=== PATIENT | male | born 1930 | race Caucasian/White ===

== ENCOUNTER 2016-07-24 | Outpatient (CLI) | payer MEDICARE | END 2016-07-24 18:41 | disposition critical access hospital (66) | CPT/HCPCS: A0425; A0427 ==

== ENCOUNTER 2016-07-24 19:01 | Emergency (ER) | payer MEDICARE ==
[2016-07-24] MEDS ORDERED: SODIUM CHLORIDE 0.9% 1,000 ML IV ONE ×2 (20:17→22:29)
[2016-07-24] MEDS ORDERED: HEPARIN 5,000 UNIT/ML VIAL IVP ONE (21:12)
[2016-07-24] MEDS ORDERED: HEPARIN 25,000 UNITS/500 ML 500 ML IV STA (21:12)
[2016-07-24] MEDS ORDERED: IOPAMIDOL-300 100 ML VIAL IVP ONE (21:14)
[2016-07-24] MEDS ORDERED: HEPARIN 5,000 UNIT/ML VIAL ONE (21:20)
[2016-07-24] MEDS ORDERED: HEPARIN 25,000 UNITS/500 ML 500 ML IV ONE (21:20)
== END 2016-07-24 23:18 | disposition short-term general hospital (02) ==
DX: I26.02 Saddle embolus of pulmonary artery with acute cor pulmonale (principal); Z86.73 Personal history of transient ischemic attack (TIA), and cerebral infarction without residual deficits; E11.9 Type 2 diabetes mellitus without complications; F03.90 Unspecified dementia, unspecified severity, without behavioral disturbance, psychotic disturbance, mood disturbance, and anxiety; Z79.84 Long term (current) use of oral hypoglycemic drugs
CPT/HCPCS: 36415; 71010; 71275; 80053; 80185; 82550; 82553; 82803; 83605; 83690; 84484; 85025; 85379; 93005; 93010; 96365; 96366; 96376; 99285; 99291; Q9967

== ENCOUNTER 2016-08-10 | Outpatient (CLI) | payer MEDICARE | END 2016-08-10 21:37 | disposition critical access hospital (66) | DX: R56.9 Unspecified convulsions (principal) | CPT/HCPCS: A0425; A0429 ==

== ENCOUNTER 2016-08-10 21:54 | Observation (INO) | payer MEDICARE ==
[2016-08-10] MEDS ORDERED: ENOXAPARIN 100 MG/ML SYRINGE SUBQ STA (23:25)
[2016-08-10] MEDS ORDERED: PHENYTOIN IV STA (23:28)
[2016-08-10] MEDS ORDERED: SODIUM CHLORIDE 0.9% IV STA (23:28)
[2016-08-10] MEDS ORDERED: ENOXAPARIN 100 MG/ML SYRINGE SUBQ ONE (23:30)
[2016-08-11] MEDS ORDERED: levETIRAcetam 250 MG TABLET PO STA (02:00)
[2016-08-11] MEDS ORDERED: levETIRAcetam 250 MG TABLET ONE (02:08)
[2016-08-11] MEDS ORDERED: SODIUM CHLORIDE FLUSH 0.9% 10 ML SYRINGE IVP PRN (03:29)
[2016-08-11] MEDS ORDERED: ONDANSETRON ODT 4 MG TABLET TL PRN (03:29)
[2016-08-11] MEDS ORDERED: oxyCODONE 5 MG TABLET PO PRN (03:29)
[2016-08-11] MEDS ORDERED: ACETAMINOPHEN 325 MG TABLET PO PRN (03:29)
[2016-08-11] MEDS ORDERED: ONDANSETRON 4 MG/2 ML VIAL IVP PRN (03:29)
[2016-08-11] MEDS ORDERED: SODIUM CHLORIDE 0.9% 1,000 ML IV SCH (04:00)
[2016-08-11] MEDS: SODIUM CHLORIDE FLUSH 0.9% 10 ML SYRINGE IVP SCH ×3 (05:07→20:52)
[2016-08-11] MEDS: PANTOPRAZOLE 40 MG TABLET PO SCH (06:32)
[2016-08-11] MEDS ORDERED: metFORMIN 500 MG TABLET PO SCH (08:00)
[2016-08-11] MEDS: levETIRAcetam 250 MG TABLET PO SCH ×2 (08:03→20:51)
[2016-08-11] MEDS: POLYETHYLENE GLYCOL 3350 17 GM PACKET PO SCH (08:03)
[2016-08-11] MEDS ORDERED: ENOXAPARIN 150 MG/ML SYRINGE SUBQ SCH (09:00)
[2016-08-11] MEDS: ENOXAPARIN 80 MG/0.8 ML SYRINGE SUBQ SCH ×2 (11:22→20:51)
[2016-08-11] MEDS: WARFARIN 5 MG TABLET PO SCH (14:49)
[2016-08-11] MEDS ORDERED: WARFARIN 2.5 MG TABLET PO ONE (15:00)
[2016-08-11] MEDS ORDERED: DEXTROSE 5% 1,000 ML IV PRN (15:23)
[2016-08-11] MEDS ORDERED: GLUCAGON 1 MG/ML VIAL SUBQ PRN (15:23)
[2016-08-11] MEDS ORDERED: DEXTROSE GEL 37.5 GM TUBE PO PRN (15:23)
[2016-08-11] MEDS ORDERED: DEXTROSE 50% ABBOJECT 25 GM/50 ML SYRINGE IVP PRN (15:23)
[2016-08-11] MEDS ORDERED: INSULIN ASPART 300 UNIT/3 ML PEN SUBQ SCH (17:00)
[2016-08-11] MEDS ORDERED: ATORVASTATIN 40 MG TABLET PO SCH (21:00)
[2016-08-12] MEDS: SODIUM CHLORIDE FLUSH 0.9% 10 ML SYRINGE IVP SCH ×2 (05:18→08:45)
[2016-08-12] MEDS: PANTOPRAZOLE 40 MG TABLET PO SCH (06:23)
[2016-08-12] MEDS ORDERED: metFORMIN 500 MG TABLET PO SCH (08:00)
[2016-08-12] MEDS: levETIRAcetam 250 MG TABLET PO SCH (08:40)
[2016-08-12] MEDS: ENOXAPARIN 80 MG/0.8 ML SYRINGE SUBQ SCH (08:41)
[2016-08-12] MEDS: POLYETHYLENE GLYCOL 3350 17 GM PACKET PO SCH (08:41)
[2016-08-12] MEDS: WARFARIN 5 MG TABLET PO SCH (12:03)
== END 2016-08-12 14:00 | disposition home or self-care (01) ==
DX: I69.393 Ataxia following cerebral infarction (principal); Z86.711 Personal history of pulmonary embolism; I69.354 Hemiplegia and hemiparesis following cerebral infarction affecting left non-dominant side; R79.1 Abnormal coagulation profile; E11.9 Type 2 diabetes mellitus without complications; G40.409 Other generalized epilepsy and epileptic syndromes, not intractable, without status epilepticus; I82.432 Acute embolism and thrombosis of left popliteal vein; L29.9 Pruritus, unspecified; T42.0X5A Adverse effect of hydantoin derivatives, initial encounter; Y92.238 Other place in hospital as the place of occurrence of the external cause; I10 Essential (primary) hypertension; F01.50 Vascular dementia, unspecified severity, without behavioral disturbance, psychotic disturbance, mood disturbance, and anxiety; K21.9 Gastro-esophageal reflux disease without esophagitis; Z79.84 Long term (current) use of oral hypoglycemic drugs; Z79.01 Long term (current) use of anticoagulants; Z85.038 Personal history of other malignant neoplasm of large intestine; Z90.49 Acquired absence of other specified parts of digestive tract; Z87.442 Personal history of urinary calculi; Z66 Do not resuscitate; Z79.899 Other long term (current) drug therapy
CPT/HCPCS: 36415; 70450; 70551; 80048; 80185; 81003; 83036; 84484; 85025; 85610; 93005; 93010; 93971; 96361; 96372; 96374; 97161; 99284; 99285; A9270; G0378; G8978; G8979; G8980; J1650

== ENCOUNTER 2016-09-11 15:08 | Outpatient (CLI) | payer MEDICARE | END 2016-09-11 15:09 | disposition home or self-care (01) | DX: R05 Cough (principal) ==

== ENCOUNTER 2017-03-13 23:53 | Outpatient (CLI) | payer MEDICARE | END 2017-03-13 23:54 | disposition critical access hospital (66) | LOC: EMS 23:53 | PROVIDERS: ATTEND Surgery | DX: R56.9 Unspecified convulsions (principal) | CPT/HCPCS: A0425; A0427 ==

== ENCOUNTER 2017-03-14 00:10 | Emergency (ER) | payer MEDICARE ==
[2017-03-14 02:05] VITALS: BP 168/65
--- NOTE | 2017-03-14 02:15 | ED Physician Documentation ---
PD HPI SEIZURE - Stated complaint Stated Complaint: SZ - Chief complaint Chief Complaint: Neuro - History obtained from History obtained from: Patient, Family - History of Present Illness Timing - onset: Enter time (00:00 (midnight)) Witnessed: Witnessed Number of seizures: Single, Lasted minutes Description of seizure activity: Generalized, Postictal Injury during seizure: None Pain level now: 0 Associated symptoms: None History of seizures: Known seizure disorder Similar symptoms before: Diagnosis (seizure disorder) Review of Systems Constitutional: reports: Reviewed and negative Eyes: reports: Reviewed and negative Cardiac: reports: Reviewed and negative Respiratory: reports: Reviewed and negative GI: reports: Reviewed and negative : denies: Incontinent Neurologic: reports: Seizure. denies: Generalized weakness, Focal weakness, Numbness, Headache PD PAST MEDICAL HISTORY - Past Medical History Cardiovascular: None Respiratory: None Neuro: Dementia, CVA Endocrine/Autoimmune: Type 2 diabetes GI: GERD, Other : Benign prostate hypertrophy HEENT: None Psych: None Musculoskeletal: None Derm: None - Past Surgical History Past Surgical History: Yes General: Bowel surgery, Colonoscopy, Other Ortho: Hip replacement HEENT: Other Derm: Other - Present Medications Home Medications: Ambulatory Orders Medication Instructions Recorded Confirmed Metformin HCl [Glucophage] 500 mg PO BIDWM 06/04/13 08/10/16 Omeprazole 20 mg PO DAILY PRN 11/24/15 08/10/16 Atorvastatin Calcium [Lipitor] 40 mg PO BID 08/11/16 08/11/16 Acetaminophen [Tylenol] 650 mg PO Q4HR PRN #0 tablet 08/12/16 Pantoprazole [Protonix] 40 mg PO QDAC #30 tablet 08/12/16 levETIRAcetam [Keppra] 500 mg PO BID #60 tablet 08/12/16 metFORMIN [Glucophage] 500 mg PO BIDWM tablet 08/12/16 oxyCODONE [Roxicodone] 5 mg PO Q4HR PRN #0 tablet 08/12/16 - Allergies Allergies/Adverse Reactions: Allergies Allergy/AdvReac Type Severity Reaction Status Date / Time codeine AdvReac Intermediate Nausea Verified 02/04/16 11:45 memantine HCl * AdvReac Anxiety Verified 04/02/16 16:45 [From Namenda] - Social History Does the pt smoke?: No Smoking Status: Never smoker Does the pt drink ETOH?: No Does the pt have substance abuse?: No - Immunizations Immunizations are current?: No - POLST Patient has POLST: Yes PD ED PE NORMAL - Vitals Vital signs reviewed: Yes - General General: Alert and oriented X 3, No acute distress, Well developed/nourished - HEENT HEENT: PERRL, EOMI, Moist mucous membranes, Pharynx benign - Neck Neck: Supple, no meningeal sign - Cardiac Cardiac: RRR - Respiratory Respiratory: No respiratory distress, Clear bilaterally - Abdomen Abdomen: Soft, Non tender - Derm Derm: Normal color, Warm and dry - Extremities Extremities: No edema - Neuro Neuro: Alert and oriented X 3, hvac engineer 2-12 intact, No motor deficit, No sensory deficit, Normal speech Results - Vitals Vitals: Oxygen O2 Source Room air PD MEDICAL DECISION MAKING - ED course Complexity details: reviewed old records, re-evaluated patient, considered differential, d/w patient, d/w family ED course: patient had seizure lasting approximately five minutes at home while in bed. was in another room, I heard an odd noise, and found patient having seizure while in bed and unresponsive. She called 911, and en route to hospital , patient has gradually but completely returned to his baseline mental status and arrives to emergency department asymptomatic. He remained asymptomatic and seizure free during emergency department observation. Departure - Departure Disposition: 01 Home, Self Care Clinical Impression: Breakthrough seizure Condition: Good Instructions: ED Seizure Recurrent Comments: Contact your neurologist or primary care physician in the morning to arrange for next available appointment Discharge Date/Time: 03/14/17 02:50
== END 2017-03-14 02:50 | disposition home or self-care (01) ==
LOC: EDUNIT# → ED 00:10 → SUPCPDRO 00:10 → ED 02:50
DX: R56.9 Unspecified convulsions (principal); F03.90 Unspecified dementia, unspecified severity, without behavioral disturbance, psychotic disturbance, mood disturbance, and anxiety; E11.8 Type 2 diabetes mellitus with unspecified complications; Z86.73 Personal history of transient ischemic attack (TIA), and cerebral infarction without residual deficits; Z79.84 Long term (current) use of oral hypoglycemic drugs; Z96.649 Presence of unspecified artificial hip joint
CPT/HCPCS: 99283; 99284

== ENCOUNTER 2017-04-08 05:11 | Emergency (ER) | payer MEDICARE ==
[2017-04-08 05:49] LABS: BILIRUBIN,URINE NEGATIVE (NEGATIVE)
--- NOTE | 2017-04-08 05:50 | ED Physician Documentation ---
PD HPI MALE - Stated complaint Stated Complaint: MALE - Chief complaint Chief Complaint: UTI - History obtained from History obtained from: Patient, Family - History of Present Illness Timing - onset: Today Timing - details: Abrupt onset, Now resolved Associated symptoms: Hematuria Similar symptoms before: Has not had sx before Recently seen: Not recently seen - Additional information Additional information: Patient is an 86 year old male on xeralto for a previous saddle PE who is presenting to the emergency department for hematuria. According to patient and family when the patient got up to go to the bathroom to urinate, after he went he noticed blood on the floor and blood in the toilet. Patient has never had these symptoms before. Review of Systems Unable to obtain: Dementia PD PAST MEDICAL HISTORY - Past Medical History Past Medical History: Yes Cardiovascular: None Respiratory: None Neuro: Dementia, CVA Endocrine/Autoimmune: Type 2 diabetes GI: GERD, Other : Benign prostate hypertrophy HEENT: None Psych: None Musculoskeletal: None Derm: None - Past Surgical History Past Surgical History: Yes General: Bowel surgery, Colonoscopy, Other Ortho: Hip replacement HEENT: Other Derm: Other - Present Medications Home Medications: Ambulatory Orders Medication Instructions Recorded Confirmed Metformin HCl [Glucophage] 500 mg PO BIDWM 06/04/13 04/08/17 Omeprazole 20 mg PO DAILY PRN 11/24/15 04/08/17 Atorvastatin Calcium [Lipitor] 40 mg PO BID 08/11/16 04/08/17 levETIRAcetam [Keppra] 500 mg PO BID #60 tablet 08/12/16 04/08/17 Rivaroxaban [Xarelto] 20 mg ORAL DAILY 04/08/17 04/08/17 Sucralfate [Carafate] 2 tsp ORAL BID 04/08/17 04/08/17 - Allergies Allergies/Adverse Reactions: Allergies Allergy/AdvReac Type Severity Reaction Status Date / Time codeine AdvReac Intermediate Nausea Verified 04/08/17 05:20 memantine HCl * AdvReac Anxiety Verified 04/08/17 05:20 [From Namenda] - Social History Does the pt smoke?: No Smoking Status: Never smoker Does the pt drink ETOH?: No Does the pt have substance abuse?: No - Immunizations Immunizations are current?: No - POLST Patient has POLST: Yes PD ED PE NORMAL - Vitals Vital signs reviewed: Yes - General General: Alert and oriented X 3, No acute distress - HEENT HEENT: Atraumatic, PERRL - Neck Neck: Supple, no meningeal sign - Cardiac Cardiac: RRR, No murmur - Respiratory Respiratory: No respiratory distress - Abdomen Abdomen: Non tender, Non distended - Derm Derm: Normal color, Warm and dry, No rash - Extremities Extremities: No deformity, No tenderness to palpate, No edema - Neuro Neuro: Alert and oriented X 3, No motor deficit, No sensory deficit, Normal speech - Psych Psych: Normal mood, Normal affect PD ED PE EXPANDED - Male Male : Other (dried blood on the penis and the diaper) - Rectal Rectal: Other (no blood in rectal cavity) Results - Vitals Vitals: Vital Signs - 24 hr 04/08/17 05:15 Temperature 36 C L Heart Rate 62 Respiratory 16 Rate Blood Pressure 172/79 H O2 Saturation 98 Oxygen O2 Source Room air - Labs Labs: Laboratory Tests 04/08/17 05:30 Urine Color YELLOW Urine Clarity CLEAR Urine pH 7.0 Ur Specific [place] 1.010 Urine Protein NEGATIVE Urine Glucose (UA) NEGATIVE Urine Ketones NEGATIVE Urine Occult Blood MODERATE H Urine Nitrite NEGATIVE Urine Bilirubin NEGATIVE Urine Urobilinogen 0.2 (NORMAL) Ur Leukocyte Esterase TRACE H Urine RBC 6-10 H Urine WBC 4-5 Ur Squamous Epith Cells NONE SEEN Urine Bacteria None Seen Ur Microscopic Review INDICATED Urine Culture Comments INDICATED PD MEDICAL DECISION MAKING - ED course Complexity details: reviewed old records, reviewed results, re-evaluated patient , considered differential, d/w patient, d/w family ED course: Patient was seen and examined at bedside. Patient was well appearing and in no acute distress. Patient's urine was collected and the bleeding had mostly stopped, there was no gross hematuria. patients labs were within normal limits. Patient required no further work up. ample time was given to the patient and family to ask and answer questions. Patient was stable for discharge with outpatient follow up. Departure - Departure Disposition: 01 Home, Self Care Clinical Impression: Hematuria Condition: Good Instructions: Hematuria Poss Causes, ED Hematuria Follow-Up: [facility] [Provider Group] - Within 3 Days Comments: Your diagnostics today were within normal limits. there was not significant blood loss today. If the bleeding returns you should follow up with the [facility]. You should make sure that you stay well hydrated. You should continue with your current medical regiment. You may return to the emergency department at any time for dizziness, syncope, new, worsening or uncontrollable symptoms.
[2017-04-08 05:55] LABS: UA w/ MICROSCOPIC CHARGE YES; UR CULTURE IF IND INDICATED
[2017-04-08 06:35] LABS: BASOPHILS % (AUTO) 0.4 %; EOSINOPHILS # (AUTO) 0.1 10^3/uL (0.0-0.7); EOSINOPHILS % (AUTO) 2.1 %; HCT - HEMATOCRIT 36.5 % (42.0-52.0); HGB - HEMOGLOBIN 11.8 g/dL (14.0-18.0); LYMPHOCYTES # (AUTO) 0.4 10^3/uL (1.5-3.5); LYMPHOCYTES % (AUTO) 12.1 %; MEAN CORPUSCULAR HEMOGLOBIN 28.7 pg (27.0-31.0); MEAN CORPUSCULAR HGB CONC 32.3 g/dL (32.0-36.0); MEAN CORPUSCULAR VOLUME 88.9 fL (80.0-94.0); MONOCYTES # (AUTO) 0.3 10^3/uL (0.0-1.0); NEUTROPHILS # (AUTO) 2.3 10^3/uL (1.5-6.6); NEUTROPHILS % (AUTO) 74.4 %; RED BLOOD COUNT 4.11 10^6/uL (4.70-6.10); RED CELL DISTRIBUTION WIDTH 17.4 % (12.0-15.0); UNCORRECTED WHITE BLOOD COUNT 3.1 x10^3/uL; WHITE BLOOD COUNT 3.1 x10^3/uL (4.8-10.8)
[2017-04-08 06:45] VITALS: BP 168/70
== END 2017-04-08 06:49 | disposition home or self-care (01) ==
LOC: ED 05:11
DX: R31.9 Hematuria, unspecified (principal); E11.9 Type 2 diabetes mellitus without complications; F03.90 Unspecified dementia, unspecified severity, without behavioral disturbance, psychotic disturbance, mood disturbance, and anxiety; Z79.84 Long term (current) use of oral hypoglycemic drugs; Z86.73 Personal history of transient ischemic attack (TIA), and cerebral infarction without residual deficits; Z96.649 Presence of unspecified artificial hip joint
CPT/HCPCS: 36415; 81001; 81003; 85025; 87086; 99283; 99284

== ENCOUNTER 2017-07-08 12:38 | Emergency (ER) | payer MEDICARE ==
--- NOTE | 2017-07-08 13:13 | ED Physician Documentation ---
PD HPI NVD - Stated complaint Stated Complaint: UNABLE TO EAT/DRAINAGE - Chief complaint Chief Complaint: Heent - History obtained from History obtained from: Patient - History of Present Illness Timing - onset: How many days ago (3) Timing - duration: Days (3) Timing - details: Abrupt onset, Still present (unasble to swallow (minimal sips at times, otherwise vomiting saliva/fluids and any attempt PO intake). Has been unable to swallowAny more than very small bites of food and soft foods for the last 3 or 4 months. In the last few weeks he has had an episode every few days where he is unable to swallow and just spitting up saliva for an hour or 2 with the longest episode being 4 hours. It then would clearly be able to swallow small soft amounts. He started having the inability to swallow and this vomiting saliva and any attempted oral intake starting 3 days ago. He is feeling weak and lightheaded. He has not been able to take any of his usual medications including Xarelto his blood thinner. He did not take his seizure medicine Keppra but has not had any seizures.) Associated symptoms: Loss of appetite. No: Fever, Abdominal pain, Near syncope / syncope, Dysuria Contributing factors: Anticoagulated. No: Sick contact, Bad food, Travel, Recent antibiotics Similar symptoms before: No diagnosis (similar shorter episodes and trouble swallowing for the past 3-4 months, slowly worsening.) Recently seen: Not recently seen Review of Systems Constitutional: denies: Fever, Chills Nose: denies: Rhinorrhea / runny nose, Congestion Cardiac: denies: Chest pain / pressure Respiratory: denies: Dyspnea, Cough GI: denies: Constipation, Diarrhea, Hematemesis : denies: Dysuria (but has had dark urine the past day) Neurologic: reports: Generalized weakness. denies: Focal weakness, Numbness, Syncope Psychiatric: denies: Anxiety, Insomnia Endocrine: reports: Easy bruising / bleeding. denies: Weight loss PD PAST MEDICAL HISTORY - Past Medical History Cardiovascular: None Respiratory: None Neuro: Dementia, CVA Endocrine/Autoimmune: Type 2 diabetes GI: GERD, Other : Benign prostate hypertrophy HEENT: None Psych: None Musculoskeletal: None Derm: None - Past Surgical History Past Surgical History: Yes General: Bowel surgery, Colonoscopy, Other Ortho: Hip replacement HEENT: Other Derm: Other - Present Medications Home Medications: Ambulatory Orders Medication Instructions Recorded Confirmed Metformin HCl [Glucophage] 500 mg PO BIDWM 06/04/13 04/08/17 Omeprazole 20 mg PO DAILY PRN 11/24/15 04/08/17 Atorvastatin Calcium [Lipitor] 40 mg PO BID 08/11/16 04/08/17 levETIRAcetam [Keppra] 500 mg PO BID #60 tablet 08/12/16 04/08/17 Rivaroxaban [Xarelto] 20 mg ORAL DAILY 04/08/17 04/08/17 Sucralfate [Carafate] 2 tsp ORAL BID 04/08/17 04/08/17 - Allergies Allergies/Adverse Reactions: Allergies Allergy/AdvReac Type Severity Reaction Status Date / Time codeine AdvReac Intermediate Nausea Verified 04/08/17 05:20 memantine HCl * AdvReac Anxiety Verified 04/08/17 05:20 [From Namenda] - Social History Does the pt smoke?: No Smoking Status: Never smoker Does the pt drink ETOH?: No Does the pt have substance abuse?: No - Immunizations Immunizations are current?: No - POLST Patient has POLST: Yes PD ED PE NORMAL - Vitals Vital signs reviewed: Yes - General General: Alert and oriented X 3, Well developed/nourished - HEENT HEENT: Pharynx benign. No: Moist mucous membranes - Neck Neck: Supple, no meningeal sign, No adenopathy - Cardiac Cardiac: RRR, No murmur - Respiratory Respiratory: Clear bilaterally - Abdomen Abdomen: Normal bowel sounds, Soft, Non tender, Non distended - Male Male : Deferred - Rectal Rectal: Deferred - Back Back: No CVA TTP - Derm Derm: Normal color, Warm and dry - Extremities Extremities: No deformity, No tenderness to palpate, Normal ROM s pain, No edema , No calf tenderness / cord - Neuro Neuro: Alert and oriented X 3, No motor deficit, Normal speech - Psych Psych: Normal mood, Normal affect Results - Vitals Vitals: Vital Signs - 24 hr 07/08/17 12:46 Temperature 36.7 C Heart Rate 71 Respiratory 16 Rate Blood Pressure 156/85 H O2 Saturation 99 Oxygen O2 Source Room air - Labs Labs: Laboratory Tests 07/08/17 07/08/17 07/08/17 14:50 14:50 14:50 WBC 2.8 L RBC 3.97 L Hgb 11.7 L Hct 35.1 L MCV 88.4 MCH 29.3 MCHC 33.2 RDW 17.0 H Plt Count 186 MPV 7.9 Neut # 2.0 Lymph # 0.4 L [place] # 0.3 Eos # 0.1 Baso # 0.0 Absolute Nucleated RBC 0.00 Nucleated RBC % 0.2 Manual Slide Review Indicated Platelet Estimate NORMAL (130-450,000) Platelet Morphology NORMAL APPEARANCE RBC Morph Micro Appear NORMAL APPEARANCE PT 13.4 H INR 1.2 APTT 26.3 Sodium 141 Potassium 3.6 Chloride 107 Carbon Dioxide 25 Anion Gap 9.0 BUN 13 Creatinine 0.8 Estimated GFR (MDRD) 91 Glucose 105 H Calcium 9.2 Magnesium 1.9 Total Bilirubin 0.5 AST 34 ALT 28 Alkaline Phosphatase 88 B-Natriuretic Peptide Total Protein 7.3 Albumin 3.9 Globulin 3.4 Albumin/Globulin Ratio 1.1 Lipase 23 07/08/17 14:50 WBC RBC Hgb Hct MCV MCH MCHC RDW Plt Count MPV Neut # Lymph # [place] # Eos # Baso # Absolute Nucleated RBC Nucleated RBC % Manual Slide Review Platelet Estimate Platelet Morphology RBC Morph Micro Appear PT INR APTT Sodium Potassium Chloride Carbon Dioxide Anion Gap BUN Creatinine Estimated GFR (MDRD) Glucose Calcium Magnesium Total Bilirubin AST ALT Alkaline Phosphatase B-Natriuretic Peptide 56 Total Protein Albumin Globulin Albumin/Globulin Ratio Lipase PD MEDICAL DECISION MAKING - ED course Complexity details: reviewed results, considered differential, d/w patient, d/w small business consultant (YESSENIA Montano at [facility]. then talked with ER there. ) Departure - Departure Disposition: 02 Transfer Acute Care Hosp Clinical Impression: Esophageal obstruction, Dehydration, Anticoagulant long-term use Condition: Stable Record reviewed to determine appropriate education?: Yes
[2017-07-08] MEDS ORDERED: SODIUM CHLORIDE 0.9% 1,000 ML IV ONE ×2 (14:35→14:36)
[2017-07-08] MEDS ORDERED: FAMOTIDINE 20 MG/50 ML 50 ML IV ONE (14:36)
[2017-07-08] MEDS ORDERED: levETIRAcetam INJ 500 MG in SODIUM CHLORIDE 0.9% 100ML 100 ML IV STA (14:36)
[2017-07-08 14:58] LABS: BASOPHILS % (AUTO) 0.3 %; EOSINOPHILS # (AUTO) 0.1 10^3/uL (0.0-0.7); EOSINOPHILS % (AUTO) 2.4 %; HGB - HEMOGLOBIN 11.7 g/dL (14.0-18.0); LYMPHOCYTES # (AUTO) 0.4 10^3/uL (1.5-3.5); MEAN CORPUSCULAR HEMOGLOBIN 29.3 pg (27.0-31.0); MEAN CORPUSCULAR HGB CONC 33.2 g/dL (32.0-36.0); MEAN CORPUSCULAR VOLUME 88.4 fL (80.0-94.0); MEAN PLATELET VOLUME 7.9 fL (7.4-11.4); MONOCYTES # (AUTO) 0.3 10^3/uL (0.0-1.0); NEUTROPHILS % (AUTO) 71.3 %; PLT - PLATELET COUNT 186 10^3/uL (130-450); RED BLOOD COUNT 3.97 10^6/uL (4.70-6.10); WHITE BLOOD COUNT 2.8 x10^3/uL (4.8-10.8)
[2017-07-08 15:05] LABS: INR 1.2 (0.8-1.2); PT - PROTHROMBIN TIME 13.4 secs (9.9-12.6)
[2017-07-08 15:10] LABS: ALBUMIN 3.9 g/dL (3.2-5.5); ALBUMIN/GLOBULIN RATIO 1.1 (1.0-2.2); BILIRUBIN,TOTAL 0.5 mg/dL (0.2-1.0); CALCIUM 9.2 mg/dL (8.5-10.3); CREATININE 0.8 mg/dL (0.6-1.2); MAGNESIUM 1.9 mg/dL (1.7-2.8); TOTAL PROTEIN 7.3 g/dL (6.7-8.2)
[2017-07-08 15:13] LABS: PLATELET ESTIMATE, MANUAL NORMAL (130-450,000) (NORMAL); PLATELET MORPHOLOGY NORMAL APPEARANCE (NORMAL); RBC MORPHOLOGY (MULTIPLE) NORMAL APPEARANCE (NORMAL)
[2017-07-08 17:44] VITALS: BP 172/89
== END 2017-07-08 17:59 | disposition short-term general hospital (02) ==
LOC: ED 12:38
DX: K22.2 Esophageal obstruction (principal); E86.0 Dehydration; F03.90 Unspecified dementia, unspecified severity, without behavioral disturbance, psychotic disturbance, mood disturbance, and anxiety; E11.9 Type 2 diabetes mellitus without complications; Z86.73 Personal history of transient ischemic attack (TIA), and cerebral infarction without residual deficits; Z96.649 Presence of unspecified artificial hip joint; Z79.01 Long term (current) use of anticoagulants
CPT/HCPCS: 36415; 80053; 83690; 83735; 83880; 85025; 85610; 85730; 96365; 96367; 99283; 99284

== ENCOUNTER 2017-07-08 17:52 | Outpatient (CLI) | payer MEDICARE | END 2017-07-08 17:53 | disposition short-term general hospital (02) | LOC: EMS 17:52 | PROVIDERS: ATTEND Surgery | DX: R11.10 Vomiting, unspecified (principal) | CPT/HCPCS: A0425; A0428 ==

== ENCOUNTER 2017-07-17 08:32 | Outpatient (CLI) | payer MEDICARE | END 2017-07-17 08:33 | disposition critical access hospital (66) | LOC: EMS 08:32 | PROVIDERS: ATTEND Surgery | DX: R56.9 Unspecified convulsions (principal) | CPT/HCPCS: A0425; A0429 ==

== ENCOUNTER 2017-07-17 08:33 | Inpatient (IN) | payer MEDICARE ==
[2017-07-17] MEDS ORDERED: SODIUM CHLORIDE 0.9% 1,000 ML IV ONE (08:57)
--- NOTE | 2017-07-17 09:00 | ED Physician Documentation ---
PD HPI SEIZURE - Stated complaint Stated Complaint: Seizure - Chief complaint Chief Complaint: Neuro - History obtained from History obtained from: Patient, Family, EMS - History of Present Illness Timing - onset: Today Witnessed: Witnessed Number of seizures: Single, Lasted minutes Description of seizure activity: Generalized, Incontinent Injury during seizure: None Associated symptoms: None History of seizures: Known seizure disorder Similar symptoms before: Diagnosis (siezure) Recently seen: Surgery (had esophageal dilation done 9 days ago.) - Additional information Additional information: 87-year-old male with a history of CVA and dementia has a known seizure disorder and this morning was found to be seizing by his . She does sleep in a separate room heard some screeching noise when in and discovered him seizing. He was postictal when medics arrived and continues to have some confusion here in the emergency department. He has recently had an esophageal dilation done and prior to that was not able to take his medications. It is uncertain whether he has been taking his medications. Review of Systems Unable to obtain: Dementia PD PAST MEDICAL HISTORY - Past Medical History Past Medical History: Yes Cardiovascular: None Respiratory: None Neuro: Dementia, CVA Endocrine/Autoimmune: Type 2 diabetes GI: GERD, Other : Benign prostate hypertrophy HEENT: None Psych: None Musculoskeletal: None Derm: None - Past Surgical History Past Surgical History: Yes General: Bowel surgery, Colonoscopy, Other Ortho: Hip replacement HEENT: Other Derm: Other - Present Medications Home Medications: Ambulatory Orders Medication Instructions Recorded Confirmed Metformin HCl [Glucophage] 500 mg PO BIDWM 06/04/13 07/17/17 Omeprazole 20 mg PO DAILY PRN 11/24/15 07/17/17 Atorvastatin Calcium [Lipitor] 40 mg PO BID 08/11/16 07/17/17 levETIRAcetam [Keppra] 500 mg PO BID #60 tablet 08/12/16 07/17/17 Rivaroxaban [Xarelto] 20 mg ORAL DAILY 04/08/17 07/17/17 Sucralfate [Carafate] 2 tsp ORAL BID 04/08/17 07/17/17 Lisinopril 5 mg PO DAILY 07/17/17 07/17/17 - Allergies Allergies/Adverse Reactions: Allergies Allergy/AdvReac Type Severity Reaction Status Date / Time codeine AdvReac Intermediate Nausea Verified 04/08/17 05:20 memantine HCl * AdvReac Anxiety Verified 04/08/17 05:20 [From Namenda] - Social History Does the pt smoke?: No Smoking Status: Never smoker Does the pt drink ETOH?: No Does the pt have substance abuse?: No - Immunizations Immunizations are current?: No - POLST Patient has POLST: Yes PD ED PE NORMAL - Vitals Vital signs reviewed: Yes - General General: No acute distress, Well developed/nourished - HEENT HEENT: Atraumatic, PERRL - Neck Neck: Supple, no meningeal sign, No bony TTP - Cardiac Cardiac: RRR, No murmur - Respiratory Respiratory: No respiratory distress, Clear bilaterally - Abdomen Abdomen: Soft, Non tender - Back Back: No CVA TTP, No spinal TTP - Derm Derm: Normal color, Warm and dry, No rash - Extremities Extremities: No deformity, No edema - Neuro Neuro: No motor deficit, No sensory deficit Eye Opening: Spontaneous Motor: Obeys Commands Verbal: Confused GCS Score: 14 - Psych Psych: Normal mood, Normal affect Results - Vitals Vitals: Vital Signs - 24 hr 07/17/17 07/17/17 07/17/17 08:36 09:15 10:10 Temperature 36.2 C L Heart Rate 80 74 78 Respiratory 14 12 16 Rate Blood Pressure 158/78 H 169/71 H 161/78 H O2 Saturation 94 96 98 07/17/17 11:20 Temperature Heart Rate 66 Respiratory 16 Rate Blood Pressure 160/75 H O2 Saturation 98 Oxygen O2 Source Room air - Labs Labs: Laboratory Tests 07/17/17 07/17/17 07/17/17 09:10 09:10 09:10 WBC 3.0 L RBC 4.04 L Hgb 11.7 L Hct 35.8 L MCV 88.7 MCH 29.1 MCHC 32.8 RDW 16.8 H Plt Count 151 MPV 7.8 Neut # 2.5 Lymph # 0.2 L [place] # 0.2 Eos # 0.0 Baso # 0.0 Absolute Nucleated RBC 0.00 Nucleated RBC % 0.1 Sodium 139 Potassium 3.9 Chloride 105 Carbon Dioxide 25 Anion Gap 9.0 BUN 14 Creatinine 1.0 Estimated GFR (MDRD) 71 L Glucose 145 H Calcium 9.1 Total Bilirubin 0.5 AST 35 ALT 27 Alkaline Phosphatase 83 Troponin I < 0.04 Total Protein 7.0 Albumin 3.9 Globulin 3.1 Albumin/Globulin Ratio 1.3 Lipase 27 Urine Color Urine Clarity Urine pH Ur Specific [place] Urine Protein Urine Glucose (UA) Urine Ketones Urine Occult Blood Urine Nitrite Urine Bilirubin Urine Urobilinogen Ur Leukocyte Esterase Urine RBC Urine WBC Urine WBC Clumps Ur Epithelial Cells Ur Squamous Epith Cells Urine Bacteria Urine Mucus Ur Microscopic Review Urine Culture Comments 07/17/17 11:29 WBC RBC Hgb Hct MCV MCH MCHC RDW Plt Count MPV Neut # Lymph # [place] # Eos # Baso # Absolute Nucleated RBC Nucleated RBC % Sodium Potassium Chloride Carbon Dioxide Anion Gap BUN Creatinine Estimated GFR (MDRD) Glucose Calcium Total Bilirubin AST ALT Alkaline Phosphatase Troponin I Total Protein Albumin Globulin Albumin/Globulin Ratio Lipase Urine Color YELLOW Urine Clarity HAZY Urine pH 6.0 Ur Specific [place] 1.020 Urine Protein TRACE Urine Glucose (UA) NEGATIVE Urine Ketones NEGATIVE Urine Occult Blood MODERATE H Urine Nitrite NEGATIVE Urine Bilirubin NEGATIVE Urine Urobilinogen 0.2 (NORMAL) Ur Leukocyte Esterase TRACE H Urine RBC TNTC H Urine WBC >25 H Urine WBC Clumps PRESENT Ur Epithelial Cells MOD Renal Tubular H Ur Squamous Epith Cells FEW Squamous Urine Bacteria Few Urine Mucus Few Strands Ur Microscopic Review INDICATED Urine Culture Comments INDICATED Procedures - IVC sono (time) 0850 Bedside IVC sono: IVC measures (cm) (1.46), IVC collapsed c insp (cm) (1.06), Euvolemia PD MEDICAL DECISION MAKING - ED course Complexity details: reviewed old records, reviewed results, re-evaluated patient , considered differential, d/w patient ED course: 87-year-old male with advanced dementia has developed vomiting of his medications and has poor oral intake. He is failing at home and is found to have urinary tract infection here in the emergency department. He has had seizure today as well. I believe his seizure is provoked by infection and I have recommended hospitalization. Departure - Departure Disposition: [facility] DC/Xfer Clinical Impression: Breakthrough seizure Urinary tract infection Qualifiers: Urinary tract infection type: acute cystitis Hematuria presence: without hematuria Qualified Code(s): N30.00 - Acute cystitis without hematuria Altered mental status Qualifiers: Altered mental status type: unspecified Qualified Code(s): R41.82 - Altered mental status, unspecified
[2017-07-17 09:17] LABS: BASOPHILS % (AUTO) 0.2 %; EOSINOPHILS % (AUTO) 0.6 %; HGB - HEMOGLOBIN 11.7 g/dL (14.0-18.0); LYMPHOCYTES # (AUTO) 0.2 10^3/uL (1.5-3.5); LYMPHOCYTES % (AUTO) 7.6 %; MEAN CORPUSCULAR HEMOGLOBIN 29.1 pg (27.0-31.0); MEAN CORPUSCULAR HGB CONC 32.8 g/dL (32.0-36.0); MEAN CORPUSCULAR VOLUME 88.7 fL (80.0-94.0); MEAN PLATELET VOLUME 7.8 fL (7.4-11.4); MONOCYTES # (AUTO) 0.2 10^3/uL (0.0-1.0); MONOCYTES % (AUTO) 6.8 %; NEUTROPHILS # (AUTO) 2.5 10^3/uL (1.5-6.6); NEUTROPHILS % (AUTO) 84.8 %; PLT - PLATELET COUNT 151 10^3/uL (130-450); RED BLOOD COUNT 4.04 10^6/uL (4.70-6.10); RED CELL DISTRIBUTION WIDTH 16.8 % (12.0-15.0)
[2017-07-17 09:29] LABS: ALBUMIN 3.9 g/dL (3.2-5.5); ALBUMIN/GLOBULIN RATIO 1.3 (1.0-2.2); BILIRUBIN,TOTAL 0.5 mg/dL (0.2-1.0); CALCIUM 9.1 mg/dL (8.5-10.3)
[2017-07-17 11:33] LABS: BILIRUBIN,URINE NEGATIVE (NEGATIVE); GLUCOSE, URINE (UA) NEGATIVE (NEGATIVE); KETONES,URINE (UA) NEGATIVE (NEGATIVE); LEUKOCYTE ESTERASE, URINE TRACE (NEGATIVE); NITRITE,URINE NEGATIVE (NEGATIVE); OCCULT BLOOD,URINE MODERATE (NEGATIVE); PROTEIN,URINE TRACE mg/dL (NEGATIVE); UROBILINOGEN,URINE 0.2 (NORMAL) E.U./dL (NORMAL)
[2017-07-17 11:39] LABS: CLARITY,URINE HAZY (CLEAR)
[2017-07-17 11:42] LABS: BACTERIA,URINE Few /HPF (None Seen); EPITHELIAL CELLS,UR MOD Renal Tubular /HPF (<= Few); MUCUS,URINE Few Strands; RBC,URINE TNTC /HPF (0-5); SQUAMOUS EPITHELIAL CELL,UR FEW Squamous (<= Few); WBC CLUMPS,URINE PRESENT
[2017-07-17] MEDS ORDERED: levoFLOXacin 750 MG/150 ML 750 MG/150 ML BAG IV ONE (12:01)
[2017-07-17] MEDS ORDERED: SODIUM CHLORIDE FLUSH 0.9% 10 ML SYRINGE IVP PRN (14:16)
[2017-07-17] MEDS ORDERED: ACETAMINOPHEN 325 MG TABLET PO PRN (14:16)
[2017-07-17] MEDS ORDERED: ONDANSETRON 4 MG/2 ML VIAL IVP PRN (14:16)
[2017-07-17] MEDS ORDERED: LORazepam 2 MG/ML VIAL IVP PRN (14:32)
[2017-07-17 14:59] LABS: HB2 TOTAL 12.7 g/dL; HEMOGLOBIN A1C 0.7 g/dL; HEMOGLOBIN A1C % 7.2 % (4.6-6.2)
[2017-07-17] MEDS ORDERED: SODIUM CHLORIDE 0.9% 1,000 ML IV SCH (15:00)
--- NOTE | 2017-07-17 15:18 | HISTORY & PHYSICAL EXAMINATION ---
Chief Complaint - Chief Complaint Chief Complaint: seizure History of Present Illness - History of Present Illness HPI Comment/Other: is a 87-year-old male with a history of CVA, dementia, dysphagia, hx of recurrent seizure, DM2, BPH, who was found to have seizure at home by his . pt's is at pt's bedside. She answer all questions. Pt could not provide information due to his medical condition. Pt was prescribed Keppra at home. His report He has recently had an esophageal dilation done by GI at [place]. His state pt was not able to take his medications prior to that. It is uncertain whether pt has been taking his medications in the procedure done at [place] as well. There is no seizure in this ER. Pt seems positive for UTI in UA. Pt's also report she is very difficult to take care of pt now with pt's advanced Dementia, and her own medication issues. Pt does not have chest pain, shortness of breath, headache, focal neurological deficit, abdominal pain, nausea, vomiting, diarrhea, and no other complaints. History - Past Medical History Cardiovascular: reports: None Respiratory: reports: None Neuro: reports: Dementia, CVA Endocrine/Autoimmune: reports: Type 2 diabetes GI: reports: GERD, Other : reports: Benign prostate hypertrophy HEENT: reports: None Psych: reports: None Musculoskeletal: reports: None Derm: reports: None MRSA Hx?: No - Past Surgical History General: reports: Bowel surgery, Colonoscopy, Other Ortho: reports: Hip replacement HEENT: reports: Other Derm: reports: Other - Family & Social History Family History Comment/Other: pt is living [place], with his . They have four children Living arrangement: At home Living Situation: With spouse/s.o. Social History Notes: pt's report pt has never been cigarette smoker, alcohol and drug abuse. - Substance History Use: Uses substance without health or social issues: NONE Abuse: Recurrent use of substance despite neg consequences: NONE Dependence: Experiences withdrawal or developed tolerances: NONE - POLST Patient has POLST: Yes POLST Status: Full Code Meds/Allgy - Home Medications Home Medications: Ambulatory Orders Medication Instructions Recorded Confirmed Metformin HCl [Glucophage] 500 mg PO BIDWM 06/04/13 07/17/17 Omeprazole 20 mg PO BID 11/24/15 07/17/17 Atorvastatin Calcium [Lipitor] 40 mg PO BID 08/11/16 07/17/17 levETIRAcetam [Keppra] 500 mg PO BID #60 tablet 08/12/16 07/17/17 Rivaroxaban [Xarelto] 20 mg ORAL DAILY 04/08/17 07/17/17 Sucralfate [Carafate] 1 gm PO BID 04/08/17 07/17/17 Cholecalciferol (Vitamin D3) 2,000 unit PO DAILY 07/17/17 07/17/17 [Vitamin D] Lisinopril 5 mg PO DAILY 07/17/17 07/17/17 Loratadine [Claritin] 10 mg PO DAILY 07/17/17 07/17/17 - Allergies Allergies/Adverse Reactions: Allergies Allergy/AdvReac Type Severity Reaction Status Date / Time codeine AdvReac Intermediate Nausea Verified 04/08/17 05:20 memantine HCl * AdvReac Anxiety Verified 04/08/17 05:20 [From Namenda] Review of Systems - Constitutional Constitutional: denies: Fatigue, Fever, Chills, Malaise, Weakness, Poor appetite , Diaphoresis, Night sweats - Eyes Eyes: denies: Pain, Irritation, Blurred vision, Spots in vision, Field loss, Vision loss, Dipolpia - Ears, Nose & Throat Ears, Nose & Throat: denies: Ear pain, Hearing loss, Hearing aids, Vertigo, Nasal pain, Nasal discharge, Nosebleeds, Nasal congestion, Postnasal drainage, Sore throat, Mouth lesions, Bleeding gums - Cardiovascular Cariovascular: denies: Irregular heart rate, Palpitations, Chest pain, Edema, Lightheadedness, Syncope, Exertional dyspnea, Decr. exercise tolerance - Respiratory Respiratory: denies: Cough, Sputum production, Wheezing, Snoring, Hemoptysis, Orthopnea, SOB at rest, SOB with exertion, Apnea, Stridor - Gastrointestinal Gastrointestinal: denies: Abdominal pain, Abdominal distention, Constipation, Diarrhea, Rectal bleeding, Black stools, Bloody stools, Nausea, Vomiting, Dennis blood emesis, Coffee grounds emesis - Genitourinary Genitourinary: denies: Dysuria, Frequency, Urgency, Hematuria, Incontinence, Flank pain, Nocturia - Musculoskeletal Musculoskeletal: denies: Muscle pain, Back pain, Muscle aches, Stiffness, Limited range of motion, Muscle weakness, Gout, Joint pain - Integumentary Integumentary: denies: Rash, Pruritis, Lesions, Dryness, Lumps, Acne, Pigment changes - Neurological Neurological: denies: General weakness, Focal weakness, Headache, Dizziness, Numbness, Memory problems, Pre-existing deficit, Abnormal gait, Seizures, Incoordination, Slurred speech - Psychiatric Psychiatric: denies: Depression, Anxiety, Suicidal, Delusions, Hallucinations, Homicidal - Endocrine Endocrine: denies: Polyuria, Polydypsia, Polyphagia, Intolerance to cold - Hematologic/Lymphatic Hematologic/Lymphatic: denies: Anemia, Bruising, Petechiae, Lymphadenopathy, Bleeding tendencies, Recurrent infections Exam - Vital Signs Vital Signs: Vital Signs x48h Temp Pulse Resp BP Pulse Ox 07/17/17 14:59 37.5 C 64 16 139/74 H 100 - Physical Exam General Appearance: positive: No acute distress, Alert. negative: Lethargic Eyes Bilateral: positive: Normal inspection, PERRL, No lid inflammation, Conjunctivae nml ENT: positive: ENT inspection nml, Pharynx nml, No signs of dehydration. negative: Purulent nasal drainage, Pharyngeal erythema, Oral lesions Neck: positive: Nml inspection, Thyroid nml, No JVD, Trachea midline. negative : Thyromegaly, Lymphadenopathy (R), Lymphadenopathy (L), Stiff neck, Carotid bruit, Swelling/bruising, Tracheal deviation Respiratory: positive: Chest non-tender, No respiratory distress, Breath sounds nml. negative: Wheezes, Rales, Rhonchi Cardiovascular: positive: Regular rate & rhythm, No murmur, No gallop. negative : Irregularly irregular, Extrasystoles, Tachycardia, Bradycardia, Systolic murmur, Diastolic murmur Peripheral Pulses: positive: 2+ Abdomen: negative: Non-tender, No organomegaly, Nml bowel sounds, No distention , Tenderness, Guarding, Rebound Back: positive: Nml inspection. negative: CVA tenderness (R), CVA tenderness (L ) Skin: positive: Color nml, No rash, Warm, Dry. negative: Cyanosis, Diaphoresis , Pallor Extremities: positive: Non-tender, Nml appearance. negative: Calf tenderness, Joint swelling, Osmani's sign/cords Neurologic/Psychiatric: positive: Sensation nml, Mood/affect nml. negative: Sensory loss, Facial droop, Slurred/abnml speech, Depressed mood/affect Conclusion/Plan - Problem List (1) Seizure Conclusion/Plan: pt's report pt had a seizure at home. Uncertain medication Keppra compliance check Keppra serum concentration Resume home Keppra regime Ativan PRN for seizure seizure precaution (2) UTI (urinary tract infection) Conclusion/Plan: rocephin follow up UA (3) DM2 (diabetes mellitus, type 2) Conclusion/Plan: slide scale PRN for insulin ACHS Hypoglycemia protocol (4) HTN (hypertension) Conclusion/Plan: stable, resume home BP meds (5) History of dementia Conclusion/Plan: pt with advanced dementia. His state she feel very difficult to take care of pt now, beside of her own medical condition, and request replacement consult with social work (6) History of dysphagia Conclusion/Plan: pt recently had a procedure of esophageal dilation. his state he can drink some liquid diet with crushed medications liquid diet nutrition consult (7) DVT prophylaxis Conclusion/Plan: SCD, pt is Xarelto 20 mg daily (8) Limited code status Conclusion/Plan: pt's clearly request CPR without incubation and life support. - Lab Results Fish Bones: 07/17/17 09:10 07/17/17 09:10 - EKG Results EKG Interpreted Independently: Yes Core Measures - Anticipated LOS I expect patient to be DC'd or transferred within 96 hours.: Yes
[2017-07-17] MEDS ORDERED: HYDROCORTISONE 1% CREAM 28 GM TUBE TOP PRN (17:00)
[2017-07-17] MEDS: SODIUM CHLORIDE 0.9% 1,000 ML IV SCH (17:57)
[2017-07-17] MEDS: SUCRALFATE 1 GM/10 ML UDC PO SCH (17:58)
[2017-07-17] MEDS: INSULIN ASPART 300 UNIT/3 ML PEN SUBQ SCH ×2 (17:58→20:37)
[2017-07-17] MEDS: SODIUM CHLORIDE FLUSH 0.9% 10 ML SYRINGE IVP SCH (18:03)
[2017-07-17] MEDS ORDERED: COD LIVER OIL/ZINC OXIDE 113 GM TUBE TOP PRN (20:10)
[2017-07-17] MEDS: ATORVASTATIN 40 MG TABLET PO SCH (20:37)
[2017-07-17] MEDS ORDERED: levETIRAcetam 250 MG TABLET PO SCH (21:00)
[2017-07-18] MEDS: SODIUM CHLORIDE FLUSH 0.9% 10 ML SYRINGE IVP SCH ×3 (05:29→20:14)
[2017-07-18] MEDS: SODIUM CHLORIDE 0.9% 1,000 ML IV SCH ×2 (05:34→18:50)
[2017-07-18 05:37] LABS: BASOPHILS % (AUTO) 0.2 %; EOSINOPHILS % (AUTO) 0.5 %; HGB - HEMOGLOBIN 10.3 g/dL (14.0-18.0); LYMPHOCYTES # (AUTO) 0.4 10^3/uL (1.5-3.5); LYMPHOCYTES % (AUTO) 17.8 %; MEAN CORPUSCULAR HEMOGLOBIN 29.3 pg (27.0-31.0); MEAN CORPUSCULAR HGB CONC 32.6 g/dL (32.0-36.0); MEAN CORPUSCULAR VOLUME 89.8 fL (80.0-94.0); MEAN PLATELET VOLUME 8.1 fL (7.4-11.4); MONOCYTES # (AUTO) 0.3 10^3/uL (0.0-1.0); MONOCYTES % (AUTO) 11.2 %; NEUTROPHILS # (AUTO) 1.8 10^3/uL (1.5-6.6); NEUTROPHILS % (AUTO) 70.3 %; PLT - PLATELET COUNT 140 10^3/uL (130-450); RED BLOOD COUNT 3.52 10^6/uL (4.70-6.10); WHITE BLOOD COUNT 2.5 x10^3/uL (4.8-10.8)
[2017-07-18 05:43] LABS: INR 1.2 (0.8-1.2); PT - PROTHROMBIN TIME 13.5 secs (9.9-12.6)
[2017-07-18 05:52] LABS: ALBUMIN 3.1 g/dL (3.2-5.5); BILIRUBIN,TOTAL 0.3 mg/dL (0.2-1.0); CALCIUM 8.4 mg/dL (8.5-10.3); CREATININE 0.9 mg/dL (0.6-1.2); MAGNESIUM 1.6 mg/dL (1.7-2.8); TOTAL PROTEIN 6.1 g/dL (6.7-8.2)
[2017-07-18] MEDS ORDERED: RIVAROXABAN 10 MG TABLET PO SCH (08:00)
[2017-07-18] MEDS: SUCRALFATE 1 GM/10 ML UDC PO SCH ×2 (08:23→16:38)
[2017-07-18] MEDS ORDERED: cefTRIAXone 1 GM VIAL IVP SCH (09:00)
[2017-07-18] MEDS ORDERED: FAMOTIDINE 20 MG TABLET PO SCH (09:00)
[2017-07-18] MEDS ORDERED: LISINOPRIL 5 MG TABLET PO SCH (09:00)
[2017-07-18] MEDS ORDERED: POLYETHYLENE GLYCOL 3350 17 GM PACKET PO SCH (09:00)
[2017-07-18] MEDS ORDERED: ENOXAPARIN 40 MG/0.4 ML SYRINGE SUBQ SCH (09:00)
[2017-07-18] MEDS: INSULIN ASPART 300 UNIT/3 ML PEN SUBQ SCH ×4 (09:07→20:47)
[2017-07-18] MEDS: ATORVASTATIN 40 MG TABLET PO SCH (09:38)
[2017-07-18] MEDS: ENOXAPARIN 80 MG/0.8 ML SYRINGE SUBQ SCH ×2 (09:43→20:12)
[2017-07-18] MEDS: levETIRAcetam INJ 500 MG in SODIUM CHLORIDE 0.9% 100ML 100 ML IV SCH ×2 (09:43→20:05)
[2017-07-18] MEDS ORDERED: SODIUM CHLORIDE 0.9% 100ML 100 ML IV ONE (09:47)
[2017-07-18] MEDS: cefTRIAXone 1 GM in SODIUM CHLORIDE 0.9% MINIBAG 100 ML IV SCH (10:34)
--- NOTE | 2017-07-18 17:24 | PROVIDER PROGRESS NOTE ---
Subjective - Prog Note Date Prog Note Date: 07/18/17 Prog Note Time: 12:00 - Subjective Pt reports feeling: No change Subjective: Jeremiah could not answer questions when asked and made little eye contact. Patient appeared semi-agitated. Current Medications - Current Medications Current Medications: Active Medications Acetaminophen (Tylenol) 650 mg PO Q4HR PRN PRN Reason: Pain 1 to 4 Enoxaparin Sodium (Lovenox) 80 mg SUBQ BID [facility] Last Admin: 07/18/17 09:43 Dose: 80 mg Haloperidol (Haldol Inj) 1 mg IM ONCE ONE Stop: 07/18/17 17:20 Hydrocortisone (Hydrocortisone) 1 applic TOP BID PRN PRN Reason: Hemorrhoids Last Admin: 07/17/17 20:24 Dose: 1 ea Sodium Chloride (Normal Saline 0.9%) 1,000 mls @ 85 mls/hr IV .[id number] [facility] Last Admin: 07/18/17 05:34 Dose: 85 mls/hr Ceftriaxone Sodium 1 gm/ (Sodium Chloride) 100 mls @ 200 mls/hr IV DAILY [facility] Last Infusion: 07/18/17 11:15 Dose: Infused Levetiracetam 500 mg/ Sodium (Chloride) 105 mls @ 400 mls/hr IV BID [facility] Last Infusion: 07/18/17 10:00 Dose: Infused Magnesium Sulfate (Magnesium Sulfate) 2 gm in 50 mls @ 50 mls/hr IV ONCE ONE Stop: 07/18/17 18:19 Potassium Chloride 40 meq/ (Sodium Chloride) 500 mls @ 125 mls/hr IV ONCE ONE Stop: 07/18/17 21:19 Insulin Aspart (Novolog) 1 - 5 unit SUBQ 0800,1200,1700,2100 [facility] PRN Reason: Protocol Last Admin: 07/18/17 11:18 Dose: Not Given Lorazepam (Ativan Inj (Vial)) 2 mg IVP Q2H PRN PRN Reason: Seizure Ondansetron HCl (Zofran Inj) 4 mg IVP Q6HR PRN PRN Reason: Nausea / Vomiting Sodium Chloride (Normal Saline Flush 0.9%) 10 ml IVP PRN PRN PRN Reason: NEEDED PER PROVIDER ORDERS Sodium Chloride (Normal Saline Flush 0.9%) 10 ml IVP Q8HR [facility] Last Admin: 01/31/18 11:18 Dose: Not Given Zinc Oxide (Desitin) 113 gm TOP PRN PRN PRN Reason: Skin Care Metformin HCl [Glucophage] 500 mg PO BIDWM 06/04/13 Omeprazole 20 mg PO BID 11/24/15 Atorvastatin Calcium [Lipitor] 40 mg PO BID 08/11/16 Rivaroxaban [Xarelto] 20 mg ORAL DAILY 04/08/17 Sucralfate [Carafate] 1 gm PO BID 04/08/17 Cholecalciferol (Vitamin D3) [Vitamin D] 2,000 unit PO DAILY 07/17/17 Lisinopril 5 mg PO DAILY 07/17/17 Loratadine [Claritin] 10 mg PO DAILY 07/17/17 Objective - Vital Signs/Intake & Output Reviewed Vital Signs: Yes Vital Signs: Vital Signs x48h Temp Pulse Resp BP BP BP Pulse Ox 07/18/17 15:33 36.6 C 60 19 158/79 H 100 07/18/17 12:15 36.5 C 65 18 146/73 H 93 07/18/17 10:10 171/89 H 177/72 H Intake & Output: Intake & Output 07/15/17 07/16/17 07/17/17 07/18/17 23:59 23:59 23:59 23:59 Intake Total 1556 1375 Balance 1556 1375 - Objective General Appearance: positive: Alert, Moderate distress, Anxious Eyes Bilateral: positive: Normal inspection Eyes: OU Conjunctivae pale ENT: positive: ENT inspection nml, Pharynx nml, Dry mucous membranes Neck: positive: Nml inspection, Thyroid nml, No JVD, Trachea midline, Stiff neck Respiratory: positive: Chest non-tender, No respiratory distress, Wheezes, Other (diminished) Cardiovascular: positive: No gallop, Irregularly irregular, Decreased pulse(s) Peripheral Pulses: 2+ Radial (R), 2+ Radial (L) Abdomen: positive: Non-tender, Nml bowel sounds, Other (rounded, soft) Back: positive: Nml inspection Skin: positive: No rash, Warm, Dry Extremities: positive: Non-tender, Full ROM, Nml appearance, No pedal edema Neurologic/Psychiatric: positive: Disoriented to place, Disoriented to time, Weakness, Sensory loss, Depressed mood/affect Reflexes: Bicep (R): 2+, Bicep (L): 2+ - Lab Results Fish Bones: 07/19/17 05:25 07/19/17 05:25 Other Labs: Lab Results x24hrs 07/18/17 07/18/17 07/18/17 Range/Units 05:10 05:10 05:10 WBC 2.5 L (4.8-10.8) x10^3/uL RBC 3.52 L (4.70-6.10) 10^6/uL Hgb 10.3 L (14.0-18.0) g/dL Hct 31.6 L (42.0-52.0) % MCV 89.8 (80.0-94.0) fL MCH 29.3 (27.0-31.0) pg MCHC 32.6 (32.0-36.0) g/dL RDW 17.0 H (12.0-15.0) % Plt Count 140 (130-450) 10^3/uL MPV 8.1 (7.4-11.4) fL Neut # 1.8 (1.5-6.6) 10^3/uL Lymph # 0.4 L (1.5-3.5) 10^3/uL [place] # 0.3 (0.0-1.0) 10^3/uL Eos # 0.0 (0.0-0.7) 10^3/uL Baso # 0.0 (0.0-0.1) 10^3/uL Absolute Nucleated RBC 0.00 x10^3/uL Nucleated RBC % 0.0 /100WBC PT 13.5 H (9.9-12.6) secs INR 1.2 (0.8-1.2) Sodium 140 (135-145) mmol/L Potassium 3.2 L (3.5-5.0) mmol/L Chloride 110 (101-111) mmol/L Carbon Dioxide 23 (21-32) mmol/L Anion Gap 7.0 (6-13) BUN 11 (6-20) mg/dL Creatinine 0.9 (0.6-1.2) mg/dL Estimated GFR (MDRD) 80 L (>89) Glucose 98 (70-100) mg/dL Calcium 8.4 L (8.5-10.3) mg/dL Magnesium 1.6 L (1.7-2.8) mg/dL Total Bilirubin 0.3 (0.2-1.0) mg/dL AST 27 (10-42) IU/L ALT 22 (10-60) IU/L Alkaline Phosphatase 62 (42-121) IU/L Total Protein 6.1 L (6.7-8.2) g/dL Albumin 3.1 L (3.2-5.5) g/dL Globulin 3.0 (2.1-4.2) g/dL Albumin/Globulin Ratio 1.0 (1.0-2.2) - Diagnostic Imaging Diagnostic Imaging Results: positive: Final report reviewed Assessment/Plan - Problem List (1) Altered mental status Impression: Patient has a history of this, but has had a pronounced decline in his mental status during this admission. Plan: Frequent nursing cares, and fall precautions. We will use sedatives carefully. Qualifiers: Altered mental status type: unspecified Qualified Code(s): R41.82 - Altered mental status, unspecified (2) DM2 (diabetes mellitus, type 2) Impression: Patient has a known history of this and takes Metformin at home. Plan: Continue with SSI, blood sugar checks. Hold Metformin and place on Lantus QHS. Diabetic diet. (3) HTN (hypertension) Impression: Patient takes PO lisinopril at home and was found to by mildly hypertensive today at 158/79. Likely exacerbated with agitation. Plan: Continue to monitor vital signs and give home Lisinopril. May consider adding an additional agent if needed. (4) Seizure Impression: Patient has a history of seizures for which he takes Keppra, that has been changed to IV form while patient has been having difficulty with swallowing. Plan: Continue current plan and wait for swallow results.
[2017-07-18] MEDS ORDERED: HALOPERIDOL 5 MG/ML VIAL IM SCH (17:30)
[2017-07-18] MEDS ORDERED: MAGNESIUM SULFATE 2 GRAM 2 GM/50 ML BAG IV SCH (18:00)
[2017-07-18] MEDS ORDERED: POTASSIUM CHLORIDE INJ 40 MEQ in SODIUM CHLORIDE 0.9% 480 ML IV ONE (18:00)
[2017-07-19] MEDS: SODIUM CHLORIDE FLUSH 0.9% 10 ML SYRINGE IVP SCH ×3 (04:46→21:26)
[2017-07-19 05:50] LABS: BASOPHILS % (AUTO) 0.3 %; EOSINOPHILS % (AUTO) 0.5 %; HGB - HEMOGLOBIN 10.5 g/dL (14.0-18.0); LYMPHOCYTES % (AUTO) 16.9 %; MEAN CORPUSCULAR HEMOGLOBIN 29.6 pg (27.0-31.0); MEAN CORPUSCULAR HGB CONC 33.2 g/dL (32.0-36.0); MEAN CORPUSCULAR VOLUME 89.4 fL (80.0-94.0); MEAN PLATELET VOLUME 8.1 fL (7.4-11.4); MONOCYTES % (AUTO) 9.5 %; NEUTROPHILS % (AUTO) 72.8 %; PLT - PLATELET COUNT 140 10^3/uL (130-450); RED BLOOD COUNT 3.54 10^6/uL (4.70-6.10); RED CELL DISTRIBUTION WIDTH 16.8 % (12.0-15.0); WHITE BLOOD COUNT 2.6 x10^3/uL (4.8-10.8)
[2017-07-19 05:55] LABS: ABNORMAL LYMPHS % (MANUAL) 0 %
[2017-07-19 06:01] LABS: ALBUMIN 3.2 g/dL (3.2-5.5); ALBUMIN/GLOBULIN RATIO 1.1 (1.0-2.2); BILIRUBIN,TOTAL 0.3 mg/dL (0.2-1.0); CALCIUM 8.4 mg/dL (8.5-10.3); CREATININE 0.7 mg/dL (0.6-1.2); MAGNESIUM 1.8 mg/dL (1.7-2.8); TOTAL PROTEIN 6.1 g/dL (6.7-8.2)
[2017-07-19 06:29] LABS: BAND NEUTROPHILS % (MANUAL) 6 %; DIFFERENTIAL COMMENT MANUAL DIFFERENTIAL; LYMPHOCYTES # (MANUAL) 0.6 10^3/uL (1.5-3.5); LYMPHOCYTES % (MANUAL) 23 %; MONOCYTES # (MANUAL) 0.2 10^3/uL (0.0-1.0); NEUTROPHILS # (MANUAL) 1.8 10^3/uL (1.5-6.6); NEUTROPHILS % (MANUAL) 63 %; PLATELET ESTIMATE, MANUAL NORMAL (130-450,000) (NORMAL); RBC MORPHOLOGY (MULTIPLE) NORMAL APPEARANCE (NORMAL)
[2017-07-19] MEDS: INSULIN ASPART 300 UNIT/3 ML PEN SUBQ SCH ×4 (08:32→21:25)
--- NOTE | 2017-07-19 08:45 | PROVIDER PROGRESS NOTE ---
Subjective - Prog Note Date Prog Note Date: 07/19/17 Prog Note Time: 08:45 - Subjective Pt reports feeling: No change Subjective: Jeremiah offers no complaints and is enjoying his food and 's company. He denies SOB, chest pain, N/V or a new cough. , Joselin has several concerns during exam, mainly surrounding her not feeling as if she can any longer care for her at home. Current Medications - Current Medications Current Medications: Active Medications Acetaminophen (Tylenol) 650 mg PO Q4HR PRN PRN Reason: Pain 1 to 4 Amlodipine Besylate (Norvasc) 5 mg PO DAILY [facility] Last Admin: 07/19/17 10:58 Dose: 5 mg Hydrocortisone (Hydrocortisone) 1 applic TOP BID PRN PRN Reason: Hemorrhoids Last Admin: 07/17/17 20:24 Dose: 1 ea Ceftriaxone Sodium 1 gm/ (Sodium Chloride) 100 mls @ 200 mls/hr IV DAILY [facility] Last Infusion: 07/19/17 10:41 Dose: Infused Insulin Aspart (Novolog) 1 - 5 unit SUBQ 0800,1200,1700,2100 [facility] PRN Reason: Protocol Last Admin: 07/19/17 17:27 Dose: 1 unit Insulin Glargine (Lantus Solostar) 10 unit SUBQ QPM [facility] Last Admin: 07/19/17 14:02 Dose: 10 unit Levetiracetam (Keppra) 500 mg PO BID [facility] Lorazepam (Ativan Inj (Vial)) 2 mg IVP Q2H PRN PRN Reason: Seizure Ondansetron HCl (Zofran Inj) 4 mg IVP Q6HR PRN PRN Reason: Nausea / Vomiting Rivaroxaban (Xarelto) 20 mg PO 1700 [facility] Last Admin: 07/19/17 17:28 Dose: 20 mg Sodium Chloride (Normal Saline Flush 0.9%) 10 ml IVP PRN PRN PRN Reason: NEEDED PER PROVIDER ORDERS Sodium Chloride (Normal Saline Flush 0.9%) 10 ml IVP Q8HR [facility] Last Admin: 07/19/17 13:30 Dose: Not Given Zinc Oxide (Desitin) 113 gm TOP PRN PRN PRN Reason: Skin Care Metformin HCl [Glucophage] 500 mg PO BIDWM 06/04/13 Omeprazole 20 mg PO BID 11/24/15 Atorvastatin Calcium [Lipitor] 40 mg PO BID 08/11/16 Rivaroxaban [Xarelto] 20 mg ORAL DAILY 04/08/17 Sucralfate [Carafate] 1 gm PO BID 04/08/17 Cholecalciferol (Vitamin D3) [Vitamin D] 2,000 unit PO DAILY 07/17/17 Lisinopril 5 mg PO DAILY 07/17/17 Loratadine [Claritin] 10 mg PO DAILY 07/17/17 Objective - Vital Signs/Intake & Output Reviewed Vital Signs: Yes Vital Signs: Vital Signs x48h Temp Pulse Resp BP Pulse Ox 07/19/17 08:03 36.6 C 58 L 16 181/72 H 96 07/19/17 04:19 36.4 C L 69 18 121/68 98 Intake & Output: Intake & Output 07/16/17 07/17/17 07/18/17 07/19/17 23:59 23:59 23:59 23:59 Intake Total 1556 2730 500 Balance 1556 2730 500 - Objective General Appearance: positive: No acute distress, Alert Eyes Bilateral: positive: Normal inspection, PERRL Eyes: OU Conjunctivae pale ENT: positive: ENT inspection nml, Pharynx nml, No signs of dehydration Neck: positive: Nml inspection, Thyroid nml, No JVD, Trachea midline Respiratory: positive: Chest non-tender, No respiratory distress, Other ( diminished.) Cardiovascular: positive: No gallop, Irregularly irregular, Decreased pulse(s) Peripheral Pulses: 1+ Radial (R), 1+ Radial (L) Abdomen: positive: Non-tender, No organomegaly, Nml bowel sounds, No distention Back: positive: Nml inspection Skin: positive: No rash, Warm, Dry Extremities: positive: Non-tender, Full ROM, Nml appearance, No pedal edema Neurologic/Psychiatric: positive: Disoriented to time, Weakness, Sensory loss, Depressed mood/affect Reflexes: Bicep (R): 2+, Bicep (L): 2+ - Lab Results Fish Bones: 07/19/17 05:25 07/19/17 05:25 Other Labs: Lab Results x24hrs 07/19/17 07/19/17 Range/Units 05:25 05:25 WBC 2.6 L (4.8-10.8) x10^3/uL RBC 3.54 L (4.70-6.10) 10^6/uL Hgb 10.5 L (14.0-18.0) g/dL Hct 31.7 L (42.0-52.0) % MCV 89.4 (80.0-94.0) fL MCH 29.6 (27.0-31.0) pg MCHC 33.2 (32.0-36.0) g/dL RDW 16.8 H (12.0-15.0) % Plt Count 140 (130-450) 10^3/uL MPV 8.1 (7.4-11.4) fL Neut # Not Reportable Lymph # Not Reportable [place] # Not Reportable Eos # Not Reportable Baso # Not Reportable Absolute Nucleated RBC Not Reportable Total Counted 100 Band Neuts % (Manual) 6 (0 - 10) % Abnorm Lymph % (Manual) 0 % Nucleated RBC % Not Reportable Neutrophils # (Manual) 1.8 (1.5-6.6) 10^3/uL Lymphocytes # (Manual) 0.6 L (1.5-3.5) 10^3/uL Monocytes # (Manual) 0.2 (0.0-1.0) 10^3/uL Eosinophils # (Manual) 0.0 (0-0.7) 10^3/uL Basophils # (Manual) 0.0 (0-0.1) 10^3/uL Differential Comment MANUAL DIFFERENTIAL Platelet Estimate NORMAL (130-450,000) (NORMAL) RBC Morph Micro Appear NORMAL APPEARANCE (NORMAL) Sodium 141 (135-145) mmol/L Potassium 3.4 L (3.5-5.0) mmol/L Chloride 109 (101-111) mmol/L Carbon Dioxide 22 (21-32) mmol/L Anion Gap 10.0 (6-13) BUN 10 (6-20) mg/dL Creatinine 0.7 (0.6-1.2) mg/dL Estimated GFR (MDRD) 107 (>89) Glucose 106 H (70-100) mg/dL Calcium 8.4 L (8.5-10.3) mg/dL Magnesium 1.8 (1.7-2.8) mg/dL Total Bilirubin 0.3 (0.2-1.0) mg/dL AST 30 (10-42) IU/L ALT 24 (10-60) IU/L Alkaline Phosphatase 60 (42-121) IU/L Total Protein 6.1 L (6.7-8.2) g/dL Albumin 3.2 (3.2-5.5) g/dL Globulin 2.9 (2.1-4.2) g/dL Albumin/Globulin Ratio 1.1 (1.0-2.2) - Diagnostic Imaging Diagnostic Imaging Results: positive: Prelim report reviewed, Final report reviewed Assessment/Plan - Problem List (1) Altered mental status Impression: Patient has a history of this, but has had a pronounced decline in his mental status during this admission. Patient has a history of CVA. An MRI was ordered to evaluate for new TIA/CVA and this is pending. Plan: Frequent nursing cares, and fall precautions. We will use sedatives carefully. Qualifiers: Altered mental status type: unspecified Qualified Code(s): R41.82 - Altered mental status, unspecified (2) DM2 (diabetes mellitus, type 2) Impression: Patient has a known history of this and takes Metformin at home. Plan: Continue with SSI, blood sugar checks. Hold Metformin and place on Lantus QHS. Diabetic diet. (3) HTN (hypertension) Impression: Patient takes PO lisinopril at home and was found to by mildly hypertensive today at 118/65. Likely exacerbated with agitation. Plan: Continue to monitor vital signs and give home Lisinopril. May consider adding an additional agent if needed. (4) Seizure Impression: Patient has a history of seizures for which he takes Keppra, that has been changed to IV form while patient has been having difficulty with swallowing. Patient is recommended to have thickened liquids per swallow evaluation. Plan: Continue current PO medications.
[2017-07-19] MEDS: levETIRAcetam INJ 500 MG in SODIUM CHLORIDE 0.9% 100ML 100 ML IV SCH (08:51)
[2017-07-19] MEDS: cefTRIAXone 1 GM in SODIUM CHLORIDE 0.9% MINIBAG 100 ML IV SCH (09:49)
[2017-07-19] MEDS: SODIUM CHLORIDE 0.9% 1,000 ML IV SCH (09:49)
[2017-07-19] MEDS: ENOXAPARIN 80 MG/0.8 ML SYRINGE SUBQ SCH (09:50)
[2017-07-19] MEDS: amLODIPine 5 MG TABLET PO SCH (10:58)
[2017-07-19] MEDS ORDERED: levETIRAcetam 100 MG/ML 473ML BOTTLE PO SCH (14:00)
[2017-07-19] MEDS ORDERED: RIVAROXABAN 10 MG TABLET PO SCH ×2 (14:00→17:00)
[2017-07-19] MEDS: INSULIN GLARGINE 300 UNIT/3 ML PEN SUBQ SCH ×2 (14:02→21:25)
[2017-07-19] MEDS ORDERED: GADOBUTROL 7.5 MMOL/7.5 ML VIAL ONE (16:00)
[2017-07-19] MEDS ORDERED: GADOBUTROL 7.5 MMOL/7.5 ML VIAL IVP ONE (16:40)
--- NOTE | 2017-07-19 17:24 | MRI Report ---
EXAM: MRI BRAIN WITHOUT AND WITH CONTRAST EXAM DATE: 07/19/2017 04:44 PM. CLINICAL HISTORY: Altered mental status. COMPARISON: MR brain 08/11/2016, [address]/2015; CT head 08/10/2016. TECHNIQUE: Multiplanar, multisequence T1-weighted and fluid-sensitive MR sequences of the brain were performed. Sequences optimized for 7.5 cc Gadavist evaluation. Other: None. IV Contrast: Yes. FINDINGS: Brain Volume: Moderately severe cortical volume loss. Parenchyma: No acute parenchymal hemorrhage, mass, or midline shift. Moderate to severe bilateral T2/ FLAIR signal hyperintensity seen that appear similar to 08/11/2016. Old chronic lacunar infarct of the right chiu radiata. There is a punctate foci of restricted diffusion involving the medial right br achium pontis measuring up to 3 mm (series 5, image 56). No evidence of hemorrhagic transformation. N o abnormal old hemorrhagic blood products seen. No abnormal enhancement. Ventricles/Cisterns: No hydrocephalus. No abnormal extra-axial fluid collection or hemorrhage. Orbits: Changes of the left lens replacement. Sella Turcica: The pituitary gland, cavernous sinuses, suprasellar cistern and optic chiasm are unrem arkable. IAC: Symmetric and unremarkable. Vasculature: Normal signal flow void is seen in the major arterial structures at the skull base. The dural sinuses are patent and enhance normally. Sinuses: The visualized paranasal sinuses are clear. Moderate left mastoid effusion. Bones: No focal pathologic appearing marrow signal changes. Other: None. IMPRESSION: 1. Punctate acute infarct (1-7 days) of the medial right brachium pontis. No evidence of hemorrhage t ransformation. 2. No acute intracranial hemorrhage, mass, hydrocephalus, midline shift, or abnormal postcontrast enh ancement. 3. Additional moderate to severe white matter changes appear similar to 08/11/2016 and may represent s equela of chronic small vessel ischemic disease. RADIA The above findings were discussed with Leta Mcknight by Dr. Hima Marcos at 17:22 hrs on 07/19/17. Referring Provider Line: [phone] SITE ID: [id number]
[2017-07-19] MEDS: levETIRAcetam 250 MG TABLET PO SCH (21:26)
[2017-07-20 05:36] LABS: BASOPHILS % (AUTO) 0.3 %; EOSINOPHILS % (AUTO) 0.9 %; HGB - HEMOGLOBIN 10.3 g/dL (14.0-18.0); LYMPHOCYTES % (AUTO) 16.4 %; MEAN CORPUSCULAR HEMOGLOBIN 29.1 pg (27.0-31.0); MEAN CORPUSCULAR HGB CONC 32.5 g/dL (32.0-36.0); MEAN CORPUSCULAR VOLUME 89.5 fL (80.0-94.0); MEAN PLATELET VOLUME 8.1 fL (7.4-11.4); NEUTROPHILS % (AUTO) 71.4 %; PLT - PLATELET COUNT 144 10^3/uL (130-450); RED BLOOD COUNT 3.55 10^6/uL (4.70-6.10); RED CELL DISTRIBUTION WIDTH 17.1 % (12.0-15.0); WHITE BLOOD COUNT 2.3 x10^3/uL (4.8-10.8)
[2017-07-20 05:44] LABS: ABNORMAL LYMPHS % (MANUAL) 0 %
[2017-07-20 05:45] LABS: ALBUMIN 3.1 g/dL (3.2-5.5); ALBUMIN/GLOBULIN RATIO 1.1 (1.0-2.2); BILIRUBIN,TOTAL 0.3 mg/dL (0.2-1.0); CALCIUM 8.5 mg/dL (8.5-10.3); CREATININE 0.8 mg/dL (0.6-1.2); MAGNESIUM 1.8 mg/dL (1.7-2.8); TOTAL PROTEIN 5.9 g/dL (6.7-8.2)
[2017-07-20] MEDS: SODIUM CHLORIDE FLUSH 0.9% 10 ML SYRINGE IVP SCH (05:56)
[2017-07-20 06:09] LABS: BAND NEUTROPHILS % (MANUAL) 6 %; DIFFERENTIAL COMMENT MANUAL DIFFERENTIAL; EOSINOPHILS # (MANUAL) 0.1 10^3/uL (0-0.7); LYMPHOCYTES # (MANUAL) 0.4 10^3/uL (1.5-3.5); LYMPHOCYTES % (MANUAL) 18 %; MONOCYTES # (MANUAL) 0.2 10^3/uL (0.0-1.0); MYELOCYTES % (MANUAL) 1 %; NEUTROPHILS # (MANUAL) 1.6 10^3/uL (1.5-6.6); NEUTROPHILS % (MANUAL) 63 %; PLATELET ESTIMATE, MANUAL NORMAL (130-450,000) (NORMAL); RBC MORPHOLOGY (MULTIPLE) NORMAL APPEARANCE (NORMAL)
[2017-07-20] MEDS: INSULIN ASPART 300 UNIT/3 ML PEN SUBQ SCH (08:15)
[2017-07-20] MEDS: cefTRIAXone 1 GM in SODIUM CHLORIDE 0.9% MINIBAG 100 ML IV SCH (10:02)
[2017-07-20] MEDS: levETIRAcetam 250 MG TABLET PO SCH (10:03)
[2017-07-20] MEDS: amLODIPine 5 MG TABLET PO SCH (10:03)
--- NOTE | 2017-07-20 11:11 | Discharge Plan ---
Discharge Plan Disposition: Home, Self Care Condition: Good Prescriptions: Levofloxacin [Levaquin] 750 mg PO DAILY 7 Days #7 tablet Saccharomyces Boulardii [Florastor] 250 mg PO BID 14 Days #28 capsule Diet: Regular Activity Restrictions: No Restrictions Shower Restrictions: No Driving Restrictions: No Weight Bearing: Full Weight Additional Instructions or Follow Up instructions: You were admitted for urinary tract infection and were given antibiotics. Your mental status did not improve, so an MRI of your head was completed due to your history of CVA which showed a new KHUSHBOO infarct that is predicted to have occurred within the past 1-7 days. Damage to the KHUSHBOO can affect mental status , decision making, awareness and vision. Please see your PCP within one week of this stay. The gastrointestinal doctor referral request can be made through your PCP. A swallow test was completed and found that thin liquids with soft foods would be the best way to prepare foods. Take all of your medications as prescribed. Home care would be advised. No Smoking: If you smoke, Please STOP! Call for help. Follow-up with: JUSTYNA HERRERA [Primary Care Provider] -
--- NOTE | 2017-07-20 11:19 | DISCHARGE SUMMARY ---
Discharge Summary Admit Date: 07/17/17 Discharge Date: 07/20/17 Discharging Provider: FLYNN Sanders Primary Care Provider: Damaso Iverson Code Status: Attempt Resuscitation Condition at Discharge: Good Discharge Disposition: 01 Home, Self Care - DIAGNOSES Admission Diagnoses: Unspecified convulsions (R56.9) Urinary tract infection, site not specified (N39.0) Unspecified dementia without behavioral disturbance (F03.90) Personal history of transient ischemic attack (TIA), and cerebral infarction without residual deficits (Z86.73) Type 2 diabetes mellitus without complications (E11.9) Discharge Diagnoses with Status of Each Condition: 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 Pt could not provide information due to his medical condition, so his , Joselin spoke for him. Patient was prescribed Keppra at home. His reports he recently had an esophageal dilation done by GI at [place]. His states her was not able to take his medications or eat prior to that. He has not displayed evidence of seizures since arriving in the ED. A UA was obtained that indicates a UTI. Joselin expresses how difficult it has been to take care of her both physically and with his advanced Dementia , on top of her own medical issues. Pt does not have chest pain, shortness of breath, headache, focal neurological deficit, abdominal pain, nausea, vomiting, or diarrhea. Patient will be admitted to further treat UTI and monitor mental status. - HOSPITAL COURSE Hospital Course: The following problems/diagnoses were prevalent during this hospital stay: (1) Altered mental status- Patient has a history of this, but has had a pronounced decline in his mental status during this admission. Patient has a history of CVA. An MRI was ordered to evaluate for new TIA/CVA which showed an unfortunate Pontine infarct. Patient was provided with frequent nursing cares, and fall precautions. Sedatives were used cautiously. (2) DM2 (diabetes mellitus, type 2)- Patient has a known history of this and takes Metformin at home. Patient was continued on SSI and ACHS blood sugar checks. Metformin was held as per protocol and patient was placed on Lantus QHS. Patient was provided with Diabetic diet. (3) HTN (hypertension)- Patient takes PO lisinopril at home and the last recorded blood pressure was 133/63. Upon admission, patient was found to be Likely exacerbated with agitation. Patient's vital signs were monitored and he was given home Lisinopril. Additional agents were not needed as blood pressure was stable throughout his stay. (4) Seizure- Patient has a history of seizures for which he takes Keppra, that has been changed to IV form while patient has been having difficulty with swallowing. Patient is recommended to have thickened liquids per swallow evaluation. All regular PO medications were continued with the exception of 24 hours as patient had a swallow study. (5) Right pontine CVA- Since mental status was still not back to baseline despite treatment of acute infection (UTI), a brain MRI was completed and showed an acute, between 1-7 day old right pontine infarct was noted. Patient denies vision difficulty, did not show signs of worsening ataxia, but did have a worsening of overall mental status changes. He remains non-decisional and cannot state his medical condition. Patient came into the hospital on a high dose statin and plavix, which was continued. Disposition: Patient was transported via private car home with , although recommendations were to look into a memory care facility. Upon admission, expressed concerns about her becoming too much both physically and mentally for her at home. Social work made efforts to organize a safe home discharge plan either with hired home care workers or at a facility, but did not choose either. Information was given in case she should need the help in the near future. - ALLERGIES Allergies/Adverse Reactions: Allergies Allergy/AdvReac Type Severity Reaction Status Date / Time codeine AdvReac Intermediate Nausea Verified 04/08/17 05:20 memantine HCl * AdvReac Anxiety Verified 04/08/17 05:20 [From Namenda] - MEDICATIONS Home Medications: Ambulatory Orders Medication Instructions Recorded Confirmed RX: Metformin HCl [Glucophage] 500 mg PO BIDWM 06/04/07/17/17 RX: Omeprazole 20 mg PO BID 11/24/15 07/17/17 RX: Atorvastatin Calcium [Lipitor] 40 mg PO BID 08/11/16 07/17/17 RX: levETIRAcetam [Keppra] 500 mg PO BID #60 tablet 08/12/16 07/17/17 RX: Rivaroxaban [Xarelto] 20 mg ORAL DAILY 04/08/17 07/17/17 RX: Sucralfate [Carafate] 1 gm PO BID 04/08/17 07/17/17 RX: Cholecalciferol (Vitamin D3) 2,000 unit PO DAILY 07/17/17 07/17/17 [Vitamin D3] RX: Lisinopril 5 mg PO DAILY 07/17/17 07/17/17 RX: Loratadine [Claritin] 10 mg PO DAILY 07/17/17 07/17/17 RX: Levofloxacin [Levaquin] 750 mg PO DAILY 7 Days #7 tablet 07/20/17 Saccharomyces Boulardii [Florastor] 250 mg PO BID 14 Days #28 capsule 07/20/17 - PHYSICAL EXAM AT DISCHARGE General Appearance: positive: No acute distress, Alert Eyes Bilateral: positive: Normal inspection ENT: positive: ENT inspection nml, Pharynx nml, No signs of dehydration Neck: positive: Nml inspection, Thyroid nml, No JVD, Trachea midline Respiratory: positive: Chest non-tender, No respiratory distress, Breath sounds nml Cardiovascular: positive: Regular rate & rhythm, No murmur, No gallop Peripheral Pulses: positive: 2+ Abdomen: positive: Non-tender, No organomegaly, Nml bowel sounds, No distention Back: positive: Nml inspection Skin: positive: No rash, Warm, Dry Extremities: positive: Non-tender, Full ROM, No pedal edema, Joint swelling Neurologic/Psychiatric: positive: Disoriented to place, Disoriented to time, Weakness, Sensory loss, Facial droop (chronic since last CVA), Slurred/abnml speech, Depressed mood/affect Reflexes: Bicep (R): 2+, Bicep (L): 2+ - LABS Result Diagrams: 07/20/17 04:40 07/20/17 04:40 - DIAGNOSTIC IMAGING Diagnostic Imaging Results: Prelim report reviewed, Final report reviewed Diagnostic Imaging Results Comments: Brain MRI completed due to ongoing AMS: FINDINGS: Brain Volume: Moderately severe cortical volume loss. Parenchyma: No acute parenchymal hemorrhage, mass, or midline shift. Moderate to severe bilateral T2/FLAIR signal hyperintensity seen that appear similar to . Old chronic lacunar infarct of the right chiu radiata. There is a punctate foci of restricted diffusion involving the medial right brachium pontis measuring up to 3 mm (series 5, image 56). No evidence of hemorrhagic transformation. No abnormal old hemorrhagic blood products seen. No abnormal enhancement. Ventricles/Cisterns: No hydrocephalus. No abnormal extra-axial fluid collection or hemorrhage. Orbits: Changes of the left lens replacement. Sella Turcica: The pituitary gland, cavernous sinuses, suprasellar cistern and optic chiasm are unremarkable. IAC: Symmetric and unremarkable. Vasculature: Normal signal flow void is seen in the major arterial structures at the skull base. The dural sinuses are patent and enhance normally. Sinuses: The visualized paranasal sinuses are clear. Moderate left mastoid effusion. Bones: No focal pathologic appearing marrow signal changes. Other: None. IMPRESSION: 1. Punctate acute infarct (1-7 days) of the medial right brachium pontis. No evidence of hemorrhage transformation. 2. No acute intracranial hemorrhage, mass, hydrocephalus, midline shift, or abnormal postcontrast enhancement. 3. Additional moderate to severe white matter changes appear similar to 2016 and may represent sequela of chronic small vessel ischemic disease. - FOLLOW UP Follow Up: Disposition: 01 Home, Self Care Condition: Good Prescriptions: Levofloxacin [Levaquin] 750 mg PO DAILY 7 Days #7 tablet Saccharomyces Boulardii [Florastor] 250 mg PO BID 14 Days #28 capsule Diet: Regular Activity Restrictions: No Restrictions Shower Restrictions: No Driving Restrictions: No Weight Bearing: Full Weight Additional Instructions or Follow Up instructions: You were admitted for urinary tract infection and were given antibiotics. Your mental status did not improve, so an MRI of your head was completed due to your history of CVA which showed a new KHUSHBOO infarct that is predicted to have occurred within the past 1-7 days. Damage to the KHUSHBOO can affect mental status , decision making, awareness and vision. Please see your PCP within one week of this stay. The gastrointestinal doctor referral request can be made through your PCP. A swallow test was completed and found that thin liquids with soft foods would be the best way to prepare foods. Take all of your medications as prescribed. Home care would be advised. - TIME SPENT Time Spent in Discharge (Minutes): 45
[2017-07-20 12:38] VITALS: BP 133/63
== END 2017-07-20 13:06 | disposition home or self-care (01) | DRG 100 ==
LOC: EDUNIT# → ED 08:33 → MS2 14:16
PROVIDERS: ADMIT Nurse Practitioner Gerontology; ATTEND Nurse Practitioner
DX: G40.909 Epilepsy, unspecified, not intractable, without status epilepticus (principal); N30.00 Acute cystitis without hematuria; I63.9 Cerebral infarction, unspecified; N39.0 Urinary tract infection, site not specified; R13.10 Dysphagia, unspecified; F03.90 Unspecified dementia, unspecified severity, without behavioral disturbance, psychotic disturbance, mood disturbance, and anxiety; E11.9 Type 2 diabetes mellitus without complications; Z86.73 Personal history of transient ischemic attack (TIA), and cerebral infarction without residual deficits; Z79.01 Long term (current) use of anticoagulants; N40.0 Benign prostatic hyperplasia without lower urinary tract symptoms; I10 Essential (primary) hypertension; K21.9 Gastro-esophageal reflux disease without esophagitis; Z79.02 Long term (current) use of antithrombotics/antiplatelets; Z79.84 Long term (current) use of oral hypoglycemic drugs
CPT/HCPCS: 36415; 70553; 80053; 80177; 81001; 81003; 83036; 83690; 83735; 84484; 85025; 85610; 87086; 96361; 96365; 99285

== ENCOUNTER 2017-12-05 | Outpatient (CLI) | END 2017-12-05 11:56 | disposition critical access hospital (66) | CPT/HCPCS: A0425; A0429 ==

== ENCOUNTER 2017-12-05 12:01 | Inpatient (IN) | payer MEDICARE ==
[2017-12-05 12:56] LABS: BASOPHILS % (AUTO) 0.2 %; EOSINOPHILS % (AUTO) 0.3 %; HGB - HEMOGLOBIN 10.4 g/dL (14.0-18.0); LYMPHOCYTES # (AUTO) 0.3 10^3/uL (1.5-3.5); MEAN CORPUSCULAR VOLUME 87.5 fL (80.0-94.0); MEAN PLATELET VOLUME 7.1 fL (7.4-11.4); MONOCYTES # (AUTO) 0.3 10^3/uL (0.0-1.0); MONOCYTES % (AUTO) 7.5 %; NEUTROPHILS # (AUTO) 3.7 10^3/uL (1.5-6.6); PLT - PLATELET COUNT 214 10^3/uL (130-450); RED BLOOD COUNT 3.72 10^6/uL (4.70-6.10); WHITE BLOOD COUNT 4.3 x10^3/uL (4.8-10.8)
[2017-12-05 13:06] LABS: ALBUMIN 3.6 g/dL (3.2-5.5); BILIRUBIN,TOTAL 0.5 mg/dL (0.2-1.0); CREATININE 0.8 mg/dL (0.6-1.2); TOTAL PROTEIN 7.2 g/dL (6.7-8.2)
--- NOTE | 2017-12-05 13:27 | CT Report ---
Procedure Date: 12/05/2017 Accession Number: [id number] / [id number] Procedure: CT - Head W/O CPT Code: FULL RESULT: EXAM: CT HEAD EXAM DATE: 12/05/2017 12:59 PM. CLINICAL HISTORY: Confusion. COMPARISON: 08/10/2016. TECHNIQUE: Multiaxial CT images were obtained from the foramen magnum to the vertex. Reformats: Coronal. IV contrast: None. In accordance with CT protocol optimization, one or more of the following dose reduction techniques were utilized for this exam: automated exposure control, adjustment of mA and/or KV based on patient size, or use of iterative reconstructive technique. FINDINGS: Parenchyma: There is a moderate degree of nonfocal periventricular white matter hypodensity. No midline shift. Negative for acute intracranial hemorrhage. Extraaxial Spaces: The ventricles appear mildly enlarged but without significant interval change. Ventricles: Normal in size and position. Sinuses and Orbits: Imaged paranasal sinuses, orbits, and mastoids show no significant abnormality. Bones: No evidence of fracture or calvarial defect. Other: None. IMPRESSION: 1. Negative for acute hemorrhage and mass effect. 2. Moderate nonfocal white matter disease without significant change. 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 RADIA
--- NOTE | 2017-12-05 13:44 | ED Physician Documentation ---
PD HPI FOCAL NEURO - Stated complaint Stated Complaint: POSS TIA - Chief complaint Chief Complaint: Neuro - History obtained from History obtained from: Patient, Family - History of Present Illness Timing - onset: Today (The patient's says he was up early this morning before she arose but when she got out of bed about 7 AM she noticed that he was confused and not really knowing what he was doing. He does have history of dementia so is usually forgetful but still is able to manage going to the bathroom and dressing himself and to have conversation. She noticed that he needed help getting to the bathroom and then he was not sure about pulling his pants down and his speech was mumbling and incoherent. She did not notice any focal weaknesses. The symptoms continued through the morning and she brought him here for evaluation.) Timing - duration: Hours (4 1/2 hours since noted and was likely with symptoms on awakening. He is on blood thinner as well.) Timing - details: Abrupt onset Severity of deficit: Moderate Weakness: No: Face, Arm, Leg Numbness: No: Face, Arm, Leg Associated symptoms: Other (confusion and aphasia). No: Headache, Nausea / vomiting, Chest pain Contributing factors: positive: Anticoagulated. negative: Vascular dz Baseline status: positive: Cane, Dementia Similar symptoms before: Has not had sx before (has not had this degree of confusion and aphasia in the past.) Recently seen: Emergency Dept, Admitted (had small lacunar infarct in past few months, found on MRI.) Review of Systems Unable to obtain: Dementia, Other (info from ) Constitutional: denies: Fever, Chills Nose: denies: Rhinorrhea / runny nose, Congestion Throat: denies: Sore throat Cardiac: denies: Chest pain / pressure, Palpitations Respiratory: denies: Dyspnea, Cough GI: denies: Abdominal Pain, Nausea, Vomiting, Diarrhea, Bloody / black stool Musculoskeletal: denies: Neck pain, Back pain Neurologic: reports: Confused, Altered mental status. denies: Focal weakness, Numbness, Headache, Head injury Endocrine: reports: Weight loss, Easy bruising / bleeding Immunocompromised: denies: Immunocompromised PD PAST MEDICAL HISTORY - Past Medical History Past Medical History: Yes Cardiovascular: None Respiratory: None Endocrine/Autoimmune: Type 2 diabetes GI: GERD, Other : Benign prostate hypertrophy HEENT: None Psych: None Musculoskeletal: None Derm: None - Past Surgical History Past Surgical History: Yes General: Bowel surgery, Colonoscopy, Other Ortho: Hip replacement HEENT: Other Derm: Other - Present Medications Home Medications: Ambulatory Orders Medication Instructions Recorded Confirmed Metformin HCl [Glucophage] 500 mg PO BIDWM 06/04/13 12/05/17 Omeprazole 20 mg PO BIDAC 11/24/15 12/05/17 Atorvastatin Calcium [Lipitor] 80 mg PO QPM 08/11/16 12/05/17 Rivaroxaban [Xarelto] 20 mg ORAL DAILYWM 04/08/17 12/05/17 Sucralfate [Carafate] 1 gm PO BID 04/08/17 12/05/17 Cholecalciferol (Vitamin D3) 2,000 unit PO DAILY 07/17/17 12/05/17 [Vitamin D3] Cetirizine [ZyrTEC] 10 mg PO BID 12/05/17 12/05/17 Montelukast [Singulair] 10 mg PO QPM PRN 12/05/17 12/05/17 levETIRAcetam [Levetiracetam] 500 mg PO BID 12/05/17 12/05/17 - Allergies Allergies/Adverse Reactions: Allergies Allergy/AdvReac Type Severity Reaction Status Date / Time codeine AdvReac Intermediate Nausea Verified 04/08/17 05:20 memantine HCl * AdvReac Anxiety Verified 04/08/17 05:20 [From Namenda] - Living Situation Living Situation: reports: With spouse/s.o. Living Arrangement: reports: At home - Social History Does the pt smoke?: No Smoking Status: Never smoker Does the pt drink ETOH?: No Does the pt have substance abuse?: No - Family History Family history: reports: Non contributory - Immunizations Immunizations are current?: No - POLST Patient has POLST: Yes POLST Status: Full Code PD ED PE NORMAL - Vitals Vital signs reviewed: Yes - General General: No acute distress, Well developed/nourished. No: Alert and oriented X 3 (oriented to name; incomplete or somewhat nonsensical sentences. He seems relaxed and undisturbed though.) - HEENT HEENT: Atraumatic, PERRL, EOMI, Pharynx benign - Neck Neck: Supple, no meningeal sign, No adenopathy - Cardiac Cardiac: RRR, No murmur - Respiratory Respiratory: Clear bilaterally - Abdomen Abdomen: Soft, Non tender - Male Male : Deferred - Rectal Rectal: Deferred - Back Back: No CVA TTP - Derm Derm: Normal color, Warm and dry - Extremities Extremities: No deformity, No tenderness to palpate, Normal ROM s pain, No edema , No calf tenderness / cord - Neuro Neuro: No motor deficit, No sensory deficit. No: Normal speech Eye Opening: Spontaneous Motor: Obeys Commands Verbal: Oriented GCS Score: 15 - Psych Psych: Normal mood NIHSS - Level of Consciousness Level of consciousness: (0) Alert, Keenly responsive LOC Questions: (0) Answers both Q's correct LOC Commands: (0) Performs both correctly - Gaze Best Gaze: (0) Normal - Visual Visual: (0) No loss - Facial Palsy Facial Palsy: (0) Normal, symmetrical movement - Motor Arms (both separate) Motor Arm (right): (0) No drift Motor Arm (left): (0) No drift - Motor Legs (both separate) Motor Leg (right): (0) No drift Motor Leg (left): (0) No drift - Limb Ataxia Limb Ataxia: (0) Absent - Sensory Sensory: (0) Normal - Best Language Best Language: (1) [id number] - Dysarthria Dysarthria: (0) Normal - Extinction and Inattention (formally neg Extinction and inattention: (1) Visual,tactile,auditory,spatial, or personal inattention - Total Score/Results Total Score/Result: 2 Results - Vitals Vitals: Vital Signs - 24 hr 12/05/17 12/05/17 12/05/17 12:12 13:34 15:22 Temperature 36.4 C L Heart Rate 69 66 67 Respiratory 16 11 L 16 Rate Blood Pressure 150/80 H 148/94 H O2 Saturation 98 94 98 Oxygen O2 Source Room air - Labs Labs: Laboratory Tests 12/05/17 12/05/17 12/05/17 12:45 12:52 12:52 WBC 4.3 L RBC 3.72 L Hgb 10.4 L Hct 32.5 L MCV 87.5 MCH 28.0 MCHC 32.0 RDW 17.0 H Plt Count 214 MPV 7.1 L Neut # (Auto) 3.7 Lymph # (Auto) 0.3 L [place] # (Auto) 0.3 Eos # (Auto) 0.0 Baso # (Auto) 0.0 Absolute Nucleated RBC 0.00 Nucleated RBC % 0.0 Sodium 138 Potassium 3.7 Chloride 103 Carbon Dioxide 26 Anion Gap 9.0 BUN 13 Creatinine 0.8 Estimated GFR (MDRD) 91 Glucose 134 H Glycated Hemoglobin 6.5 H Estim Average Glucose 140 H Calcium 9.0 Total Bilirubin 0.5 AST 29 ALT 21 Alkaline Phosphatase 88 Troponin I Total Protein 7.2 Albumin 3.6 Globulin 3.6 Albumin/Globulin Ratio 1.0 Lipase 37 12/05/17 12:52 WBC RBC Hgb Hct MCV MCH MCHC RDW Plt Count MPV Neut # (Auto) Lymph # (Auto) [place] # (Auto) Eos # (Auto) Baso # (Auto) Absolute Nucleated RBC Nucleated RBC % Sodium Potassium Chloride Carbon Dioxide Anion Gap BUN Creatinine Estimated GFR (MDRD) Glucose Glycated Hemoglobin Estim Average Glucose Calcium Total Bilirubin AST ALT Alkaline Phosphatase Troponin I < 0.04 Total Protein Albumin Globulin Albumin/Globulin Ratio Lipase - Rads (name of study) head CT Radiology: Prelim report reviewed (no ICH, no acute findings. ) PD MEDICAL DECISION MAKING - ED course Complexity details: re-evaluated patient (he had trouble comprehending use of the urinal and bedside commode, and needed direction to get his pants down to go to the bathroom. He is not functional with this degree of confusion. Seems likely nuerological, as he does not seem sick nor delirium to suggest metabolic , septic, med related. No ICH on CT. will need to get MRI for better evaluation. Then issue will be level of function for return home vs care facility. ), considered differential, d/w patient, d/w family () - Sepsis Event Vital Signs: Vital Signs - 24 hr 12/05/17 12/05/17 12/05/17 12:12 13:34 15:22 Temperature 36.4 C L Heart Rate 69 66 67 Respiratory 16 11 L 16 Rate Blood Pressure 150/80 H 148/94 H O2 Saturation 98 94 98 Oxygen O2 Source Room air Departure - Departure Disposition: ED Place in Observation Clinical Impression: Altered mental status Qualifiers: Altered mental status type: disorientation Qualified Code(s): R41.0 - Disorientation, unspecified CVA (cerebral vascular accident) Qualifiers: CVA mechanism: unspecified Qualified Code(s): I63.9 - Cerebral infarction, unspecified Condition: Stable Record reviewed to determine appropriate education?: Yes Discharge Date/Time: 12/05/17 17:25
[2017-12-05] MEDS ORDERED: SODIUM CHLORIDE 0.9% 1,000 ML IV ONE (14:07)
[2017-12-05] MEDS ORDERED: ASPIRIN CHEW 81 MG TABLET PO STA (14:11)
[2017-12-05] MEDS ORDERED: ONDANSETRON 4 MG/2 ML VIAL IVP PRN (15:24)
[2017-12-05] MEDS ORDERED: SODIUM CHLORIDE FLUSH 0.9% 10 ML SYRINGE IVP PRN (15:24)
[2017-12-05] MEDS ORDERED: ACETAMINOPHEN 325 MG TABLET PO PRN (15:24)
--- NOTE | 2017-12-05 15:51 | XRAY Report ---
Procedure Date: 12/05/2017 Accession Number: [id number] / [id number] Procedure: XR - Chest 1 View X-Ray CPT Code: 81343 FULL RESULT: EXAM: CHEST RADIOGRAPHY EXAM DATE: 12/05/2017 03:39 PM. CLINICAL HISTORY: Cough. COMPARISON: Chest 09/11/2016. TECHNIQUE: 1 view. FINDINGS: Lungs/Pleura: No focal opacities evident. No pleural effusion. No pneumothorax. Mediastinum: Within exam limitations, the cardiomediastinal contour is normal. IMPRESSION: No acute cardiopulmonary disease seen. RADIA
--- NOTE | 2017-12-05 16:03 | HISTORY & PHYSICAL EXAMINATION ---
Chief Complaint - Chief Complaint Chief Complaint: AMS History of Present Illness - Admitted From Admitted From:: ER - History Obtained From History obtained from: pt - History of Present Illness HPI Comment/Other: is a 87-year-old male with a history of CVA, dementia, dysphagia, seizure, DM2, BPH, who present ER for complaint of confused and altered mental status. pt's is not at pt's bedside. Pt is confused, and could not provide meaning information. No pt's family member was at the bedside. When I assessed Pt, pt appears generalized weakness but does not show acute focal neurological deficit. Pt's CXR reveals no acute finding. CT of head reveals no acute finding as well. UA is pending. Lab values are unremarkable as pt's baseline. pt denies any pain, shortness of breath, fever, chill, nausea, vomiting or diarrhea. Pt is admitted in observation unit for further evaluation and treatment of altered mental status and weakness. History - Past Medical History Cardiovascular: reports: None Respiratory: reports: None Endocrine/Autoimmune: reports: Type 2 diabetes GI: reports: GERD, Other : reports: Benign prostate hypertrophy HEENT: reports: None Psych: reports: None Musculoskeletal: reports: None Derm: reports: None MRSA Hx?: No - Past Surgical History General: reports: Bowel surgery, Colonoscopy, Other Ortho: reports: Hip replacement HEENT: reports: Other Derm: reports: Other - Family & Social History Family History Comment/Other: pt is living [place], with his . They have four children Social History Notes: pt's report pt has never been cigarette smoker, alcohol and drug abuse. - Substance History Use: Uses substance without health or social issues: NONE - POLST Patient has POLST: Yes POLST Status: Full Code Meds/Allgy - Home Medications Home Medications: Ambulatory Orders Medication Instructions Recorded Confirmed Metformin HCl [Glucophage] 500 mg PO BIDWM 06/04/13 12/05/17 Omeprazole 20 mg PO BIDAC 11/24/15 12/05/17 Atorvastatin Calcium [Lipitor] 80 mg PO QPM 08/11/16 12/05/17 Rivaroxaban [Xarelto] 20 mg ORAL DAILYWM 04/08/17 12/05/17 Sucralfate [Carafate] 1 gm PO BID 04/08/17 12/05/17 Cholecalciferol (Vitamin D3) 2,000 unit PO DAILY 07/17/17 12/05/17 [Vitamin D3] Cetirizine [ZyrTEC] 10 mg PO BID 12/05/17 12/05/17 Montelukast [Singulair] 10 mg PO QPM PRN 12/05/17 12/05/17 levETIRAcetam [Levetiracetam] 500 mg PO BID 12/05/17 12/05/17 - Allergies Allergies/Adverse Reactions: Allergies Allergy/AdvReac Type Severity Reaction Status Date / Time codeine AdvReac Intermediate Nausea Verified 04/08/17 05:20 memantine HCl * AdvReac Anxiety Verified 04/08/17 05:20 [From Namenda] Review of Systems - Constitutional Constitutional: reports: Weakness. denies: Fever, Chills - Eyes Eyes: denies: Pain, Blurred vision, Field loss, Vision loss - Ears, Nose & Throat Ears, Nose & Throat: denies: Ear pain, Tinnitus, Vertigo, Nasal pain, Nasal discharge, Nosebleeds, Sore throat, Bleeding gums - Cardiovascular Cariovascular: denies: Irregular heart rate, Palpitations, Chest pain, Syncope, Exertional dyspnea, Decr. exercise tolerance - Respiratory Respiratory: reports: Cough. denies: Sputum production, Wheezing, Snoring, Hemoptysis, SOB at rest, SOB with exertion - Gastrointestinal Gastrointestinal: denies: Abdominal pain, Diarrhea, Rectal bleeding, Black stools, Bloody stools, Nausea, Vomiting, Dennis blood emesis, Coffee grounds emesis - Genitourinary Genitourinary: denies: Dysuria, Hematuria - Musculoskeletal Musculoskeletal: denies: Muscle pain, Back pain, Muscle aches, Joint pain, Joint swelling - Integumentary Integumentary: denies: Rash, Lesions, Dryness, Acne, Pigment changes - Neurological Neurological: reports: General weakness. denies: Focal weakness, Headache, Dizziness, Numbness, Memory problems, Abnormal gait, Seizures, Incoordination, Slurred speech - Psychiatric Psychiatric: denies: Suicidal, Hallucinations - Endocrine Endocrine: denies: Polyuria, Polydypsia, Polyphagia - Hematologic/Lymphatic Hematologic/Lymphatic: denies: Petechiae, Lymphadenopathy, Bleeding tendencies Exam - Vital Signs Reviewed Vital Signs: Yes Vital Signs: Vital Signs x48h Temp Pulse Resp BP Pulse Ox 12/05/17 15:22 67 16 148/94 H 98 12/05/17 13:34 66 11 L 150/80 H 94 12/05/17 12:12 36.4 C L 69 16 98 - Physical Exam General Appearance: positive: No acute distress, Alert. negative: Lethargic Eyes Bilateral: positive: Normal inspection, PERRL, No lid inflammation, Conjunctivae nml ENT: positive: ENT inspection nml, Pharynx nml, No signs of dehydration. negative: Purulent nasal drainage, Pharyngeal erythema, Oral lesions Neck: positive: Nml inspection, Thyroid nml, No JVD. negative: Trachea midline , Thyromegaly, Lymphadenopathy (R), Lymphadenopathy (L), Stiff neck, Swelling/ bruising, Tracheal deviation Respiratory: positive: Chest non-tender, No respiratory distress, Breath sounds nml. negative: Wheezes, Rales, Rhonchi Cardiovascular: positive: Regular rate & rhythm, No murmur, No gallop. negative : Irregularly irregular, Extrasystoles, Tachycardia, Bradycardia, JVD present, Systolic murmur, Diastolic murmur Peripheral Pulses: positive: 2+ Abdomen: positive: Non-tender, No organomegaly, Nml bowel sounds, No distention. negative: Tenderness, Guarding, Rebound Back: positive: Nml inspection. negative: CVA tenderness (R), CVA tenderness (L ) Skin: positive: Color nml, No rash, Warm, Dry. negative: Cyanosis, Diaphoresis , Pallor Extremities: positive: Non-tender, Full ROM, Nml appearance. negative: Calf tenderness, Joint swelling, Osmani's sign/cords Neurologic/Psychiatric: positive: Motor nml, Sensation nml. negative: Weakness , Sensory loss, Facial droop, Slurred/abnml speech, Depressed mood/affect Conclusion/Plan - Problem List (1) Altered mental status Conclusion/Plan: pt is with hx of Dementia, per 's report, pt has AMS. CT of head reveals no acute finding. pt does not present any acute focal deficit at this time. neurological check, will closely monitor if pt present any focus neurological deficit. check B12, TSH, ammonia level vital, lab monitor Qualifiers: Altered mental status type: disorientation Qualified Code(s): R41.0 - Disorientation, unspecified (2) Generalized weakness Conclusion/Plan: pt appear generalized weakness PT/OT evaluation and treatment (3) DM2 (diabetes mellitus, type 2) Conclusion/Plan: hold Metformin, check A1C slide scale, ACHS hypoglycemia protocol (4) HTN (hypertension) Conclusion/Plan: pt appear stable BP now, continue vital monitor (5) Hx of seizure disorder Conclusion/Plan: No acute seizure reported at this time. seizure precaution resume Keppra, and check serum Keppra concentration (6) History of dementia Conclusion/Plan: neuro check, closely monitor pt vital monitor (7) History of CVA (cerebrovascular accident) Conclusion/Plan: pt does not present any focus neurological deficit at this point neuro check resume home meds Xarelto (8) DVT prophylaxis Conclusion/Plan: SCD (9) Full code status Conclusion/Plan: per DEREK, pt is full code. will update per POA - Lab Results Fish Bones: 12/05/17 12:52 12/05/17 12:52 Core Measures - Anticipated LOS I expect patient to be DC'd or transferred within 96 hours.: Yes - DVT/VTE - Prophylaxis VTE/DVT Device ordered at admit?: Yes
[2017-12-05 16:29] LABS: HB2 TOTAL 11.1 g/dL; HEMOGLOBIN A1C 0.53 g/dL; HEMOGLOBIN A1C % 6.5 % (4.6-6.2)
[2017-12-05] MEDS: INSULIN ASPART 300 UNIT/3 ML PEN SUBQ SCH ×2 (17:53→21:59)
[2017-12-05] MEDS: SODIUM CHLORIDE 0.9% 1,000 ML IV SCH (17:54)
[2017-12-05] MEDS: SODIUM CHLORIDE FLUSH 0.9% 10 ML SYRINGE IVP SCH (17:54)
[2017-12-05] MEDS: SUCRALFATE 1 GM/10 ML UDC PO SCH (17:54)
[2017-12-05] MEDS: levETIRAcetam 250 MG TABLET PO SCH (21:54)
[2017-12-05] MEDS: ATORVASTATIN 40 MG TABLET PO SCH (21:54)
[2017-12-06] MEDS: SODIUM CHLORIDE FLUSH 0.9% 10 ML SYRINGE IVP SCH ×3 (01:03→16:07)
[2017-12-06 03:49] LABS: BILIRUBIN,URINE NEGATIVE (NEGATIVE); GLUCOSE, URINE (UA) NEGATIVE (NEGATIVE); KETONES,URINE (UA) NEGATIVE (NEGATIVE); LEUKOCYTE ESTERASE, URINE TRACE (NEGATIVE); NITRITE,URINE NEGATIVE (NEGATIVE); OCCULT BLOOD,URINE NEGATIVE (NEGATIVE); PH,URINE 7.5 PH (5.0-7.5); PROTEIN,URINE NEGATIVE (NEGATIVE); UROBILINOGEN,URINE 0.2 (NORMAL) E.U./dL (NORMAL)
[2017-12-06 03:51] LABS: CLARITY,URINE CLEAR (CLEAR)
[2017-12-06 03:58] LABS: BACTERIA,URINE Rare /HPF (None Seen); RBC,URINE 0-5 /HPF (0-5); SQUAMOUS EPITHELIAL CELL,UR RARE Squamous (<= Few)
[2017-12-06 05:54] LABS: BASOPHILS % (AUTO) 0.3 %; EOSINOPHILS % (AUTO) 1.1 %; HGB - HEMOGLOBIN 9.9 g/dL (14.0-18.0); LYMPHOCYTES # (AUTO) 0.5 10^3/uL (1.5-3.5); LYMPHOCYTES % (AUTO) 16.3 %; MEAN CORPUSCULAR HGB CONC 32.2 g/dL (32.0-36.0); MEAN CORPUSCULAR VOLUME 86.9 fL (80.0-94.0); MEAN PLATELET VOLUME 7.5 fL (7.4-11.4); MONOCYTES # (AUTO) 0.3 10^3/uL (0.0-1.0); MONOCYTES % (AUTO) 11.2 %; NEUTROPHILS # (AUTO) 2.1 10^3/uL (1.5-6.6); NEUTROPHILS % (AUTO) 71.1 %; PLT - PLATELET COUNT 209 10^3/uL (130-450); RED BLOOD COUNT 3.55 10^6/uL (4.70-6.10)
[2017-12-06 05:58] LABS: ALBUMIN 3.2 g/dL (3.2-5.5); ALBUMIN/GLOBULIN RATIO 0.9 (1.0-2.2); BILIRUBIN,TOTAL 0.6 mg/dL (0.2-1.0); CALCIUM 8.7 mg/dL (8.5-10.3); CREATININE 0.7 mg/dL (0.6-1.2); MAGNESIUM 1.9 mg/dL (1.7-2.8); TOTAL PROTEIN 6.7 g/dL (6.7-8.2)
[2017-12-06] MEDS: SUCRALFATE 1 GM/10 ML UDC PO SCH ×2 (06:43→16:07)
[2017-12-06] MEDS: SODIUM CHLORIDE 0.9% 1,000 ML IV SCH (06:43)
[2017-12-06] MEDS: INSULIN ASPART 300 UNIT/3 ML PEN SUBQ SCH ×4 (07:37→20:29)
[2017-12-06] MEDS: POLYETHYLENE GLYCOL 3350 17 GM PACKET PO SCH (08:27)
[2017-12-06] MEDS: FAMOTIDINE 20 MG TABLET PO SCH (08:27)
[2017-12-06] MEDS: levETIRAcetam 250 MG TABLET PO SCH ×2 (08:27→20:10)
[2017-12-06] MEDS: LISINOPRIL 5 MG TABLET PO SCH (08:27)
[2017-12-06] MEDS: RIVAROXABAN 10 MG TABLET PO SCH (08:27)
[2017-12-06] MEDS: cefTRIAXone 1 GM in SODIUM CHLORIDE 0.9% MINIBAG 100 ML IV SCH (11:14)
[2017-12-06] MEDS: INSULIN GLARGINE 300 UNIT/3 ML PEN SUBQ SCH (11:49)
--- NOTE | 2017-12-06 18:20 | PROVIDER PROGRESS NOTE ---
Subjective - Prog Note Date Prog Note Date: 12/06/17 Prog Note Time: 12:00 - Subjective Pt reports feeling: No change Subjective: The patient has no complaints and is unable to have any meaningful interactions due to altered mental status. He denies pain, chest pain, headaches, or nausea. His is in the room for this exam. Current Medications - Current Medications Current Medications: Active Medications Acetaminophen (Tylenol) 650 mg PO Q4HR PRN PRN Reason: Pain 1 to 4 Aspirin (Ecotrin) 325 mg PO DAILY LOIS Atorvastatin Calcium (Lipitor) 80 mg PO QPM [facility] Last Admin: 12/06/17 20:10 Dose: 80 mg Famotidine (Pepcid) 20 mg PO DAILY [facility] Last Admin: 12/06/17 08:27 Dose: 20 mg Ceftriaxone Sodium 1 gm/ (Sodium Chloride) 100 mls @ 200 mls/hr IV DAILY [facility] Last Infusion: 12/06/17 11:48 Dose: Infused Potassium Chloride/Sodium Chloride (Normal Saline 0.9% W/20 Meq Kcl) 1,000 mls @ 125 mls/hr IV .Q8H [facility] Insulin Aspart (Novolog) 1 - 5 unit SUBQ 0800,1200,1700,2100 LOIS PRN Reason: Protocol Last Admin: 12/06/17 20:29 Dose: 1 unit Insulin Glargine (Lantus Solostar) 5 unit SUBQ DAILY [facility] Last Admin: 12/06/17 11:49 Dose: 5 unit Levetiracetam (Keppra) 500 mg PO BID [facility] Last Admin: 12/06/17 20:10 Dose: 500 mg Lisinopril (Zestril) 5 mg PO DAILY [facility] Last Admin: 12/06/17 08:27 Dose: 5 mg Ondansetron HCl (Zofran Inj) 4 mg IVP Q6HR PRN PRN Reason: Nausea / Vomiting Polyethylene Glycol (Miralax) 17 gm PO DAILY [facility] Last Admin: 12/06/17 08:27 Dose: Not Given Potassium Chloride (K-Dur) 40 meq PO ONCE ONE Stop: 12/06/17 23:17 Rivaroxaban (Xarelto) 20 mg PO DAILYWM [facility] Last Admin: 12/06/17 08:27 Dose: 20 mg Sodium Chloride (Normal Saline Flush 0.9%) 10 ml IVP PRN PRN PRN Reason: NEEDED PER PROVIDER ORDERS Sodium Chloride (Normal Saline Flush 0.9%) 10 ml IVP 0100,0900,1700 [facility] Last Admin: 12/06/17 16:07 Dose: Not Given Sucralfate (Carafate) 1 gm PO BIDAC [facility] Last Admin: 12/06/17 16:07 Dose: 1 gm Metformin HCl [Glucophage] 500 mg PO BIDWM 06/04/13 Omeprazole 20 mg PO BIDAC 11/24/15 Atorvastatin Calcium [Lipitor] 80 mg PO QPM 08/11/16 Rivaroxaban [Xarelto] 20 mg ORAL DAILYWM 04/08/17 Sucralfate [Carafate] 1 gm PO BID 04/08/17 Cholecalciferol (Vitamin D3) [Vitamin D3] 2,000 unit PO DAILY 07/17/17 Cetirizine [ZyrTEC] 10 mg PO BID 12/05/17 Montelukast [Singulair] 10 mg PO QPM PRN 12/05/17 levETIRAcetam [Levetiracetam] 500 mg PO BID 12/05/17 Objective - Vital Signs/Intake & Output Vital Signs: Vital Signs x48h Temp Pulse Pulse Pulse Resp BP BP 12/06/17 15:33 36.7 C 55 L 16 131/55 H 12/06/17 11:18 37.0 C 56 L 16 139/88 H 12/06/17 11:15 60 59 L 171/77 H BP Pulse Ox 12/06/17 15:33 100 12/06/17 11:18 100 12/06/17 11:15 139/88 H Intake & Output: Intake & Output 12/03/17 12/04/17 12/05/17 12/06/17 23:59 23:59 23:59 23:59 Intake Total 220 Balance 220 - Objective General Appearance: positive: Alert, Moderate distress, Anxious Eyes Bilateral: positive: Normal inspection Eyes: OU Conjunctivae pale, OU Scleral icterus ENT: positive: ENT inspection nml, Dry mucous membranes Neck: positive: No JVD, Trachea midline Respiratory: positive: Chest non-tender, No respiratory distress Cardiovascular: positive: No gallop, Irregularly irregular, Systolic murmur Peripheral Pulses: 1+ Radial (R), 1+ Radial (L) Abdomen: positive: Non-tender, Nml bowel sounds, Other (rounded, soft) Back: positive: Nml inspection Skin: positive: No rash, Warm, Dry, Pallor Extremities: positive: Non-tender, Pedal edema (dependent, BLE trace) Neurologic/Psychiatric: positive: Disoriented to place, Disoriented to time, Weakness, Sensory loss, Facial droop (left facial droop, most noticed with smiling.), Slurred/abnml speech, Depressed mood/affect, Other (baseline advanced dementia.) Reflexes: Bicep (R): 2+, Bicep (L): 2+ - Lab Results Fish Bones: 12/06/17 05:30 12/06/17 05:30 Other Labs: Lab Results x24hrs 12/06/17 12/06/17 Range/Units 16:07 11:10 POC Whole Bld Glucose 126 H 167 H (70 - 100) mg/dL ABX Reporting Has patient been on IV antibiotics over the past 48 hours?: Yes Assessment/Plan - Problem List (1) UTI (urinary tract infection) Impression: The patient has a probable UTI based on UA that was obtained with cultures that are pending. Plan: Monitor AMS, start IV antibiotics, Rochephin for this complicated UTI. Continue gentle IV hydration. Qualifiers: Encounter type: subsequent encounter (2) Altered mental status Impression: The patient is profoundly confused and cannot even focus on eating with encouragement. He seems to recognize his . The confusion is exacerbated by his chronic hearing loss, which his hearing aides are at home. Plan: Treat for suspected UTI and await culture results. May consider MRI in the next few days, since he has a history of CVA and a slight left facial droop is noted upon exam today. Qualifiers: Altered mental status type: disorientation Qualified Code(s): R41.0 - Disorientation, unspecified (3) DM2 (diabetes mellitus, type 2) Impression: The patient has a known history of this and is controlled with oral Metformin at home. A hemoglobin A1 C was obtained and is 6.5%, which is within a safe range for his age group. I will hold home metformin as per hospital protocol. Plan: Start nightly Lantus SQ at HS, monitor blood sugars and give low dose SSI. (4) Generalized weakness Impression: The patient is slightly more debilitated since his last admission. His denies recent falls, but as usual, he is extremely difficult to care for given his previous CVAs and worsening mental status. They were able to afford previous home care givers, but recently have not been a position to get this extra help. Plan: PT/OT evaluation to recommend next site of care. Home with home health verses senior care. (5) HTN (hypertension) Impression: The patient has a long history of this and is NOT prescribed anything at home. Blood pressures are running high since being admitted (159/61), with a bradycardia noted in the 50's. Plan: continue to monitor and treat with appropriate meds based on upcoming echo results. (6) Hx of seizure disorder Impression: The patient is prescribed Keppra at home for a history of seizures. His denies recent witnessed episodes. Plan: Continue meds and maintain seizure precautions. (7) History of dementia Impression: The patient has evidence of this upon last imaging in July. This acute phase of AMS may be a progression of his dementia verses infection related or a combination. Plan: Continue to monitor and a possible head MRI in the next few days after a few doses of IV antibiotics for UTI are administered. (8) Cerebrovascular accident (CVA) Impression: Brett has a known CVA history and on 07/19/17 a head MRI revealed a new [id number] stroke. Upon exam today a slight left facial droop can be appreciated. His believes this may be new for him. Plan: MRI in the next few days if symptoms are ongoing or worsening mental status. Echo in the AM. Qualifiers: CVA mechanism: unspecified Qualified Code(s): I63.9 - Cerebral infarction, unspecified (9) Hypokalemia Impression: The patient is noted to have a K+ of just 3.1 today, so oral potassium x1 was added late in the shift. IV fluids have also been changed to include K+. The patient does not have evidence of hyperglycemia at the time of lab draw, and per has not had any recent diarrhea, nausea or vomiting. I suspect this abnormality is due to recent poor PO intake. Plan: Continue to monitor labs and encourage PO intake. Monitor for other causes.
[2017-12-06] MEDS: ATORVASTATIN 40 MG TABLET PO SCH (20:10)
[2017-12-06] MEDS ORDERED: POTASSIUM CHLORIDE 20 MEQ TABLET PO SCH (23:16)
[2017-12-07] MEDS: NS W/20 MEQ KCL 1,000 ML IV SCH ×3 (00:14→20:22)
[2017-12-07] MEDS: SODIUM CHLORIDE FLUSH 0.9% 10 ML SYRINGE IVP SCH ×3 (00:16→17:33)
[2017-12-07 05:50] LABS: BASOPHILS % (AUTO) 0.3 %; EOSINOPHILS % (AUTO) 1.6 %; HGB - HEMOGLOBIN 10.1 g/dL (14.0-18.0); LYMPHOCYTES # (AUTO) 0.4 10^3/uL (1.5-3.5); LYMPHOCYTES % (AUTO) 14.3 %; MEAN CORPUSCULAR HEMOGLOBIN 27.8 pg (27.0-31.0); MEAN CORPUSCULAR HGB CONC 31.3 g/dL (32.0-36.0); MEAN CORPUSCULAR VOLUME 88.9 fL (80.0-94.0); MEAN PLATELET VOLUME 7.2 fL (7.4-11.4); MONOCYTES # (AUTO) 0.3 10^3/uL (0.0-1.0); MONOCYTES % (AUTO) 11.6 %; NEUTROPHILS # (AUTO) 2.1 10^3/uL (1.5-6.6); NEUTROPHILS % (AUTO) 72.2 %; PLT - PLATELET COUNT 193 10^3/uL (130-450); RED BLOOD COUNT 3.62 10^6/uL (4.70-6.10); RED CELL DISTRIBUTION WIDTH 16.9 % (12.0-15.0); WHITE BLOOD COUNT 2.8 x10^3/uL (4.8-10.8)
[2017-12-07 06:00] LABS: ALBUMIN 3.2 g/dL (3.2-5.5); BILIRUBIN,TOTAL 0.5 mg/dL (0.2-1.0); CALCIUM 8.4 mg/dL (8.5-10.3); CREATININE 0.8 mg/dL (0.6-1.2); TOTAL PROTEIN 6.3 g/dL (6.7-8.2)
[2017-12-07 06:21] LABS: ABNORMAL LYMPHS % (MANUAL) 0 %
[2017-12-07 06:43] LABS: BAND NEUTROPHILS % (MANUAL) 4 %; LYMPHOCYTES # (MANUAL) 0.4 10^3/uL (1.5-3.5); LYMPHOCYTES % (MANUAL) 16 %; MONOCYTES # (MANUAL) 0.2 10^3/uL (0.0-1.0); NEUTROPHILS # (MANUAL) 2.2 10^3/uL (1.5-6.6); NEUTROPHILS % (MANUAL) 74 %; PLATELET ESTIMATE, MANUAL NORMAL (130-450,000) (NORMAL); RBC MORPHOLOGY (MULTIPLE) NORMAL APPEARANCE (NORMAL)
[2017-12-07] MEDS: SUCRALFATE 1 GM/10 ML UDC PO SCH ×2 (06:56→17:32)
[2017-12-07] MEDS: INSULIN ASPART 300 UNIT/3 ML PEN SUBQ SCH ×4 (08:46→20:27)
[2017-12-07] MEDS: POLYETHYLENE GLYCOL 3350 17 GM PACKET PO SCH (09:30)
[2017-12-07] MEDS: cefTRIAXone 1 GM in SODIUM CHLORIDE 0.9% MINIBAG 100 ML IV SCH (09:30)
[2017-12-07] MEDS: levETIRAcetam 250 MG TABLET PO SCH ×2 (09:31→20:23)
[2017-12-07] MEDS: LISINOPRIL 5 MG TABLET PO SCH (09:31)
[2017-12-07] MEDS: ASPIRIN EC 325 MG TABLET PO SCH ×2 (09:31→11:04)
[2017-12-07] MEDS: FAMOTIDINE 20 MG TABLET PO SCH (09:31)
[2017-12-07] MEDS: RIVAROXABAN 10 MG TABLET PO SCH (09:31)
--- NOTE | 2017-12-07 11:22 | PROVIDER PROGRESS NOTE ---
Subjective - Prog Note Date Prog Note Date: 12/07/17 Prog Note Time: 11:22 - Subjective Pt reports feeling: Improved Subjective: Brett is a little more interactive today and smiles when being spoken to. He denies shortness of breath, chest pain, nausea, vomiting, nausea, vomiting or a new cough. His is in the room for this exam. Preliminary results of MRI and echocardiogram were given to her and her . Current Medications - Current Medications Current Medications: Active Medications Acetaminophen (Tylenol) 650 mg PO Q4HR PRN PRN Reason: Pain 1 to 4 Aspirin (Ecotrin) 325 mg PO DAILY LOIS Last Admin: 12/08/17 08:26 Dose: 325 mg Atorvastatin Calcium (Lipitor) 80 mg PO QPM [facility] Last Admin: 12/07/17 20:23 Dose: 80 mg Famotidine (Pepcid) 20 mg PO DAILY LOIS Last Admin: 12/08/17 08:26 Dose: 20 mg Ceftriaxone Sodium 1 gm/ (Sodium Chloride) 100 mls @ 200 mls/hr IV DAILY LOIS Last Admin: 12/08/17 08:25 Dose: 200 mls/hr Potassium Chloride/Sodium Chloride (Normal Saline 0.9% W/20 Meq Kcl) 1,000 mls @ 125 mls/hr IV .Q8H [facility] Last Admin: 12/08/17 04:21 Dose: 125 mls/hr Insulin Aspart (Novolog) 1 - 5 unit SUBQ 0800,1200,1700,2100 LOIS PRN Reason: Protocol Last Admin: 12/08/17 08:25 Dose: Not Given Insulin Glargine (Lantus Solostar) 5 unit SUBQ DAILY [facility] Last Admin: 12/08/17 08:26 Dose: 5 unit Levetiracetam (Keppra) 500 mg PO BID LOIS Last Admin: 12/08/17 08:25 Dose: 500 mg Lisinopril (Zestril) 5 mg PO DAILY [facility]IS Last Admin: 12/08/17 08:25 Dose: 5 mg Ondansetron HCl (Zofran Inj) 4 mg IVP Q6HR PRN PRN Reason: Nausea / Vomiting Polyethylene Glycol (Miralax) 17 gm PO DAILY LOIS Last Admin: 12/08/17 08:26 Dose: Not Given Rivaroxaban (Xarelto) 20 mg PO DAILYWM [facility] Last Admin: 12/08/17 08:25 Dose: 20 mg Sodium Chloride (Normal Saline Flush 0.9%) 10 ml IVP PRN PRN PRN Reason: NEEDED PER PROVIDER ORDERS Sodium Chloride (Normal Saline Flush 0.9%) 10 ml IVP 0100,0900,1700 [facility] Last Admin: 12/08/17 08:26 Dose: Not Given Sucralfate (Carafate) 1 gm PO BIDAC [facility] Last Admin: 12/08/17 07:28 Dose: 1 gm Metformin HCl [Glucophage] 500 mg PO BIDWM 06/04/13 Omeprazole 20 mg PO BIDAC 11/24/15 Atorvastatin Calcium [Lipitor] 80 mg PO QPM 08/11/16 Rivaroxaban [Xarelto] 20 mg ORAL DAILYWM 04/08/17 Sucralfate [Carafate] 1 gm PO BID 04/08/17 Cholecalciferol (Vitamin D3) [Vitamin D3] 2,000 unit PO DAILY 07/17/17 Cetirizine [ZyrTEC] 10 mg PO BID 12/05/17 Montelukast [Singulair] 10 mg PO QPM PRN 12/05/17 levETIRAcetam [Levetiracetam] 500 mg PO BID 12/05/17 Objective - Vital Signs/Intake & Output Reviewed Vital Signs: Yes Vital Signs: Vital Signs x48h Temp Pulse Resp BP Pulse Ox 12/07/17 08:19 36.2 C L 56 L 16 141/64 H 96 12/07/17 05:00 35.9 C L 55 L 18 166/67 H 97 Intake & Output: Intake & Output 12/04/17 12/05/17 12/06/17 12/07/17 23:59 23:59 23:59 23:59 Intake Total 606 2220 Balance 606 2220 - Objective General Appearance: positive: No acute distress, Alert, Anxious Eyes Bilateral: positive: Normal inspection Eyes: OU Conjunctivae pale ENT: positive: ENT inspection nml, No signs of dehydration Neck: positive: Nml inspection, No JVD, Stiff neck Respiratory: positive: Chest non-tender, No respiratory distress, Other ( diminished bilaterally.) Cardiovascular: positive: Regular rate & rhythm, No gallop, Systolic murmur, Decreased pulse(s) Peripheral Pulses: 1+ Radial (R), 1+ Radial (L), 1+ Dorsalis pedis (R), 1+ Dorsalis pedis (L) Abdomen: positive: Non-tender, Nml bowel sounds, Other (rounded, soft) Back: positive: Nml inspection Skin: positive: No rash, Warm, Dry, Pallor Extremities: positive: Non-tender, Full ROM, Pedal edema (trace, BLE likely dependent.), Joint swelling Neurologic/Psychiatric: positive: Disoriented to place, Disoriented to time, Weakness, Sensory loss, Facial droop (ongoing, slight left facial droop- can be seen when smiling.), Slurred/abnml speech, Depressed mood/affect Reflexes: Bicep (R): 1+, Bicep (L): 1+ - Lab Results Fish Bones: 12/08/17 06:02 12/08/17 06:02 Other Labs: Lab Results x24hrs 12/07/17 12/07/17 12/07/17 Range/Units 07:35 05:15 05:15 WBC 2.8 L (4.8-10.8) x10^3/uL RBC 3.62 L (4.70-6.10) 10^6/uL Hgb 10.1 L (14.0-18.0) g/dL Hct 32.2 L (42.0-52.0) % MCV 88.9 (80.0-94.0) fL MCH 27.8 (27.0-31.0) pg MCHC 31.3 L (32.0-36.0) g/dL RDW 16.9 H (12.0-15.0) % Plt Count 193 (130-450) 10^3/uL MPV 7.2 L (7.4-11.4) fL Neut # (Auto) 2.1 (1.5-6.6) 10^3/uL Lymph # (Auto) 0.4 L (1.5-3.5) 10^3/uL [place] # (Auto) 0.3 (0.0-1.0) 10^3/uL Eos # (Auto) 0.0 (0.0-0.7) 10^3/uL Baso # (Auto) 0.0 (0.0-0.1) 10^3/uL Absolute Nucleated RBC 0.00 x10^3/uL Total Counted 100 Band Neuts % (Manual) 4 (0 - 10) % Abnorm Lymph % (Manual) 0 % Nucleated RBC % 0.1 /100WBC Neutrophils # (Manual) 2.2 (1.5-6.6) 10^3/uL Lymphocytes # (Manual) 0.4 L (1.5-3.5) 10^3/uL Monocytes # (Manual) 0.2 (0.0-1.0) 10^3/uL Eosinophils # (Manual) 0.0 (0-0.7) 10^3/uL Basophils # (Manual) 0.0 (0-0.1) 10^3/uL Platelet Estimate NORMAL (130-450,000) (NORMAL) RBC Morph Micro Appear NORMAL APPEARANCE (NORMAL) Sodium 138 (135-145) mmol/L Potassium 3.3 L (3.5-5.0) mmol/L Chloride 110 (101-111) mmol/L Carbon Dioxide 23 (21-32) mmol/L Anion Gap 5.0 L (6-13) BUN 12 (6-20) mg/dL Creatinine 0.8 (0.6-1.2) mg/dL Estimated GFR (MDRD) 91 (>89) Glucose 121 H (70-100) mg/dL POC Whole Bld Glucose 123 H (70 - 100) mg/dL Calcium 8.4 L (8.5-10.3) mg/dL Total Bilirubin 0.5 (0.2-1.0) mg/dL AST 22 (10-42) IU/L ALT 19 (10-60) IU/L Alkaline Phosphatase 66 (42-121) IU/L Total Protein 6.3 L (6.7-8.2) g/dL Albumin 3.2 (3.2-5.5) g/dL Globulin 3.1 (2.1-4.2) g/dL Albumin/Globulin Ratio 1.0 (1.0-2.2) 12/06/17 12/06/17 12/06/17 Range/Units 20:20 16:07 11:10 WBC (4.8-10.8) x10^3/uL RBC (4.70-6.10) 10^6/uL Hgb (14.0-18.0) g/dL Hct (42.0-52.0) % MCV (80.0-94.0) fL MCH (27.0-31.0) pg MCHC (32.0-36.0) g/dL RDW (12.0-15.0) % Plt Count (130-450) 10^3/uL MPV (7.4-11.4) fL Neut # (Auto) (1.5-6.6) 10^3/uL Lymph # (Auto) (1.5-3.5) 10^3/uL [place] # (Auto) (0.0-1.0) 10^3/uL Eos # (Auto) (0.0-0.7) 10^3/uL Baso # (Auto) (0.0-0.1) 10^3/uL Absolute Nucleated RBC x10^3/uL Total Counted Band Neuts % (Manual) (0 - 10) % Abnorm Lymph % (Manual) % Nucleated RBC % /100WBC Neutrophils # (Manual) (1.5-6.6) 10^3/uL Lymphocytes # (Manual) (1.5-3.5) 10^3/uL Monocytes # (Manual) (0.0-1.0) 10^3/uL Eosinophils # (Manual) (0-0.7) 10^3/uL Basophils # (Manual) (0-0.1) 10^3/uL Platelet Estimate (NORMAL) RBC Morph Micro Appear (NORMAL) Sodium (135-145) mmol/L Potassium (3.5-5.0) mmol/L Chloride (101-111) mmol/L Carbon Dioxide (21-32) mmol/L Anion Gap (6-13) BUN (6-20) mg/dL Creatinine (0.6-1.2) mg/dL Estimated GFR (MDRD) (>89) Glucose (70-100) mg/dL POC Whole Bld Glucose 168 H 126 H 167 H (70 - 100) mg/dL Calcium (8.5-10.3) mg/dL Total Bilirubin (0.2-1.0) mg/dL AST (10-42) IU/L ALT (10-60) IU/L Alkaline Phosphatase (42-121) IU/L Total Protein (6.7-8.2) g/dL Albumin (3.2-5.5) g/dL Globulin (2.1-4.2) g/dL Albumin/Globulin Ratio (1.0-2.2) - Diagnostic Imaging Diagnostic Imaging Results: positive: Prelim report reviewed, Final report reviewed ABX Reporting Has patient been on IV antibiotics over the past 48 hours?: Yes Assessment/Plan - Problem List (1) UTI (urinary tract infection) Impression: A urine specimen was collected, and is pending, and preliminary results suggest not enough colonies for a positive culture. However, the patient presentation was worsening altered mental status, profound weakness, and leukopenia. Since beginning the antibiotics the patient can now get up to the chair and has mildly improved mentation. I will add routine bladder scans to check for urinary retention. Plan: Monitor AMS, continue IV antibiotics, Rochephin for UTI. Continue gentle IV hydration. Qualifiers: Encounter type: subsequent encounter (2) Altered mental status Impression: Today the patient is more interactive, which is likely the result of his hearing aides today. He is still having profound comprehension problems. Plan: Treat for suspected UTI and await culture results. May consider MRI in the next few days, since he has a history of CVA and a slight left facial droop is noted upon exam today. Qualifiers: Altered mental status type: disorientation Qualified Code(s): R41.0 - Disorientation, unspecified (3) DM2 (diabetes mellitus, type 2) Impression: The patient has a known history of this and is controlled with oral Metformin at home. A hemoglobin A1 C was obtained and is 6.5%, which is within a safe range for his age group. I will hold home metformin as per hospital protocol. The patient's early AM sugar was 145 today. Plan: Continue nightly Lantus SQ at HS, monitor blood sugars and give low dose SSI. Encourage PO intake. Qualifiers: Diabetes mellitus complication detail: with cataract (4) Generalized weakness Impression: The patient underwent a physical therapy evaluation who recommends [facility] care upon discharge given his debilitated state. This has been progressively worse and has been living at home with is . Home care givers have been less frequent as per . Plan: Continue daily physical therapy and [facility] upon discharge. (5) HTN (hypertension) Impression: The patient has a long history of this and takes Lisinopril at home. Blood pressures are running high since being admitted 171, with a bradycardia noted in the 50's. Based on preliminary echocardiogram results obtained today, the patient has a normal EF of 65-70%. Plan: continue Lisinopril and await final echo results. Qualifiers: Hypertension type: essential hypertension Qualified Code(s): I10 - Essential (primary) hypertension (6) Hx of seizure disorder Impression: The patient is prescribed Keppra at home for a history of seizures. His denies recent witnessed episodes. Keppra BID orally has been given while hospitalized. Plan: Continue meds and maintain seizure precautions. (7) History of dementia Impression: The patient has moderate to severe white matter changes as noted on most recent preliminary head MRI results from today. 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 Plan: Continue supportive care. (8) Cerebrovascular accident (CVA) Impression: Brett has a known CVA history and on 07/19/17 a head MRI revealed a new KHUSHBOO stroke. Preliminary echo results reveal no atrial shunt (-PFO), head MRI results show no acute infarct. The left facial droop can still be appreciated upon exam, with normal ocular responses. Plan: Continue supportive care and continue daily physical therapy with plans to discharge to SNF for further therapy. Qualifiers: CVA mechanism: unspecified Qualified Code(s): I63.9 - Cerebral infarction, unspecified (9) Hypokalemia Impression: The patient is noted to have a K+ of just 3.1 upon admission, and is slightly improved to 3.3 today after changing his primary fluid to a potassium preparation. As per , the patient has not had any recent diarrhea, nausea or vomiting. I suspect this abnormality is due to recent poor PO intake. His poor PO intake continues and seems to only be consuming less than 50% for each meal. Plan: Continue to monitor labs and encourage PO intake. Monitor for other causes. 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 His albumin level is WNLs, but is found to have low total protein levels at 6.3. Plan: Nutritional consult and await pre-albumin labs. Qualifiers: Protein-calorie malnutrition severity: moderate Qualified Code(s): E44.0 - Moderate protein-calorie malnutrition
--- NOTE | 2017-12-07 11:52 | MRI Report ---
Procedure Date: 12/07/2017 Accession Number: [id number] / [id number] Procedure: MRI - Brain W/O CPT Code: FULL RESULT: EXAM: MRI BRAIN WITHOUT CONTRAST EXAM DATE: 12/07/2017 10:56 AM. CLINICAL HISTORY: 87-year-old with left facial droop and altered mental status COMPARISON: CT head 12/05/2017; MR brain 07/19/2017. TECHNIQUE: Multiplanar, multisequence T1-weighted and fluid-sensitive MR sequences of the brain were performed. Sequences optimized for routine evaluation. Other: None. IV Contrast: None. FINDINGS: Brain Volume: Normal for age. Parenchyma/Dura: No acute parenchymal hemorrhage, mass, or midline shift. Old chronic lacunar infarct of the right centrum semiovale. Moderate to severe bilateral areas of T2/FLAIR signal hyperintensity seen and appear similar to prior study. Patchy first hyperdensity seen within the tito. No areas restricted diffusion seen to suggest acute infarct. Susceptibility effect seen within the basal ganglia felt to represent mineralization. No areas of abnormal hemosiderin deposition. Ventricles/Cisterns: Prominence to the ventricular system that appears appropriately extended to volume loss. No abnormal extra-axial fluid collection or hemorrhage. Cisterns appear patent. Orbits: Changes of bilateral lens replacement. S[place]: The pituitary gland, cavernous sinuses, suprasellar cistern and optic chiasm are unremarkable. IAC: Symmetric and unremarkable. Vasculature: Normal signal flow void is seen in the major arterial structures at the skull base. Sinuses: No acute appearing sinus disease. Bones: No focal pathologic appearing marrow signal changes. Other: None. IMPRESSION: 1. No acute infarct, intracranial hemorrhage, mass, hydrocephalus, or midline shift. 2. Moderate to severe white matter changes that appear similar to 07/19/2017 and may represent sequela of chronic small vessel ischemic disease. [facility]
[2017-12-07] MEDS: INSULIN GLARGINE 300 UNIT/3 ML PEN SUBQ SCH (12:12)
[2017-12-07] MEDS: ATORVASTATIN 40 MG TABLET PO SCH (20:23)
[2017-12-08] MEDS: SODIUM CHLORIDE FLUSH 0.9% 10 ML SYRINGE IVP SCH ×3 (04:21→16:36)
[2017-12-08] MEDS: NS W/20 MEQ KCL 1,000 ML IV SCH ×3 (04:21→23:08)
[2017-12-08 06:12] LABS: EOSINOPHILS # (AUTO) 0.1 10^3/uL (0.0-0.7); LYMPHOCYTES # (AUTO) 0.5 10^3/uL (1.5-3.5)
[2017-12-08 06:19] LABS: BASOPHILS % (AUTO) 0.5 %; EOSINOPHILS % (AUTO) 2.8 %; HGB - HEMOGLOBIN 10.5 g/dL (14.0-18.0); LYMPHOCYTES % (AUTO) 17.4 %; MEAN CORPUSCULAR HEMOGLOBIN 27.7 pg (27.0-31.0); MEAN CORPUSCULAR HGB CONC 31.4 g/dL (32.0-36.0); MEAN CORPUSCULAR VOLUME 88.1 fL (80.0-94.0); MEAN PLATELET VOLUME 7.9 fL (7.4-11.4); MONOCYTES # (AUTO) 0.3 10^3/uL (0.0-1.0); MONOCYTES % (AUTO) 11.6 %; NEUTROPHILS % (AUTO) 67.7 %; PLT - PLATELET COUNT 206 10^3/uL (130-450); RED BLOOD COUNT 3.81 10^6/uL (4.70-6.10); RED CELL DISTRIBUTION WIDTH 17.1 % (12.0-15.0)
[2017-12-08 06:42] LABS: ALBUMIN 3.2 g/dL (3.2-5.5); ALBUMIN/GLOBULIN RATIO 0.9 (1.0-2.2); BILIRUBIN,TOTAL 0.3 mg/dL (0.2-1.0); CALCIUM 8.8 mg/dL (8.5-10.3); CREATININE 0.8 mg/dL (0.6-1.2); TOTAL PROTEIN 6.6 g/dL (6.7-8.2)
[2017-12-08] MEDS: SUCRALFATE 1 GM/10 ML UDC PO SCH ×2 (07:28→16:36)
[2017-12-08] MEDS: INSULIN ASPART 300 UNIT/3 ML PEN SUBQ SCH ×4 (08:25→21:44)
[2017-12-08] MEDS: LISINOPRIL 5 MG TABLET PO SCH (08:25)
[2017-12-08] MEDS: levETIRAcetam 250 MG TABLET PO SCH ×2 (08:25→21:45)
[2017-12-08] MEDS: RIVAROXABAN 10 MG TABLET PO SCH (08:25)
[2017-12-08] MEDS: cefTRIAXone 1 GM in SODIUM CHLORIDE 0.9% MINIBAG 100 ML IV SCH (08:25)
[2017-12-08] MEDS: ASPIRIN EC 325 MG TABLET PO SCH (08:26)
[2017-12-08] MEDS: INSULIN GLARGINE 300 UNIT/3 ML PEN SUBQ SCH (08:26)
[2017-12-08] MEDS: POLYETHYLENE GLYCOL 3350 17 GM PACKET PO SCH (08:26)
[2017-12-08] MEDS: FAMOTIDINE 20 MG TABLET PO SCH (08:26)
--- NOTE | 2017-12-08 08:42 | PROVIDER PROGRESS NOTE ---
Subjective - Prog Note Date Prog Note Date: 12/08/17 Prog Note Time: 08:42 - Subjective Pt reports feeling: Improved Subjective: Brett is much improved since admission. He denies shortness of breath, chest pain, nausea, vomiting or a new cough. He has been compliant with physical therapy. updated. Current Medications - Current Medications Current Medications: Active Medications Acetaminophen (Tylenol) 650 mg PO Q4HR PRN PRN Reason: Pain 1 to 4 Aspirin (Ecotrin) 325 mg PO DAILY [facility] Last Admin: 12/09/17 08:55 Dose: 325 mg Atorvastatin Calcium (Lipitor) 80 mg PO QPM [facility] Last Admin: 12/08/17 21:45 Dose: 80 mg Famotidine (Pepcid) 20 mg PO DAILY [facility] Last Admin: 12/09/17 08:54 Dose: 20 mg Ceftriaxone Sodium 1 gm/ (Sodium Chloride) 100 mls @ 200 mls/hr IV DAILY [facility] Last Infusion: 12/09/17 10:25 Dose: Infused Potassium Chloride/Sodium Chloride (Normal Saline 0.9% W/20 Meq Kcl) 1,000 mls @ 125 mls/hr IV .Q8H [facility] Last Admin: 12/09/17 06:34 Dose: 125 mls/hr Insulin Aspart (Novolog) 1 - 5 unit SUBQ 0800,1200,1700,2100 [facility] PRN Reason: Protocol Last Admin: 12/09/17 08:54 Dose: Not Given Insulin Glargine (Lantus Solostar) 5 unit SUBQ DAILY [facility] Last Admin: 12/09/17 09:00 Dose: 5 unit Levetiracetam (Keppra) 500 mg PO BID [facility] Last Admin: 12/09/17 08:55 Dose: 500 mg Lisinopril (Zestril) 5 mg PO DAILY [facility] Last Admin: 12/09/17 08:54 Dose: 5 mg Ondansetron HCl (Zofran Inj) 4 mg IVP Q6HR PRN PRN Reason: Nausea / Vomiting Polyethylene Glycol (Miralax) 17 gm PO DAILY [facility] Last Admin: 12/09/17 08:54 Dose: 17 gm Rivaroxaban (Xarelto) 20 mg PO DAILYWM [facility] Last Admin: 12/09/17 08:55 Dose: 20 mg Sodium Chloride (Normal Saline Flush 0.9%) 10 ml IVP PRN PRN PRN Reason: NEEDED PER PROVIDER ORDERS Sodium Chloride (Normal Saline Flush 0.9%) 10 ml IVP 0100,0900,1700 [facility] Last Admin: 12/09/17 09:00 Dose: Not Given Sucralfate (Carafate) 1 gm PO BIDAC [facility] Last Admin: 12/09/17 06:32 Dose: 1 gm Metformin HCl [Glucophage] 500 mg PO BIDWM 06/04/13 Omeprazole 20 mg PO BIDAC 11/24/15 Atorvastatin Calcium [Lipitor] 80 mg PO QPM 08/11/16 Rivaroxaban [Xarelto] 20 mg ORAL DAILYWM 04/08/17 Sucralfate [Carafate] 1 gm PO BID 04/08/17 Cholecalciferol (Vitamin D3) [Vitamin D3] 2,000 unit PO DAILY 07/17/17 Cetirizine [ZyrTEC] 10 mg PO BID 12/05/17 Montelukast [Singulair] 10 mg PO QPM PRN 12/05/17 levETIRAcetam [Levetiracetam] 500 mg PO BID 12/05/17 Objective - Vital Signs/Intake & Output Reviewed Vital Signs: Yes Vital Signs: Vital Signs x48h Temp Pulse Resp BP Pulse Ox 12/08/17 07:46 36.4 C L 53 L 16 155/59 H 97 12/08/17 04:23 36.2 C L 52 L 18 140/69 H 97 12/08/17 00:46 36.4 C L 65 16 162/84 H 100 Intake & Output: Intake & Output 12/05/17 12/06/17 12/07/17 12/08/17 23:59 23:59 23:59 23:59 Intake Total 606 4167 1237.917 Balance 606 4167 1237.917 - Objective General Appearance: positive: No acute distress, Alert, Anxious Eyes Bilateral: positive: Normal inspection Eyes: OU Conjunctivae pale, OU Scleral icterus ENT: positive: ENT inspection nml, Pharyngeal erythema, Dry mucous membranes Neck: positive: Nml inspection, Thyroid nml, No JVD, Trachea midline, Lymphadenopathy (R), Lymphadenopathy (L) Respiratory: positive: Chest non-tender, No respiratory distress, Other ( diminished with scattered crackles. bilaterally.) Cardiovascular: positive: No gallop, Irregularly irregular, Systolic murmur, Decreased pulse(s) Peripheral Pulses: 1+ Radial (R), 1+ Radial (L) Abdomen: positive: Non-tender, Abnml bowel sounds, Other (rounded, soft). negative: Mass Back: positive: Nml inspection Skin: positive: No rash, Warm, Dry. negative: Cyanosis Extremities: positive: Non-tender, Pedal edema (chronic BLE edema), Joint swelling Neurologic/Psychiatric: positive: Disoriented to place, Disoriented to time, Weakness, Sensory loss, Slurred/abnml speech, Depressed mood/affect Reflexes: Bicep (R): 2+, Bicep (L): 2+ - Lab Results Fish Bones: 12/08/17 06:02 12/09/17 04:58 Other Labs: Lab Results x24hrs 12/08/17 12/08/17 12/08/17 Range/Units 07:19 06:02 06:02 WBC (4.8-10.8) x10^3/uL RBC (4.70-6.10) 10^6/uL Hgb (14.0-18.0) g/dL Hct (42.0-52.0) % MCV (80.0-94.0) fL MCH (27.0-31.0) pg MCHC (32.0-36.0) g/dL RDW (12.0-15.0) % Plt Count (130-450) 10^3/uL MPV (7.4-11.4) fL Neut # (Auto) (1.5-6.6) 10^3/uL Lymph # (Auto) (1.5-3.5) 10^3/uL Schleicher # (Auto) (0.0-1.0) 10^3/uL Eos # (Auto) (0.0-0.7) 10^3/uL Baso # (Auto) (0.0-0.1) 10^3/uL Absolute Nucleated RBC x10^3/uL Nucleated RBC % /100WBC Sodium 140 (135-145) mmol/L Potassium 3.7 (3.5-5.0) mmol/L Chloride 111 (101-111) mmol/L Carbon Dioxide 24 (21-32) mmol/L Anion Gap 5.0 L (6-13) BUN 12 (6-20) mg/dL Creatinine 0.8 (0.6-1.2) mg/dL Estimated GFR (MDRD) 91 (>89) Glucose 115 H (70-100) mg/dL POC Whole Bld Glucose 112 H (70 - 100) mg/dL Calcium 8.8 (8.5-10.3) mg/dL Magnesium 1.9 (1.7-2.8) mg/dL Total Bilirubin 0.3 (0.2-1.0) mg/dL AST 23 (10-42) IU/L ALT 21 (10-60) IU/L Alkaline Phosphatase 72 (42-121) IU/L Total Protein 6.6 L (6.7-8.2) g/dL Albumin 3.2 (3.2-5.5) g/dL Globulin 3.4 (2.1-4.2) g/dL Albumin/Globulin Ratio 0.9 L (1.0-2.2) 12/08/17 12/07/17 12/07/17 Range/Units 06:02 20:04 16:36 WBC 3.0 L (4.8-10.8) x10^3/uL RBC 3.81 L (4.70-6.10) 10^6/uL Hgb 10.5 L (14.0-18.0) g/dL Hct 33.5 L (42.0-52.0) % MCV 88.1 (80.0-94.0) fL MCH 27.7 (27.0-31.0) pg MCHC 31.4 L (32.0-36.0) g/dL RDW 17.1 H (12.0-15.0) % Plt Count 206 (130-450) 10^3/uL MPV 7.9 (7.4-11.4) fL Neut # (Auto) 2.0 (1.5-6.6) 10^3/uL Lymph # (Auto) 0.5 L (1.5-3.5) 10^3/uL Schleicher # (Auto) 0.3 (0.0-1.0) 10^3/uL Eos # (Auto) 0.1 (0.0-0.7) 10^3/uL Baso # (Auto) 0.0 (0.0-0.1) 10^3/uL Absolute Nucleated RBC 0.00 x10^3/uL Nucleated RBC % 0.1 /100WBC Sodium (135-145) mmol/L Potassium (3.5-5.0) mmol/L Chloride (101-111) mmol/L Carbon Dioxide (21-32) mmol/L Anion Gap (6-13) BUN (6-20) mg/dL Creatinine (0.6-1.2) mg/dL Estimated GFR (MDRD) (>89) Glucose (70-100) mg/dL POC Whole Bld Glucose 218 H 115 H (70 - 100) mg/dL Calcium (8.5-10.3) mg/dL Magnesium (1.7-2.8) mg/dL Total Bilirubin (0.2-1.0) mg/dL AST (10-42) IU/L ALT (10-60) IU/L Alkaline Phosphatase (42-121) IU/L Total Protein (6.7-8.2) g/dL Albumin (3.2-5.5) g/dL Globulin (2.1-4.2) g/dL Albumin/Globulin Ratio (1.0-2.2) 12/07/17 Range/Units 11:38 WBC (4.8-10.8) x10^3/uL RBC (4.70-6.10) 10^6/uL Hgb (14.0-18.0) g/dL Hct (42.0-52.0) % MCV (80.0-94.0) fL MCH (27.0-31.0) pg MCHC (32.0-36.0) g/dL RDW (12.0-15.0) % Plt Count (130-450) 10^3/uL MPV (7.4-11.4) fL Neut # (Auto) (1.5-6.6) 10^3/uL Lymph # (Auto) (1.5-3.5) 10^3/uL Schleicher # (Auto) (0.0-1.0) 10^3/uL Eos # (Auto) (0.0-0.7) 10^3/uL Baso # (Auto) (0.0-0.1) 10^3/uL Absolute Nucleated RBC x10^3/uL Nucleated RBC % /100WBC Sodium (135-145) mmol/L Potassium (3.5-5.0) mmol/L Chloride (101-111) mmol/L Carbon Dioxide (21-32) mmol/L Anion Gap (6-13) BUN (6-20) mg/dL Creatinine (0.6-1.2) mg/dL Estimated GFR (MDRD) (>89) Glucose (70-100) mg/dL POC Whole Bld Glucose 145 H (70 - 100) mg/dL Calcium (8.5-10.3) mg/dL Magnesium (1.7-2.8) mg/dL Total Bilirubin (0.2-1.0) mg/dL AST (10-42) IU/L ALT (10-60) IU/L Alkaline Phosphatase (42-121) IU/L Total Protein (6.7-8.2) g/dL Albumin (3.2-5.5) g/dL Globulin (2.1-4.2) g/dL Albumin/Globulin Ratio (1.0-2.2) - Diagnostic Imaging Diagnostic Imaging Results: positive: Prelim report reviewed, Final report reviewed ABX Reporting Has patient been on IV antibiotics over the past 48 hours?: Yes Assessment/Plan - Problem List (1) UTI (urinary tract infection) Impression: A urine specimen was collected, and showed a likely UTI. This matched the patient's presentation including; worsening altered mental status, profound weakness, and leukopenia. Since beginning the antibiotics the patient can now get up to the chair and has mildly improved mentation. Brett has had fair urine out put. Plan: Monitor AMS, continue IV antibiotics, Rochephin for UTI. Monitor I/O's. Qualifiers: Encounter type: subsequent encounter (2) Altered mental status Impression: The patient is more interactive each day, which is likely the result of his hearing aides. He is still having profound comprehension problems including word finding. I have ordered OT for cognitive testing and this is pending. Plan: Continue treatment for UTI and utilize physical therapy for their placement recommendations. Qualifiers: Altered mental status type: disorientation Qualified Code(s): R41.0 - Disorientation, unspecified (3) DM2 (diabetes mellitus, type 2) Impression: The patient has a known history of this and is controlled with oral Metformin at home. A hemoglobin A1 C was obtained and is 6.5%, which is within a safe range for his age group. I will hold home metformin as per hospital protocol. The patient's early AM sugar was 121 today. The patient appears to be consuming between 25-75% of meals. Plan: Continue nightly Lantus SQ at HS, monitor blood sugars and give low dose SSI. Encourage PO intake. Qualifiers: Diabetes mellitus complication detail: with cataract (4) Generalized weakness Impression: The patient underwent a physical therapy evaluation who recommends [facility] care upon discharge given his debilitated state. This has been progressively worse and has been living at home with is . The patient's home caregivers are no longer coming due to financial constraints. Plan: Continue daily physical therapy and [facility] upon discharge. The patient may have a 1-2 extended stay due to pre-authorization from insurance company, as this patient needs a higher level of care that he can receive at home with his and sporadic care givers. (5) HTN (hypertension) Impression: The patient has a long history of this and takes Lisinopril at home. Blood pressures are running high since being admitted 171/77, with a bradycardia noted in the 50's. Based on preliminary echocardiogram results obtained on this admission, the patient has a normal EF of 65-70%. Blood pressure is controlled today and the last value was 123/58. Plan: continue Lisinopril and monitor vital signs. Qualifiers: Hypertension type: essential hypertension Qualified Code(s): I10 - Essential (primary) hypertension (6) Hx of seizure disorder Impression: The patient is prescribed Keppra at home for a history of seizures. His denies recent witnessed episodes. Keppra BID orally is continued while hospitalized. Per nursing, there have been no episodes. Plan: Continue meds and maintain seizure precautions. (7) History of dementia Impression: The patient has moderate to severe white matter changes as noted on most recent preliminary head MRI results from today. 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 Plan: Continue supportive care. (8) Cerebrovascular accident (CVA) Impression: Brett has a known CVA history and on 07/19/17 a head MRI revealed a new KHUSHBOO stroke. Preliminary echo results reveal no atrial shunt (-PFO), head MRI results show no acute infarct. The left facial droop can still be appreciated upon exam, with normal ocular responses. Plan: Continue supportive care and continue daily physical therapy with plans to discharge to SNF for further therapy. Qualifiers: CVA mechanism: unspecified Qualified Code(s): I63.9 - Cerebral infarction, unspecified (9) Hypokalemia Impression: The patient is noted to have a K+ of just 3.1 upon admission, and is much improved to 3.7 today after changing his primary fluid to a potassium preparation. I suspect this abnormality is due to recent poor PO intake. His poor PO intake continues and seems to only be consuming less than 50% for each meal. Plan: Continue to monitor labs and encourage PO intake. Monitor for other causes. 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 His albumin normal at 3.2 today and a pre-albumin level is pending. The patient continues to have low PO intake, likely due to declining mental state. Plan: Nutritional consult and await pre-albumin labs. Qualifiers: Protein-calorie malnutrition severity: moderate Qualified Code(s): E44.0 - Moderate protein-calorie malnutrition
[2017-12-08] MEDS: ATORVASTATIN 40 MG TABLET PO SCH (21:45)
[2017-12-09 05:36] LABS: ALBUMIN 2.9 g/dL (3.2-5.5); BILIRUBIN,TOTAL 0.3 mg/dL (0.2-1.0); CALCIUM 8.5 mg/dL (8.5-10.3); CREATININE 0.7 mg/dL (0.6-1.2); TOTAL PROTEIN 5.9 g/dL (6.7-8.2)
[2017-12-09] MEDS: SUCRALFATE 1 GM/10 ML UDC PO SCH ×2 (06:32→15:57)
[2017-12-09] MEDS: NS W/20 MEQ KCL 1,000 ML IV SCH (06:34)
[2017-12-09] MEDS: SODIUM CHLORIDE FLUSH 0.9% 10 ML SYRINGE IVP SCH ×3 (06:34→16:54)
[2017-12-09] MEDS: cefTRIAXone 1 GM in SODIUM CHLORIDE 0.9% MINIBAG 100 ML IV SCH (08:54)
[2017-12-09] MEDS: POLYETHYLENE GLYCOL 3350 17 GM PACKET PO SCH (08:54)
[2017-12-09] MEDS: FAMOTIDINE 20 MG TABLET PO SCH (08:54)
[2017-12-09] MEDS: LISINOPRIL 5 MG TABLET PO SCH (08:54)
[2017-12-09] MEDS: INSULIN ASPART 300 UNIT/3 ML PEN SUBQ SCH ×4 (08:54→20:52)
[2017-12-09] MEDS: RIVAROXABAN 10 MG TABLET PO SCH (08:55)
[2017-12-09] MEDS: ASPIRIN EC 325 MG TABLET PO SCH (08:55)
[2017-12-09] MEDS: levETIRAcetam 250 MG TABLET PO SCH ×2 (08:55→20:49)
[2017-12-09] MEDS: INSULIN GLARGINE 300 UNIT/3 ML PEN SUBQ SCH (09:00)
--- NOTE | 2017-12-09 11:15 | PROVIDER PROGRESS NOTE ---
Subjective - Prog Note Date Prog Note Date: 12/09/17 Prog Note Time: 11:15 - Subjective Pt reports feeling: Improved Subjective: , Joselin was in the room for the exam today. Brett was comfortable, happy and denies shortness of breath, chest pain, nausea, vomiting, or a new cough. He cannot remember if he is urinating ok or if he has been eating well. Joselin believes that her looks 100% better than when he first was admitted. Current Medications - Current Medications Current Medications: Active Medications Acetaminophen (Tylenol) 650 mg PO Q4HR PRN PRN Reason: Pain 1 to 4 Aspirin (Ecotrin) 325 mg PO DAILY [facility] Last Admin: 12/09/17 08:55 Dose: 325 mg Atorvastatin Calcium (Lipitor) 80 mg PO QPM [facility] Last Admin: 12/08/17 21:45 Dose: 80 mg Famotidine (Pepcid) 20 mg PO DAILY [facility] Last Admin: 12/09/17 08:54 Dose: 20 mg Ceftriaxone Sodium 1 gm/ (Sodium Chloride) 100 mls @ 200 mls/hr IV DAILY [facility] Last Infusion: 12/09/17 10:25 Dose: Infused Insulin Aspart (Novolog) 1 - 5 unit SUBQ 0800,1200,1700,2100 [facility] PRN Reason: Protocol Last Admin: 12/09/17 16:53 Dose: 1 unit Insulin Glargine (Lantus Solostar) 5 unit SUBQ DAILY [facility] Last Admin: 12/09/17 09:00 Dose: 5 unit Levetiracetam (Keppra) 500 mg PO BID [facility] Last Admin: 12/09/17 08:55 Dose: 500 mg Lisinopril (Zestril) 5 mg PO DAILY [facility] Last Admin: 12/09/17 08:54 Dose: 5 mg Ondansetron HCl (Zofran Inj) 4 mg IVP Q6HR PRN PRN Reason: Nausea / Vomiting Polyethylene Glycol (Miralax) 17 gm PO DAILY [facility] Last Admin: 12/09/17 08:54 Dose: 17 gm Rivaroxaban (Xarelto) 20 mg PO DAILYWM [facility] Last Admin: 12/09/17 08:55 Dose: 20 mg Sodium Chloride (Normal Saline Flush 0.9%) 10 ml IVP PRN PRN PRN Reason: NEEDED PER PROVIDER ORDERS Sodium Chloride (Normal Saline Flush 0.9%) 10 ml IVP 0100,0900,1700 [facility] Last Admin: 12/09/17 16:54 Dose: 10 ml Sucralfate (Carafate) 1 gm PO BIDAC [facility] Last Admin: 12/09/17 15:57 Dose: 1 gm Metformin HCl [Glucophage] 500 mg PO BIDWM 06/04/13 Omeprazole 20 mg PO BIDAC 11/24/15 Atorvastatin Calcium [Lipitor] 80 mg PO QPM 08/11/16 Rivaroxaban [Xarelto] 20 mg ORAL DAILYWM 04/08/17 Sucralfate [Carafate] 1 gm PO BID 04/08/17 Cholecalciferol (Vitamin D3) [Vitamin D3] 2,000 unit PO DAILY 07/17/17 Cetirizine [ZyrTEC] 10 mg PO BID 12/05/17 Montelukast [Singulair] 10 mg PO QPM PRN 12/05/17 levETIRAcetam [Levetiracetam] 500 mg PO BID 12/05/17 Objective - Vital Signs/Intake & Output Reviewed Vital Signs: Yes Vital Signs: Vital Signs x48h Temp Pulse Resp BP Pulse Ox 12/09/17 08:00 36.9 C 53 L 18 144/60 H 96 12/09/17 04:23 36.9 C 52 L 16 143/65 H 96 Intake & Output: Intake & Output 12/06/17 12/07/17 12/08/17 12/09/17 23:59 23:59 23:59 23:59 Intake Total 606 4167 4417.917 1269.167 Balance 606 4167 4417.917 1269.167 - Objective General Appearance: positive: No acute distress, Alert Eyes Bilateral: positive: Normal inspection Eyes: OU Conjunctivae pale, OU Scleral icterus ENT: positive: ENT inspection nml, Pharyngeal erythema, Dry mucous membranes Neck: positive: Nml inspection, Thyroid nml, No JVD, Lymphadenopathy (R), Lymphadenopathy (L), Stiff neck Respiratory: positive: Chest non-tender, No respiratory distress, Other ( diminished bilaterally.) Cardiovascular: positive: Regular rate & rhythm, No gallop, Systolic murmur, Decreased pulse(s) Peripheral Pulses: 1+ Radial (R), 1+ Radial (L), 1+ Dorsalis pedis (R), 1+ Dorsalis pedis (L) Abdomen: positive: Non-tender, Nml bowel sounds, Other (rounded, soft) Back: positive: Nml inspection Skin: positive: No rash, Warm, Dry, Other (pale) Extremities: positive: Non-tender, Full ROM, No pedal edema, Joint swelling Neurologic/Psychiatric: positive: Disoriented to place, Disoriented to time, Weakness, Sensory loss, Facial droop (chronic left facial droop), Slurred/abnml speech, Depressed mood/affect Reflexes: Bicep (R): 2+, Bicep (L): 2+ (right stronger than left) - Lab Results Fish Bones: 12/08/17 06:02 12/09/17 04:58 Other Labs: Lab Results x24hrs 12/09/17 12/09/17 12/08/17 Range/Units 07:23 04:58 20:45 Sodium 140 (135-145) mmol/L Potassium 4.0 (3.5-5.0) mmol/L Chloride 112 H (101-111) mmol/L Carbon Dioxide 24 (21-32) mmol/L Anion Gap 4.0 L (6-13) BUN 14 (6-20) mg/dL Creatinine 0.7 (0.6-1.2) mg/dL Estimated GFR (MDRD) 107 (>89) Glucose 121 H (70-100) mg/dL POC Whole Bld Glucose 127 H 150 H (70 - 100) mg/dL Calcium 8.5 (8.5-10.3) mg/dL Total Bilirubin 0.3 (0.2-1.0) mg/dL AST 24 (10-42) IU/L ALT 20 (10-60) IU/L Alkaline Phosphatase 72 (42-121) IU/L Total Protein 5.9 L (6.7-8.2) g/dL Albumin 2.9 L (3.2-5.5) g/dL Globulin 3.0 (2.1-4.2) g/dL Albumin/Globulin Ratio 1.0 (1.0-2.2) Prealbumin 18 (18-45) mg/dL 12/08/17 Range/Units 16:28 Sodium (135-145) mmol/L Potassium (3.5-5.0) mmol/L Chloride (101-111) mmol/L Carbon Dioxide (21-32) mmol/L Anion Gap (6-13) BUN (6-20) mg/dL Creatinine (0.6-1.2) mg/dL Estimated GFR (MDRD) (>89) Glucose (70-100) mg/dL POC Whole Bld Glucose 121 H (70 - 100) mg/dL Calcium (8.5-10.3) mg/dL Total Bilirubin (0.2-1.0) mg/dL AST (10-42) IU/L ALT (10-60) IU/L Alkaline Phosphatase (42-121) IU/L Total Protein (6.7-8.2) g/dL Albumin (3.2-5.5) g/dL Globulin (2.1-4.2) g/dL Albumin/Globulin Ratio (1.0-2.2) Prealbumin (18-45) mg/dL - Diagnostic Imaging Diagnostic Imaging Results: positive: Final report reviewed ABX Reporting Has patient been on IV antibiotics over the past 48 hours?: Yes Assessment/Plan - Problem List (1) UTI (urinary tract infection) Impression: A urine specimen was collected, and showed a likely UTI. This matched the patient's presentation including; worsening altered mental status, profound weakness, and leukopenia. Since beginning the antibiotics the patient can now get up to the chair and has mildly improved mentation with continued improvement each day. Brett has had fair urine out put, but is incontinent at times baseline. Plan: Monitor AMS, continue IV antibiotics, Rochephin for UTI. Monitor I/O's. Qualifiers: Encounter type: subsequent encounter (2) Altered mental status Impression: The patient is more interactive each day, which is likely the result of his hearing aides. He is still having profound comprehension problems including word finding. I have ordered OT for cognitive testing and this is pending. Today a dry-erase board was placed on the patient's bedside in order to serve as an additional aide for communication. Plan: Continue treatment for UTI and utilize physical therapy for their placement recommendations. Qualifiers: Altered mental status type: disorientation Qualified Code(s): R41.0 - Disorientation, unspecified (3) DM2 (diabetes mellitus, type 2) Impression: The patient has a known history of this and is controlled with oral Metformin at home. A hemoglobin A1 C was obtained and is 6.5%, which is within a safe range for his age group. I will hold home metformin as per hospital protocol. The patient's early AM sugar was 121 today. The patient appears to be consuming between 25-75% of meals. Plan: Continue nightly Lantus SQ at HS, monitor blood sugars. Encourage PO intake. Qualifiers: Diabetes mellitus complication detail: with cataract (4) Generalized weakness Impression: The patient has had daily physical therapy who recommends group home care upon discharge given his debilitated state. This has been progressively worse and has been living at home with is . The patient's home caregivers are no longer coming due to financial constraints. Recently the patient's , Joselin states that she became ill and the patient was placed in short term respite care. Plan: Continue daily physical therapy and group home upon discharge. The patient may have an extended stay due to pre-authorization from insurance company, as this patient needs a higher level of care that he can receive at home with his and sporadic care givers. (5) HTN (hypertension) Impression: The patient is prescribed Lisinopril at home which has been continued here. Based on preliminary echocardiogram results obtained on this admission, the patient has a normal EF of 65-70%. Blood pressure is controlled today and the last value was 135/50, with sustained bradycardia in the 50's. Plan: Continue Lisinopril and monitor vital signs. Qualifiers: Hypertension type: essential hypertension Qualified Code(s): I10 - Essential (primary) hypertension (6) Hx of seizure disorder Impression: The patient is prescribed Keppra at home for a history of seizures and Keppra BID orally is continued while hospitalized. Plan: Continue meds and maintain seizure precautions. (7) History of dementia Impression: The patient has moderate to severe white matter changes as noted on most recent head MRI results. A more complete explanation was review at the patient's bedside today and with his , Joselin. 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 Plan: Continue supportive care. (8) Cerebrovascular accident (CVA) Impression: Brett has a known CVA history and on 07/19/17 a head MRI revealed a new KHUSHBOO stroke. Preliminary echo results reveal no atrial shunt (-PFO), head MRI results show no acute infarct. The left facial droop can still be appreciated upon exam, with normal ocular responses. 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 Plan: Continue supportive care and continue daily physical therapy with plans to discharge to SNF for further therapy. Qualifiers: CVA mechanism: unspecified Qualified Code(s): I63.9 - Cerebral infarction, unspecified (9) Hypokalemia Impression: The patient is noted to have a K+ of just 3.1 upon admission, and is considered resolved at 4.0 today after changing his primary fluid to a potassium preparation. IVFs were discontinued today due to improved mentation leading to improved PO intake. Plan: Continue to monitor labs and encourage PO intake. Monitor for other causes. (10) Protein calorie malnutrition Impression: The patient has malnutrition as evidenced by insufficient energy intake, evidence of muscle mass loss, and diminished hand sales account associate strength. His albumin just below normal at 2.9 today and a pre-albumin level is normal at 18. The patient continues to have low PO intake with gradual slight improvement, likely due to declining mental state. Plan: Nutritional consult and monitor daily labs. Qualifiers: Protein-calorie malnutrition severity: moderate Qualified Code(s): E44.0 - Moderate protein-calorie malnutrition
[2017-12-09] MEDS: ATORVASTATIN 40 MG TABLET PO SCH (20:51)
[2017-12-10] MEDS: SODIUM CHLORIDE FLUSH 0.9% 10 ML SYRINGE IVP SCH ×2 (02:54→08:31)
[2017-12-10 05:44] LABS: BASOPHILS % (AUTO) 0.4 %; EOSINOPHILS # (AUTO) 0.1 10^3/uL (0.0-0.7); EOSINOPHILS % (AUTO) 4.8 %; HGB - HEMOGLOBIN 9.9 g/dL (14.0-18.0); LYMPHOCYTES # (AUTO) 0.4 10^3/uL (1.5-3.5); LYMPHOCYTES % (AUTO) 14.4 %; MEAN CORPUSCULAR HEMOGLOBIN 27.8 pg (27.0-31.0); MEAN CORPUSCULAR HGB CONC 31.6 g/dL (32.0-36.0); MEAN CORPUSCULAR VOLUME 87.9 fL (80.0-94.0); MEAN PLATELET VOLUME 7.5 fL (7.4-11.4); MONOCYTES # (AUTO) 0.3 10^3/uL (0.0-1.0); MONOCYTES % (AUTO) 10.3 %; NEUTROPHILS # (AUTO) 2.1 10^3/uL (1.5-6.6); NEUTROPHILS % (AUTO) 70.1 %; PLT - PLATELET COUNT 198 10^3/uL (130-450); RED BLOOD COUNT 3.55 10^6/uL (4.70-6.10); RED CELL DISTRIBUTION WIDTH 16.9 % (12.0-15.0); WHITE BLOOD COUNT 2.9 x10^3/uL (4.8-10.8)
[2017-12-10 05:57] LABS: BILIRUBIN,TOTAL 0.4 mg/dL (0.2-1.0); CALCIUM 8.8 mg/dL (8.5-10.3); CREATININE 0.8 mg/dL (0.6-1.2); TOTAL PROTEIN 6.1 g/dL (6.7-8.2)
[2017-12-10] MEDS: SUCRALFATE 1 GM/10 ML UDC PO SCH (06:51)
[2017-12-10] MEDS: INSULIN ASPART 300 UNIT/3 ML PEN SUBQ SCH ×2 (07:50→11:47)
--- NOTE | 2017-12-10 08:00 | DISCHARGE SUMMARY ---
Discharge Summary Admit Date: 12/05/17 Discharge Date: 12/10/17 Discharging Provider: FLYNN Sanders Primary Care Provider: Dr. Ocampo Code Status: Attempt Resuscitation Condition at Discharge: Good Discharge Disposition: 03 SNF DC/Xfer Discharge Facility Name: [facility] - DIAGNOSES Admission Diagnoses: Altered mental status, unspecified (R41.82) Weakness (R53.1) Type 2 diabetes mellitus without complications (E11.9) Essential (primary) hypertension (I10) Personal history of other specified conditions (Z87.898) Personal history of other mental and behavioral disorders (Z86.59) Personal history of transient ischemic attack (TIA), and cerebral infarction without residual deficits (Z86.73) Discharge Diagnoses with Status of Each Condition: Altered mental status (R41.82) improved since admission. Generalized weakness (R53.1) improved, further rehab. DM2 (diabetes mellitus, type 2) (E11.9) chronic, controlled. HTN (hypertension) (I10) chronic, controlled. History of seizure (Z87.898) stable. History of dementia (Z86.59) progressive, stable. UTI (urinary tract infection) (N39.0) new on this admit, treatment to continue. CVA (cerebral vascular accident) (I63.9) remote history, stable. Hypokalemia (E87.6) resolved. Protein calorie malnutrition (E46) ongoing. - HPI History of Present Illness: Brett Dangelo is an 87-year-old white male with a past medical history of CVA , dementia, dysphagia, seizures, DM2, and BPH. He presented to the ED with complaints of increased confusion and altered mental status. The patient has difficulty with communicating as he is profoundly hard of hearing and is also noted to be more confused, so could not provide meaning information. A chest X- ray reveals no acute finding. A head CT reveals no acute findings. A was collected and is pending. Lab values are unremarkable, except a leukopenia. The patient denied pain, shortness of breath, fever, chills, nausea, vomiting or diarrhea. The patient will be admitted to the observation unit for further evaluation and treatment of altered mental status and weakness. - HOSPITAL COURSE Hospital Course: (1) UTI (urinary tract infection) A urine specimen was collected, and showed a likely UTI. This matched the patient's presentation including; worsening altered mental status, profound weakness, and leukopenia. Since beginning the antibiotics the patient can now get up to the chair and has mildly improved mentation with continued improvement each day. Brett has had fair urine out put, but is incontinent at times baseline. Treatment with a probiotic and 7 more days of Cipro PO. (2) Altered mental status The patient is more interactive each day, which is likely the result of his hearing aides. He is still having profound comprehension problems including word finding. I have ordered OT for cognitive testing and this is pending. Today a dry-erase board was placed on the patient's bedside in order to serve as an additional aide for communication. (3) DM2 (diabetes mellitus, type 2) The patient has a known history of this and is controlled with oral Metformin at home. A hemoglobin A1 C was obtained and is 6.5%, which is within a safe range for his age group. I will hold home metformin as per hospital protocol. The patient's early AM sugar was 121. The patient appears to be consuming between 25-75% of meals. The patient's home dose of Metformin was resumed upon discharge. (4) Generalized weakness The patient has had daily physical therapy who recommends residential care upon discharge given his debilitated state. This has been progressively worse and has been living at home with is . The patient's home caregivers are no longer coming due to financial constraints. Recently the patient's , Joselin states that she became ill and the patient was placed in short term respite care. This weakness should improve after rehab. (5) HTN (hypertension) The patient is prescribed Lisinopril at home which has been continued here. Based on preliminary echocardiogram results obtained on this admission, the patient has a normal EF of 65-70%. Blood pressure has been controlled and the last value was 135/50, with sustained bradycardia in the 50's. (6) Hx of seizure disorder The patient is prescribed Keppra at home for a history of seizures and Keppra BID orally is continued while hospitalized. (7) History of dementia The patient has moderate to severe white matter changes as noted on most recent head MRI results. A more complete explanation was review at the patient's bedside today and with his , Joselin. 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 (8) Cerebrovascular accident (CVA) Brett has a known CVA history and on 07/19/17 a head MRI revealed a new KHUSHBOO stroke. Preliminary echo results reveal no atrial shunt (-PFO), head MRI results show no acute infarct. The left facial droop can still be appreciated upon exam, with normal ocular responses. This droop is likely chronic, and accompanies a slight left hand shear operator weakness. (9) Hypokalemia The patient is noted to have a K+ of just 3.1 upon admission, and is considered resolved at 4.0 after changing his primary fluid to a potassium preparation. IVFs were discontinued due to improved mentation leading to improved PO intake. This is considered to be resolved. (10) Protein calorie malnutrition The patient has malnutrition as evidenced by insufficient energy intake, evidence of muscle mass loss, and diminished hand shear operator strength. His albumin just below normal at 2.9 today and a pre-albumin level is normal at 18. The patient continues to have low PO intake with gradual slight improvement, likely due to declining mental state. Disposition: The patient was in stable condition at the time of discharge with plans to go to rehabilitation for physical therapy, then return home with his . He required no oxygen at the time of discharge and was able to work with PT. was updated. - ALLERGIES Allergies/Adverse Reactions: Allergies Allergy/AdvReac Type Severity Reaction Status Date / Time codeine AdvReac Intermediate Nausea Verified 04/08/17 05:20 memantine HCl * AdvReac Anxiety Verified 04/08/17 05:20 [From Namenda] - MEDICATIONS Home Medications: Ambulatory Orders Medication Instructions Recorded Confirmed Metformin HCl [Glucophage] 500 mg PO BIDWM 06/04/13 12/05/17 Omeprazole 20 mg PO BIDAC 11/24/15 12/05/17 Atorvastatin Calcium [Lipitor] 80 mg PO QPM 08/11/16 12/05/17 Aspirin Chewable [St Derian 81 mg PO DAILY #30 tablet 12/10/17 Aspirin] Cetirizine [ZyrTEC] 10 mg PO BID #60 12/10/17 12/05/17 Cholecalciferol (Vitamin D3) 2,000 unit PO DAILY #30 12/10/17 12/05/17 [Vitamin D3] Ciprofloxacin/Ciprofloxa HCl 500 mg PO DAILY #7 tbmp.24hr 12/10/17 [Ciprofloxacin ER 500 mg Tablet] Montelukast [Singulair] 10 mg PO QPM PRN #30 12/10/17 12/05/17 Rivaroxaban [Xarelto] 20 mg ORAL DAILYWM #30 12/10/17 12/05/17 Saccharomyces Boulardii [Florastor] 250 mg PO BID 14 Days #28 capsule 12/10/17 Sucralfate [Carafate] 1 gm PO BID #60 12/10/17 12/05/17 levETIRAcetam [Levetiracetam] 500 mg PO BID #60 12/10/17 12/05/17 - PHYSICAL EXAM AT DISCHARGE General Appearance: positive: No acute distress, Alert Eyes Bilateral: positive: Normal inspection, No scleral icterus ENT: positive: ENT inspection nml, Pharynx nml, No signs of dehydration Neck: positive: Nml inspection, Thyroid nml, No JVD, Trachea midline Respiratory: positive: Chest non-tender, No respiratory distress, Breath sounds nml Cardiovascular: positive: Regular rate & rhythm, No gallop, Systolic murmur Peripheral Pulses: positive: 2+ Abdomen: positive: Non-tender, Nml bowel sounds, Other (rounded, soft) Back: positive: Nml inspection Skin: positive: No rash, Warm, Dry Extremities: positive: Non-tender, Full ROM, Nml appearance, No pedal edema Neurologic/Psychiatric: positive: CN's nml (2-12), Motor nml, Sensation nml, Mood/affect nml, Disoriented to time, Weakness, Sensory loss, Facial droop ( chronic left facial droop), Slurred/abnml speech, Depressed mood/affect Reflexes: Bicep (R): 3+, Bicep (L): 2+ - LABS Result Diagrams: 12/10/17 05:29 12/10/17 05:29 - DIAGNOSTIC IMAGING Diagnostic Imaging Results: Final report reviewed Diagnostic Imaging Results Comments: Head CT- no bleeds, Head MRI- no acute infarcts. Chest x-ray normal. UA +, cultures show no growth. - FOLLOW UP Follow Up: Disposition: [address] [facility] DC/Xfer Condition: Good SNF Transition Orders: Admit to: [facility] under the care of Dr. Ocampo Discharge Diagnosis: UTI, multi-infarct CVA, chronic atrial fibrillation, hypertension, altered mental status, weakness, seasonal allergies, diabetes mellitus type [id number] dependent, mild protein calorie malnutrition. - TIME SPENT Time Spent in Discharge (Minutes): 50
[2017-12-10] MEDS: FAMOTIDINE 20 MG TABLET PO SCH (08:29)
[2017-12-10] MEDS: ASPIRIN EC 325 MG TABLET PO SCH (08:29)
[2017-12-10] MEDS: levETIRAcetam 250 MG TABLET PO SCH (08:29)
[2017-12-10] MEDS: RIVAROXABAN 10 MG TABLET PO SCH (08:29)
[2017-12-10] MEDS: LISINOPRIL 5 MG TABLET PO SCH (08:29)
[2017-12-10] MEDS: INSULIN GLARGINE 300 UNIT/3 ML PEN SUBQ SCH (08:30)
[2017-12-10] MEDS: cefTRIAXone 1 GM in SODIUM CHLORIDE 0.9% MINIBAG 100 ML IV SCH (08:30)
[2017-12-10] MEDS: POLYETHYLENE GLYCOL 3350 17 GM PACKET PO SCH (08:31)
--- NOTE | 2017-12-10 10:13 | Discharge Plan ---
"Discharge Plan for SNF / [facility] - DC Plan and Transition Orders Disposition: 03 SNF DC/Xfer Condition: Good SNF Transition Orders: Admit to: [facility] under the care of Dr. Ocampo Discharge Diagnosis: UTI, multi-infarct CVA, chronic atrial fibrillation, hypertension, altered mental status, weakness, seasonal allergies, diabetes mellitus type [id number] dependent, mild protein calorie malnutrition. Medicare Certification: I certify that [facility] is medically necessary on a continuing basis for any of the conditions for which she/he is receiving care during hospitalization. Notify PCP of admission and forward orders to primary provider for signature. Weight on admission and monthly. Call PCP immediately if weight increases by 10 pounds or if patient develops dyspnea, chest pain/tightness or edema. House Bowel Program: yes If no BM after 2 days, nurse may give M.O.M. 30ml PO PRN and /or ducolax Supp 1 PA and /or ALLIE 250mg P.O., and/or senna 1-2 tabs PO. On day 3 nurse may give repeat above order until residents constipation is resolved. Immunizations: Annual Influenza Vaccine: yes. (between Feb 16 and September 15 .) Unless allergy or already given Two-Step PPD: yes; per [facility] [id number] or appropriate documentation of approved exceptions Treatments & Other Orders: physical/occupational therapy, fall precautions, continue a 7 more days of PO antibiotics. Oxygen Orders: Not needed while in the hospital. May use 1-2 L per nasal cannula to keep oxygen greater than 90%, PRN. Lab Tests or X-Rays Orders: Labs in 1-2 weeks, watching BMP, CBC. Medications: PLEASE REFER TO THE DISCHARGE MEDICATION LIST. Insulin Orders? NO Diagnosis: Diabetes mellitus type 2, diet controlled. PO Metformin to continue. Allergies and Adverse Reactions: Allergies Allergy/AdvReac Type Severity Reaction Status Date / Time codeine AdvReac Intermediate Nausea Verified 04/08/17 05:20 memantine HCl * AdvReac Anxiety Verified 04/08/17 05:20 [From Namenda] - Medications New Prescriptions: Aspirin Chewable [St Derian Aspirin] 81 mg PO DAILY #30 tablet Ciprofloxacin/Ciprofloxa HCl [Ciprofloxacin ER 500 mg Tablet] 500 mg PO DAILY # 7 tbmp.24hr Saccharomyces Boulardii [Florastor] 250 mg PO BID 14 Days #28 capsule - Diet Type: Geriatric Texture: Regular Liquids: Thin May have monthly special meal: Yes - Therapies | Activity Therapy: Evaluation | Treat if indicated: Speech, PT, OT Rehabilitation Potential: Maximize functional status, Return to independent living, Maintain present ADL Functional Activity: No Restrictions Weight Bearing: Full Weight Assistance Devices: Walker"
[2017-12-10 15:39] VITALS: BP 122/54
== END 2017-12-10 16:47 | DRG 690 ==
LOC: EDUNIT# → ED 12:01 → MS2 15:24 → OBSVTOIN 12-06 10:25
PROVIDERS: ADMIT Nurse Practitioner Gerontology; ATTEND Nurse Practitioner
DX: R41.0 Disorientation, unspecified (principal); R53.1 Weakness; E11.9 Type 2 diabetes mellitus without complications; N39.0 Urinary tract infection, site not specified; E44.0 Moderate protein-calorie malnutrition; F03.90 Unspecified dementia, unspecified severity, without behavioral disturbance, psychotic disturbance, mood disturbance, and anxiety; K21.9 Gastro-esophageal reflux disease without esophagitis; N40.0 Benign prostatic hyperplasia without lower urinary tract symptoms; H91.93 Unspecified hearing loss, bilateral; I10 Essential (primary) hypertension; Z86.73 Personal history of transient ischemic attack (TIA), and cerebral infarction without residual deficits; G40.909 Epilepsy, unspecified, not intractable, without status epilepticus; E87.6 Hypokalemia; E11.36 Type 2 diabetes mellitus with diabetic cataract; R00.1 Bradycardia, unspecified; I69.392 Facial weakness following cerebral infarction; I69.334 Monoplegia of upper limb following cerebral infarction affecting left non-dominant side; N40.1 Benign prostatic hyperplasia with lower urinary tract symptoms; N39.498 Other specified urinary incontinence; I48.2 Chronic atrial fibrillation; Z59.9 Problem related to housing and economic circumstances, unspecified; Z79.899 Other long term (current) drug therapy; Z79.84 Long term (current) use of oral hypoglycemic drugs; Z79.82 Long term (current) use of aspirin; Z79.01 Long term (current) use of anticoagulants
CPT/HCPCS: 36415; 70450; 70551; 71045; 80053; 80177; 81001; 81003; 82140; 82607; 83036; 83690; 83735; 83880; 84134; 84443; 84484; 85025; 87086; 93005; 93306; 96360; 96361; 96365; 99284

== ENCOUNTER 2018-02-26 15:49 | Outpatient (CLI) | payer MEDICARE | END 2018-02-26 15:50 | disposition critical access hospital (66) | LOC: EMS 15:49 | PROVIDERS: ATTEND Surgery | DX: R09.89 Other specified symptoms and signs involving the circulatory and respiratory systems (principal); W18.39XA Other fall on same level, initial encounter; Y93.H2 Activity, gardening and landscaping; Y92.038 Other place in apartment as the place of occurrence of the external cause | CPT/HCPCS: A0425; A0429 ==

== ENCOUNTER 2018-02-26 15:57 | Emergency (ER) | payer MEDICARE ==
--- NOTE | 2018-02-26 16:58 | ED Physician Documentation ---
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 His was out of the house and he was weeding. He somehow ended up on the porch. He does not remember falling or anything but had difficulty getting up due to weakness. Now feels mostly back to the baseline except for dry mouth.) Review of Systems Ten Systems: 10 systems reviewed and negative Constitutional: denies: Fever, Chills Cardiac: denies: Chest pain / pressure, Palpitations Respiratory: denies: Dyspnea, Cough PD PAST MEDICAL HISTORY - Past Medical History Cardiovascular: None Respiratory: None Neuro: Dementia, CVA Endocrine/Autoimmune: Type 2 diabetes GI: GERD, Other : Benign prostate hypertrophy HEENT: None Psych: None Musculoskeletal: None Derm: None - Past Surgical History Past Surgical History: Yes General: Bowel surgery, Colonoscopy, Other Ortho: Hip replacement HEENT: Other Derm: Other - Present Medications Home Medications: Ambulatory Orders Medication Instructions Recorded Confirmed Metformin HCl [Glucophage] 500 mg PO BIDWM 06/04/13 12/05/17 Omeprazole 20 mg PO BIDAC 11/24/15 12/05/17 Atorvastatin Calcium [Lipitor] 80 mg PO QPM 08/11/16 12/05/17 Aspirin Chewable [St Derian 81 mg PO DAILY #30 tablet 12/10/17 Aspirin] Cetirizine [ZyrTEC] 10 mg PO BID #60 12/10/17 12/05/17 Cholecalciferol (Vitamin D3) 2,000 unit PO DAILY #30 12/10/17 12/05/17 [Vitamin D3] Ciprofloxacin/Ciprofloxa HCl 500 mg PO DAILY #7 tbmp.24hr 12/10/17 [Ciprofloxacin ER 500 mg Tablet] Montelukast [Singulair] 10 mg PO QPM PRN #30 12/10/17 12/05/17 Rivaroxaban [Xarelto] 20 mg ORAL DAILYWM #30 18 12/05/17 Saccharomyces Boulardii [Florastor] 250 mg PO BID 14 Days #28 capsule 12/10/17 Sucralfate [Carafate] 1 gm PO BID #60 12/10/17 12/05/17 levETIRAcetam [Levetiracetam] 500 mg PO BID #60 12/10/17 12/05/17 - Allergies Allergies/Adverse Reactions: Allergies Allergy/AdvReac Type Severity Reaction Status Date / Time codeine AdvReac Intermediate Nausea Verified 04/08/17 05:20 memantine HCl * AdvReac Anxiety Verified 04/08/17 05:20 [From Namenda] - Social History Does the pt smoke?: No Smoking Status: Never smoker Does the pt drink ETOH?: No Does the pt have substance abuse?: No - Immunizations Immunizations are current?: No - POLST Patient has POLST: Yes POLST Status: Full Code PD ED PE NORMAL - Vitals Vital signs reviewed: Yes - General General: Other (Mildly demented, no distress, cooperative, hard of hearing.) - HEENT HEENT: PERRL, EOMI - Neck Neck: Supple, no meningeal sign, No bony TTP - Cardiac Cardiac: RRR, No murmur - Respiratory Respiratory: No respiratory distress, Clear bilaterally - Abdomen Abdomen: Normal bowel sounds, Soft, Non tender - Derm Derm: Normal color, Warm and dry - Extremities Extremities: No deformity, No tenderness to palpate, No edema, No calf tenderness / cord, Other (He is able to walk, seems stiff on the left side which the is worried about but the profound weakness he had prior to arrival was gone.) - Neuro Neuro: Alert and oriented X 3 Eye Opening: Spontaneous Motor: Obeys Commands Verbal: Oriented GCS Score: 15 - Psych Psych: Normal mood, Normal affect Results - Vitals Vitals: Vital Signs - 24 hr 02/26/18 02/26/18 16:21 17:55 Temperature 36.9 C Heart Rate 89 82 Respiratory 16 16 Rate Blood Pressure 149/74 H 162/73 H O2 Saturation 95 94 Oxygen O2 Source Room air - Labs Labs: Laboratory Tests 02/26/18 02/26/18 17:40 17:40 WBC 5.3 RBC 3.58 L Hgb 9.4 L Hct 29.8 L MCV 83.2 MCH 26.2 L MCHC 31.6 L RDW 17.9 H Plt Count 234 MPV 7.7 Neut # (Auto) 4.6 Lymph # (Auto) 0.3 L Ada # (Auto) 0.4 Eos # (Auto) 0.0 Baso # (Auto) 0.0 Absolute Nucleated RBC 0.00 Nucleated RBC % 0.0 Sodium 140 Potassium 3.4 L Chloride 106 Carbon Dioxide 23 Anion Gap 11.0 BUN 17 Creatinine 0.8 Estimated GFR (MDRD) 91 Glucose 147 H Calcium 9.3 Total Bilirubin 0.2 AST 31 ALT 23 Alkaline Phosphatase 99 Total Protein 7.1 Albumin 3.8 Globulin 3.3 Albumin/Globulin Ratio 1.2 Lipase 42 - Rads (name of study) CT Head Radiology: EMP read contemporaneously (NAD) PD MEDICAL DECISION MAKING - ED course ED course: This is an 87-year-old gentleman who had an episode today where he he either had a syncopal episode or ended up on the ground somehow and then lacks the strength to get up. His strength is back now and he has an unremarkable exam and labs and a head CT. Anemia is noted but that is a chronic issue. - Sepsis Event Vital Signs: Vital Signs - 24 hr 02/26/18 02/26/18 16:21 17:55 Temperature 36.9 C Heart Rate 89 82 Respiratory 16 16 Rate Blood Pressure 149/74 H 162/73 H O2 Saturation 95 94 Oxygen O2 Source Room air Departure - Departure Disposition: 01 Home, Self Care Clinical Impression: Anticoagulant long-term use, History of dementia DM2 (diabetes mellitus, type 2) Qualifiers: Diabetes mellitus group home insulin use: unspecified middle or intermediate school principal insulin use status Diabetes mellitus complication status: without complication Qualified Code(s): E11.9 - Type 2 diabetes mellitus without complications Altered mental status Qualifiers: Altered mental status type: unspecified Qualified Code(s): R41.82 - Altered mental status, unspecified Condition: Good Record reviewed to determine appropriate education?: Yes Instructions: Syncope Comments: Your blood pressure was elevated today on check into the emergency department. This does not mean that you have hypertension, it is a common phenomenon to come to the emergency department and have elevated blood pressure. I recommend that you see your primary care physician within the week to have it rechecked when you are feeling better. Call your doctor to arrange a follow-up appointment, make the next available appointment. In the interim, return anytime if worse or if new symptoms develop.
[2018-02-26 17:56] LABS: BASOPHILS % (AUTO) 0.1 %; EOSINOPHILS % (AUTO) 0.5 %; HGB - HEMOGLOBIN 9.4 g/dL (14.0-18.0); LYMPHOCYTES # (AUTO) 0.3 10^3/uL (1.5-3.5); LYMPHOCYTES % (AUTO) 5.5 %; MEAN CORPUSCULAR HEMOGLOBIN 26.2 pg (27.0-31.0); MEAN CORPUSCULAR HGB CONC 31.6 g/dL (32.0-36.0); MEAN CORPUSCULAR VOLUME 83.2 fL (80.0-94.0); MEAN PLATELET VOLUME 7.7 fL (7.4-11.4); MONOCYTES # (AUTO) 0.4 10^3/uL (0.0-1.0); MONOCYTES % (AUTO) 6.9 %; NEUTROPHILS # (AUTO) 4.6 10^3/uL (1.5-6.6); PLT - PLATELET COUNT 234 10^3/uL (130-450); RED BLOOD COUNT 3.58 10^6/uL (4.70-6.10); RED CELL DISTRIBUTION WIDTH 17.9 % (12.0-15.0); WHITE BLOOD COUNT 5.3 x10^3/uL (4.8-10.8)
--- NOTE | 2018-02-26 18:15 | CT Report ---
Reason: head inj Procedure Date: 02/26/2018 Accession Number: [id number] / [id number] Procedure: CT - Head W/O CPT Code: FULL RESULT: EXAM: CT HEAD EXAM DATE: 02/26/2018 05:34 PM. CLINICAL HISTORY: Head inj. COMPARISON: HEAD W/O 12/05/2017 12:54 AM. TECHNIQUE: Multiaxial CT images were obtained from the foramen magnum to the vertex. Reformats: Sagittal and coronal. IV contrast: None. In accordance with CT protocol optimization, one or more of the following dose reduction techniques were utilized for this exam: automated exposure control, adjustment of mA and/or KV based on patient size, or use of iterative reconstructive technique. FINDINGS: Parenchyma: No intracranial hemorrhage. No evidence of mass, midline shift or CT findings of acute territorial infarction. Centeno-white differentiation is distinct. Confluent low attenuation in the deep white matter likely reflects chronic micro-neuropathic ischemic change. Extraaxial Spaces: Ex-vacuo dilatation as before. Ventricles: No hydrocephalus Sinuses: Bilateral lens extractions. Bones: No evidence of acute fracture or calvarial defect. Other: None. IMPRESSION: No acute intracranial abnormalities. RADIA
[2018-02-26 18:18] LABS: ALBUMIN 3.8 g/dL (3.2-5.5); ALBUMIN/GLOBULIN RATIO 1.2 (1.0-2.2); BILIRUBIN,TOTAL 0.2 mg/dL (0.2-1.0); CALCIUM 9.3 mg/dL (8.5-10.3); CREATININE 0.8 mg/dL (0.6-1.2); TOTAL PROTEIN 7.1 g/dL (6.7-8.2)
[2018-02-26 18:59] VITALS: BP 155/72
== END 2018-02-26 19:09 | disposition home or self-care (01) ==
LOC: ED 15:57
DX: Z79.01 Long term (current) use of anticoagulants (principal); E11.9 Type 2 diabetes mellitus without complications; Z79.84 Long term (current) use of oral hypoglycemic drugs; R41.82 Altered mental status, unspecified; R03.0 Elevated blood-pressure reading, without diagnosis of hypertension; Z86.73 Personal history of transient ischemic attack (TIA), and cerebral infarction without residual deficits
CPT/HCPCS: 36415; 70450; 80053; 83690; 85025; 99283

== ENCOUNTER 2018-05-11 10:11 | Outpatient (CLI) | payer MEDICARE | END 2018-05-11 10:12 | disposition critical access hospital (66) | LOC: EMS 10:11 | PROVIDERS: ATTEND Surgery | DX: R41.82 Altered mental status, unspecified (principal) | CPT/HCPCS: A0425; A0429 ==

== ENCOUNTER 2018-05-11 10:17 | Emergency (ER) | payer MEDICARE ==
--- NOTE | 2018-05-11 10:55 | ED Physician Documentation ---
History of Present Illness - Stated complaint Stated Complaint: AMS - Chief complaint Chief Complaint: Neuro - Additonal information Additional information: hx from pt 87 male BIBA for AMS per EMS last seen normal last night this AM found in bed with AMS has a hx of seziures so may be post ictal but no seizure seen no fall no recent illness - no reported fever cough NVD no recent med changes per EMS pt confused and cant answer any questions Review of Systems Unable to obtain: Confused PD PAST MEDICAL HISTORY - Past Medical History Past Medical History: Yes Cardiovascular: None Respiratory: None Neuro: Dementia, CVA Endocrine/Autoimmune: Type 2 diabetes GI: GERD, Other : Benign prostate hypertrophy HEENT: None Psych: None Musculoskeletal: None Derm: None - Past Surgical History Past Surgical History: Yes General: Bowel surgery, Colonoscopy, Other Ortho: Hip replacement HEENT: Other Derm: Other - Present Medications Home Medications: Ambulatory Orders Medication Instructions Recorded Confirmed Metformin HCl [Glucophage] 500 mg PO BIDWM 06/04/13 12/05/17 Omeprazole 20 mg PO BIDAC 11/24/15 12/05/17 Atorvastatin Calcium [Lipitor] 80 mg PO QPM 08/11/16 12/05/17 Aspirin Chewable [St Derian 81 mg PO DAILY #30 tablet 12/10/17 Aspirin] Cetirizine [ZyrTEC] 10 mg PO BID #60 12/10/17 12/05/17 Cholecalciferol (Vitamin D3) 2,000 unit PO DAILY #30 12/10/17 12/05/17 [Vitamin D3] Ciprofloxacin/Ciprofloxa HCl 500 mg PO DAILY #7 tbmp.24hr 12/10/17 [Ciprofloxacin ER 500 mg Tablet] Montelukast [Singulair] 10 mg PO QPM PRN #30 12/10/17 12/05/17 Rivaroxaban [Xarelto] 20 mg ORAL DAILYWM #30 12/10/17 12/05/17 Saccharomyces Boulardii [Florastor] 250 mg PO BID 14 Days #28 capsule 12/10/17 Sucralfate [Carafate] 1 gm PO BID #60 12/10/17 12/05/17 levETIRAcetam [Levetiracetam] 500 mg PO BID #60 12/10/17 12/05/17 - Allergies Allergies/Adverse Reactions: Allergies Allergy/AdvReac Type Severity Reaction Status Date / Time codeine AdvReac Intermediate Nausea Verified 04/08/17 05:20 memantine HCl * AdvReac Anxiety Verified 04/08/17 05:20 [From Namenda] - Social History Does the pt smoke?: No Smoking Status: Never smoker Does the pt drink ETOH?: No Does the pt have substance abuse?: No - Immunizations Immunizations are current?: No - POLST Patient has POLST: Yes POLST Status: Full Code PD ED PE NORMAL - Vitals Vital signs reviewed: Yes - General General: No: Alert and oriented X 3 (non verbal - does look at me) - HEENT HEENT: Atraumatic, PERRL - Neck Neck: Supple, no meningeal sign - Cardiac Cardiac: RRR - Respiratory Respiratory: No respiratory distress, Clear bilaterally - Abdomen Abdomen: Soft, Non tender - Extremities Extremities: No deformity - Neuro Neuro: Other (awake, alert, looks at me, not able to cooperate for a stroke scale, wont follow commands and not speaking) Results - Vitals Vitals: Vital Signs - 24 hr 05/11/18 05/11/18 05/11/18 10:20 11:45 13:52 Temperature 36.1 C L Heart Rate 77 68 67 Respiratory 14 14 16 Rate Blood Pressure 171/87 H 156/90 H 163/72 H O2 Saturation 97 94 94 05/11/18 15:52 Temperature Heart Rate 69 Respiratory 14 Rate Blood Pressure 151/78 H O2 Saturation 98 Oxygen O2 Source Room air - EKG (time done) 1235 Rate: Rate (enter#) (67) Rhythm: NSR [place]: LAD, Anterior hemiblock Intervals: RBBB Ischemia: Non specific changes Other comments: Other comments (similar to prior) - Labs Labs: Laboratory Tests 05/11/18 05/11/18 05/11/18 12:03 12:03 12:03 WBC 3.1 L RBC 4.06 L Hgb 10.0 L Hct 31.4 L MCV 77.3 L MCH 24.6 L MCHC 31.8 L RDW 19.6 H Plt Count 221 MPV 7.1 L Neut # (Auto) 2.7 Lymph # (Auto) 0.2 L [place] # (Auto) 0.2 Eos # (Auto) 0.0 Baso # (Auto) 0.0 Absolute Nucleated RBC 0.00 Nucleated RBC % 0.0 Sodium 137 Potassium 3.5 Chloride 102 Carbon Dioxide 28 Anion Gap 7.0 BUN 11 Creatinine 0.8 Estimated GFR (MDRD) 91 Glucose 175 H Calcium 8.9 Total Bilirubin 0.4 AST 32 ALT 29 Alkaline Phosphatase 110 Ammonia Troponin I < 0.04 Total Protein 7.7 Albumin 4.1 Globulin 3.6 Albumin/Globulin Ratio 1.1 Lipase 32 TSH Urine Color Urine Clarity Urine pH Ur Specific [place] Urine Protein Urine Glucose (UA) Urine Ketones Urine Occult Blood Urine Nitrite Urine Bilirubin Urine Urobilinogen Ur Leukocyte Esterase Urine RBC Urine WBC Ur Squamous Epith Cells Urine Bacteria Ur Microscopic Review Urine Culture Comments Ethyl Alcohol < 5.0 05/11/18 05/11/18 05/11/18 12:03 12:03 14:29 WBC RBC Hgb Hct MCV MCH MCHC RDW Plt Count MPV Neut # (Auto) Lymph # (Auto) [place] # (Auto) Eos # (Auto) Baso # (Auto) Absolute Nucleated RBC Nucleated RBC % Sodium Potassium Chloride Carbon Dioxide Anion Gap BUN Creatinine Estimated GFR (MDRD) Glucose Calcium Total Bilirubin AST ALT Alkaline Phosphatase Ammonia < 10.0 Troponin I Total Protein Albumin Globulin Albumin/Globulin Ratio Lipase TSH 2.31 Urine Color YELLOW Urine Clarity CLEAR Urine pH 8.0 H Ur Specific [place] 1.015 Urine Protein 30 H Urine Glucose (UA) NEGATIVE Urine Ketones NEGATIVE Urine Occult Blood TRACE-LYSE Urine Nitrite NEGATIVE Urine Bilirubin NEGATIVE Urine Urobilinogen 0.2 (NORMAL) Ur Leukocyte Esterase NEGATIVE Urine RBC 11-25 H Urine WBC 4-5 Ur Squamous Epith Cells NONE SEEN Urine Bacteria None Seen Ur Microscopic Review INDICATED Urine Culture Comments NOT INDICATED Ethyl Alcohol PD MEDICAL DECISION MAKING - ED course ED course: neg wup was non focal just altered by report and non focal just altered here in ED so favor post ictal over TIA etc pt gradually improved now awake and alert non focal neuro exam or serial rechecks now oriented tolerating PO able to walk with a walker his feels Ok taking him home advised can call for assist into house if needed Departure - Departure Disposition: 01 Home, Self Care Clinical Impression: Mental status alteration Qualifiers: Altered mental status type: transient alteration of awareness Qualified Code( s): R40.4 - Transient alteration of awareness Condition: Good Follow-Up: Damaso Iverson MD [Primary Care Provider] - Comments: The CT scan iof the brain, the blood work, the urine test and the chest xray all came back fine Your exam does not suggest a stroke I suspect you may have had a seizure and then had a post ictal period afterwards Since your work up is reassuring and you are doing better, I think it is OK for you to go home. Please rest as much as possible and use your walker when transferring and ambulating. Follow up with your PMD for a recheck next week Your EKG showed your heart is in a regular rhythm but you have several types of electrical delay noted - an AV block, a bundle branch krysta and a fasicular block - this is not new and is unlikely to have caused your confusion today - but please follow up with your PMD And there was a small amount of blood in the urine - no infection but a few red blood cells - please follow up with your PMD about that too
--- NOTE | 2018-05-11 11:41 | CT Report ---
Reason: AMS Procedure Date: 05/11/2018 Accession Number: [id number] / [id number] Procedure: CT - Head W/O CPT Code: FULL RESULT: EXAM: CT HEAD EXAM DATE: 05/11/2018 11:12 AM. CLINICAL HISTORY: AMS. COMPARISON: 02/26/2018. TECHNIQUE: Multiaxial CT images were obtained from the foramen magnum to the vertex. Reformats: Sagittal and coronal. IV contrast: None. In accordance with CT protocol optimization, one or more of the following dose reduction techniques were utilized for this exam: automated exposure control, adjustment of mA and/or KV based on patient size, or use of iterative reconstructive technique. FINDINGS: Parenchyma: No intraparenchymal hemorrhage. No evidence of mass, midline shift, or CT findings of acute infarction. Centeno-white differentiation is distinct. Diffuse chronic microangiopathic white matter changes are evident. Extraaxial Spaces: Normal for age. No subdural or epidural collections identified. Ventricles: The ventricles and cortical sulci are enlarged, consistent with age-related tissue loss. Sinuses and orbits: Imaged paranasal sinuses, orbits, and mastoids show no significant abnormality. Bones: No evidence of fracture or calvarial defect. Other: None. IMPRESSION: Generalized age-related cortical atrophic changes without evidence of acute intracranial abnormality or significant interval change. RADIA
--- NOTE | 2018-05-11 11:55 | XRAY Report ---
Reason: soa Procedure Date: 05/11/2018 Accession Number: [id number] / [id number] Procedure: XR - Chest 2 View X-Ray CPT Code: 59749 FULL RESULT: EXAM: CHEST RADIOGRAPHY EXAM DATE: 05/11/2018 11:24 AM. CLINICAL HISTORY: Soa. COMPARISON: Single view 12/05/2017. TECHNIQUE: 2 views. FINDINGS: Lungs/Pleura: No focal opacities evident. No pleural effusion. No pneumothorax. Normal volumes. Mediastinum: Heart and mediastinal contours are unremarkable. Aortic calcification redemonstrated. Other: Bilateral shoulder degenerative disease. IMPRESSION: No acute abnormality of the chest demonstrated. RADIA
[2018-05-11 12:07] LABS: BASOPHILS % (AUTO) 0.1 %; EOSINOPHILS % (AUTO) 0.1 %; LYMPHOCYTES # (AUTO) 0.2 10^3/uL (1.5-3.5); MEAN CORPUSCULAR HEMOGLOBIN 24.6 pg (27.0-31.0); MEAN CORPUSCULAR HGB CONC 31.8 g/dL (32.0-36.0); MEAN CORPUSCULAR VOLUME 77.3 fL (80.0-94.0); MEAN PLATELET VOLUME 7.1 fL (7.4-11.4); MONOCYTES # (AUTO) 0.2 10^3/uL (0.0-1.0); MONOCYTES % (AUTO) 6.3 %; NEUTROPHILS # (AUTO) 2.7 10^3/uL (1.5-6.6); NEUTROPHILS % (AUTO) 86.5 %; PLT - PLATELET COUNT 221 10^3/uL (130-450); RED BLOOD COUNT 4.06 10^6/uL (4.70-6.10); RED CELL DISTRIBUTION WIDTH 19.6 % (12.0-15.0); WHITE BLOOD COUNT 3.1 x10^3/uL (4.8-10.8)
[2018-05-11 12:20] LABS: ALBUMIN 4.1 g/dL (3.2-5.5); ALBUMIN/GLOBULIN RATIO 1.1 (1.0-2.2); ALKALINE PHOSPHATASE 110 IU/L (42-121); ALT ALANINE AMINOTRANSFERASE 29 IU/L (10-60); AST ASPARTATE AMINOTRANSFERASE 32 IU/L (10-42); BILIRUBIN,TOTAL 0.4 mg/dL (0.2-1.0); BUN - BLOOD UREA NITROGEN 11 mg/dL (6-20); CALCIUM 8.9 mg/dL (8.5-10.3); CARBON DIOXIDE - CO2 28 mmol/L (21-32); CHLORIDE 102 mmol/L (101-111); CREATININE 0.8 mg/dL (0.6-1.2); GFR - MDRD 91 (>89); GLUCOSE 175 mg/dL (70-100); LIPASE 32 U/L (22-51); SODIUM 137 mmol/L (135-145); TOTAL PROTEIN 7.7 g/dL (6.7-8.2)
[2018-05-11 14:31] LABS: BILIRUBIN,URINE NEGATIVE (NEGATIVE); GLUCOSE, URINE (UA) NEGATIVE (NEGATIVE); KETONES,URINE (UA) NEGATIVE (NEGATIVE); LEUKOCYTE ESTERASE, URINE NEGATIVE (NEGATIVE); NITRITE,URINE NEGATIVE (NEGATIVE); OCCULT BLOOD,URINE TRACE-LYSE (NEGATIVE); PROTEIN,URINE 30 mg/dL (NEGATIVE); UROBILINOGEN,URINE 0.2 (NORMAL) E.U./dL (NORMAL)
[2018-05-11 14:35] LABS: CLARITY,URINE CLEAR (CLEAR)
[2018-05-11 14:44] LABS: BACTERIA,URINE None Seen /HPF (None Seen); SQUAMOUS EPITHELIAL CELL,UR NONE SEEN (<= Few)
[2018-05-11 15:53] VITALS: BP 151/78
== END 2018-05-11 16:20 | disposition home or self-care (01) ==
LOC: EDUNIT# → ED 10:17
DX: R40.4 Transient alteration of awareness (principal); I45.10 Unspecified right bundle-branch block; I44.30 Unspecified atrioventricular block; I44.60 Unspecified fascicular block; E11.9 Type 2 diabetes mellitus without complications; Z79.84 Long term (current) use of oral hypoglycemic drugs; Z79.82 Long term (current) use of aspirin; Z79.01 Long term (current) use of anticoagulants
CPT/HCPCS: 36415; 70450; 71046; 80053; 80320; 81001; 81003; 82140; 83690; 84443; 84484; 85025; 87086; 93005; 99283; 99284

== ENCOUNTER 2018-06-20 18:57 | Outpatient (CLI) | payer MEDICARE | END 2018-06-20 18:58 | disposition home or self-care (01) | LOC: EMS 18:57 | PROVIDERS: ATTEND Surgery | DX: Z03.89 Encounter for observation for other suspected diseases and conditions ruled out (principal) ==

== ENCOUNTER 2018-07-08 06:05 | Outpatient (CLI) | payer MEDICARE | END 2018-07-08 06:06 | disposition critical access hospital (66) | LOC: EMS 06:05 | PROVIDERS: ATTEND Surgery | DX: R53.1 Weakness (principal); R32 Unspecified urinary incontinence; M25.571 Pain in right ankle and joints of right foot | CPT/HCPCS: A0425; A0429 ==

== ENCOUNTER 2018-07-08 06:13 | Inpatient (IN) | payer MEDICARE ==
--- NOTE | 2018-07-08 07:26 | ED Physician Documentation ---
History of Present Illness - Stated complaint Stated Complaint: ANKLE PAIN - Chief complaint Chief Complaint: Ext Problem - History obtained from History obtained from: Family - History of Present Illness Timing: How many days ago (3) - Additonal information Additional information: 80-year-old male with a history of advanced dementia and diabetes and a seizure disorder has developed weakness over the past several days. notes that he fell on Sunday and required a lift assist by the fire department. He did not appear injured by that fall. He now has some redness and swelling to his right ankle which is apparently better than it was yesterday but he is unable to get himself out of bed he has been incontinent of urine and he is unable to feed himself. He normally is able to assist with caring for himself and today he is profoundly weak. He is pleasantly demented and has no specific complaints himself. Review of Systems Constitutional: reports: Fever Eyes: denies: Decreased vision Ears: denies: Ear pain Nose: denies: Rhinorrhea / runny nose, Congestion Throat: denies: Sore throat Cardiac: denies: Chest pain / pressure, Palpitations Respiratory: denies: Dyspnea, Cough GI: denies: Abdominal Pain, Constipation, Diarrhea : reports: Incontinent. denies: Dysuria, Frequency Skin: denies: Rash Musculoskeletal: reports: Extremity swelling, Pain with weight bearing. denies: Neck pain, Back pain, Extremity pain Neurologic: reports: Generalized weakness. denies: Focal weakness, Numbness, Difficulty speaking PD PAST MEDICAL HISTORY - Past Medical History Cardiovascular: None Respiratory: None Neuro: Dementia, CVA Endocrine/Autoimmune: Type 2 diabetes GI: GERD, Other : Benign prostate hypertrophy HEENT: None Psych: None Musculoskeletal: None Derm: None - Past Surgical History Past Surgical History: Yes General: Bowel surgery, Colonoscopy, Other Ortho: Hip replacement HEENT: Other Derm: Other - Present Medications Home Medications: Ambulatory Orders Medication Instructions Recorded Confirmed Metformin HCl [Glucophage] 500 mg PO BIDWM 06/04/13 12/05/17 Omeprazole 20 mg PO BIDAC 11/24/15 12/05/17 Atorvastatin Calcium [Lipitor] 80 mg PO QPM 08/11/16 12/05/17 Aspirin Chewable [St Derian 81 mg PO DAILY #30 tablet 12/10/17 Aspirin] Cetirizine [ZyrTEC] 10 mg PO BID #60 18 12/05/17 Cholecalciferol (Vitamin D3) 2,000 unit PO DAILY #30 12/10/17 12/05/17 [Vitamin D3] Ciprofloxacin/Ciprofloxa HCl 500 mg PO DAILY #7 tbmp.24hr 12/10/17 [Ciprofloxacin ER 500 mg Tablet] Montelukast [Singulair] 10 mg PO QPM PRN #30 12/10/17 12/05/17 Rivaroxaban [Xarelto] 20 mg ORAL DAILYWM #30 12/10/17 12/05/17 Saccharomyces Boulardii [Florastor] 250 mg PO BID 14 Days #28 capsule 12/10/17 Sucralfate [Carafate] 1 gm PO BID #60 12/10/17 12/05/17 levETIRAcetam [Levetiracetam] 500 mg PO BID #60 12/10/17 12/05/17 - Allergies Allergies/Adverse Reactions: Allergies Allergy/AdvReac Type Severity Reaction Status Date / Time codeine AdvReac Intermediate Nausea Verified 04/08/17 05:20 memantine HCl * AdvReac Anxiety Verified 04/08/17 05:20 [From Namenda] - Social History Does the pt smoke?: No Smoking Status: Never smoker Does the pt drink ETOH?: No Does the pt have substance abuse?: No - Immunizations Immunizations are current?: No - POLST Patient has POLST: Yes POLST Status: Full Code PD ED PE NORMAL - Vitals Vital signs reviewed: Yes (hypertensive ) - General General: No acute distress, Well developed/nourished, Other (smiles and makes eye contact does not contribute to history ) - HEENT HEENT: Atraumatic, PERRL, EOMI - Neck Neck: Supple, no meningeal sign, No bony TTP - Cardiac Cardiac: RRR, No murmur - Respiratory Respiratory: No respiratory distress, Clear bilaterally - Abdomen Abdomen: Soft, Non tender - Back Back: No CVA TTP, No spinal TTP - Derm Derm: Normal color, Warm and dry - Extremities Extremities: Other (There is swelling and redeness to the right ankle consitent with an early cellulitis. 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, No motor deficit, No sensory deficit, Normal speech Eye Opening: Spontaneous Motor: Obeys Commands Verbal: Confused GCS Score: 14 - Psych Psych: Normal mood, Normal affect Results - Vitals Vitals: Vital Signs - 24 hr 07/08/18 06:11 Temperature 37.1 C Heart Rate 87 Respiratory 18 Rate Blood Pressure 152/80 H O2 Saturation 96 Oxygen O2 Source Room air - Labs Labs: Laboratory Tests 07/08/18 07/08/18 07/08/18 07:30 07:30 07:30 WBC 4.4 L RBC 3.71 L Hgb 9.1 L Hct 28.2 L MCV 76.2 L MCH 24.4 L MCHC 32.1 RDW 20.2 H Plt Count 222 MPV 7.8 Neut # (Auto) 3.9 Lymph # (Auto) 0.2 L [place] # (Auto) 0.2 Eos # (Auto) 0.0 Baso # (Auto) 0.0 Absolute Nucleated RBC 0.00 Nucleated RBC % 0.0 Manual Slide Review Indicated Platelet Estimate NORMAL (130-450,000) Platelet Morphology NORMAL APPEARANCE RBC Morph Micro Appear 1+ ANISOCYTOSIS Sodium 135 Potassium 3.9 Chloride 101 Carbon Dioxide 26 Anion Gap 8.0 BUN 19 Creatinine 1.0 Estimated GFR (MDRD) 71 L Glucose 160 H Lactic Acid Calcium 8.9 Total Bilirubin 0.4 AST 28 ALT 22 Alkaline Phosphatase 77 Troponin I < 0.04 Total Protein 7.2 Albumin 3.3 Globulin 3.9 Albumin/Globulin Ratio 0.8 L Lipase 140 H Urine Color Urine Clarity Urine pH Ur Specific [place] Urine Protein Urine Glucose (UA) Urine Ketones Urine Occult Blood Urine Nitrite Urine Bilirubin Urine Urobilinogen Ur Leukocyte Esterase Urine RBC Urine WBC Ur Squamous Epith Cells Urine Bacteria Ur Microscopic Review Urine Culture Comments 07/08/18 07/08/18 07:30 08:56 WBC RBC Hgb Hct MCV MCH MCHC RDW Plt Count MPV Neut # (Auto) Lymph # (Auto) [place] # (Auto) Eos # (Auto) Baso # (Auto) Absolute Nucleated RBC Nucleated RBC % Manual Slide Review Platelet Estimate Platelet Morphology RBC Morph Micro Appear Sodium Potassium Chloride Carbon Dioxide Anion Gap BUN Creatinine Estimated GFR (MDRD) Glucose Lactic Acid 1.0 Calcium Total Bilirubin AST ALT Alkaline Phosphatase Troponin I Total Protein Albumin Globulin Albumin/Globulin Ratio Lipase Urine Color YELLOW Urine Clarity HAZY Urine pH 7.0 Ur Specific [place] 1.010 Urine Protein TRACE Urine Glucose (UA) NEGATIVE Urine Ketones NEGATIVE Urine Occult Blood TRACE-LYSE Urine Nitrite NEGATIVE Urine Bilirubin NEGATIVE Urine Urobilinogen 0.2 (NORMAL) Ur Leukocyte Esterase SMALL H Urine RBC 0-5 Urine WBC >25 H Ur Squamous Epith Cells NONE SEEN Urine Bacteria Rare Ur Microscopic Review INDICATED Urine Culture Comments INDICATED - Rads (name of study) 1 view chest Radiology: Prelim report reviewed (Impression: Mild retrocardiac atelectasis.), EMP read indepedently, See rad report right ankle Radiology: Prelim report reviewed (Impression: Heel spurs. Negative for fracture), EMP read indepedently, See rad report Procedures - IVC sono (time) 0715 Bedside IVC sono: IVC measures (cm) (0.92), IVC collapsed c insp (cm) (complete), Dehydration (est 1-2 liter deficit) PD MEDICAL DECISION MAKING - ED course Complexity details: considered differential, d/w family ED course: 88-year-old male with advanced dementia now appears profoundly weak and is unable to care for himself at home. He appears to have early right ankle cellulitis and he is dehydrated on interrogation of the inferior vena cava. IV saline is begun and a workup is begun. He has low WBC, anemia and normal lactate. CXR is without obvious infiltrate with retrocardiac atelectasis. There is obvious UTI on evaluation of urine and this has been a theme for this patient previously with weakness and altered mental status. Departure - Departure Disposition: [facility] DC/Xfer Clinical Impression: Dehydration, Generalized weakness Cellulitis Qualifiers: Site of cellulitis: extremity Site of cellulitis of extremity: lower extremity Laterality: right Qualified Code(s): L03.115 - Cellulitis of right lower limb Urinary tract infection Qualifiers: Urinary tract infection type: acute cystitis Hematuria presence: without hematuria Qualified Code(s): N30.00 - Acute cystitis without hematuria Condition: Stable
[2018-07-08] MEDS ORDERED: SODIUM CHLORIDE 0.9% 1,000 ML IV ONE (07:29)
[2018-07-08 07:48] LABS: BASOPHILS % (AUTO) 0.3 %; EOSINOPHILS % (AUTO) 0.1 %; HGB - HEMOGLOBIN 9.1 g/dL (14.0-18.0); LYMPHOCYTES # (AUTO) 0.2 10^3/uL (1.5-3.5); LYMPHOCYTES % (AUTO) 5.4 %; MEAN CORPUSCULAR HEMOGLOBIN 24.4 pg (27.0-31.0); MEAN CORPUSCULAR HGB CONC 32.1 g/dL (32.0-36.0); MEAN CORPUSCULAR VOLUME 76.2 fL (80.0-94.0); MEAN PLATELET VOLUME 7.8 fL (7.4-11.4); MONOCYTES # (AUTO) 0.2 10^3/uL (0.0-1.0); NEUTROPHILS # (AUTO) 3.9 10^3/uL (1.5-6.6); NEUTROPHILS % (AUTO) 89.2 %; PLT - PLATELET COUNT 222 10^3/uL (130-450); RED BLOOD COUNT 3.71 10^6/uL (4.70-6.10); RED CELL DISTRIBUTION WIDTH 20.2 % (12.0-15.0); WHITE BLOOD COUNT 4.4 x10^3/uL (4.8-10.8)
[2018-07-08 07:59] LABS: ALBUMIN 3.3 g/dL (3.2-5.5); ALBUMIN/GLOBULIN RATIO 0.8 (1.0-2.2); BILIRUBIN,TOTAL 0.4 mg/dL (0.2-1.0); CALCIUM 8.9 mg/dL (8.5-10.3); TOTAL PROTEIN 7.2 g/dL (6.7-8.2)
[2018-07-08 08:07] LABS: PLATELET ESTIMATE, MANUAL NORMAL (130-450,000) (NORMAL); PLATELET MORPHOLOGY NORMAL APPEARANCE (NORMAL)
[2018-07-08 08:08] LABS: RBC MORPHOLOGY (MULTIPLE) 1+ ANISOCYTOSIS (NORMAL)
--- NOTE | 2018-07-08 08:29 | XRAY Report ---
Reason: weakness/fever Procedure Date: 07/08/2018 Accession Number: [id number] / [id number] Procedure: XR - Chest 1 View X-Ray CPT Code: 17481 FULL RESULT: EXAM: CHEST RADIOGRAPHY EXAM DATE: 07/08/2018 07:54 AM. CLINICAL HISTORY: Weakness/fever. COMPARISON: CHEST 2 VIEW 05/11/2018 11:12 AM. TECHNIQUE: 1 view. FINDINGS: Lungs/Pleura: Mild retrocardiac atelectasis. No pleural effusion. No pneumothorax. Decreased lung volume Mediastinum: Heart size top normal accentuated by low lung volumes Other: DJD spine, shoulders IMPRESSION: Mild retrocardiac atelectasis RADIA
--- NOTE | 2018-07-08 08:31 | XRAY Report ---
Reason: fall swelling Procedure Date: 07/08/2018 Accession Number: [id number] / [id number] Procedure: XR - Ankle 3 View RT CPT Code: FULL RESULT: EXAM: RIGHT ANKLE RADIOGRAPHY EXAM DATE: 07/08/2018 07:57 AM. CLINICAL HISTORY: Fall swelling. COMPARISON: None. TECHNIQUE: 3 views. FINDINGS: Bones: Achilles tendon heel spur. Plantar heel spur. Joints: Normal. No effusion. No subluxations. The ankle mortise is normally aligned. Soft Tissues: Soft tissue swelling. IMPRESSION: Heel spurs. Negative for fracture RADIA
[2018-07-08] MEDS ORDERED: cefTRIAXone 1 GM in SODIUM CHLORIDE 0.9% MINIBAG 100 ML IV STA (09:05)
[2018-07-08 09:15] LABS: BILIRUBIN,URINE NEGATIVE (NEGATIVE); GLUCOSE, URINE (UA) NEGATIVE (NEGATIVE); KETONES,URINE (UA) NEGATIVE (NEGATIVE); LEUKOCYTE ESTERASE, URINE SMALL (NEGATIVE); NITRITE,URINE NEGATIVE (NEGATIVE); OCCULT BLOOD,URINE TRACE-LYSE (NEGATIVE); PROTEIN,URINE TRACE mg/dL (NEGATIVE); UROBILINOGEN,URINE 0.2 (NORMAL) E.U./dL (NORMAL)
[2018-07-08 09:18] LABS: CLARITY,URINE HAZY (CLEAR)
[2018-07-08 09:26] LABS: BACTERIA,URINE Rare /HPF (None Seen); RBC,URINE 0-5 /HPF (0-5); SQUAMOUS EPITHELIAL CELL,UR NONE SEEN (<= Few)
[2018-07-08] MEDS ORDERED: SODIUM CHLORIDE FLUSH 0.9% 10 ML SYRINGE IVP PRN (10:06)
[2018-07-08] MEDS ORDERED: TEMAZEPAM 15 MG CAPSULE PO PRN (10:06)
[2018-07-08] MEDS ORDERED: HYDROcod/ACETAM 5/325 MG TABLET PO PRN (10:06)
[2018-07-08] MEDS ORDERED: ACETAMINOPHEN 325 MG TABLET PO PRN (10:06)
[2018-07-08] MEDS ORDERED: ONDANSETRON 4 MG/2 ML VIAL IVP PRN (10:06)
--- NOTE | 2018-07-08 10:14 | HISTORY & PHYSICAL EXAMINATION ---
Chief Complaint - Chief Complaint Chief Complaint: weakness, inability to walk History of Present Illness - Admitted From Admitted From:: ED - History Obtained From Records Reviewed: yes History obtained from: chart review Exam Limitations: AMS - History of Present Illness HPI Comment/Other: Brett Dangelo (Bert) is an ill appearing 88-year old male with a past medical history of hypertension, hyperlipidemia, chronic anticoagulation for saddle pulmonary emboli, right frontal CVA, dementia, dysphagia, recurrent seizure d isorder, DM2, GERD, esophageal dilation, osteoarthritis, bilateral hip replacement, BPH, TURP in 1993, nocturia, recurrent UTIs, status post colon cancer, status post colectomy in 1998, and falls. He was brought in by EMS today with primary complaints of profound weakness, cannot ambulate and fell yesterday which required a lift assist by the fire department. The patient could not provide information due to his medical condition, so his , Joselin spoke for him. He has not displayed evidence of seizures today, but will only respond to a sternal rub on exam. A UA was obtained that indicates a UTI, with cultures pending. Joselin expresses how difficult it has been to take care of her both physically and with his advanced dementia, on top of her own medical issues. The patient will not answer questions, but his does not recall any recent complaints of chest pain, shortness of breath, headaches, focal neurological deficit, abdominal pain, nausea, vomiting, or diarrhea. He lives with his and is normally ambulatory, but since his fall yesterday, has not been out of bed. On arrival to the ED he is noted to have no injuries from his fall, but his right lower leg starting in his ankle appears to be infected. He has gotten one dose of Rocephin in the ED and will get this every 24 hours until urine cultures are resulted. History - Past Medical History Cardiovascular: reports: Hypertension, High cholesterol, Atrial fibrillation, Murmur, Arrhythmia Respiratory: reports: None Neuro: reports: Dementia, CVA, Seizure disorder, Tremors Endocrine/Autoimmune: reports: Type 2 diabetes GI: reports: GERD SLAB GRINDER: reports: None : reports: Benign prostate hypertrophy, Incontinence, Nocturia, Frequency HEENT: reports: Chronic vision loss, Chronic sinusitis, Chronic hearing loss Psych: reports: Depression Musculoskeletal: reports: Osteoarthritis, Fatigue Derm: reports: None MRSA Hx?: No - Past Surgical History General: reports: Bowel surgery, Colonoscopy, EGD, Other Ortho: reports: Hip replacement HEENT: reports: Other Derm: reports: Other - Family & Social History Family History: Mother: , CAD, Father: Family History Comment/Other: His mother at age 55 of a ruptured spleen and had CAD. His father in his 80's of old age. Living arrangement: At home Living Situation: With spouse/s.o. Social History Notes: The patient lives independently with his . 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 He once before and his when he was 55. He has 3 children from that marriage who are in good health. He a second time and remains to [facility]. He reports never being a cigarette smoker, no alcohol or drug abuse. Previous documents note him to be a DNR/DNI, but a current POLST states full code, which his confirms. - Substance History Use: Uses substance without health or social issues: NONE Abuse: Recurrent use of substance despite neg consequences: NONE Dependence: Experiences withdrawal or developed tolerances: NONE - POLST Patient has POLST: Yes POLST Status: Full Code Meds/Allgy - Home Medications Home Medications: Ambulatory Orders Medication Instructions Recorded Confirmed Metformin HCl [Glucophage] 500 mg PO BIDWM 06/04/13 07/08/18 Omeprazole 20 mg PO BIDAC 11/24/15 07/08/18 Atorvastatin Calcium [Lipitor] 80 mg PO QPM 08/11/16 07/08/18 Rivaroxaban [Xarelto] 20 mg ORAL DAILYWM #30 12/10/17 07/08/18 levETIRAcetam [Levetiracetam] 500 mg PO BID #60 12/10/17 07/08/18 Cholecalciferol (Vitamin D3) 1,000 units PO DAILY 07/08/18 07/08/18 [Vitamin D3] Loratadine 10 mg PO DAILY 07/08/18 07/08/18 Sucralfate [Carafate] 1 gm PO BIDAC 07/08/18 07/08/18 - Allergies Allergies/Adverse Reactions: Allergies Allergy/AdvReac Type Severity Reaction Status Date / Time codeine AdvReac Intermediate Nausea Verified 04/08/17 05:20 memantine HCl * AdvReac Anxiety Verified 04/08/17 05:20 [From Namenda] Review of Systems - Constitutional Constitutional: reports: Fatigue, Malaise, Weakness, Poor appetite, Weight loss - Eyes Eyes: reports: Vision loss - Ears, Nose & Throat Ears, Nose & Throat: reports: Hearing loss, Postnasal drainage - Cardiovascular Cariovascular: reports: Lightheadedness, Syncope, Exertional dyspnea, Decr. exercise tolerance - Respiratory Respiratory: reports: Cough, SOB at rest, SOB with exertion - Gastrointestinal Gastrointestinal: reports: Nausea, Reflux/heartburn, Poor appetite - Genitourinary Genitourinary: reports: Dysuria, Urgency, Nocturia - Musculoskeletal Musculoskeletal: reports: Muscle aches, Limited range of motion, Joint swelling - Integumentary Integumentary: reports: Dryness - Neurological Neurological: reports: General weakness, Memory problems, Pre-existing deficit, Abnormal gait, Seizures - Psychiatric Psychiatric: reports: Depression, Anxiety - Hematologic/Lymphatic Hematologic/Lymphatic: reports: Recurrent infections - All Other Systems All Other Systems: reports: Reviewed and negative Prior Level of Functionality: Minimal ambulation, lives independently with . Recent frequent falls. Exam - Vital Signs Reviewed Vital Signs: Yes Vital Signs: Vital Signs x48h Temp Pulse Resp BP Pulse Ox 07/08/18 06:11 37.1 C 87 18 152/80 H 96 - Physical Exam General Appearance: positive: No acute distress, Lethargic Eyes Bilateral: positive: PERRL ENT: positive: Pharynx nml, Dry mucous membranes Neck: positive: Thyroid nml, No JVD, Trachea midline Respiratory: positive: Chest non-tender, No respiratory distress, Other (diminished bilaterally) Cardiovascular: positive: No gallop, Irregularly irregular, Systolic murmur Peripheral Pulses: positive: 1+ Abdomen: positive: Non-tender, Nml bowel sounds, Other (rounded, soft) Back: positive: Nml inspection Skin: positive: No rash, Warm, Dry, Pallor Extremities: positive: Non-tender, No pedal edema, Joint swelling Neurologic/Psychiatric: positive: Disoriented to person, Disoriented to place, Disoriented to time, Weakness, Sensory loss, Slurred/abnml speech, Depressed mood/affect, Other (baseline advanced dementia) Reflexes: Bicep (R): 2+, Bicep (L): 2+ Sepsis Event Note (H) - Evaluation Current Stage of Sepsis: Ruled out Conclusion/Plan - Problem List (1) Cellulitis of leg, right Conclusion/Plan: The patient was found to have increased redness, swelling, and the area is very warm compared to his left leg. See chart for admission pictures. Imaging showed soft tissue swelling and was negative for fractures. Plan: Continue IV rocephin, trace the skin to monitor for improvement. (2) Complicated UTI (urinary tract infection) Conclusion/Plan: A urine sample obtained in the ED shows an acute infection. The patient has chronic BPH, recurrent UTIs, weakness, nausea and worsening confusion as per his and on physical exam. Plan: Continue IV Rocephin, await final culture results. (3) Frequent falls Conclusion/Plan: The patient's notes that he just fell last night and refused a trip to the ED. Since that time he has not gotten out of bed. He has a known history of falls, and luckily looks as if yesterday's fall caused no injury with the exception of his new right leg cellulitis. Plan: PT/OT evaluation prior to discharge. (4) Protein calorie malnutrition Conclusion/Plan: The patient has a frail appearance, pale and has been reported as having a poor appetite. As per his , he has had difficulty with swallowing in the past and has had a progressive poor appetite. I will order a nutritional consult. Plan: Regular diet, encourage meals, await nutritional consult. Qualifiers: Protein-calorie malnutrition severity: moderate Qualified Code(s): E44.0 - Moderate protein-calorie malnutrition (5) Generalized weakness Conclusion/Plan: The patient has been slowly declining, but has been able to ambulate at home. He has a history of frequent falls. He is thought to have an acute illness of a complicated UTI and right LE cellulitis. Plan: PT/OT evaluation prior to discharge. (6) Advanced dementia Conclusion/Plan: The patient likely has this a consequence of his prior CVA, and also has a seizure disorder. He is pleasant and continues to live at home with his . He is overall declining and would benefit from a Palliative care consult during this hospital stay. The patient's is unsure of this, and would like to think about Palliative care. Plan: Continue fall precautions, monitor behaviors. (7) DM2 (diabetes mellitus, type 2) Conclusion/Plan: The patient is prescribed Metformin at home that has been on hold while inpatient. He had a pre-meal blood sugar of 115. Nursing has ordered blood sugar checks, but given his acute illness, and protein calorie malnutrition, I will not add any insulin. Plan: Monitor blood sugars as needed, regular diet with protein supplements, and recommend no further outpatient treatment of diabetes as it may be linked to increased falls. (8) History of CVA (cerebrovascular accident) Conclusion/Plan: As per chart review, the patient had a history of a prior right frontal CVA with residual STM loss, advanced dementia and his primary risk factor was DM. Plan: Continue to monitor for change in mental status, continue Xarelto. (9) Hx of seizure disorder Conclusion/Plan: The patient is prescribed Keppra that will be given at 1/2 the dose while here. Plan: Seizure precautions. (10) Anticoagulant long-term use Conclusion/Plan: The patient has a history of CVA and a saddle PE. He is prescribed Xarelto at home that has been resumed here. Plan: Continue med, watch for signs of bleeding. - Lab Results Lab results reviewed: Yes Fish Bones: 07/08/18 07:30 07/08/18 07:30 - Diagnostic Imaging Results Diagnostic Imaging Results: positive: Final report reviewed Diagnostic Imaging Results Comments: EXAM: CHEST RADIOGRAPHY EXAM DATE: 07/08/2018 07:54 AM IMPRESSION: Mild retrocardiac atelectasis EXAM: RIGHT ANKLE RADIOGRAPHY EXAM DATE: 07/08/2018 07:57 AM. Soft Tissues: Soft tissue swelling. IMPRESSION: Heel spurs. Negative for fracture. Core Measures - Anticipated LOS I expect patient to be DC'd or transferred within 96 hours.: Yes - DVT/VTE - Prophylaxis VTE/DVT Device ordered at admit?: Yes VTE/DVT Prophylaxis med ordered at admit?: Yes - Stroke - Rehab Assessment Rehab services assessment to be ordered?: Yes - AMI - Statin at Admit Aspirin Prescribed on Admit: Yes
[2018-07-08] MEDS: SUCRALFATE 1 GM/10 ML UDC PO SCH (18:21)
[2018-07-08] MEDS: ATORVASTATIN 40 MG TABLET PO SCH (21:02)
[2018-07-08] MEDS: levETIRAcetam 250 MG TABLET PO SCH (21:02)
[2018-07-08] MEDS: SODIUM CHLORIDE FLUSH 0.9% 10 ML SYRINGE IVP SCH (21:03)
[2018-07-08] MEDS: FAMOTIDINE 20 MG TABLET PO SCH (21:03)
[2018-07-09] MEDS: SODIUM CHLORIDE FLUSH 0.9% 10 ML SYRINGE IVP SCH ×3 (01:16→16:26)
[2018-07-09 05:20] LABS: BASOPHILS % (AUTO) 0.2 %; EOSINOPHILS # (AUTO) 0.1 10^3/uL (0.0-0.7); EOSINOPHILS % (AUTO) 2.4 %; HGB - HEMOGLOBIN 8.3 g/dL (14.0-18.0); LYMPHOCYTES # (AUTO) 0.2 10^3/uL (1.5-3.5); LYMPHOCYTES % (AUTO) 5.4 %; MEAN CORPUSCULAR HEMOGLOBIN 24.2 pg (27.0-31.0); MEAN CORPUSCULAR HGB CONC 31.2 g/dL (32.0-36.0); MEAN CORPUSCULAR VOLUME 77.6 fL (80.0-94.0); MEAN PLATELET VOLUME 7.4 fL (7.4-11.4); MONOCYTES # (AUTO) 0.2 10^3/uL (0.0-1.0); MONOCYTES % (AUTO) 4.9 %; NEUTROPHILS % (AUTO) 87.1 %; PLT - PLATELET COUNT 216 10^3/uL (130-450); RED BLOOD COUNT 3.42 10^6/uL (4.70-6.10); RED CELL DISTRIBUTION WIDTH 19.9 % (12.0-15.0); WHITE BLOOD COUNT 3.4 x10^3/uL (4.8-10.8)
[2018-07-09 05:36] LABS: ALBUMIN 2.8 g/dL (3.2-5.5); ALBUMIN/GLOBULIN RATIO 0.8 (1.0-2.2); BILIRUBIN,TOTAL 0.4 mg/dL (0.2-1.0); CALCIUM 8.5 mg/dL (8.5-10.3); CREATININE 0.8 mg/dL (0.6-1.2); MAGNESIUM 1.9 mg/dL (1.7-2.8); PHOSPHORUS 2.9 mg/dL (2.5-4.6); TOTAL PROTEIN 6.4 g/dL (6.7-8.2)
[2018-07-09] MEDS: SUCRALFATE 1 GM/10 ML UDC PO SCH ×2 (06:41→16:26)
[2018-07-09 08:08] LABS: MEAN RETIC VALUE 106.4; RED BLOOD COUNT 3.41 10^6/uL (4.70-6.10)
[2018-07-09 08:27] LABS: % IRON SATURATION 7 % (20-50); IRON 18 ug/dL (45-182); TOTAL IRON BINDING CAPACITY 272 ug/dL (250-450); TRANSFERRIN 194 mg/dL (180-329)
[2018-07-09] MEDS ORDERED: SODIUM CHLORIDE 0.9% 500 ML IV ONE (08:32)
[2018-07-09] MEDS: POLYETHYLENE GLYCOL 3350 17 GM PACKET PO SCH (08:34)
[2018-07-09] MEDS: RIVAROXABAN 10 MG TABLET PO SCH (08:34)
[2018-07-09] MEDS: FAMOTIDINE 20 MG TABLET PO SCH ×2 (08:35→21:48)
[2018-07-09] MEDS: levETIRAcetam 250 MG TABLET PO SCH ×2 (08:35→21:48)
[2018-07-09 08:47] LABS: FERRITIN 33.5 ng/mL (23.9-336.2)
[2018-07-09] MEDS ORDERED: VANCOMYCIN PER PHARMACY 1.5 GM in SODIUM CHLORIDE 0.9% 250 ML IV SCH (09:00)
[2018-07-09] MEDS ORDERED: cefTRIAXone 1 GM in SODIUM CHLORIDE 0.9% MINIBAG 100 ML IV SCH (09:00)
[2018-07-09] MEDS: VANCOMYCIN INJ 1 GM in SODIUM CHLORIDE 0.9% 250 ML IV SCH ×2 (11:24→22:44)
[2018-07-09] MEDS: FERROUS SULFATE 325 MG TABLET PO SCH (11:27)
--- NOTE | 2018-07-09 12:03 | PROVIDER PROGRESS NOTE ---
Subjective - Subjective Pt reports feeling: Improved Subjective: pt is sitting in bed to eat his breakfast. It seems pt has some kind of clear mind today to talk about his breakfast although as his advanced dementia as his baseline. Current Medications - Current Medications Current Medications: Active Medications Acetaminophen (Tylenol) 650 mg PO Q4HR PRN PRN Reason: Pain 1 to 4 Last Admin: 07/09/18 06:45 Dose: 650 mg Hydrocodone Bitart/Acetaminophen ([place] 5/325) 1 tab PO Q4HR PRN PRN Reason: Pain 5 to 7 Atorvastatin Calcium (Lipitor) 80 mg PO QPM [facility] Last Admin: 07/08/18 21:02 Dose: 80 mg Famotidine (Pepcid) 20 mg PO BID [facility] Last Admin: 07/09/18 08:35 Dose: 20 mg Ferrous Sulfate (Feosol) 325 mg PO DAILYWM [facility] Last Admin: 07/09/18 11:27 Dose: 325 mg Vancomycin HCl 1 gm/ Sodium (Chloride) 250 mls @ 167 mls/hr IV Q12H [facility] Last Admin: 07/09/18 11:24 Dose: 167 mls/hr Cefazolin Sodium/Dextrose (Ancef 2 Gm/50 Ml) 2 gm in 50 mls @ 100 mls/hr IV Q8H [facility] Levetiracetam (Keppra) 250 mg PO BID [facility] Last Admin: 07/09/18 08:35 Dose: 250 mg Ondansetron HCl (Zofran Inj) 4 mg IVP Q6HR PRN PRN Reason: Nausea / Vomiting Polyethylene Glycol (Miralax) 17 gm PO DAILY [facility] Last Admin: 07/09/18 08:34 Dose: 17 gm Rivaroxaban (Xarelto) 20 mg PO DAILYWM [facility] Last Admin: 07/09/18 08:34 Dose: 20 mg Saccharomyces Boulardii (Florastor) 250 mg PO BIDWM [facility] Sodium Chloride (Normal Saline Flush 0.9%) 10 ml IVP PRN PRN PRN Reason: NEEDED PER PROVIDER ORDERS Sodium Chloride (Normal Saline Flush 0.9%) 10 ml IVP 0100,0900,1700 [facility] Last Admin: 07/09/18 08:36 Dose: 10 ml Sucralfate (Carafate) 1 gm PO BIDAC [facility] Last Admin: 07/09/18 06:41 Dose: 1 gm Temazepam (Restoril) 15 mg PO QPM PRN PRN Reason: Insomnia Metformin HCl [Glucophage] 500 mg PO BIDWM 06/04/13 Omeprazole 20 mg PO BIDAC 11/24/15 Atorvastatin Calcium [Lipitor] 80 mg PO QPM 08/11/16 Cholecalciferol (Vitamin D3) [Vitamin D3] 1,000 units PO DAILY 07/08/18 Loratadine 10 mg PO DAILY 07/08/18 Sucralfate [Carafate] 1 gm PO BIDAC 07/08/18 Objective - Vital Signs/Intake & Output Reviewed Vital Signs: Yes Vital Signs: Vital Signs x48h Temp Pulse Pulse Pulse Pulse Resp BP 07/09/18 11:48 36.3 C L 70 20 07/09/18 11:00 69 70 148/60 H 07/09/18 08:14 37.3 C 68 20 07/09/18 05:32 37.6 C H 72 18 BP BP Pulse Ox 07/09/18 11:48 148/60 H 99 07/09/18 11:00 156/77 H 07/09/18 08:14 131/56 H 96 07/09/18 05:32 139/61 H 99 Intake & Output: Intake & Output 07/06/18 07/07/18 07/08/18 07/09/18 23:59 23:59 23:59 23:59 Intake Total 1300 680 Balance 1300 680 - Objective General Appearance: positive: No acute distress, Alert. negative: Lethargic Eyes Bilateral: positive: Normal inspection, PERRL, No lid inflammation, Conjunctivae nml ENT: positive: ENT inspection nml, Pharynx nml, No signs of dehydration. negative: Purulent nasal drainage, Pharyngeal erythema, Oral lesions Neck: positive: Nml inspection, Thyroid nml, No JVD, Trachea midline. negative: Thyromegaly, Lymphadenopathy (R), Lymphadenopathy (L), Stiff neck, Swelling/bruising, Tracheal deviation Respiratory: positive: Chest non-tender, No respiratory distress, Breath sounds nml. negative: Wheezes, Rales, Rhonchi Cardiovascular: positive: Regular rate & rhythm, No murmur, No gallop. negative: Irregularly irregular, Extrasystoles, Tachycardia, Bradycardia, JVD present, Systolic murmur, Diastolic murmur Peripheral Pulses: 2+ Radial (R), 2+ Radial (L), 2+ Dorsalis pedis (R), 2+ Dorsalis pedis (L) Abdomen: positive: Non-tender, No organomegaly, Nml bowel sounds, No distention. negative: Tenderness, Guarding, Rebound Back: positive: Nml inspection. negative: CVA tenderness (R), CVA tenderness (L) Skin: positive: Warm, Dry, Skin rash. negative: Cyanosis, Diaphoresis, Pallor Extremities: positive: Non-tender. negative: Calf tenderness, Joint swelling, Osmani's sign/cords Neurologic/Psychiatric: positive: Mood/affect nml. negative: Weakness, Sensory loss, Facial droop, Slurred/abnml speech, Depressed mood/affect - Lab Results Fish Bones: 07/09/18 05:08 07/09/18 05:08 Other Labs: Lab Results x24hrs 07/09/18 07/09/18 07/09/18 Range/Units 07:57 07:57 07:57 WBC (4.8-10.8) x10^3/uL RBC (4.70-6.10) 10^6/uL Hgb (14.0-18.0) g/dL Hct (42.0-52.0) % MCV (80.0-94.0) fL MCH (27.0-31.0) pg MCHC (32.0-36.0) g/dL RDW (12.0-15.0) % Plt Count (130-450) 10^3/uL MPV (7.4-11.4) fL Reticulocyte % (Auto) (0.5-2.3) % Neut # (Auto) (1.5-6.6) 10^3/uL Lymph # (Auto) (1.5-3.5) 10^3/uL [place] # (Auto) (0.0-1.0) 10^3/uL Eos # (Auto) (0.0-0.7) 10^3/uL Baso # (Auto) (0.0-0.1) 10^3/uL Absolute Nucleated RBC x10^3/uL Nucleated RBC % /100WBC ESR (0-20) mm/Hr Absolute Retic (0.020-0.110) 10^6/uL Sodium (135-145) mmol/L Potassium (3.5-5.0) mmol/L Chloride (101-111) mmol/L Carbon Dioxide (21-32) mmol/L Anion Gap (6-13) BUN (6-20) mg/dL Creatinine (0.6-1.2) mg/dL Estimated GFR (MDRD) (>89) Glucose (70-100) mg/dL Lactic Acid (0.5-2.2) mmol/L Calcium (8.5-10.3) mg/dL Phosphorus (2.5-4.6) mg/dL Magnesium (1.7-2.8) mg/dL Iron 18 L (45-182) ug/dL TIBC 272 (250-450) ug/dL % Saturation 7 L (20-50) % Transferrin 194 (180-329) mg/dL Ferritin 33.5 (23.9-336.2) ng/mL Total Bilirubin (0.2-1.0) mg/dL AST (10-42) IU/L ALT (10-60) IU/L Alkaline Phosphatase (42-121) IU/L Lactate Dehydrogenase 121 (91-225) IU/L C-Reactive Protein (0-1.0) mg/dL Total Protein (6.7-8.2) g/dL Albumin (3.2-5.5) g/dL Globulin (2.1-4.2) g/dL Albumin/Globulin Ratio (1.0-2.2) Vitamin B12 431 (180-914) pg/mL 07/09/18 07/09/18 07/09/18 Range/Units 07:57 05:08 05:08 WBC (4.8-10.8) x10^3/uL RBC 3.41 L (4.70-6.10) 10^6/uL Hgb (14.0-18.0) g/dL Hct (42.0-52.0) % MCV (80.0-94.0) fL MCH (27.0-31.0) pg MCHC (32.0-36.0) g/dL RDW (12.0-15.0) % Plt Count (130-450) 10^3/uL MPV (7.4-11.4) fL Reticulocyte % (Auto) 1.11 (0.5-2.3) % Neut # (Auto) (1.5-6.6) 10^3/uL Lymph # (Auto) (1.5-3.5) 10^3/uL [place] # (Auto) (0.0-1.0) 10^3/uL Eos # (Auto) (0.0-0.7) 10^3/uL Baso # (Auto) (0.0-0.1) 10^3/uL Absolute Nucleated RBC x10^3/uL Nucleated RBC % /100WBC ESR > 140 H (0-20) mm/Hr Absolute Retic 0.038 (0.020-0.110) 10^6/uL Sodium (135-145) mmol/L Potassium (3.5-5.0) mmol/L Chloride (101-111) mmol/L Carbon Dioxide (21-32) mmol/L Anion Gap (6-13) BUN (6-20) mg/dL Creatinine (0.6-1.2) mg/dL Estimated GFR (MDRD) (>89) Glucose (70-100) mg/dL Lactic Acid 0.7 (0.5-2.2) mmol/L Calcium (8.5-10.3) mg/dL Phosphorus (2.5-4.6) mg/dL Magnesium (1.7-2.8) mg/dL Iron (45-182) ug/dL TIBC (250-450) ug/dL % Saturation (20-50) % Transferrin (180-329) mg/dL Ferritin (23.9-336.2) ng/mL Total Bilirubin (0.2-1.0) mg/dL AST (10-42) IU/L ALT (10-60) IU/L Alkaline Phosphatase (42-121) IU/L Lactate Dehydrogenase (91-225) IU/L C-Reactive Protein (0-1.0) mg/dL Total Protein (6.7-8.2) g/dL Albumin (3.2-5.5) g/dL Globulin (2.1-4.2) g/dL Albumin/Globulin Ratio (1.0-2.2) Vitamin B12 (180-914) pg/mL 07/09/18 07/09/18 Range/Units 05:08 05:08 WBC 3.4 L (4.8-10.8) x10^3/uL RBC 3.42 L (4.70-6.10) 10^6/uL Hgb 8.3 L (14.0-18.0) g/dL Hct 26.5 L (42.0-52.0) % MCV 77.6 L (80.0-94.0) fL MCH 24.2 L (27.0-31.0) pg MCHC 31.2 L (32.0-36.0) g/dL RDW 19.9 H (12.0-15.0) % Plt Count 216 (130-450) 10^3/uL MPV 7.4 (7.4-11.4) fL Reticulocyte % (Auto) (0.5-2.3) % Neut # (Auto) 3.0 (1.5-6.6) 10^3/uL Lymph # (Auto) 0.2 L (1.5-3.5) 10^3/uL [place] # (Auto) 0.2 (0.0-1.0) 10^3/uL Eos # (Auto) 0.1 (0.0-0.7) 10^3/uL Baso # (Auto) 0.0 (0.0-0.1) 10^3/uL Absolute Nucleated RBC 0.01 x10^3/uL Nucleated RBC % 0.2 /100WBC ESR (0-20) mm/Hr Absolute Retic (0.020-0.110) 10^6/uL Sodium 136 (135-145) mmol/L Potassium 3.6 (3.5-5.0) mmol/L Chloride 106 (101-111) mmol/L Carbon Dioxide 24 (21-32) mmol/L Anion Gap 6.0 (6-13) BUN 14 (6-20) mg/dL Creatinine 0.8 (0.6-1.2) mg/dL Estimated GFR (MDRD) 91 (>89) Glucose 164 H (70-100) mg/dL Lactic Acid (0.5-2.2) mmol/L Calcium 8.5 (8.5-10.3) mg/dL Phosphorus 2.9 (2.5-4.6) mg/dL Magnesium 1.9 (1.7-2.8) mg/dL Iron (45-182) ug/dL TIBC (250-450) ug/dL % Saturation (20-50) % Transferrin (180-329) mg/dL Ferritin (23.9-336.2) ng/mL Total Bilirubin 0.4 (0.2-1.0) mg/dL AST 25 (10-42) IU/L ALT 20 (10-60) IU/L Alkaline Phosphatase 65 (42-121) IU/L Lactate Dehydrogenase (91-225) IU/L C-Reactive Protein 12.0 H (0-1.0) mg/dL Total Protein 6.4 L (6.7-8.2) g/dL Albumin 2.8 L (3.2-5.5) g/dL Globulin 3.6 (2.1-4.2) g/dL Albumin/Globulin Ratio 0.8 L (1.0-2.2) Vitamin B12 (180-914) pg/mL ABX Reporting Has patient been on IV antibiotics over the past 48 hours?: Yes Sepsis Event Note (H) - Evaluation Current Stage of Sepsis: Ruled out Assessment/Plan - Problem List (1) Cellulitis Impression: pt still present redness and warm, with mild swelling at her right dorsal of feet, and ankle. pt also present elevated temperature on last night switch to Cefepime and Vancomycin continue lab and vital monitor The patient was found to have increased redness, swelling, and the area is very warm compared to his left leg. See chart for admission pictures. Imaging showed soft tissue swelling and was negative for fractures. Plan: Continue IV rocephin, trace the skin to monitor for improvement. (2) Complicated UTI (urinary tract infection) Conclusion/Plan: UA cultur is pending, continue cefepime (3) Frequent falls continue PT/OT evaluation and treatment, followup recommendations (4) Protein calorie malnutrition Conclusion/Plan: a nutritional consult continue Regular diet, encourage meals (5) Generalized weakness PT/OT evaluation and treatment (6) Advanced dementia Conclusion/Plan: Continue fall precautions, monitor behaviors, continue support (7) DM2 (diabetes mellitus, type 2) check A1C continue slide scale, ACHS (8) History of CVA (cerebrovascular accident) Conclusion/Plan: Continue to monitor neuro check, continue Xarelto. (9) Hx of seizure disorder continue Keppra that will be given at 2 the dose while here. continue Seizure precautions. (10) Anticoagulant long-term use Conclusion/Plan: The patient has a history of CVA and a saddle PE. continue Xarelto (11)microcytic anemia HGB is 8.3, microcytic anemia, check anemia study, order Ferrous sulf for pt continue lab monitor Qualifiers: Site of cellulitis: extremity Site of cellulitis of extremity: lower extremity Laterality: right Qualified Code(s): L03.115 - Cellulitis of right lower limb
[2018-07-09] MEDS: ceFAZolin 2 GM/50 ML 2 GM/50 ML BAG IV SCH ×2 (13:15→21:53)
[2018-07-09] MEDS: SACCHAROMYCES BOULARDII 250 MG CAPSULE PO SCH (18:42)
[2018-07-09] MEDS: ATORVASTATIN 40 MG TABLET PO SCH (21:48)
[2018-07-10] MEDS: SODIUM CHLORIDE FLUSH 0.9% 10 ML SYRINGE IVP SCH ×2 (00:35→09:02)
[2018-07-10 05:46] LABS: BASOPHILS % (AUTO) 0.3 %; EOSINOPHILS # (AUTO) 0.1 10^3/uL (0.0-0.7); EOSINOPHILS % (AUTO) 2.3 %; HGB - HEMOGLOBIN 8.2 g/dL (14.0-18.0); LYMPHOCYTES # (AUTO) 0.2 10^3/uL (1.5-3.5); LYMPHOCYTES % (AUTO) 7.1 %; MEAN CORPUSCULAR HGB CONC 30.8 g/dL (32.0-36.0); MEAN CORPUSCULAR VOLUME 77.7 fL (80.0-94.0); MEAN PLATELET VOLUME 7.9 fL (7.4-11.4); MONOCYTES # (AUTO) 0.2 10^3/uL (0.0-1.0); MONOCYTES % (AUTO) 5.2 %; NEUTROPHILS # (AUTO) 2.7 10^3/uL (1.5-6.6); NEUTROPHILS % (AUTO) 85.1 %; PLT - PLATELET COUNT 213 10^3/uL (130-450); RED CELL DISTRIBUTION WIDTH 19.9 % (12.0-15.0); WHITE BLOOD COUNT 3.2 x10^3/uL (4.8-10.8)
[2018-07-10 05:52] LABS: ALBUMIN 2.7 g/dL (3.2-5.5); ALBUMIN/GLOBULIN RATIO 0.8 (1.0-2.2); BILIRUBIN,TOTAL 0.4 mg/dL (0.2-1.0); CALCIUM 8.4 mg/dL (8.5-10.3); CREATININE 0.8 mg/dL (0.6-1.2)
[2018-07-10 05:57] LABS: HB2 TOTAL 8.6 g/dL; HEMOGLOBIN A1C 0.47 g/dL; HEMOGLOBIN A1C % 7.2 % (4.6-6.2)
[2018-07-10] MEDS: SUCRALFATE 1 GM/10 ML UDC PO SCH (06:26)
[2018-07-10] MEDS: ceFAZolin 2 GM/50 ML 2 GM/50 ML BAG IV SCH ×2 (06:26→13:32)
[2018-07-10] MEDS ORDERED: FERRIC GLUCONATE 62.5 MG/5 ML VIAL IVP ONE (07:22)
[2018-07-10] MEDS ORDERED: FERRIC GLUCONATE 125 MG in SODIUM CHLORIDE 0.9% 100ML 100 ML IV SCH (08:00)
[2018-07-10] MEDS: POLYETHYLENE GLYCOL 3350 17 GM PACKET PO SCH (09:00)
[2018-07-10] MEDS: RIVAROXABAN 10 MG TABLET PO SCH (09:04)
[2018-07-10] MEDS: SACCHAROMYCES BOULARDII 250 MG CAPSULE PO SCH (09:04)
[2018-07-10] MEDS: FERROUS SULFATE 325 MG TABLET PO SCH (09:04)
[2018-07-10] MEDS: levETIRAcetam 250 MG TABLET PO SCH (09:04)
[2018-07-10] MEDS: FAMOTIDINE 20 MG TABLET PO SCH (09:15)
[2018-07-10] MEDS: VANCOMYCIN INJ 1 GM in SODIUM CHLORIDE 0.9% 250 ML IV SCH (11:21)
[2018-07-10] MEDS ORDERED: INSULIN ASPART 300 UNIT/3 ML PEN SUBQ SCH (12:00)
--- NOTE | 2018-07-10 12:20 | Discharge Plan ---
Discharge Plan Disposition: Home, Self Care Condition: Poor Prescriptions: Cephalexin [Keflex] 500 mg PO BID #10 capsule Ferrous Sulfate 325 mg PO DAILY #15 tablet Saccharomyces Boulardii [Florastor] 250 mg PO DAILY #5 capsule Diet: Diabetic Activity Restrictions: Activity as Tolerated Shower Restrictions: No (fall precaution. caregiver closely monitor) Instruction Topics: Cellulitis Ch, Cephalexin tablets or capsules, ED Anemia Iron Deficiency, Iron Chewable Tablets Additional Instructions or Follow Up instructions: You may followup your PCP in one week. You were found to have UTI and right lower extremity cellulitis. You were treated with antibiotics. Keflex is prescribed for you to finish the antibiotics course. You was also found to have iron deficiency anemia. Iron pill is prescribed for you. Should your symptoms return or worsen, you may present ER or call 911 or your PCP for help. Follow-Up Care: Outpatient Rehab - PT No Smoking: If you smoke, Please STOP! Call for help. Follow-up with: Damaso Iverson MD [Primary Care Provider] -
--- NOTE | 2018-07-10 12:34 | DISCHARGE SUMMARY ---
Discharge Summary Discharge Date: 07/10/18 Discharging Provider: DELUCA Primary Care Provider: Dr. Damaso Iverson Condition at Discharge: Poor Discharge Disposition: Home, Self Care Discharge Facility Name: home - DIAGNOSES Admission Diagnoses: (1) Cellulitis of leg, right (2) Complicated UTI (urinary tract infection) (3) Frequent falls (4) Protein calorie malnutrition (5) Generalized weakness (6) Advanced dementia (7) DM2 (diabetes mellitus, type 2) (8) History of CVA (cerebrovascular accident) (9) Hx of seizure disorder (10) Anticoagulant long-term use Discharge Diagnoses with Status of Each Condition: (1) Cellulitis of leg, right improved. No fever/chill. reduced redness. no swelling. blood culture is negative. continue antibiotics course with Keflex (2) Complicated UTI (urinary tract infection) UA culture indicated negative. pt is prescribed Keflex (3) Frequent falls saw pt walked in the hill twice with PT. PT did not recommend for SNF. prevention of falls was advised to pt and his family (4) Protein calorie malnutrition stable. 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 saw pt walked in the hill twice with PT. PT did not recommend for SNF. prevention of falls was advised to pt (6) Advanced dementia stable. (7) DM2 (diabetes mellitus, type 2) stable, continue home regimen, follow up PCP (8) History of CVA (cerebrovascular accident) stable, continue home regimen, follow up PCP (9) Hx of seizure disorder stable, continue home regimen, follow up PCP (10) Anticoagulant long-term use stable, continue home regimen, follow up PCP (11)microcytic anemia pt was found to have iron deficiency anemia. HGB is stable. iron pill is prescribed for pt - HPI History of Present Illness: refer from Ms. Mcknight's HPI on 07/08/18 for pt as the following: Brett Dangelo (Bert) is an ill appearing 88-year old male with a past medical history of hypertension, hyperlipidemia, chronic anticoagulation for saddle pulmonary emboli, right frontal CVA, dementia, dysphagia, recurrent seizure disorder, DM2, GERD, esophageal dilation, osteoarthritis, bilateral hip replacement, BPH, TURP in 1993, nocturia, recurrent UTIs, status post colon cancer, status post colectomy in 1998, and falls. He was brought in by EMS today with primary complaints of profound weakness, cannot ambulate and fell yesterday which required a lift assist by the fire department. The patient could not provide information due to his medical condition, so his , Joselin spoke for him. He has not displayed evidence of seizures today, but will only respond to a sternal rub on exam. A UA was obtained that indicates a UTI, with cultures pending. Joselin expresses how difficult it has been to take care of her both physically and with his advanced dementia, on top of her own medical issues. The patient will not answer questions, but his does not recall any recent complaints of chest pain, shortness of breath, headaches, focal neurological deficit, abdominal pain, nausea, vomiting, or diarrhea. He lives with his and is normally ambulatory, but since his fall yesterday, has not been out of bed. On arrival to the ED he is noted to have no injuries from his fall, but his right lower leg starting in his ankle appears to be i nfected. He has gotten one dose of Rocephin in the ED and will get this every 24 hours until urine cultures are resulted. - HOSPITAL COURSE Hospital Course: Pt was brought in by EMS with chief complain of primary complaints of profound weakness, difficult to ambulate, and fell. pt was found to have UTI and RLE cellulitis. pt was treated with antibiotics. Cellulitis is significant improved. No fever and chill. Redness and swelling reduced significantly. pt is prescribed antibiotics to continue the antibiotics course. Pt was evaluated and treated by PT. Pt can walk in nurse station and hillway with PT. Prevention of fall was advised for pt and his family. - ALLERGIES Allergies/Adverse Reactions: Allergies Allergy/AdvReac Type Severity Reaction Status Date / Time codeine AdvReac Intermediate Nausea Verified 04/08/17 05:20 memantine HCl * AdvReac Anxiety Verified 04/08/17 05:20 [From Namenda] - MEDICATIONS Home Medications: Ambulatory Orders Medication Instructions Recorded Confirmed Metformin HCl [Glucophage] 500 mg PO BIDWM 06/04/13 07/08/18 Omeprazole 20 mg PO BIDAC 11/24/15 07/08/18 Atorvastatin Calcium [Lipitor] 80 mg PO QPM 08/11/16 07/08/18 Rivaroxaban [Xarelto] 20 mg ORAL DAILYWM #30 12/10/17 07/08/18 levETIRAcetam [Levetiracetam] 500 mg PO BID #60 12/10/17 07/08/18 Cholecalciferol (Vitamin D3) 1,000 units PO DAILY 07/08/18 07/08/18 [Vitamin D3] Loratadine 10 mg PO DAILY 07/08/18 07/08/18 Sucralfate [Carafate] 1 gm PO BIDAC 07/08/18 07/08/18 Cephalexin [Keflex] 500 mg PO BID #10 capsule 07/10/18 Ferrous Sulfate 325 mg PO DAILY #15 tablet 07/10/18 Saccharomyces Boulardii [Florastor] 250 mg PO DAILY #5 capsule 07/10/18 - PHYSICAL EXAM AT DISCHARGE General Appearance: positive: No acute distress, Alert. negative: Lethargic Eyes Bilateral: positive: Normal inspection, PERRL, No lid inflammation, Conjunctivae nml ENT: positive: ENT inspection nml, Pharynx nml, No signs of dehydration. negative: Purulent nasal drainage, Pharyngeal erythema, Oral lesions Neck: positive: Nml inspection, Thyroid nml, No JVD, Trachea midline. negative: Thyromegaly, Lymphadenopathy (R), Lymphadenopathy (L), Stiff neck, Swelling/bruising, Tracheal deviation Respiratory: positive: Chest non-tender, No respiratory distress, Breath sounds nml. negative: Wheezes, Rales, Rhonchi Cardiovascular: positive: Regular rate & rhythm, No murmur, No gallop. negative: Irregularly irregular, Extrasystoles, Tachycardia, Bradycardia, JVD present, Systolic murmur, Diastolic murmur Peripheral Pulses: positive: 2+ Abdomen: positive: Non-tender, No organomegaly, Nml bowel sounds, No distention. negative: Tenderness, Guarding, Rebound Back: positive: Nml inspection. negative: CVA tenderness (R), CVA tenderness (L) Skin: positive: No rash, Warm, Dry. negative: Cyanosis, Diaphoresis, Pallor Extremities: positive: Non-tender, Full ROM, Nml appearance. negative: No pedal edema, Calf tenderness, Osmani's sign/cords Neurologic/Psychiatric: positive: Sensation nml, Mood/affect nml. negative: Weakness, Sensory loss, Facial droop, Slurred/abnml speech, Depressed mood/affect - LABS Result Diagrams: 07/10/18 05:00 07/10/18 05:00 - SEPSIS Current Stage of Sepsis: Ruled out - FOLLOW UP Follow Up: you may followup your PCP in one week. You were found to have UTI and right lower extremity cellulitis. You were treated with antibiotics. Keflex is prescribed for you to finish the antibiotics course. You was also found to have iron deficiency anemia. Iron pill is prescribed for you. Should your symptoms return or worsen, you may present ER or call 911 or your PCP for help. - TIME SPENT Time Spent in Discharge (Minutes): 50
[2018-07-10 16:03] VITALS: BP 130/62
== END 2018-07-10 16:30 | disposition home or self-care (01) | DRG 603 ==
LOC: EDUNIT# → ED 06:13 → UNDOADMIN 10:06 → INTOOBSV 10:06 → MS2 10:06 → INTOOBSV 07-09 09:59 → OBSVTOIN 07-09 09:59
PROVIDERS: ADMIT Nurse Practitioner Gerontology; ATTEND Nurse Practitioner
DX: L03.115 Cellulitis of right lower limb (principal); N30.00 Acute cystitis without hematuria; N39.0 Urinary tract infection, site not specified; E44.0 Moderate protein-calorie malnutrition; I48.92 Unspecified atrial flutter; I10 Essential (primary) hypertension; Z87.440 Personal history of urinary (tract) infections; Z87.898 Personal history of other specified conditions; Z91.81 History of falling; Z96.649 Presence of unspecified artificial hip joint; E86.0 Dehydration; Z68.21 Body mass index [BMI] 21.0-21.9, adult; F03.90 Unspecified dementia, unspecified severity, without behavioral disturbance, psychotic disturbance, mood disturbance, and anxiety; E11.9 Type 2 diabetes mellitus without complications; Z86.73 Personal history of transient ischemic attack (TIA), and cerebral infarction without residual deficits; G40.909 Epilepsy, unspecified, not intractable, without status epilepticus; Z79.02 Long term (current) use of antithrombotics/antiplatelets; D50.9 Iron deficiency anemia, unspecified; E78.5 Hyperlipidemia, unspecified; R13.10 Dysphagia, unspecified; K21.9 Gastro-esophageal reflux disease without esophagitis; M19.90 Unspecified osteoarthritis, unspecified site; Z96.643 Presence of artificial hip joint, bilateral; N40.1 Benign prostatic hyperplasia with lower urinary tract symptoms; N39.498 Other specified urinary incontinence; R35.0 Frequency of micturition; R35.1 Nocturia; Z85.038 Personal history of other malignant neoplasm of large intestine; Z90.49 Acquired absence of other specified parts of digestive tract; R01.1 Cardiac murmur, unspecified; R25.1 Tremor, unspecified; H54.7 Unspecified visual loss; H91.90 Unspecified hearing loss, unspecified ear; F32.9 Major depressive disorder, single episode, unspecified; Z79.84 Long term (current) use of oral hypoglycemic drugs
CPT/HCPCS: 36415; 71045; 80053; 80177; 80202; 81001; 81003; 82607; 82728; 83036; 83540; 83605; 83615; 83690; 83735; 84100; 84466; 84484; 85025; 85044; 85651; 86140; 87040; 87086; 96361; 96365; 96366; 99283; 99284

== ENCOUNTER 2018-07-12 16:25 | Emergency (ER) | payer MEDICARE ==
[2018-07-12 16:49] VITALS: BP 116/63
== END 2018-07-12 18:38 | disposition left against medical advice (07) ==
LOC: ED 16:25
DX: M53.3 Sacrococcygeal disorders, not elsewhere classified (principal); Z91.81 History of falling; Z53.21 Procedure and treatment not carried out due to patient leaving prior to being seen by health care provider

== ENCOUNTER 2018-07-22 11:00 | Emergency (ER) | payer MEDICARE ==
--- NOTE | 2018-07-22 12:40 | ED Physician Documentation ---
PD HPI SEIZURE - Stated complaint Stated Complaint: SZ - Chief complaint Chief Complaint: Neuro - History obtained from History obtained from: Patient, EMS - History of Present Illness Timing - onset: How many hours ago (1) Witnessed: Witnessed Number of seizures: Lasted minutes (2-3) Description of seizure activity: Generalized, Tonic clonic Injury during seizure: None Pain level max: 0 Pain level now: 0 Associated symptoms: None History of seizures: Known seizure disorder Contributing factors: No: Off meds, Out of meds, Changed meds, Low blood sugar, Head injury, Substance abuse, EtOH withdrawal, Benzo withdrawal, Overdose, Fever, Sleep deprivation Treatment STOCK UNLOADER: Other (none) Similar symptoms before: Diagnosis (seizures, recurrent) Recently seen: Not recently seen - Additional information Additional information: 88-year-old male lives at home with his . Known seizure disorder. Was in his recliner today when he had a full body tonic-clonic seizure. No injuries noted. states to EMS that he can become aggressive when he is postictal so she called 911 to have him brought to the hospital. 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 : Benign prostate hypertrophy, Incontinence, Nocturia, Frequency HEENT: Chronic vision loss, Chronic sinusitis, Chronic hearing loss Psych: Depression Musculoskeletal: Osteoarthritis, Fatigue Derm: None - Past Surgical History Past Surgical History: Yes General: Bowel surgery, Colonoscopy, EGD, Other Ortho: Hip replacement HEENT: Other Derm: Other - Present Medications Home Medications: Ambulatory Orders Medication Instructions Recorded Confirmed Metformin HCl [Glucophage] 500 mg PO BIDWM 06/04/13 07/22/18 Omeprazole 20 mg PO BIDAC 11/24/15 07/22/18 Atorvastatin Calcium [Lipitor] 80 mg PO QPM 08/11/16 07/22/18 Rivaroxaban [Xarelto] 20 mg ORAL DAILYWM #30 12/10/17 07/22/18 levETIRAcetam [Levetiracetam] 500 mg PO BID #60 12/10/17 07/22/18 Cholecalciferol (Vitamin D3) 1,000 units PO DAILY 07/08/18 07/22/18 [Vitamin D3] Loratadine 10 mg PO DAILY 07/08/18 07/22/18 Sucralfate [Carafate] 1 gm PO BIDAC 07/08/18 07/22/18 Cephalexin [Keflex] 500 mg PO BID #10 capsule 07/10/18 07/12/18 Ferrous Sulfate 325 mg PO DAILY #15 tablet 07/10/18 07/22/18 Saccharomyces Boulardii [Florastor] 250 mg PO DAILY #5 capsule 07/10/18 07/22/18 Cephalexin [Keflex] 500 mg PO Q6H #28 capsule 07/22/18 - Allergies Allergies/Adverse Reactions: Allergies Allergy/AdvReac Type Severity Reaction Status Date / Time codeine AdvReac Intermediate Nausea Verified 07/22/18 11:08 memantine HCl * AdvReac Anxiety Verified 07/22/18 11:08 [From Namenda] - Social History Does the pt smoke?: No Smoking Status: Never smoker Does the pt drink ETOH?: No Does the pt have substance abuse?: No - Immunizations Immunizations are current?: No - POLST Patient has POLST: Yes POLST Status: Full Code PD ED PE NORMAL - Vitals Vital signs reviewed: Yes - General General: No acute distress, Other (Alert, oriented to person only) - HEENT HEENT: Atraumatic, PERRL, Ears normal, Moist mucous membranes, Pharynx benign - Neck Neck: Supple, no meningeal sign, No bony TTP - Cardiac Cardiac: RRR, Strong equal pulses - Respiratory Respiratory: No respiratory distress, Clear bilaterally - Abdomen Abdomen: Soft, Non tender, Non distended - Derm Derm: Warm and dry, No rash - Extremities Extremities: No deformity, No edema, No calf tenderness / cord - Neuro Neuro: Alert and oriented X 3 - Psych Psych: Normal mood, Normal affect Results - Vitals Vitals: Vital Signs - 24 hr 07/22/18 07/22/18 07/22/18 11:05 11:44 13:25 Temperature 36.6 C Heart Rate 71 72 67 Respiratory 16 18 18 Rate Blood Pressure 148/110 H 147/64 H 144/105 H O2 Saturation 95 95 97 07/22/18 14:52 Temperature 36.6 C Heart Rate 67 Respiratory 16 Rate Blood Pressure 176/84 H O2 Saturation 100 Oxygen O2 Source Room air - Labs Labs: Laboratory Tests 07/22/18 07/22/18 07/22/18 12:49 12:49 13:00 WBC 3.5 L RBC 4.05 L Hgb 10.1 L Hct 32.5 L MCV 80.3 MCH 25.0 L MCHC 31.1 L RDW 21.9 H Plt Count 306 MPV 7.4 Neut # (Auto) 2.7 Lymph # (Auto) 0.5 L [place] # (Auto) 0.3 Eos # (Auto) 0.0 Baso # (Auto) 0.0 Absolute Nucleated RBC 0.00 Nucleated RBC % 0.0 Sodium 137 Potassium 4.1 Chloride 103 Carbon Dioxide 26 Anion Gap 8.0 BUN 14 Creatinine 0.8 Estimated GFR (MDRD) 91 Glucose 172 H Calcium 9.1 Total Bilirubin 0.6 AST 38 ALT 32 Alkaline Phosphatase 90 Total Protein 7.3 Albumin 3.6 Globulin 3.7 Albumin/Globulin Ratio 1.0 Lipase 50 Urine Color YELLOW Urine Clarity CLEAR Urine pH 7.5 Ur Specific [place] 1.010 Urine Protein NEGATIVE Urine Glucose (UA) NEGATIVE Urine Ketones NEGATIVE Urine Occult Blood NEGATIVE Urine Nitrite NEGATIVE Urine Bilirubin NEGATIVE Urine Urobilinogen 0.2 (NORMAL) Ur Leukocyte Esterase SMALL H Urine RBC 0-5 Urine WBC 11-25 H Ur Squamous Epith Cells RARE Squamous Urine Bacteria Rare Ur Microscopic Review INDICATED Urine Culture Comments INDICATED PD MEDICAL DECISION MAKING - ED course Complexity details: reviewed old records, reviewed results, re-evaluated patient, considered differential, d/w patient ED course: 88-year-old male presents to the emergency department after a seizure today. It has a known seizure disorder. Does have a UTI and given Rocephin for this. Will place on antibiotics for home. Otherwise he is well-appearing, nontoxic. Back to his normal baseline. No lab abnormalities. Did not strike his head. No injuries. This document was made in part using voice recognition software. While efforts are made to proofread this document, sound alike and grammatical errors may occur. Departure - Departure Disposition: 01 Home, Self Care Clinical Impression: Seizure Urinary tract infection Qualifiers: Urinary tract infection type: acute cystitis Hematuria presence: without hematuria Qualified Code(s): N30.00 - Acute cystitis without hematuria Condition: Good Instructions: ED Seizure Recurrent, ED UTI Cystitis Male Follow-Up: Damaso Iverson MD [Primary Care Provider] - Within 3 Days Prescriptions: Cephalexin [Keflex] 500 mg PO Q6H #28 capsule Comments: Take all antibiotics until gone. Return if [place] worsens. Discharge Date/Time: 07/22/18 14:53
[2018-07-22 12:59] LABS: BASOPHILS % (AUTO) 0.4 %; EOSINOPHILS % (AUTO) 0.7 %; HGB - HEMOGLOBIN 10.1 g/dL (14.0-18.0); LYMPHOCYTES # (AUTO) 0.5 10^3/uL (1.5-3.5); LYMPHOCYTES % (AUTO) 13.4 %; MEAN CORPUSCULAR HGB CONC 31.1 g/dL (32.0-36.0); MEAN CORPUSCULAR VOLUME 80.3 fL (80.0-94.0); MEAN PLATELET VOLUME 7.4 fL (7.4-11.4); MONOCYTES # (AUTO) 0.3 10^3/uL (0.0-1.0); MONOCYTES % (AUTO) 8.2 %; NEUTROPHILS # (AUTO) 2.7 10^3/uL (1.5-6.6); NEUTROPHILS % (AUTO) 77.3 %; PLT - PLATELET COUNT 306 10^3/uL (130-450); RED BLOOD COUNT 4.05 10^6/uL (4.70-6.10); RED CELL DISTRIBUTION WIDTH 21.9 % (12.0-15.0); WHITE BLOOD COUNT 3.5 x10^3/uL (4.8-10.8)
[2018-07-22 13:09] LABS: BILIRUBIN,URINE NEGATIVE (NEGATIVE); GLUCOSE, URINE (UA) NEGATIVE (NEGATIVE); KETONES,URINE (UA) NEGATIVE (NEGATIVE); LEUKOCYTE ESTERASE, URINE SMALL (NEGATIVE); NITRITE,URINE NEGATIVE (NEGATIVE); OCCULT BLOOD,URINE NEGATIVE (NEGATIVE); PH,URINE 7.5 PH (5.0-7.5); PROTEIN,URINE NEGATIVE (NEGATIVE); UROBILINOGEN,URINE 0.2 (NORMAL) E.U./dL (NORMAL)
[2018-07-22 13:10] LABS: CLARITY,URINE CLEAR (CLEAR)
[2018-07-22 13:10] LABS: ALBUMIN 3.6 g/dL (3.2-5.5); BILIRUBIN,TOTAL 0.6 mg/dL (0.2-1.0); CALCIUM 9.1 mg/dL (8.5-10.3); CREATININE 0.8 mg/dL (0.6-1.2); TOTAL PROTEIN 7.3 g/dL (6.7-8.2)
[2018-07-22 13:17] LABS: BACTERIA,URINE Rare /HPF (None Seen); RBC,URINE 0-5 /HPF (0-5); SQUAMOUS EPITHELIAL CELL,UR RARE Squamous (<= Few)
[2018-07-22] MEDS ORDERED: cefTRIAXone 1 GM VIAL IM STA (13:41)
[2018-07-22] MEDS ORDERED: LIDOCAINE 1% 2 ML VIAL SUBQ ONE (13:41)
[2018-07-22 14:52] VITALS: BP 176/84
== END 2018-07-22 14:53 | disposition home or self-care (01) ==
LOC: EDUNIT# → ED 11:00
DX: G40.909 Epilepsy, unspecified, not intractable, without status epilepticus (principal); N30.00 Acute cystitis without hematuria; F03.90 Unspecified dementia, unspecified severity, without behavioral disturbance, psychotic disturbance, mood disturbance, and anxiety; I48.91 Unspecified atrial fibrillation; Z86.73 Personal history of transient ischemic attack (TIA), and cerebral infarction without residual deficits; Z79.01 Long term (current) use of anticoagulants; I10 Essential (primary) hypertension; E11.9 Type 2 diabetes mellitus without complications; Z79.84 Long term (current) use of oral hypoglycemic drugs
CPT/HCPCS: 36415; 80053; 81001; 81003; 83690; 85025; 87086; 96372; 99283; 99284

== ENCOUNTER 2018-08-01 22:06 | Emergency (ER) | payer MEDICARE ==
--- NOTE | 2018-08-01 23:17 | ED Physician Documentation ---
PD HPI UPPER EXT INJURY - Stated complaint Stated Complaint: GLF - Chief complaint Chief Complaint: Ext Problem - History obtained from History obtained from: Patient, Family (spouse) - History of Present Illness Location: Left, Shoulder Type of injury: Fall Where injury occurred: Home Timing - onset: How many days ago (3) Timing - details: Abrupt onset Improved by: Rest Worsened by: Moving Associated symptoms: Discolored (bruising) Recently seen: Not recently seen - Additonal information Additional information: fell 3 days ago at home, has had left shoulder pain with movement since then. Per , the pain is mostly when he tries to support himself with the left shoulder (such as leaning or trying to push himself up out of chair). noted bruising earlier today on left anterior chest wall. EMS evaluated patient at the time of the fall but patient declined transport at that time. His is here with patient and she is also registered as ED patient. Review of Systems Skin: reports: Other (echymosis left anterior chest) Musculoskeletal: reports: Joint pain. 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 : Benign prostate hypertrophy, Incontinence, Nocturia, Frequency HEENT: Chronic vision loss, Chronic sinusitis, Chronic hearing loss Psych: Depression Musculoskeletal: Osteoarthritis, Fatigue Derm: None - Past Surgical History Past Surgical History: Yes General: Bowel surgery, Colonoscopy, EGD, Other Ortho: Hip replacement HEENT: Other Derm: Other - Present Medications Home Medications: Ambulatory Orders Medication Instructions Recorded Confirmed Metformin HCl [Glucophage] 500 mg PO BIDWM 06/04/13 07/22/18 Omeprazole 20 mg PO BIDAC 11/24/15 07/22/18 Atorvastatin Calcium [Lipitor] 80 mg PO QPM 08/11/16 07/22/18 Rivaroxaban [Xarelto] 20 mg ORAL DAILYWM #30 12/10/17 07/22/18 levETIRAcetam [Levetiracetam] 500 mg PO BID #60 12/10/17 07/22/18 Cholecalciferol (Vitamin D3) 1,000 units PO DAILY 07/08/18 07/22/18 [Vitamin D3] Loratadine 10 mg PO DAILY 07/08/18 07/22/18 Sucralfate [Carafate] 1 gm PO BIDAC 07/08/18 07/22/18 Cephalexin [Keflex] 500 mg PO BID #10 capsule 07/10/18 07/12/18 Ferrous Sulfate 325 mg PO DAILY #15 tablet 07/10/18 07/22/18 Saccharomyces Boulardii [Florastor] 250 mg PO DAILY #5 capsule 07/10/18 07/22/18 Cephalexin [Keflex] 500 mg PO Q6H #28 capsule 07/22/18 - Allergies Allergies/Adverse Reactions: Allergies Allergy/AdvReac Type Severity Reaction Status Date / Time codeine AdvReac Intermediate Nausea Verified 07/22/18 11:08 memantine HCl * AdvReac Anxiety Verified 07/22/18 11:08 [From Namenda] - Social History Does the pt smoke?: No Smoking Status: Never smoker Does the pt drink ETOH?: No Does the pt have substance abuse?: No - Immunizations Immunizations are current?: No - POLST Patient has POLST: Yes POLST Status: Full Code PD ED PE NORMAL - Vitals Vital signs reviewed: Yes - General General: No acute distress, Well developed/nourished, Other (awake, alert, oriented x 2 (baseline, per )) - HEENT HEENT: Atraumatic - Neck Neck: No bony TTP PD ED PE EXPANDED - Extremities Extremities: Limited ROM (left shoulder limited ROM due to pain (abduction, extension)), Bruising (left anterior chest wall), Right shoulder. No: Deformity, Tenderness - Free text exam Free text exam: no chest wall tenderness or crepitus Results - Vitals Vitals: Vital Signs - 24 hr 08/01/18 08/02/18 22:12 02:57 Temperature 37 C 37.2 C Heart Rate 78 14 L Respiratory 18 14 Rate Blood Pressure 142/93 H 135/79 H O2 Saturation 99 98 Oxygen O2 Source Room air - Rads (name of study) left shoulder xrays Radiology: Prelim report reviewed, See rad report PD MEDICAL DECISION MAKING - ED course Complexity details: reviewed results, re-evaluated patient, considered differential, d/w patient, d/w family Departure - Departure Disposition: 01 Home, Self Care Clinical Impression: Contusion of left shoulder Qualifiers: Encounter type: initial encounter Qualified Code(s): S40.012A - Contusion of left shoulder, initial encounter Condition: Good Instructions: ED Contusion Shoulder Follow-Up: Damaso Iverson MD [Primary Care Provider] - Discharge Date/Time: 08/02/18 03:50
--- NOTE | 2018-08-02 01:35 | XRAY Report ---
Reason: fall, pain, tenderness Procedure Date: 08/02/2018 Accession Number: [id number] / [id number] Procedure: XR - Shoulder 3 View LT CPT Code: FULL RESULT: EXAM: LEFT SHOULDER RADIOGRAPHY EXAM DATE: 08/02/2018 01:19 AM. CLINICAL HISTORY: Fall, pain, tenderness. COMPARISON: None. TECHNIQUE: 3 views. FINDINGS: Bones: Normal. No fracture or bone lesion. Joints: Osteoarthritis of the acromioclavicular and glenohumeral joints. Soft tissues: The visualized hemithorax is unremarkable. No soft tissue swelling. IMPRESSION: Osteoarthritis. No evidence of acute fracture. RADIA
[2018-08-02 02:58] VITALS: BP 135/79
== END 2018-08-02 03:50 | disposition home or self-care (01) ==
LOC: ED 22:06
DX: S40.012A Contusion of left shoulder, initial encounter (principal); W18.30XA Fall on same level, unspecified, initial encounter; Y92.002 Bathroom of unspecified non-institutional (private) residence as the place of occurrence of the external cause; F03.90 Unspecified dementia, unspecified severity, without behavioral disturbance, psychotic disturbance, mood disturbance, and anxiety; E11.9 Type 2 diabetes mellitus without complications; Z79.84 Long term (current) use of oral hypoglycemic drugs; Z86.73 Personal history of transient ischemic attack (TIA), and cerebral infarction without residual deficits; Z96.649 Presence of unspecified artificial hip joint
CPT/HCPCS: 99283

== ENCOUNTER 2018-08-08 16:30 | Outpatient (CLI) | payer MEDICARE ==
--- NOTE | 2018-08-08 16:59 | CONSULTATION NOTE ---
Palliative Care Consultation - Referral Referring Provider: Dr Damaso Iverson Time of Visit: Katherine 08/08/2018. 10:40 - 12:30 Referral setting: Home (Seen in home setting due to taxing and considerable effort required to leave the home secondary to advancing dementia, TIAs, ep ilepsy and increased falls.) Referral Reason: Frequent falls, recurrent UTIs / Pal Care - Information Sources Records reviewed: RN notes reviewed, Previous records reviewed History/Review of Systems obtained from: Patient, Family Exam limitations: Clinical condition (vascular dementia, short term memory deficits) - History of Present Illness Brief History of Present Illness: "Robert" is an 88-year-old man with vascular dementia, and increasing falls, frequent UTIs, and frequent ED visits and hospitalizations. He is living at home with his who is having difficulty coping with his increasing care needs. Medical History: Vascular dementia, hypertension, hyperlipidemia, chronic anticoagulation for saddle pulmonary emboli, right frontal CVA, dementia, dysphagia, recurrent seizure disorder, DM2, GERD, esophageal dilation, osteoarthritis, bilateral hip replacement, BPH, TURP in 1993, nocturia, recurrent UTIs, status post colon cancer, status post colectomy in 1998, frequent falls; [place]; cataract surgery L eye. Patient is alert and articulate and readily joins in the conversation when he is addressed. He is significantly hard of hearing, has difficulty following conversation even with his hearing aids in. Patient appears in good spirits and his main concern today is residual pain in left shoulder following his fall of 07/29/18. 08/01/18 he presented at ED with extensive bruising in left anterior chest, pain in the left shoulder, x-rays revealed no fracture, and he was discharged home. 07/22/18 he went to ED for full body tonic-clonic seizure, without injuries. He was sent home with Keflex for his UTI. 07/08/18-07/10/18 he was hospitalized for UTI, cellulitis of RLE, and anemia. He was treated with Rocephin and discharged home on Keflex and iron. He had numerous ED visits and several hospitalizations through 2018 and 2017 for falls, seizures, UTIs. These visits accelerated in 2018. 's most pressing concern is his increasing care needs and her ongoing ability to continue to care for him virtually solo, as his care needs increase. She does have some part-time help, a woman who comes in as needed in the evenings to help put him to bed, but it's inadequate if he starts declining again. The patient has improved and is more mobile since the recent hospitalizations and ED visits, but during that time his was struggling with his increased care needs and the physical and mental toll. She has had support and guidance through [facility] and Diana at [employer]. He does report residual L shoulder pain after a fall. Tylenol helps pain, I recommended trying two 500mg tablets up to 3 times a day. He is getting some strength back after the recent UTI, cellulitus and fall, and so his is managing his care needs currently, but in general he continues to steadily decline. Medical/Surgical History - Past Medical History Cardiovascular: reports: Hypertension, High cholesterol, Pulmonary embolism (saddle), Atrial fibrillation, Murmur, Arrhythmia Respiratory: reports: None Neuro: Dementia (vascular), CVA (right frontal), Seizure disorder Neuro: reports: CVA Endocrine/Autoimmune: reports: Type 2 diabetes GI: reports: GERD HOUSING ASSISTANT: reports: None : reports: Benign prostate hypertrophy, Incontinence, Nocturia, Frequency HEENT: reports: Chronic vision loss, Chronic sinusitis, Chronic hearing loss (wears hearing aids) Psych: reports: Depression Musculoskeletal: reports: Osteoarthritis, Fatigue Derm: reports: None MRSA Hx?: No - Past Surgical History General: reports: Bowel surgery (bowel resection, S/P colon cancer), Colonoscopy, EGD Ortho: reports: Hip replacement (bilateral) HEENT: reports: Other Derm: reports: Other - Substance History Use: Uses substance without health or social issues: NONE Social History - Living Situation Living arrangement: At home Living Situation: With spouse/s.o. Support System: He and his , Joselin have been since 1990, second marriages for both. They met in [place] when she was a caregiver for his [id number] and moved to [facility] when he retired. Joselin did paid caregiving in the past, among other vocations. The patient has 3 adult children: Daughter Nicole Dangelo in [place] [phone] Also a daughter and a son in [place]. It appears he is estranged from at least the daughter. He has a stepson through his Joselin: Dennis Roman [phone]. 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 Then he worked in [place] for old "[employer]" (current [employer]) and that is where his correction pension comes from. His family's connection to [facility] dates back to his great grandparents who owned land on the [facility]. He first came to [facility] at 6 years old with his father, who did logging. She has received informatino from [facility] and [employer]. She und erstands their income is too high to qualify for [employer] support. He has a part-time caregiver for evenings getting him to bed. She previously had engaged morning help too, but is getting along without it currently. Family History - Family History Family History Comment/Other: Non contributory. Medications/Allergies - Medications Home Medications: Ambulatory Orders Medication Instructions Recorded Confirmed Metformin HCl [Glucophage] 500 mg PO BIDWM 06/04/13 08/08/18 Omeprazole 20 mg PO BIDAC 11/24/15 08/08/18 Atorvastatin Calcium [Lipitor] 80 mg PO QPM 08/11/16 08/08/18 Rivaroxaban [Xarelto] 20 mg ORAL DAILYWM #30 12/10/17 08/08/18 levETIRAcetam [Levetiracetam] 500 mg PO BID #60 12/10/17 08/08/18 Cholecalciferol (Vitamin D3) 1,000 units PO DAILY 07/08/18 08/08/18 [Vitamin D3] Loratadine 10 mg PO DAILY 07/08/18 08/08/18 Sucralfate [Carafate] 1 gm PO BIDAC 07/08/18 08/08/18 Ferrous Sulfate 325 mg PO DAILY #15 tablet 07/10/18 08/08/18 Saccharomyces Boulardii [Florastor] 250 mg PO DAILY #5 capsule 07/10/18 08/08/18 Acetaminophen 500 - 1,000 mg PO TID PRN MDD 08/08/18 08/08/18 3000mg / 24 hours Hydrocortisone 1% Oint 1 ea TOP BID PRN 08/08/18 08/08/18 [Hydrocortisone] Loperamide [Imodium] 2 mg PO PRN MDD max 16mg / day 08/08/18 - Allergies Allergies/Adverse Reactions: Allergies Allergy/AdvReac Type Severity Reaction Status Date / Time codeine AdvReac Intermediate Nausea Verified 07/22/18 11:08 memantine HCl * AdvReac Anxiety Verified 07/22/18 11:08 [From Namenda] Review of Systems - Constitutional Constitutional: reports: Fatigue, Weight stable (Around 140 lbs). denies: Poor appetite - Ears, Nose & Throat Ears, Nose & Throat: reports: Hearing loss, Hearing aids, Postnasal drainage - Cardiovascular Cardiovascular: reports: Decr. exercise tolerance. denies: Chest pain - Respiratory Respiratory: denies: SOB at rest, SOB with exertion - Genitourinary Genitourinary: reports: Incontinence (urinary; occasionally bowel when he has loose stool) - Musculoskeletal Musculoskeletal: reports: Limited range of motion (L shoulder, due to fall), Joint pain (L shoulder) - Integumentary Integumentary: reports: Dryness - Psychiatric Psychiatric: reports: Other (can get aggressive postictal) - Endocrine Endocrine: reports: Diabetes type 2 - Hematologic/Lymphatic Hematologic/Lymphatic: reports: Anemia, Recurrent infections (UTIs) Physical Exam - Vital Signs Temperature: 96.4 F Pulse Rate: 72 O2 Saturation: 99 (room air) Blood Pressure: 155/88 (wrist cuff) - Physical Exam General Appearance: positive: No acute distress, Alert Eyes Bilateral: positive: EOMI, No lid inflammation, Conjunctivae nml, No scleral icterus ENT: positive: No signs of dehydration Neck: positive: Trachea midline, Swelling/bruising (Resolving bruising on left upper anterior chest and partially on L neck) Cardiovascular: positive: Regular rate & rhythm, No murmur, No gallop Respiratory: positive: Chest non-tender, No respiratory distress, Breath sounds nml Abdomen: positive: Non-tender, Soft, Nml bowel sounds Skin: positive: Dryness, Other Extremities: positive: Other (dry, hardened skin on distal part of bilateral lower extremities: possibly lipodermatosclerosis) Neurologic/Psychiatric: positive: Mood/affect nml, Disoriented to time, Other (articulate) Palliative Care - POLST Patient has POLST: Yes POLST Status: DNR, Selective Treatment Pain: Pain improved (due to fall; slowly improving), Location (L shoulder) Tiredness/Fatigue: Mild (1-3) Drowsiness/Sedation: None Nausea: None Dyspnea: None Anorexia: None Sleep: Sleeps well, Variable sleep pattern (sleeps a lot during day) Constipation: No, Comment (loose stools) Performance Status: incontinent of urine, occasionally of bladder requires extensive assistance with all ADLs ambulatory self transfers from chair articulate - Palliative Care Discussion: The 's most pressing concern is the patient's increasing care needs and that she is unable physically to take care of some of his needs, particularly if he starts requiring more transfer help. They do not have the financial resources for extensive caregiving, or for a nursing facility or assisted living. She has already spoken to [employer] and knows she can't afford them. She has her own medical problems, so she is physically unable to do the heavy lifting of caregiving. At the last ED visit on 08/01, she was also in the ED for pain. She hopes to get the 12 hours/month that [employer] is working on. She plans to use it to "have some fun" for herself, and get out of the house. She is essentially homebound now. When she shops, she has to leave the patient home alone. She wants help finding if he will qualify for any [place] benefits. The goal of care is to do what's needed to keep the patient at home, with adequate support and caregiving. Today we filled out a new POLST form. The former one was unclear, whether it was DNR or full code. confirmed they want DNR and selective treatment. Goal is to concentrate on comfort and quality of life, not longevity. The spouse has experience with working with Hospice in the past, with one of her caregiving clients. She is not sure they frequent visits from Palliative Care, but would like to keep the service for oversight and monitoring for eventual transition to Hospice. She is also willing to consult with Palliative Care SW for resources and guidance. Patient has a yareli that sustains her, and she has a lines tender, so she does not require Pig [employer] support. Impression and Recommendations - Palliative Care Impression: 88-year-old man with vascular dementia, and increasing falls, frequent UTIs, and frequent ED visits and hospitalizations. He is living at home with his who is having difficulty coping with his increasing care needs. Patient would benefit from palliative care oversight and monitoring and palliative care manager social responsibility for resource support. Recommendations/Counseling Done: Vascular dementia: Declining function, increasing falls. is at risk of caregiver burnout; does have a caregiver in for help in the evenings. Following up with [facility] for up to 12hr/month in services. Patient has [employer] and has been able to use it before. They recently obtained a hospital bed from [facility]. Seizure disorder: Keppra 500mg BID GERD: Continue carafate and omeprazole. Use loperamide as needed for occasional lose stools Allergic rhinitis: Loratadine 10mg daily for symptoms Anemia: Ferrous sulfate 325g daily. L shoulder pain: S/P Fall two weeks ago. Xray negative for fracture. Tylenol 500-1000 mg up to TID, NTE 3000mg / 24 hours. Recommend gentle mobilizing exercises so joint doesn't stiffen Diabetes mellitus II: Non-insulin. Continue etformin 500mg BID. h/o recurrent UTIs: Recently hospitalized for UTI and cellulitus, UTI resolving. Keflex regimen completed. Long-anticoagulation s/p saddle pulmonary embolism: Continue Rivaroxaban 20mg daily Advance care planning: POLST was updated today: DNR and selective treatment, comfort antibiotics, and trial (1 week) with tube feeding, goal is to return to normal. Referring patient to Palliative Care SW for help and support with resources, particularly with [facility]. Spouse is agreeable to have Palliative Care ongoing support and oversight, including monitoring for eventual transition to Hospice. She does not think frequent (monthly) visits are required. Agreed that FLEET ADMINISTRATIVE ASSISTANT will follow up by phone in 3-5 weeks. Time Spent: 110 minutes were spent with more than 50% of the time spent on counseling, education, providing anticipatory guidance, and coordination of care.
== END 2018-08-08 16:31 | disposition home or self-care (01) ==
LOC: PC 16:30
PROVIDERS: ATTEND Nurse Practitioner
DX: Z51.5 Encounter for palliative care (principal); F01.50 Vascular dementia, unspecified severity, without behavioral disturbance, psychotic disturbance, mood disturbance, and anxiety; G40.409 Other generalized epilepsy and epileptic syndromes, not intractable, without status epilepticus; K21.9 Gastro-esophageal reflux disease without esophagitis; J30.9 Allergic rhinitis, unspecified; D64.9 Anemia, unspecified; M25.512 Pain in left shoulder; E11.9 Type 2 diabetes mellitus without complications; N40.1 Benign prostatic hyperplasia with lower urinary tract symptoms; N39.498 Other specified urinary incontinence; R35.1 Nocturia; I10 Essential (primary) hypertension; E78.5 Hyperlipidemia, unspecified; H91.93 Unspecified hearing loss, bilateral; I48.91 Unspecified atrial fibrillation; Z79.01 Long term (current) use of anticoagulants; Z91.81 History of falling; Z87.440 Personal history of urinary (tract) infections; Z86.711 Personal history of pulmonary embolism; Z86.73 Personal history of transient ischemic attack (TIA), and cerebral infarction without residual deficits; Z79.84 Long term (current) use of oral hypoglycemic drugs; Z79.899 Other long term (current) drug therapy; Z66 Do not resuscitate
CPT/HCPCS: 99345

== ENCOUNTER 2018-11-21 08:25 | Outpatient (CLI) | payer MEDICARE | END 2018-11-21 08:26 | disposition critical access hospital (66) | LOC: EMS 08:25 | PROVIDERS: ATTEND Surgery | DX: R53.1 Weakness (principal) | CPT/HCPCS: A0425; A0429 ==

== ENCOUNTER 2018-11-21 08:30 | Emergency (ER) | payer MEDICARE ==
[2018-11-21] MEDS ORDERED: SODIUM CHLORIDE 0.9% 1,000 ML IV ONE (08:59)
--- NOTE | 2018-11-21 09:03 | ED Physician Documentation ---
History of Present Illness - Stated complaint Stated Complaint: BILAT LEG WEAKNESS - Chief complaint Chief Complaint: Neuro - History obtained from History obtained from: Patient - Additonal information Additional information: The patient is an 88-year-old male with a history of atrial fibrillation on Xarelto, previous CVA, advanced dementia, and type 2 diabetes who presents with generalized weakness. He was unable to get out of bed this morning prompting his to call 911. He denies any pain, including headache, chest pain, or abdominal pain. He denies any recent illness. He sometimes walks unassisted, but usually uses a walker to steady his balance. Review of Systems Unable to obtain: Dementia Constitutional: denies: Fever Ears: denies: Tinnitus/ringing Nose: denies: Congestion Throat: denies: Sore throat Cardiac: denies: Chest pain / pressure Respiratory: denies: Dyspnea, Cough GI: denies: Abdominal Pain, Vomiting : denies: Dysuria Musculoskeletal: denies: Extremity pain Neurologic: reports: Generalized weakness. denies: Focal weakness, Numbness, Headache PD PAST MEDICAL HISTORY - Past Medical History Cardiovascular: Hypertension, High cholesterol, Pulmonary embolism (saddle), Atrial fibrillation, Murmur, Arrhythmia Respiratory: None Neuro: Dementia (vascular), CVA (right frontal), Seizure disorder Endocrine/Autoimmune: Type 2 diabetes GI: GERD WINEMAKER: None : Benign prostate hypertrophy, Incontinence, Nocturia, Frequency HEENT: Chronic vision loss, Chronic sinusitis, Chronic hearing loss (wears hearing aids) Psych: Depression Musculoskeletal: Osteoarthritis, Fatigue Derm: None - Past Surgical History Past Surgical History: Yes General: Bowel surgery (bowel resection, S/P colon cancer), Colonoscopy, EGD Ortho: Hip replacement (bilateral) HEENT: Other Derm: Other - Present Medications Home Medications: Ambulatory Orders Medication Instructions Recorded Confirmed Metformin HCl [Glucophage] 500 mg PO BIDWM 06/04/13 08/08/18 Omeprazole 20 mg PO BIDAC 11/24/15 08/08/18 Atorvastatin Calcium [Lipitor] 80 mg PO QPM 08/11/16 08/08/18 Rivaroxaban [Xarelto] 20 mg ORAL DAILYWM #30 12/10/17 08/08/18 levETIRAcetam [Levetiracetam] 500 mg PO BID #60 12/10/17 08/08/18 Cholecalciferol (Vitamin D3) 1,000 units PO DAILY 07/08/18 08/08/18 [Vitamin D3] Loratadine 10 mg PO DAILY 07/08/18 08/08/18 Sucralfate [Carafate] 1 gm PO BIDAC 07/08/18 08/08/18 Ferrous Sulfate 325 mg PO DAILY #15 tablet 07/10/18 08/08/18 Saccharomyces Boulardii [Florastor] 250 mg PO DAILY #5 capsule 07/10/18 08/08/18 Acetaminophen 500 - 1,000 mg PO TID PRN MDD 08/08/18 08/08/18 3000mg / 24 hours Hydrocortisone 1% Oint 1 ea TOP BID PRN 08/08/18 08/08/18 [Hydrocortisone] Loperamide [Imodium] 2 mg PO PRN MDD max 16mg / day 08/08/18 Nitrofurantoin [Macrobid] 100 mg PO BID #10 capsule 11/21/18 - Allergies Allergies/Adverse Reactions: Allergies Allergy/AdvReac Type Severity Reaction Status Date / Time codeine AdvReac Intermediate Nausea Verified 11/21/18 08:45 memantine HCl * AdvReac Anxiety Verified 11/21/18 08:45 [From Namenda] - Social History Does the pt smoke?: No Smoking Status: Never smoker Does the pt drink ETOH?: No Does the pt have substance abuse?: No - Immunizations Immunizations are current?: No - POLST Patient has POLST: Yes POLST Status: Full Code PD ED PE NORMAL - Vitals Vital signs reviewed: Yes (systolic hypertension) - General General: Well developed/nourished, Other (Alert but pleasantly confused elderly male.) - HEENT HEENT: Atraumatic, PERRL, EOMI, Pharynx benign - Neck Neck: Supple, no meningeal sign, No adenopathy, No JVD - Cardiac Cardiac: RRR - Respiratory Respiratory: No respiratory distress, Clear bilaterally - Abdomen Abdomen: Soft, Non tender - Back Back: No CVA TTP - Derm Derm: No rash - Extremities Extremities: No edema, No calf tenderness / cord - Neuro Neuro: No motor deficit, No sensory deficit, Normal speech, Other (Alert, confused regarding year, but does know his date of . Generalized weakness, without focal motor or sensory deficit.) Results - Vitals Vitals: Vital Signs - 24 hr 11/21/18 11/21/18 11/21/18 08:36 10:41 11:54 Temperature 36.1 C L 36.6 C Heart Rate 66 66 65 Respiratory 17 20 18 Rate Blood Pressure 155/74 H 154/72 H 153/75 H O2 Saturation 97 96 99 Oxygen O2 Source Room air - EKG (time done) 09:41 Rate: Rate (enter#) (67) Rhythm: NSR Tyler: LAD, Anterior hemiblock Intervals: RBBB Ischemia: Q waves (in lead II, consistent with previous lateral [facility].) Compare to prior EKG: Unchanged from prior EKG Computer interpretation: Agree with computer - Labs Labs: Laboratory Tests 11/21/18 11/21/18 11/21/18 09:30 09:30 09:30 WBC 2.7 L RBC 4.02 L Hgb 11.9 L Hct 36.2 L MCV 90.1 MCH 29.5 MCHC 32.7 RDW 17.2 H Plt Count 164 MPV 7.4 Neut # (Auto) 2.0 Lymph # (Auto) 0.3 L Placer # (Auto) 0.3 Eos # (Auto) 0.1 Baso # (Auto) 0.0 Absolute Nucleated RBC 0.00 Band Neuts % (Manual) Not Reportable Abnorm Lymph % (Manual) Not Reportable Nucleated RBC % 0.0 Neutrophils # (Manual) Not Reportable Lymphocytes # (Manual) Not Reportable Monocytes # (Manual) Not Reportable Eosinophils # (Manual) Not Reportable Basophils # (Manual) Not Reportable Differential Comment MANUAL=AUTO DIFF WBC Morphology 1+ REACTIVE LYMPHS Sodium 144 Potassium 3.8 Chloride 107 Carbon Dioxide 28 Anion Gap 9.0 BUN 14 Creatinine 0.8 Estimated GFR (MDRD) 91 Glucose 125 H Calcium 9.1 Total Bilirubin 0.3 AST 25 ALT 23 Alkaline Phosphatase 91 Troponin I < 0.04 Total Protein 7.1 Albumin 3.5 Globulin 3.6 Albumin/Globulin Ratio 1.0 Lipase 35 TSH Urine Color Urine Clarity Urine pH Ur Specific [place] Urine Protein Urine Glucose (UA) Urine Ketones Urine Occult Blood Urine Nitrite Urine Bilirubin Urine Urobilinogen Ur Leukocyte Esterase Urine RBC Urine WBC Ur Squamous Epith Cells Urine Bacteria Ur Microscopic Review Urine Culture Comments 11/21/18 11/21/18 09:30 09:36 WBC RBC Hgb Hct MCV MCH MCHC RDW Plt Count MPV Neut # (Auto) Lymph # (Auto) Placer # (Auto) Eos # (Auto) Baso # (Auto) Absolute Nucleated RBC Band Neuts % (Manual) Abnorm Lymph % (Manual) Nucleated RBC % Neutrophils # (Manual) Lymphocytes # (Manual) Monocytes # (Manual) Eosinophils # (Manual) Basophils # (Manual) Differential Comment WBC Morphology Sodium Potassium Chloride Carbon Dioxide Anion Gap BUN Creatinine Estimated GFR (MDRD) Glucose Calcium Total Bilirubin AST ALT Alkaline Phosphatase Troponin I Total Protein Albumin Globulin Albumin/Globulin Ratio Lipase TSH 3.33 Urine Color LIGHT YELLOW Urine Clarity HAZY Urine pH 7.0 Ur Specific [place] 1.010 Urine Protein NEGATIVE Urine Glucose (UA) NEGATIVE Urine Ketones NEGATIVE Urine Occult Blood NEGATIVE Urine Nitrite NEGATIVE Urine Bilirubin NEGATIVE Urine Urobilinogen 0.2 (NORMAL) Ur Leukocyte Esterase SMALL H Urine RBC 0-5 Urine WBC 11-25 H Ur Squamous Epith Cells RARE Squamous Urine Bacteria Few Ur Microscopic Review INDICATED Urine Culture Comments INDICATED PD MEDICAL DECISION MAKING - ED course Complexity details: reviewed old records, reviewed results, re-evaluated patient, considered differential, d/w patient, d/w family ED course: The patient's presentation is significant for generalized weakness and acute urinary tract infection. His presentation does not suggest pyelonephritis or sepsis. His underlying dementia and advanced age are the most likely contributing factor to his weakness this morning, but urinary tract infection and dehydration are also a likely contributing factor. His white blood cell count is low at 2.7, but in review of his previous lab values I see that he normally runs a low white blood cell count. Treatment in the emergency department included administration of normal saline 1 L IV, and ceftriaxone 1 g IV. The patient felt subjectively improved following this treatment, and he demonstrated ability to ambulate without difficulty. He is being discharged with prescription for Macrobid. I discussed with him and his the diagnosis, outpatient treatment and follow-up, as well as potentially worrisome signs or symptoms that should prompt reevaluation in the emergency department. His expressed desire that he be placed in a long term facility, and I advised her to discuss this with his primary physician. Departure - Departure Disposition: 01 Home, Self Care Clinical Impression: History of dementia, Dehydration Urinary tract infection Qualifiers: Urinary tract infection type: acute cystitis Hematuria presence: without hematuria Qualified Code(s): N30.00 - Acute cystitis without hematuria Condition: Stable Instructions: ED UTI Cystitis Male Follow-Up: Damaso Iverson MD [Primary Care Provider] - Prescriptions: Nitrofurantoin [Macrobid] 100 mg PO BID #10 capsule Comments: Drink plenty of fluids, including cranberry juice. Take Macrobid twice daily as prescribed. Follow-up with your primary physician within 1 to 2 weeks. Call to schedule an appointment. Return to the emergency department if increasing weakness, fever with shaking chills, or otherwise worsening symptoms. Discharge Date/Time: 11/21/18 12:37
[2018-11-21 09:36] LABS: BASOPHILS % (AUTO) 0.5 %; EOSINOPHILS # (AUTO) 0.1 10^3/uL (0.0-0.7); EOSINOPHILS % (AUTO) 4.4 %; HGB - HEMOGLOBIN 11.9 g/dL (14.0-18.0); LYMPHOCYTES # (AUTO) 0.3 10^3/uL (1.5-3.5); LYMPHOCYTES % (AUTO) 12.5 %; MEAN CORPUSCULAR HEMOGLOBIN 29.5 pg (27.0-31.0); MEAN CORPUSCULAR HGB CONC 32.7 g/dL (32.0-36.0); MEAN CORPUSCULAR VOLUME 90.1 fL (80.0-94.0); MEAN PLATELET VOLUME 7.4 fL (7.4-11.4); MONOCYTES # (AUTO) 0.3 10^3/uL (0.0-1.0); MONOCYTES % (AUTO) 10.4 %; NEUTROPHILS % (AUTO) 72.2 %; PLT - PLATELET COUNT 164 10^3/uL (130-450); RED BLOOD COUNT 4.02 10^6/uL (4.70-6.10); RED CELL DISTRIBUTION WIDTH 17.2 % (12.0-15.0); WHITE BLOOD COUNT 2.7 x10^3/uL (4.8-10.8)
[2018-11-21 09:50] LABS: ALBUMIN 3.5 g/dL (3.2-5.5); BILIRUBIN,TOTAL 0.3 mg/dL (0.2-1.0); CALCIUM 9.1 mg/dL (8.5-10.3); CREATININE 0.8 mg/dL (0.6-1.2); TOTAL PROTEIN 7.1 g/dL (6.7-8.2)
[2018-11-21 09:51] LABS: BILIRUBIN,URINE NEGATIVE (NEGATIVE); GLUCOSE, URINE (UA) NEGATIVE (NEGATIVE); KETONES,URINE (UA) NEGATIVE (NEGATIVE); LEUKOCYTE ESTERASE, URINE SMALL (NEGATIVE); NITRITE,URINE NEGATIVE (NEGATIVE); OCCULT BLOOD,URINE NEGATIVE (NEGATIVE); PROTEIN,URINE NEGATIVE (NEGATIVE); UROBILINOGEN,URINE 0.2 (NORMAL) E.U./dL (NORMAL)
[2018-11-21 09:52] LABS: CLARITY,URINE HAZY (CLEAR)
[2018-11-21 10:05] LABS: BACTERIA,URINE Few /HPF (None Seen); RBC,URINE 0-5 /HPF (0-5); SQUAMOUS EPITHELIAL CELL,UR RARE Squamous (<= Few)
[2018-11-21] MEDS ORDERED: cefTRIAXone 1 GM in SODIUM CHLORIDE 0.9% MINIBAG 100 ML IV STA (10:14)
[2018-11-21 10:27] LABS: DIFFERENTIAL COMMENT MANUAL=AUTO DIFF
[2018-11-21] MEDS ORDERED: cefTRIAXone 1 GM VIAL ONE (10:37)
[2018-11-21 11:55] VITALS: BP 153/75
== END 2018-11-21 12:37 | disposition home or self-care (01) ==
LOC: EDUNIT# → ED 08:30
DX: N30.00 Acute cystitis without hematuria (principal); E86.0 Dehydration; D72.819 Decreased white blood cell count, unspecified; F01.50 Vascular dementia, unspecified severity, without behavioral disturbance, psychotic disturbance, mood disturbance, and anxiety; N40.1 Benign prostatic hyperplasia with lower urinary tract symptoms; N39.498 Other specified urinary incontinence; R35.0 Frequency of micturition; R35.1 Nocturia; I48.91 Unspecified atrial fibrillation; E11.9 Type 2 diabetes mellitus without complications; I10 Essential (primary) hypertension; E78.00 Pure hypercholesterolemia, unspecified; G40.909 Epilepsy, unspecified, not intractable, without status epilepticus; F32.9 Major depressive disorder, single episode, unspecified; K21.9 Gastro-esophageal reflux disease without esophagitis; Z79.01 Long term (current) use of anticoagulants; Z86.73 Personal history of transient ischemic attack (TIA), and cerebral infarction without residual deficits; Z86.711 Personal history of pulmonary embolism; Z85.038 Personal history of other malignant neoplasm of large intestine; Z90.49 Acquired absence of other specified parts of digestive tract; Z79.84 Long term (current) use of oral hypoglycemic drugs; Z79.899 Other long term (current) drug therapy
CPT/HCPCS: 36415; 80053; 81001; 81003; 83690; 84443; 84484; 85025; 87086; 93005; 96361; 96365; 99283; 99284

== ENCOUNTER 2018-11-27 10:35 | Outpatient (CLI) | payer MEDICARE ==
--- NOTE | 2018-11-27 12:28 | CONSULTATION NOTE ---
Palliative Care Follow Up - Referral Referring Provider: Dr Iverson Time of Visit: Sun11/27/2018. 10:35 - 11:45 Referral setting: Home Referral Reason: Frequent UTI; constipation/loose stools - Information Sources Records reviewed: Previous records reviewed History/Review of Systems obtained from: Patient, Family Exam limitations: Clinical condition (Dementia, short-term memory deficits) - History of Present Illness Update Brief HPI Update: 88-year-old man with vascular dementia, and increasing falls, frequent UTIs, and frequent ED visits and hospitalizations. He is living at home with his who is his main caregiver. She has now hired private caregiver and also has some [facility] caregiver support, likely through the [employer] program. Medical History: Vascular dementia, hypertension, hyperlipidemia, chronic anticoagulation for saddle pulmonary emboli, right frontal CVA, dementia, dy sphagia, recurrent seizure disorder, DM2, GERD, esophageal dilation, osteoarthritis, bilateral hip replacement, BPH, TURP in 1993, nocturia, recurrent UTIs, status post colon cancer, status post colectomy in 1998, frequent falls; [place]; cataract surgery L eye. Patient was at ED 11/21/18 for UTI, he was given 1L normal saline IV and 1g ceftriaxone IV, and discharged with prescription for Macrobid. Spouse requested follow-up visit by Palliative Care instead of going to the PCP. Patient is alert, articulate, but with cognitive deficits, unable to answer most routine questions, instead asks his what she thinks. Joselin, the patient's spouse, reports that he has improved since the UTI treatment. He had runny stools which she treated with loperamide, then several days of constipation, which was resolved with applesauce. At present the issue is resolved. She is trying to increase his intake of fluids, currently giving him 2 500mL containers of water daily, she also gives him flavored water. I suggested aiming for a minimum of 2 liters water daily, plus the other fluids. I discussed this with the patient, and while we were there at the table, he finished the 500mL that was in front of him. He also is having swallowing problems, especially medications. She wants to limit the amount of medications he takes. For example, she no longer gives him Tylenol (he seldom hurts). Joselin says they had a Speech therapist session some years ago, she is not currently interested in having another Speech consultation about dysphagia. Provided teaching on basic swallowing guidelines and demonstrated to patient. A significant problem is that the patient sleeps on and off throughout the 24 hours. He sleeps a lot during the day and gets up throughout the night, hourly, or every 3 hours. He becomes obsessed that his clothing is wet and takes them off. Joselin gets up with him during the nighttime, which is exhausting her. She hired a private pay caregiver in the past two months. She has also been working with Diana at [facility] and a caregiver (likely through the [employer] program) will be starting soon on three Sund per month. Joselin is hopeful she can go to [facility] on Sun. She is trying to take advantage of the help so she can rest and get more balance in her life. Patient has no complaints of pain. His fasting BGs are stable, usually in the 120s. Most recent was 110. 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 Social History - Living Situation Living arrangement: At home Living Situation: With spouse/s.o. Support System: He and his , Joselin have been since 1990, second marriages for both. They met in [place] when she was a caregiver for his [employer] and moved to [facility] when he retired. Joselin did paid caregiving in the past, among other vocations. The patient has 3 adult children: Daughter Nicole Dangelo in [place] [phone] Also a daughter and a son in [place]. It appears he is estranged from at least the daughter. He has a stepson through his Joselin: Dennis Mellissafiladelaida [phone]. 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 Then he worked in [place] for old "[employer]" (current [employer]) and that is where his fpc pension comes from. His family's connection to [facility] dates back to his great grandparents who owned land on the [facility]. He first came to [facility] at 6 years old with his father, who did logging. Joselin has friends in the area, but no one she can reach out to for help with caregiving. Her sister in [place] is a source of emotional support for her. She has private pay caregiver two days a week for 4 hours each day. [facility] will start providing a caregiver (probably through [employer] program) 4 hours for 3 Sundays. Medications/Allergies - Medications Home Medications: Ambulatory Orders Medication Instructions Recorded Confirmed Metformin HCl [Glucophage] 500 mg PO BIDWM 06/04/13 11/27/18 Omeprazole 20 mg PO BIDAC 11/24/15 11/27/18 Atorvastatin Calcium [Lipitor] 80 mg PO QPM 08/11/16 11/27/18 Rivaroxaban [Xarelto] 20 mg ORAL DAILYWM #30 12/10/17 11/27/18 levETIRAcetam [Levetiracetam] 500 mg PO BID #60 12/10/17 11/27/18 Cholecalciferol (Vitamin D3) 1,000 units PO DAILY 07/08/18 11/27/18 [Vitamin D3] Loratadine 20 mg PO DAILY 07/08/18 11/27/18 Sucralfate [Carafate] 1 gm PO BIDAC 07/08/18 11/27/18 Ferrous Sulfate 325 mg PO DAILY #15 tablet 07/10/18 11/27/18 Saccharomyces Boulardii [Florastor] 250 mg PO DAILY #5 capsule 07/10/18 11/27/18 Hydrocortisone 1% Oint 1 ea TOP BID PRN 08/08/18 11/27/18 [Hydrocortisone] Loperamide [Imodium] 2 mg PO PRN MDD max 16mg / day 08/08/18 - Allergies Allergies/Adverse Reactions: Allergies Allergy/AdvReac Type Severity Reaction Status Date / Time codeine AdvReac Intermediate Nausea Verified 11/21/18 08:45 memantine HCl * AdvReac Anxiety Verified 11/21/18 08:45 [From Namenda] Review of Systems - Constitutional Constitutional: reports: Fatigue, Weight stable (146 lbs today.). denies: Fever, Poor appetite - Ears, Nose & Throat Ears, Nose & Throat: reports: Hearing loss, Hearing aids, Postnasal drainage - Cardiovascular Cardiovascular: denies: Chest pain - Respiratory Respiratory: reports: Cough (sometimes with swallowing pills; has had SL therapy in the past) - Gastrointestinal Gastrointestinal: reports: Constipation (episodic, currently resolved), Diarrhea (episodic loose stools, currently resolved), Good appetite - Genitourinary Genitourinary: reports: Incontinence (of bladder). denies: Dysuria - Musculoskeletal Musculoskeletal: reports: Stiffness, Limited range of motion, Assistive devices (walker). denies: Transfer issues - Neurological Neurological: reports: Memory problems, Abnormal gait - Psychiatric Psychiatric: reports: Depression (episodic) - Hematologic/Lymphatic Hematologic/Lymphatic: reports: Anemia, Recurrent infections (UTIs) Physical Exam - Vital Signs Temperature: 96.9 F Pulse Rate: 67 O2 Saturation: 99 (room air) Blood Pressure: 137/76 (wrist cuff) - Physical Exam General Appearance: positive: No acute distress, Alert Eyes Bilateral: positive: Normal inspection ENT: positive: No signs of dehydration Neck: positive: Trachea midline Cardiovascular: positive: Regular rate & rhythm, Systolic murmur (2/6) Respiratory: positive: Chest non-tender, No respiratory distress, Diminished throughout. negative: Wheezes, Rales, Rhonchi Abdomen: positive: Non-tender, Soft, Nml bowel sounds Skin: positive: Pallor Extremities: positive: Nml appearance, Pedal edema (trace) Neurologic/Psychiatric: positive: Mood/affect nml, Disoriented to time Palliative Care - POLST Patient has POLST: Yes POLST Status: DNR, Selective Treatment Pain: No pain Tiredness/Fatigue: Moderate (4-6) (sleeps a lot during the day) Drowsiness/Sedation: None Nausea: None Depression: Mild (1-3) Anorexia: None Sleep: Variable sleep pattern (wakes up throughout the night) Performance Status: ambulatory, uses walker unsteady, shuffling gait incontinent of bladder follows directions well FAST 6D - Palliative Care Discussion: 's goal of care for the patient is to keep him at home. She cannot afford multimedia coordinator caergiving at home, nor moving the patient into a facility; it would deplete her finances. We discussed what would be her options if his condition declines and the caregiving becomes more than she can handle. She spoke about keeping him in bed (she does have a hospital bed for him). Another plan is to use her extra bedroom to have a live-in caregiver. She does not want him to be placed in a facility due to the cost. The patient denies depression, but Joselin points out that he often says, "dear God, help me." Sometimes he feels tired of living, he has nothing to do. Joselin tries to get him out of the house on walks, but finds she is too tired to do it regularly. In the past three years they have moved twice; she had to take care of selling the house mostly by herself. She does express fatigue and feeling exhausted. She also had an infection in the glands of cheek/jaw which was a challenge in addition to taking care of the patient. She has a strong synagogue yareli and her yareli is what supports her. She is looking forward to being able to go to services more frequently once the second caregiver starts. Impression and Recommendations - Palliative Care Impression: 88-year-old man with vascular dementia, a h/o of falls, frequent UTIs. His most recent UTI was 11/21/18, he was treated in the ED with IV hydration and IV ceftriaxone, and discharged with Macrobic antibiotics. His is his main caregiver, she does have private paid caregiver support and will soon have additional caregiver coverage through [facility]. Palliative care will continue to provide oversight and monitoring. Recommendations/Counseling Done: Vascular dementia: Steadily declining function. Circadian switch so that patient is up throughout the night. Spouse is very fatigued because she gets up with him. Now that she has some more caregiving help, her goal is to get some rest and balance. Recurrent UTIs: Improved after most recent ED visit on 11/21 for UTI. He was brigette hayley with ceftriaxone in the ED and discharged with a Macrobid regimen. Lengthy discussion on UTI prevention, remaining adequately hydrated, how much hydration to aim for, counselled to start cranberry tablets. Spouse will also try to find cranberry juice that isn't too sweet. Advance care planning: POLST is DNR and selective treatment. Spouse's goal of care is to keep patient at home, and not transfer him to a facility, it is not financially feasible. She currently has parttime caregiver support 4 hours/day for 3 days/week. If his condition declines in the future to the point she cannot provide appropriate caregiving, she plans to use their spare bedroom for a live- in caregiver if needed. Palliative Care NURSING CARE ATTENDANT has seen the patient previously. Joselin declined Palliative Care NURSING CARE ATTENDANT services at this time. She works with Diana Roomish, who is helping her obtain caregiver support through [facility]. Patient also declined Palliative Care hands assembler support. She has a new medical typist at her [facility], and is hopeful to attend more services now that she will have caregiver support on Sundays. Spouse is agreeable to continue to have Palliative Care ongoing support and oversight periodically, including monitoring for eventual transition to Hospice. There is a $20 co-pay for every visit of the [facility]PRENTICE. Time Spent: 70 minutes were spent with more than 50% of the time spent on counseling, education, providing anticipatory guidance, and coordination of care.
== END 2018-11-27 10:36 | disposition home or self-care (01) ==
LOC: PC 10:35
PROVIDERS: ATTEND Nurse Practitioner
DX: Z51.5 Encounter for palliative care (principal); F01.50 Vascular dementia, unspecified severity, without behavioral disturbance, psychotic disturbance, mood disturbance, and anxiety; G47.20 Circadian rhythm sleep disorder, unspecified type; I10 Essential (primary) hypertension; E11.9 Type 2 diabetes mellitus without complications; R13.10 Dysphagia, unspecified; Z79.84 Long term (current) use of oral hypoglycemic drugs; Z79.01 Long term (current) use of anticoagulants; Z79.899 Other long term (current) drug therapy; Z91.81 History of falling; Z87.440 Personal history of urinary (tract) infections; Z66 Do not resuscitate
CPT/HCPCS: 99350

== ENCOUNTER 2019-02-07 12:42 | Outpatient (CLI) | payer MEDICARE | END 2019-02-07 12:43 | disposition EMS.NT | LOC: EMS 12:42 | PROVIDERS: ATTEND Surgery | DX: M25.512 Pain in left shoulder (principal); W18.2XXA Fall in (into) shower or empty bathtub, initial encounter; Y92.031 Bathroom in apartment as the place of occurrence of the external cause ==

== ENCOUNTER 2019-05-15 02:13 | Outpatient (CLI) | payer MEDICARE | END 2019-05-15 02:14 | disposition critical access hospital (66) | LOC: EMS 02:13 | PROVIDERS: ATTEND Surgery | DX: R53.1 Weakness (principal) | CPT/HCPCS: A0425; A0429 ==

== ENCOUNTER 2019-05-15 02:16 | Observation (INO) | payer MEDICARE ==
--- NOTE | 2019-05-15 02:27 | ED Physician Documentation ---
History of Present Illness - Stated complaint Stated Complaint: WEAKNESS - Chief complaint Chief Complaint: Neuro - History obtained from History obtained from: Family, EMS - History of Present Illness Timing: How many days ago (3) - Additonal information Additional information: 88-year-old male with a history of advanced dementia and a prior history of seizure disorder CVA pulmonary embolism esophageal stricture hypertension type 2 diabetes and frequent urinary tract infection has developed weakness over the past 3 days. His states that usually he is able to get himself out of bed and she will assist him to the bathroom. She states now he is not able to sit up in bed. The patient is anticoagulated and has a limited CODE STATUS with goals of palliative care to be improved comfort. The patient usually is able to answer 1 or 2 words he is now confused and is mostly giving a blank stare. The patient's has asked that we not do imaging of his head as he has had a lot of CT scans "it just costs money and we will not do anything if there is a problem so why do it?" Review of Systems Constitutional: reports: Fatigue. denies: Fever Nose: denies: Congestion Cardiac: denies: Chest pain / pressure, Palpitations Respiratory: reports: Cough. denies: Dyspnea GI: reports: Vomiting (with choking 2 days ago). denies: Nausea : reports: Frequency. denies: Dysuria Skin: denies: Rash Musculoskeletal: denies: Neck pain, Back pain Neurologic: reports: Generalized weakness, Confused, Altered mental status PD PAST MEDICAL HISTORY - Past Medical History Cardiovascular: Hypertension, High cholesterol, Pulmonary embolism (saddle), Atrial fibrillation, Murmur, Arrhythmia Respiratory: None Neuro: Dementia (vascular), CVA (right frontal), Seizure disorder Endocrine/Autoimmune: Type 2 diabetes GI: GERD ROVING WINDER: None : Benign prostate hypertrophy, Incontinence, Nocturia, Frequency HEENT: Chronic vision loss, Chronic sinusitis, Chronic hearing loss (wears hearing aids) Psych: Depression Musculoskeletal: Osteoarthritis, Fatigue Derm: None - Past Surgical History Past Surgical History: Yes General: Bowel surgery (bowel resection, S/P colon cancer), Colonoscopy, EGD Ortho: Hip replacement (bilateral) HEENT: Other Derm: Other - Present Medications Home Medications: Ambulatory Orders Medication Instructions Recorded Confirmed Metformin HCl [Glucophage] 500 mg PO BIDWM 06/04/13 05/15/19 Rivaroxaban [Xarelto] 20 mg ORAL DAILYWM #30 12/10/17 05/15/19 levETIRAcetam [Levetiracetam] 500 mg PO BID #60 12/10/17 05/15/19 Cholecalciferol (Vitamin D3) 1,000 units PO DAILY 07/08/18 05/15/19 [Vitamin D3] Loratadine 20 mg PO DAILY 07/08/18 05/15/19 Sucralfate [Carafate] 1 gm PO BIDAC 07/08/18 05/15/19 Saccharomyces Boulardii [Florastor] 250 mg PO DAILY #5 capsule 07/10/18 05/15/19 Hydrocortisone 1% Oint 1 ea TOP BID PRN 08/08/18 05/15/19 [Hydrocortisone] - Allergies Allergies/Adverse Reactions: Allergies Allergy/AdvReac Type Severity Reaction Status Date / Time codeine AdvReac Intermediate Nausea Verified 05/15/19 02:30 memantine HCl * AdvReac Anxiety Verified 05/15/19 02:30 [From Namenda] - Social History Does the pt smoke?: No Smoking Status: Never smoker Does the pt drink ETOH?: No Does the pt have substance abuse?: No - Immunizations Immunizations are current?: No - POLST Patient has POLST: Yes POLST Status: Full Code PD ED PE NORMAL - Vitals Vital signs reviewed: Yes (tachy and hypertensive ) - General General: No acute distress, Other (Thin elderly male with a blank stare does not answer questions. ) - HEENT HEENT: Atraumatic, PERRL, EOMI, Other (The left TM is not visible secondary to water in the canal after irrigation. dry mucous membranes ) - Neck Neck: Supple, no meningeal sign, No bony TTP - Cardiac Cardiac: No murmur, Other (tachy to 110) - Respiratory Respiratory: No respiratory distress, Other (rhonchi in right base ) - Abdomen Abdomen: Soft, Non tender - Back Back: No CVA TTP, No spinal TTP - Derm Derm: Normal color, Warm and dry, No rash - Extremities Extremities: No deformity, No edema, No calf tenderness / cord - Neuro Neuro: Other (The patient is having a hard time following commands ) Eye Opening: Spontaneous Motor: Localizes to Pain Verbal: Inappropriate GCS Score: 12 - Psych Psych: Normal mood, Normal affect Results - Vitals Vitals: Vital Signs - 24 hr 05/15/19 05/15/19 05/15/19 02:24 03:10 03:58 Temperature 37.4 C Heart Rate 106 H 103 H 96 Respiratory 22 17 16 Rate Blood Pressure 153/79 H 126/63 136/74 H O2 Saturation 94 94 94 05/15/19 04:28 Temperature 37.1 C Heart Rate 90 Respiratory 13 Rate Blood Pressure 133/71 H O2 Saturation 99 Oxygen O2 Source Room air - Labs Labs: Laboratory Tests 05/15/19 05/15/19 05/15/19 02:25 02:25 02:25 WBC 8.9 RBC 4.23 L Hgb 13.2 L Hct 40.9 L MCV 96.7 H MCH 31.2 H MCHC 32.3 RDW 13.8 Plt Count 165 MPV 9.4 Neut # (Auto) 8.2 H Lymph # (Auto) 0.2 L Whitman # (Auto) 0.4 Eos # (Auto) 0.0 Baso # (Auto) 0.0 Absolute Nucleated RBC 0.00 Nucleated RBC % 0.0 Sodium 135 Potassium 3.9 Chloride 102 Carbon Dioxide 24 Anion Gap 9.0 BUN 19 Creatinine 0.8 Estimated GFR (MDRD) 91 Glucose 231 H Lactic Acid 1.8 Calcium 9.6 Total Bilirubin 0.4 AST 23 ALT 18 Alkaline Phosphatase 82 Total Protein 7.7 Albumin 3.9 Globulin 3.8 Albumin/Globulin Ratio 1.0 Lipase 29 Urine Color Urine Clarity Urine pH Ur Specific Webster Urine Protein Urine Glucose (UA) Urine Ketones Urine Occult Blood Urine Nitrite Urine Bilirubin Urine Urobilinogen Ur Leukocyte Esterase Urine RBC Urine WBC Ur Squamous Epith Cells Urine Bacteria Urine Yeast Ur Microscopic Review Urine Culture Comments 05/15/19 03:23 WBC RBC Hgb Hct MCV MCH MCHC RDW Plt Count MPV Neut # (Auto) Lymph # (Auto) Whitman # (Auto) Eos # (Auto) Baso # (Auto) Absolute Nucleated RBC Nucleated RBC % Sodium Potassium Chloride Carbon Dioxide Anion Gap BUN Creatinine Estimated GFR (MDRD) Glucose Lactic Acid Calcium Total Bilirubin AST ALT Alkaline Phosphatase Total Protein Albumin Globulin Albumin/Globulin Ratio Lipase Urine Color YELLOW Urine Clarity CLEAR Urine pH 6.0 Ur Specific Webster 1.015 Urine Protein NEGATIVE Urine Glucose (UA) NEGATIVE Urine Ketones NEGATIVE Urine Occult Blood TRACE-INTA Urine Nitrite NEGATIVE Urine Bilirubin NEGATIVE Urine Urobilinogen 0.2 (NORMAL) Ur Leukocyte Esterase SMALL H Urine RBC 0-5 Urine WBC 11-25 H Ur Squamous Epith Cells NONE SEEN Urine Bacteria Rare Urine Yeast PRESENT Ur Microscopic Review INDICATED Urine Culture Comments INDICATED - Rads (name of study) chest Radiology: Prelim report reviewed (Impression: 1. Small lung volumes. There is subsegmental bibasilar atelectasis. Aspiration or infection difficult to exclude. 2. Cardiac silhouette is within normal limits when accounting for lung volumes and technique. No pulmonary venous congestion. 3. Moderate calcific aortic atherosclerosis. 4. No large effusion or definite pneumothorax. 5. There is severe bilateral shoulder degenerative change, left greater than right.), EMP read indepedently, See rad report Procedures - IVC sono (time) 0220 Bedside IVC sono: IVC measures (cm) (1.31), IVC collapsed c insp (cm) (comple te), Dehydration (mild 1 liter or less) PD MEDICAL DECISION MAKING - ED course Complexity details: reviewed old records, reviewed results, re-evaluated patient, considered differential, d/w family ED course: 88-year-old male with advanced dementia has now altered mental status and generalized weakness. On evaluation in the emergency department he is found to have a right lower lobe infiltrate on his chest x-ray and urinary tract infection. He is administered intravenous saline and Rocephin. The patient is anticoagulated, profoundly weak and altered. Departure - Departure Disposition: [facility] DC/Xfer Clinical Impression: Dehydration Urinary tract infection Qualifiers: Urinary tract infection type: acute cystitis Hematuria presence: without hematuria Qualified Code(s): N30.00 - Acute cystitis without hematuria Pneumonia Qualifiers: Pneumonia type: due to unspecified organism Laterality: right Lung location: lower lobe of lung Qualified Code(s): J18.9 - Pneumonia, unspecified organism Altered mental status Qualifiers: Altered mental status type: stupor Qualified Code(s): R40.1 - Stupor
[2019-05-15 02:40] LABS: BASOPHILS % (AUTO) 0.1 %; HGB - HEMOGLOBIN 13.2 g/dL (14.0-18.0); LYMPHOCYTES # (AUTO) 0.2 10^3/uL (1.5-3.5); MEAN CORPUSCULAR HEMOGLOBIN 31.2 pg (27.0-31.0); MEAN CORPUSCULAR HGB CONC 32.3 g/dL (32.0-36.0); MEAN CORPUSCULAR VOLUME 96.7 fL (80.0-94.0); MEAN PLATELET VOLUME 9.4 fL (7.4-11.4); MONOCYTES # (AUTO) 0.4 10^3/uL (0.0-1.0); MONOCYTES % (AUTO) 4.4 %; NEUTROPHILS # (AUTO) 8.2 10^3/uL (1.5-6.6); NEUTROPHILS % (AUTO) 92.8 %; PLT - PLATELET COUNT 165 10^3/uL (130-450); RED BLOOD COUNT 4.23 10^6/uL (4.70-6.10); RED CELL DISTRIBUTION WIDTH 13.8 % (12.0-15.0); WHITE BLOOD COUNT 8.9 x10^3/uL (4.8-10.8)
--- NOTE | 2019-05-15 02:50 | XRAY Report ---
Reason: weakness Procedure Date: 05/15/2019 Accession Number: [id number] / [id number] Procedure: XR - Chest 1 View X-Ray CPT Code: 54514 Final Report FULL RESULT: EXAM: CHEST RADIOGRAPHY EXAM DATE: 05/15/2019 02:41 AM CLINICAL HISTORY: Weakness. COMPARISON: CHEST 1 VIEW 07/08/2018 7:53 AM, CHEST 2 VIEW 05/11/2018 11:12 AM. TECHNIQUE: 1 view. FINDINGS IMPRESSION: 1. Small lung volumes. There is subsegmental bibasilar atelectasis. Aspiration or infection difficult to exclude. 2. Cardiac silhouette is within normal limits when accounting for lung volumes and technique. No pulmonary venous congestion. 3. Moderate calcific aortic atherosclerosis. 4. No large effusion or definite pneumothorax. 5. There is severe bilateral shoulder degenerative change, left greater than right. RADIA
[2019-05-15 02:57] LABS: BILIRUBIN,TOTAL 0.4 mg/dL (0.2-1.0); CALCIUM 9.6 mg/dL (8.5-10.3); CREATININE 0.8 mg/dL (0.6-1.2)
[2019-05-15 02:58] LABS: ALBUMIN 3.9 g/dL (3.2-5.5); TOTAL PROTEIN 7.7 g/dL (6.7-8.2)
[2019-05-15 03:33] LABS: BILIRUBIN,URINE NEGATIVE (NEGATIVE); GLUCOSE, URINE (UA) NEGATIVE (NEGATIVE); KETONES,URINE (UA) NEGATIVE (NEGATIVE); LEUKOCYTE ESTERASE, URINE SMALL (NEGATIVE); NITRITE,URINE NEGATIVE (NEGATIVE); OCCULT BLOOD,URINE TRACE-INTA (NEGATIVE); PROTEIN,URINE NEGATIVE (NEGATIVE); UROBILINOGEN,URINE 0.2 (NORMAL) E.U./dL (NORMAL)
[2019-05-15 03:34] LABS: CLARITY,URINE CLEAR (CLEAR)
[2019-05-15 03:43] LABS: BACTERIA,URINE Rare /HPF (None Seen); RBC,URINE 0-5 /HPF (0-5); SQUAMOUS EPITHELIAL CELL,UR NONE SEEN (<= Few); YEAST,URINE PRESENT
[2019-05-15] MEDS ORDERED: cefTRIAXone 1 GM in SODIUM CHLORIDE 0.9% MINIBAG 100 ML IV STA (03:46)
[2019-05-15] MEDS ORDERED: SODIUM CHLORIDE 0.9% 1,000 ML IV ONE (03:47)
[2019-05-15] MEDS ORDERED: ACETAMINOPHEN 325 MG TABLET PO PRN (05:45)
[2019-05-15] MEDS ORDERED: SODIUM CHLORIDE 0.9% 1,000 ML IV SCH (06:00)
--- NOTE | 2019-05-15 06:00 | HISTORY & PHYSICAL EXAMINATION ---
Chief Complaint - Chief Complaint Chief Complaint: Weakness History of Present Illness - Admitted From Admitted From:: Home - History Obtained From Records Reviewed: Yes History obtained from: ER Physician, EMR Exam Limitations: Patient unable to provide a history due to mental status. not present. - History of Present Illness HPI Comment/Other: This is 88-year-old male with a past medical history significant for prior history of stroke, dementia, seizure disorder on Keppra, history of pulmonary embolism on Xarelto, and diabetes who presents today from home after his noticed he had become increasingly weaker. History is obtained from the ER physician and review of [facility] as the patient is unable to provide history due to his mental status and is not present at bedside. I did attempt to call her but there was no answer. The patient does have dementia and usually speaks in 1-2 word sentences. It is unclear whether he ambulates with a walker or cane at baseline but that he is able to get out of bed and usually ambulates to the bathroom with assistance from his . She noted that last night he was unable to sit up in bed. In the emergency department, he was initially not speaking and just had a blank stare on his face. On my evaluation, he was quite somnolent but was eventually able to be aroused. He was able to state that he is in the hospital did not know which one. He was able to state his name but did not know the name of his . He also knew the date of his . He would quickly fall back to sleep and was difficult to keep awake. He did deny any pain and weakness when I was able to ask him. Initial vitals revealed temperature of 37.4, heart is elevated at 106. Blood pressure was also elevated in the 150s. He was not tachypneic and he was saturating well on room air. His labs were relatively unremarkable. He had no leukocytosis. His renal function was at baseline. His blood glucose elevated at 231. Urinalysis revealed small leukocyte esterase 11-25 WBCs along with rare bacteria and the presence of yeast. ER physician discussed obtaining a CT of the head with a but she declined as he has had many of those in the past. The patient was accompanied by a POLST form which states that he is a DNR and limited interventions only. History - Past Medical History Cardiovascular: reports: Hypertension, High cholesterol, Pulmonary embolism ([place]), Atrial fibrillation, Murmur, Arrhythmia Respiratory: reports: None Neuro: reports: Dementia (Vascular), CVA (right frontal), Seizure disorder Endocrine/Autoimmune: reports: Type 2 diabetes GI: reports: GERD FACILITIES FLIGHT CHECK PILOT: reports: None : reports: Benign prostate hypertrophy, Incontinence, Nocturia, Frequency HEENT: reports: Chronic vision loss, Chronic sinusitis, Chronic hearing loss Psych: reports: Depression Musculoskeletal: reports: Osteoarthritis, Fatigue Derm: reports: None MRSA Hx?: No Other Past Medical History: Pt. has POLST signed= DNR - Past Surgical History General: reports: Bowel surgery (bowel resection, S/P colon cancer), Colonoscopy, EGD Ortho: reports: Hip replacement (bilateral) HEENT: reports: Other Derm: reports: Other - Family & Social History Family History: Mother: , CAD, Father: Family History Comment/Other: Unable to obtain an updated family history but prior documentation reports that his mother at age 55 of a ruptured spleen and had CAD. His father in his 80's of old age. Living arrangement: At home Living Situation: With spouse/s.o. Social History Notes: Unable to update the social history as the patient is unable to provide information and I was unable to reach the . 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 He once before and his when he was 55. He has 3 children from that marriage who are in good health. He a second time and remains to [place]. He reports never being a cigarette smoker, no alcohol or drug abuse. - Substance History Use: Uses substance without health or social issues: NONE - POLST Patient has POLST: Yes POLST Status: DNR Meds/Allgy - Home Medications Home Medications: Ambulatory Orders Medication Instructions Recorded Confirmed Metformin HCl [Glucophage] 500 mg PO BIDWM 06/04/13 05/15/19 Rivaroxaban [Xarelto] 20 mg ORAL DAILYWM #30 12/10/17 05/15/19 levETIRAcetam [Levetiracetam] 500 mg PO BID #60 12/10/17 05/15/19 Cholecalciferol (Vitamin D3) 1,000 units PO DAILY 07/08/18 05/15/19 [Vitamin D3] Loratadine 20 mg PO DAILY 07/08/18 05/15/19 Sucralfate [Carafate] 1 gm PO BIDAC 07/08/18 05/15/19 Saccharomyces Boulardii [Florastor] 250 mg PO DAILY #5 capsule 07/10/18 05/15/19 Hydrocortisone 1% Oint 1 ea TOP BID PRN 08/08/18 05/15/19 [Hydrocortisone] - Allergies Allergies/Adverse Reactions: Allergies Allergy/AdvReac Type Severity Reaction Status Date / Time codeine AdvReac Intermediate Nausea Verified 05/15/19 02:30 memantine HCl * AdvReac Anxiety Verified 05/15/19 02:30 [From Namenda] Review of Systems - Constitutional Constitutional: denies: Weakness - Cardiovascular Cariovascular: denies: Chest pain - Respiratory Respiratory: denies: SOB at rest - All Other Systems All Other Systems: reports: Other (Review of systems is limited as the patient has dementia and currently appears altered and unable to provide a full review of systems.) Prior Level of Functionality: He lives with his at home. Per documentation in the ER, he requires assistance to get to the bathroom which his provides. Unclear if he uses a walker or cane at baseline. Exam - Vital Signs Reviewed Vital Signs: Yes Vital Signs: Vital Signs x48h Temp Pulse Resp BP Pulse Ox 05/15/19 05:39 37.0 C 90 18 147/76 H 97 05/15/19 04:28 37.1 C 90 13 133/71 H 99 05/15/19 03:58 96 16 136/74 H 94 05/15/19 03:10 103 H 17 126/63 94 05/15/19 02:24 37.4 C 106 H 22 153/79 H 94 - Physical Exam General Appearance: positive: No acute distress, Lethargic, Other (He is so mnolent and requires sternal rub to be aroused. He does appear to be quite hard of hearing. Falls back to sleep quickly.) Eyes Bilateral: positive: Normal inspection ENT: positive: ENT inspection nml, Dry mucous membranes Neck: positive: Nml inspection Respiratory: positive: No respiratory distress, Other (Diminished breath sounds in the bases although he is unable to take a deep breath.). negative: Wheezes, Rales Cardiovascular: positive: Regular rate & rhythm, No murmur. negative: Tachycardia, Bradycardia, Systolic murmur, Diastolic murmur Abdomen: positive: Nml bowel sounds. negative: No distention (His abdomen is distended.), Tenderness, Guarding, Rebound Skin: positive: No rash, Warm, Dry Extremities: positive: No pedal edema Neurologic/Psychiatric: positive: Disoriented to time, Other (He is oriented to self and location. Unable to state the name of his . He is able to move all 4 extremities when asked although with limited range of motion. He is quite lethargic and falls back to sleep quickly. No obvious focal motor deficits.). negative: Disoriented to person, Disoriented to place Conclusion/Plan - Problem List (1) Altered mental status Conclusion/Plan: Does appear quite lethargic at this time although when he does awaken, he is oriented to self and location. I was unable to obtain collateral history from his so unclear if this is his baseline or this is an acute change. This may be secondary to the suspected urinary tract infection or dehydration. We will continue him on empiric IV antibiotics and IV saline. Once again, his decline a repeat CT of the head as he had had many of these in the past. Will consult PT. Qualifiers: Altered mental status type: somnolence Qualified Code(s): R40.0 - Somnolence (2) Generalized weakness Conclusion/Plan: Per the ER physician, the was concerned he will become weaker over the past few days and was not able to get out of bed. This once again may be secondary to his UTI or dehydration. No other obvious source of infection. We will continue antibiotics and hydrated with saline. Will ask PT to evaluate the patient. Check EKG and troponin to rule out a cardiac etiology. (3) UTI (urinary tract infection) Conclusion/Plan: His urinalysis is suggestive of an infection. He does have leukocyte esterase and WBCs there is also rare bacteria and yeast. His prior cultures were all polymicrobial. This may potentially be similar but given his presenting symptoms, we will continue him on IV ceftriaxone and follow-up the urine culture. Qualifiers: Urinary tract infection type: acute cystitis Hematuria presence: without hematuria Qualified Code(s): N30.00 - Acute cystitis without hematuria (4) Dehydration Conclusion/Plan: He does appear hypervolemic on exam although his renal function is at baseline and he is not hypotensive. We will continue him on IV saline as this may be contributing to his presentation. (5) Advanced dementia Conclusion/Plan: He does have dementia but it is unclear what his baseline is at the moment. Prior notes state that he is oriented to self and location and speaks in 1-2 word sentences. I did attempt to call his to see if there has been a change his mental status or if this is just weakness but has unable to reach her. (6) DM2 (diabetes mellitus, type 2) Conclusion/Plan: He is on metformin at home. His blood glucose is elevated at greater than 200. We will start him on sliding scale and consistent carb diet. (7) History of CVA (cerebrovascular accident) Conclusion/Plan: Has prior history of stroke and is only on Xarelto. Will need to confirm with pharmacy that he is not on a statin at home. Continue Xarelto for now. (8) Hx of seizure disorder Conclusion/Plan: His presentation does not appear to be a seizure. We will continue him on his home Keppra dose. (9) History of pulmonary embolism Conclusion/Plan: Stable. Continue Xarelto. - Lab Results Lab results reviewed: Yes Fish Bones: 05/15/19 02:25 05/15/19 02:25 - Diagnostic Imaging Results Diagnostic Imaging Results: positive: Final report reviewed, Read independently Diagnostic Imaging Results Comments: No obvious acute infiltrate. He does have atelectasis which appears similar to prior chest x-ray from earlier this year. Core Measures - Anticipated LOS I expect patient to be DC'd or transferred within 96 hours.: Yes - Issues Hospital Issues and Management Plan: This is a 88-year-old gentleman with suspected altered mental status and generalized weakness admitted for further work-up. He does appear dehyrdated and we will manage this with IV fluids. Urinalysis suggestive of infection and will start him on antibiotics. - DVT/VTE - Prophylaxis VTE/DVT Device ordered at admit?: Yes VTE/DVT Prophylaxis med ordered at admit?: No Not Ordered - Medical Reason: Not indicated
[2019-05-15] MEDS: SODIUM CHLORIDE FLUSH 0.9% 10 ML SYRINGE IVP SCH ×3 (06:52→16:47)
[2019-05-15] MEDS: INSULIN ASPART 300 UNIT/3 ML PEN SUBQ SCH ×4 (07:42→20:48)
[2019-05-15] MEDS ORDERED: hydrALAZINE INJ 20 MG/ML VIAL IVP PRN (08:17)
[2019-05-15 08:47] LABS: HB2 TOTAL 13.9 g/dL; HEMOGLOBIN A1C 0.69 g/dL; HEMOGLOBIN A1C % 6.7 % (4.6-6.2)
[2019-05-15] MEDS: SACCHAROMYCES BOULARDII 250 MG CAPSULE PO SCH ×2 (09:50→20:44)
[2019-05-15] MEDS: levETIRAcetam 250 MG TABLET PO SCH ×2 (09:51→20:44)
[2019-05-15] MEDS: SUCRALFATE 1 GM/10 ML UDC PO SCH ×2 (09:51→16:46)
[2019-05-15] MEDS: PANTOPRAZOLE 40 MG TABLET PO SCH (09:53)
--- NOTE | 2019-05-15 10:18 | PHARMACY PROGRESS NOTE ---
- Monitoring Indication for anticoagulation: History of PE Previous home regime: Rivaroxaban 20mg every evening with dinner Potentially interacting medications: none at time of writing Other anticoagulation: None Risk factors for bleed: Hypertension, History of stroke, Age >65, Diabetes, Other (dementia, seizure disorder) - Recommendations Dosing: Anticoagulation Monitoring 05/15/19 02:25 Hgb 13.2 L Hct 40.9 L Last Dose Given: 20mg 05/14 S&S of bleeding:none noted Pharmacy recommendation: Continue current regime
[2019-05-15] MEDS ORDERED: RIVAROXABAN 10 MG TABLET PO SCH (17:00)
[2019-05-16] MEDS: SODIUM CHLORIDE FLUSH 0.9% 10 ML SYRINGE IVP SCH ×2 (00:05→08:28)
[2019-05-16 05:19] LABS: BASOPHILS % (AUTO) 0.2 %; EOSINOPHILS # (AUTO) 0.1 10^3/uL (0.0-0.7); EOSINOPHILS % (AUTO) 1.7 %; HGB - HEMOGLOBIN 11.7 g/dL (14.0-18.0); LYMPHOCYTES # (AUTO) 0.5 10^3/uL (1.5-3.5); LYMPHOCYTES % (AUTO) 9.8 %; MEAN CORPUSCULAR HGB CONC 32.5 g/dL (32.0-36.0); MEAN CORPUSCULAR VOLUME 98.4 fL (80.0-94.0); MEAN PLATELET VOLUME 9.3 fL (7.4-11.4); MONOCYTES # (AUTO) 0.3 10^3/uL (0.0-1.0); MONOCYTES % (AUTO) 6.6 %; NEUTROPHILS # (AUTO) 3.8 10^3/uL (1.5-6.6); NEUTROPHILS % (AUTO) 81.1 %; PLT - PLATELET COUNT 149 10^3/uL (130-450); RED BLOOD COUNT 3.66 10^6/uL (4.70-6.10); RED CELL DISTRIBUTION WIDTH 13.8 % (12.0-15.0); WHITE BLOOD COUNT 4.7 x10^3/uL (4.8-10.8)
[2019-05-16 05:35] LABS: CALCIUM 8.6 mg/dL (8.5-10.3); CREATININE 0.7 mg/dL (0.6-1.2); MAGNESIUM 1.9 mg/dL (1.7-2.8)
[2019-05-16] MEDS: SODIUM CHLORIDE FLUSH 0.9% 10 ML SYRINGE IVP PRN ×2 (05:55→06:26)
[2019-05-16] MEDS: PANTOPRAZOLE 40 MG TABLET PO SCH (06:00)
[2019-05-16] MEDS ORDERED: cefTRIAXone 1 GM in SODIUM CHLORIDE 0.9% MINIBAG 100 ML IV SCH (06:00)
[2019-05-16] MEDS: SUCRALFATE 1 GM/10 ML UDC PO SCH (06:01)
[2019-05-16] MEDS: levETIRAcetam 250 MG TABLET PO SCH (08:28)
[2019-05-16] MEDS: INSULIN ASPART 300 UNIT/3 ML PEN SUBQ SCH ×2 (08:28→11:55)
[2019-05-16] MEDS: SACCHAROMYCES BOULARDII 250 MG CAPSULE PO SCH (08:28)
[2019-05-16 10:14] VITALS: BP 151/65
--- NOTE | 2019-05-16 10:31 | Discharge Plan ---
Discharge Plan Problem Reviewed?: Yes Disposition: Home, Self Care Condition: Stable Diet: Diabetic Activity Restrictions: Activity as Tolerated Shower Restrictions: No (fall precaution) Instruction Topics: UTI Health Concerns: UTI, weakness Plan of Treatment: Your UA culture is negative for pathological bacteria, it is likely from normal human beck. It is great improvement that You walked with PT in the hillway without difficulty. Care Goals: stabilization and improvement of your medical condition. Assessment: you are stable now Additional Instructions or Follow Up instructions: You may followup your PCP in 1-2 weeks. Should your symptoms return or worsen, you may present ER or call 911 for help No Smoking: If you smoke, Please STOP! Call for help. Follow-up with: Damaso Iverson MD [Primary Care Provider] -
--- NOTE | 2019-05-16 10:36 | DISCHARGE SUMMARY ---
Discharge Summary Admit Date: 05/15/19 Discharge Date: 05/16/19 Discharging Provider: DELUCA Primary Care Provider: Dr. Damaso Iverson Condition at Discharge: Stable Discharge Disposition: 01 Home, Self Care Discharge Facility Name: home - DIAGNOSES Admission Diagnoses: (1) Altered mental status (2) Generalized weakness (3) UTI (urinary tract infection) (4) Dehydration (5) Advanced dementia (6) DM2 (diabetes mellitus, type 2) (7) History of CVA (cerebrovascular accident) (8) Hx of seizure disorder (9) History of pulmonary embolism Discharge Diagnoses with Status of Each Condition: (1) Altered mental status resolved as pt's baseline (2) Generalized weakness resolved. pt walked with PT in the [place] without difficult (3) UTI (urinary tract infection) resolved. pt's UA culture reveals contamination of normal beck as his previous multiple times of admission. pt has no elevated WBC, no fever or chill. (4) Dehydration resolved (5) Advanced dementia stable (6) DM2 (diabetes mellitus, type 2) stable (7) History of CVA (cerebrovascular accident) stable (8) Hx of seizure disorder stable (9) History of pulmonary embolism stable, continue home meds - HPI History of Present Illness: refer from Dr. Vogt's HPI on 05/15/19 This is 88-year-old male with a past medical history significant for prior history of stroke, dementia, seizure disorder on Keppra, history of pulmonary embolism on Xarelto, and diabetes who presents today from home after his noticed he had become increasingly weaker. History is obtained from the ER physician and review of [facility] as the patient is unable to provide history due to his mental status and is not present at bedside. I did attempt to call her but there was no answer. The patient does have dementia and usually speaks in 1-2 word sentences. It is unclear whether he ambulates with a walker or cane at baseline but that he is able to get out of bed and usually ambulates to the bathroom with assistance from his . She noted that last night he was unable to sit up in bed. In the emergency department, he was initially not speaking and just had a blank stare on his face. On my evaluation, he was quite somnolent but was eventually able to be aroused. He was able to state that he is in the hospital did not know which one. He was able to state his name but did not know the name of his . He also knew the date of his . He would quickly fall back to sleep and was difficult to keep awake. He did deny any pain and weakness when I was able to ask him. Initial vitals revealed temperature of 37.4, heart is elevated at 106. Blood pressure was also elevated in the 150s. He was not tachypneic and he was saturating well on room air. His labs were relatively unremarkable. He had no leukocytosis. His renal function was at baseline. His blood glucose elevated at 231. Urinalysis revealed small leukocyte esterase 11-25 WBCs along with rare bacteria and the presence of yeast. ER physician discussed obtaining a CT of the head with a but she declined as he has had many of those in the past. The patient was accompanied by a POLST form which states that he is a DNR and limited interventions only. - HOSPITAL COURSE Hospital Course: pt was admitted for weakness, altered mental status. after treatment, pt's mental status return as his baseline. UA culture reveals contamination as normal beck as his previous multiple times of admission. pt has no elevated WBC, no fever or chill. pt walked with PT in the [place] without difficult. The detail hospital course is as the below. (1) Altered mental status resolved as pt's baseline (2) Generalized weakness resolved. pt walked with PT in the [place] without difficult (3) UTI (urinary tract infection) resolved. pt's UA culture reveals contamination of normal beck as his previous multiple times of admission. pt has no elevated WBC, no fever or chill. (4) Dehydration resolved (5) Advanced dementia stable (6) DM2 (diabetes mellitus, type 2) stable (7) History of CVA (cerebrovascular accident) stable (8) Hx of seizure disorder stable (9) History of pulmonary embolism stable, continue home meds - ALLERGIES Allergies/Adverse Reactions: Allergies Allergy/AdvReac Type Severity Reaction Status Date / Time codeine AdvReac Intermediate Nausea Verified 05/15/19 02:30 memantine HCl * AdvReac Anxiety Verified 05/15/19 02:30 [From Namenda] - MEDICATIONS Home Medications: Ambulatory Orders Medication Instructions Recorded Confirmed Metformin HCl [Glucophage] 500 mg PO BIDWM 06/04/13 05/15/19 Rivaroxaban [Xarelto] 20 mg ORAL DAILYWM #30 12/10/17 05/15/19 levETIRAcetam [Levetiracetam] 500 mg PO BID #60 12/10/17 05/15/19 Cholecalciferol (Vitamin D3) 1,000 units PO DAILY 07/08/18 05/15/19 [Vitamin D3] Loratadine 20 mg PO DAILY 07/08/18 05/15/19 Sucralfate [Carafate] 1 gm PO BIDAC 07/08/18 05/15/19 Saccharomyces Boulardii [Florastor] 250 mg PO DAILY #5 capsule 07/10/18 05/15/19 Hydrocortisone 1% Oint 1 ea TOP BID PRN 08/08/18 05/15/19 [Hydrocortisone] - PHYSICAL EXAM AT DISCHARGE General Appearance: positive: No acute distress, Alert. negative: Lethargic Eyes Bilateral: positive: Normal inspection, PERRL, EOMI, No lid inflammation ENT: positive: ENT inspection nml, Pharynx nml, No signs of dehydration. negative: Purulent nasal drainage Neck: positive: Nml inspection, Thyroid nml, No JVD, Trachea midline. negative: Thyromegaly, Lymphadenopathy (R), Lymphadenopathy (L), Stiff neck, Tracheal deviation Respiratory: positive: Chest non-tender, No respiratory distress, Breath sounds nml. negative: Wheezes, Rales, Rhonchi Cardiovascular: positive: Regular rate & rhythm, No murmur, No gallop. negative: Irregularly irregular, Extrasystoles, Tachycardia, Bradycardia, JVD present, Systolic murmur, Diastolic murmur Peripheral Pulses: positive: 2+ Abdomen: positive: Non-tender, No organomegaly, Nml bowel sounds, No distention. negative: Tenderness, Guarding, Rebound Back: positive: Nml inspection. negative: CVA tenderness (R), CVA tenderness (L) Skin: positive: Color nml, No rash, Warm, Dry. negative: Cyanosis, Diaphoresis, Pallor Extremities: positive: Non-tender, Full ROM, Nml appearance. negative: Calf tenderness, Joint swelling, Osmani's sign/cords Neurologic/Psychiatric: positive: Motor nml, Sensation nml, Mood/affect nml. negative: Weakness, Sensory loss, Facial droop, Slurred/abnml speech, Depressed mood/affect - LABS Result Diagrams: 05/16/19 04:45 05/16/19 04:45 - FOLLOW UP Follow Up: Your UA culture is negative for pathological bacteria, it is likely from normal human beck. It is great improvement that You walked with PT in the [place]way without difficulty. You may followup your PCP in 1-2 weeks. Should your symptoms return or worsen, you may present ER or call 911 for help - TIME SPENT Time Spent in Discharge (Minutes): 45
== END 2019-05-16 12:24 | disposition home or self-care (01) ==
LOC: EDUNIT# → ED 02:16 → MS2 05:24
PROVIDERS: ADMIT Internal Medicine; ATTEND Nurse Practitioner Gerontology
DX: E86.0 Dehydration (principal); I10 Essential (primary) hypertension; E11.9 Type 2 diabetes mellitus without complications; F01.50 Vascular dementia, unspecified severity, without behavioral disturbance, psychotic disturbance, mood disturbance, and anxiety; G40.909 Epilepsy, unspecified, not intractable, without status epilepticus; I48.91 Unspecified atrial fibrillation; H91.93 Unspecified hearing loss, bilateral; N40.1 Benign prostatic hyperplasia with lower urinary tract symptoms; N39.498 Other specified urinary incontinence; R35.0 Frequency of micturition; R35.1 Nocturia; K21.9 Gastro-esophageal reflux disease without esophagitis; Z79.84 Long term (current) use of oral hypoglycemic drugs; Z79.01 Long term (current) use of anticoagulants; Z79.899 Other long term (current) drug therapy; Z51.5 Encounter for palliative care; Z86.73 Personal history of transient ischemic attack (TIA), and cerebral infarction without residual deficits; Z86.711 Personal history of pulmonary embolism; Z66 Do not resuscitate; Z85.038 Personal history of other malignant neoplasm of large intestine; Z90.49 Acquired absence of other specified parts of digestive tract
CPT/HCPCS: 36415; 51701; 71045; 80048; 80053; 80177; 81001; 83036; 83605; 83690; 83735; 84484; 85025; 87086; 93005; 96361; 96365; 96375; 97161; 99284; 99285; A9270; G0378; 81003

== ENCOUNTER 2019-05-26 03:31 | Outpatient (CLI) | payer MEDICARE | END 2019-05-26 03:32 | disposition critical access hospital (66) | LOC: EMS 03:31 | PROVIDERS: ATTEND Surgery | DX: R41.82 Altered mental status, unspecified (principal) | CPT/HCPCS: A0425; A0427 ==

== ENCOUNTER 2019-05-26 03:37 | Emergency (ER) | payer MEDICARE ==
[2019-05-26 04:00] LABS: BILIRUBIN,URINE NEGATIVE (NEGATIVE); GLUCOSE, URINE (UA) NEGATIVE (NEGATIVE); KETONES,URINE (UA) NEGATIVE (NEGATIVE); LEUKOCYTE ESTERASE, URINE MODERATE (NEGATIVE); NITRITE,URINE NEGATIVE (NEGATIVE); OCCULT BLOOD,URINE TRACE-LYSE (NEGATIVE); PH,URINE 6.5 PH (5.0-7.5); PROTEIN,URINE TRACE mg/dL (NEGATIVE); UROBILINOGEN,URINE 0.2 (NORMAL) E.U./dL (NORMAL)
[2019-05-26 04:02] LABS: CLARITY,URINE SL. CLOUDY (CLEAR)
[2019-05-26 04:06] LABS: BACTERIA,URINE Rare /HPF (None Seen); RBC,URINE 0-5 /HPF (0-5); SQUAMOUS EPITHELIAL CELL,UR NONE SEEN (<= Few)
[2019-05-26] MEDS ORDERED: SODIUM CHLORIDE 0.9% 1,000 ML IV ONE ×2 (04:06→06:29)
[2019-05-26 04:11] LABS: BASOPHILS % (AUTO) 0.3 %; EOSINOPHILS # (AUTO) 0.1 10^3/uL (0.0-0.7); EOSINOPHILS % (AUTO) 3.3 %; HGB - HEMOGLOBIN 13.2 g/dL (14.0-18.0); LYMPHOCYTES # (AUTO) 0.5 10^3/uL (1.5-3.5); MEAN CORPUSCULAR HEMOGLOBIN 31.7 pg (27.0-31.0); MEAN CORPUSCULAR HGB CONC 31.9 g/dL (32.0-36.0); MEAN CORPUSCULAR VOLUME 99.3 fL (80.0-94.0); MEAN PLATELET VOLUME 8.8 fL (7.4-11.4); MONOCYTES # (AUTO) 0.3 10^3/uL (0.0-1.0); MONOCYTES % (AUTO) 8.5 %; NEUTROPHILS # (AUTO) 2.1 10^3/uL (1.5-6.6); NEUTROPHILS % (AUTO) 70.2 %; PLT - PLATELET COUNT 198 10^3/uL (130-450); RED BLOOD COUNT 4.17 10^6/uL (4.70-6.10); RED CELL DISTRIBUTION WIDTH 13.7 % (12.0-15.0); WHITE BLOOD COUNT 3.1 x10^3/uL (4.8-10.8)
--- NOTE | 2019-05-26 04:18 | ED Physician Documentation ---
PD HPI SEIZURE - Stated complaint Stated Complaint: SZ - Chief complaint Chief Complaint: Neuro - History obtained from History obtained from: Friend, EMS - History of Present Illness Timing - onset: Today Witnessed: Witnessed Number of seizures: Single Description of seizure activity: Generalized Associated symptoms: None History of seizures: Known seizure disorder Similar symptoms before: Diagnosis (seizure disorder with dehydration and urinary tract infection.) - Additional information Additional information: [id number]-year-old male with advanced dementia and a known seizure disorder as well as a prior PE on Xarelto, a history of hypertension and type 2 diabetes as well as frequent urinary tract infections is being watched by family friends and neighbors while his is on vacation. He requires 24/7 care and has recently been admitted to the hospital for dehydration and urinary tract infection, recovered rapidly. He was in his usual state of health which is limited interaction and eating well. The friend who was staying with the patient noted a screaming and went to investigate found the patient seizing and when he finished seizing the medics were there and brought the patient to the hospital. The patient has been getting his medications regularly and has been eating well. He watched the football game yesterday and did make some comments about the game. He usually is able to speak in 1-2 word sentences and has a poor level of consciousness. 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 : Benign prostate hypertrophy, Incontinence, Nocturia, Frequency HEENT: Chronic vision loss, Chronic sinusitis, Chronic hearing loss Psych: Depression Musculoskeletal: Osteoarthritis, Fatigue Derm: None - Past Surgical History Past Surgical History: Yes General: Bowel surgery, Colonoscopy, EGD Ortho: Hip replacement HEENT: Other Derm: Other - Present Medications Home Medications: Ambulatory Orders Medication Instructions Recorded Confirmed Metformin HCl [Glucophage] 500 mg PO BIDWM 06/04/13 05/15/19 Rivaroxaban [Xarelto] 20 mg ORAL DAILYWM #30 12/10/17 05/15/19 levETIRAcetam [Levetiracetam] 500 mg PO BID #60 12/10/17 05/15/19 Cholecalciferol (Vitamin D3) 1,000 units PO DAILY 07/08/18 05/15/19 [Vitamin D3] Loratadine 20 mg PO DAILY 07/08/18 05/15/19 Sucralfate [Carafate] 1 gm PO BIDAC 07/08/18 05/15/19 Saccharomyces Boulardii [Florastor] 250 mg PO DAILY #5 capsule 07/10/18 05/15/19 Hydrocortisone 1% Oint 1 ea TOP BID PRN 08/08/18 05/15/19 [Hydrocortisone] Sulfamethox/Trimeth 800/160 1 each PO BID #14 tablet 05/26/19 [Bactrim Ds 800/160] - Allergies Allergies/Adverse Reactions: Allergies Allergy/AdvReac Type Severity Reaction Status Date / Time codeine AdvReac Intermediate Nausea Verified 05/26/19 04:02 memantine HCl * AdvReac Anxiety Verified 05/26/19 04:02 [From Namenda] - Social History Does the pt smoke?: No Smoking Status: Never smoker Does the pt drink ETOH?: No Does the pt have substance abuse?: No - Immunizations Immunizations are current?: No - POLST Patient has POLST: Yes POLST Status: DNR PD ED PE NORMAL - Vitals Vital signs reviewed: Yes (hypertensive ) - General General: No acute distress, Well developed/nourished, Other (opens eyes and asks who is that) - HEENT HEENT: Atraumatic, PERRL, EOMI - Neck Neck: Supple, no meningeal sign, No bony TTP - Cardiac Cardiac: RRR, No murmur - Respiratory Respiratory: No respiratory distress, Clear bilaterally - Abdomen Abdomen: Soft, Non tender, No organomegaly - Back Back: No CVA TTP, No spinal TTP - Derm Derm: Normal color, Warm and dry, No rash - Extremities Extremities: No deformity, No edema - Neuro 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: 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, No motor deficit, No sensory deficit Eye Opening: Spontaneous Motor: Obeys Commands Verbal: Confused GCS Score: 14 - Psych Psych: Normal mood, Normal affect Results - Vitals Vitals: Vital Signs - 24 hr 05/26/19 05/26/19 05/26/19 03:37 03:59 04:58 Temperature 36.4 C L Heart Rate 72 83 Respiratory 14 16 Rate Blood Pressure 194/84 H 194/84 H O2 Saturation 95 97 05/26/19 05/26/19 05/26/19 05:19 05:52 06:59 Temperature Heart Rate 85 92 80 Respiratory 15 15 16 Rate Blood Pressure 168/85 H 145/75 H 157/80 H O2 Saturation 99 98 100 Oxygen O2 Source Nasal cannula - EKG (time done) 0342 Rate: Rate (enter#) (72) Rhythm: NSR [place]: LAD Intervals: RBBB Compare to prior EKG: Unchanged from prior EKG (SPT 05-15-2019 no sig change) Computer interpretation: Agree with computer - Labs Labs: Laboratory Tests 05/26/19 05/26/19 05/26/19 03:55 04:00 04:00 WBC 3.1 L RBC 4.17 L Hgb 13.2 L Hct 41.4 L MCV 99.3 H MCH 31.7 H MCHC 31.9 L RDW 13.7 Plt Count 198 MPV 8.8 Neut # (Auto) 2.1 Lymph # (Auto) 0.5 L [place] # (Auto) 0.3 Eos # (Auto) 0.1 Baso # (Auto) 0.0 Absolute Nucleated RBC 0.00 Nucleated RBC % 0.0 Sodium 141 Potassium 4.1 Chloride 104 Carbon Dioxide 27 Anion Gap 10.0 BUN 17 Creatinine 0.9 Estimated GFR (MDRD) 80 L Glucose 178 H Calcium 9.4 Total Bilirubin 0.5 AST 24 ALT 17 Alkaline Phosphatase 75 Total Protein 7.1 Albumin 3.9 Globulin 3.2 Albumin/Globulin Ratio 1.2 Lipase 33 Urine Color YELLOW Urine Clarity SL. CLOUDY Urine pH 6.5 Ur Specific [place] 1.015 Urine Protein TRACE Urine Glucose (UA) NEGATIVE Urine Ketones NEGATIVE Urine Occult Blood TRACE-LYSE Urine Nitrite NEGATIVE Urine Bilirubin NEGATIVE Urine Urobilinogen 0.2 (NORMAL) Ur Leukocyte Esterase MODERATE H Urine RBC 0-5 Urine WBC 6-10 H Ur Squamous Epith Cells NONE SEEN Urine Bacteria Rare Ur Microscopic Review INDICATED Urine Culture Comments INDICATED Procedures - IVC sono (time) 0415 Bedside IVC sono: IVC measures (cm) (0.93), Dehydration (est deficit of 1-2 liters) PD MEDICAL DECISION MAKING - ED course Complexity details: reviewed old records, reviewed results, re-evaluated patient, considered differential, d/w patient, d/w family ED course: 88-year-old male with a known seizure disorder has urinary tract infection and he is dehydrated again today. He has had admission to the hospital for similar situation previously and recovered rapidly I do not believe hospitalization is required at this time. He is administered saline 1 L intravenously as well as Rocephin. The patient does have another seizure here in the form and and he is administered Ativan 2 mg intravenously and falls asleep very deeply. He is administered a second liter of saline. The neighbor who is taking care of him during the day indicates that he has been giving him his medications regularly he has not taking in adequate amounts of fluid. He does state that he has periods of time during the day where he is lucid and taking care of things in the house. The patient's will be home this evening. Previously multiple urine cultures have grown inadequate colonies of what appears to be contamination. Today his urine specimen is obtained on a catheterized specimen and there is evidence of infection with white blood cells and bacteria. At shift change the patient is sleeping soundly and getting a second liter of saline. His care is turned over to Dr. Sissy Gomez and the expectation is that he will wake up and be improved enough to go home with his senior care manager. Departure - Departure Clinical Impression: Dehydration, Breakthrough seizure Urinary tract infection Qualifiers: Urinary tract infection type: acute cystitis Hematuria presence: without hematuria Qualified Code(s): N30.00 - Acute cystitis without hematuria Condition: Stable Instructions: ED Dehydration, ED Seizure Recurrent, ED UTI Cystitis Male Follow-Up: Damaso Iverson MD [Provider Admit Priv/Credential] - Prescriptions: Sulfamethox/Trimeth 800/160 [Bactrim Ds 800/160] 1 each PO BID #14 tablet
[2019-05-26] MEDS ORDERED: cefTRIAXone 1 GM in SODIUM CHLORIDE 0.9% MINIBAG 100 ML IV STA (04:19)
[2019-05-26 04:22] LABS: ALBUMIN 3.9 g/dL (3.2-5.5); ALBUMIN/GLOBULIN RATIO 1.2 (1.0-2.2); BILIRUBIN,TOTAL 0.5 mg/dL (0.2-1.0); CALCIUM 9.4 mg/dL (8.5-10.3); CREATININE 0.9 mg/dL (0.6-1.2); TOTAL PROTEIN 7.1 g/dL (6.7-8.2)
[2019-05-26] MEDS ORDERED: LORazepam 2 MG/ML VIAL ONE (05:09)
[2019-05-26] MEDS ORDERED: LORazepam 2 MG/ML VIAL IVP STA (05:09)
--- NOTE | 2019-05-26 15:23 | CT Report ---
Reason: altered mental status Procedure Date: 05/26/2019 Accession Number: [id number] / [id number] Procedure: CT - HEAD WO CPT Code: Final Report FULL RESULT: EXAM: CT HEAD EXAM DATE: 05/26/2019 02:57 PM. CLINICAL HISTORY: Altered mental status. COMPARISON: HEAD W/O 05/11/2018 11:01 AM. TECHNIQUE: Multiaxial CT images were obtained from the foramen magnum to the vertex. Reformats: Sagittal and coronal. IV contrast: None. In accordance with CT protocol optimization, one or more of the following dose reduction techniques were utilized for this exam: automated exposure control, adjustment of mA and/or KV based on patient size, or use of iterative reconstructive technique. FINDINGS: Parenchyma: Diffuse early atrophy. 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 Persistent larger focus of hypoattenuation in the right frontal location, measuring 14 mm (image 21 and series 8), unchanged since 2417. Differentials include microangiopathic disease versus a demyelinating plaque; chronic finding. No intraparenchymal hemorrhage. No evidence of mass, midline shift, or CT findings of infarction. Centeno-white differentiation is distinct. Extraaxial Spaces: Normal for age. No subdural or epidural collections identified. Ventricles: Normal in size and position. Sinuses and Orbits: Imaged paranasal sinuses, orbits, and mastoids show no significant abnormality. Bones: No evidence of fracture or calvarial defect. Other: None. IMPRESSION: Senescent changes as described above. No acute intracranial abnormality. RADIA
[2019-05-26 19:30] VITALS: BP 193/77
--- NOTE | 2019-05-26 19:35 | ED Physician Documentation ---
ED Addendum - Addendum Addendum: 05/26/19 19:34 Signed out to me by Dr. Gomez. Briefly this is an 88-year-old gentleman with dementia who has a mild UTI and a seizure today which is a recurrent issue. The was at the bedside and felt like he was back at his baseline and was happy to take him home. He had already received some IV Rocephin and was given a prescription for antibiotics. He ambulated in the department at his baseline.
== END 2019-05-26 19:37 | disposition home or self-care (01) ==
LOC: EDUNIT# → ED 03:37
DX: E86.0 Dehydration (principal); G40.909 Epilepsy, unspecified, not intractable, without status epilepticus; N30.00 Acute cystitis without hematuria; F03.90 Unspecified dementia, unspecified severity, without behavioral disturbance, psychotic disturbance, mood disturbance, and anxiety; I45.2 Bifascicular block; I10 Essential (primary) hypertension; E11.9 Type 2 diabetes mellitus without complications; Z79.84 Long term (current) use of oral hypoglycemic drugs; Z86.73 Personal history of transient ischemic attack (TIA), and cerebral infarction without residual deficits; Z86.711 Personal history of pulmonary embolism; Z79.01 Long term (current) use of anticoagulants
CPT/HCPCS: 36415; 70450; 80053; 81001; 83690; 85025; 87086; 93005; 96361; 96365; 96375; 99285; J2060; 81003

== ENCOUNTER 2019-07-30 17:23 | Outpatient (CLI) | payer MEDICARE | END 2019-07-30 17:24 | disposition critical access hospital (66) | LOC: EMS 17:23 | PROVIDERS: ATTEND Surgery | DX: R56.9 Unspecified convulsions (principal); R53.1 Weakness | CPT/HCPCS: A0425; A0429 ==

== ENCOUNTER 2019-07-30 17:25 | Emergency (ER) | payer MEDICARE ==
--- NOTE | 2019-07-30 17:37 | ED Physician Documentation ---
PD HPI SEIZURE - Stated complaint Stated Complaint: SZ - History obtained from History obtained from: EMS (89-year-old gentleman with history of seizure disorder. does not immediately accompany him on arrival but per the paramedics he had a seizure today which per their understanding from the is almost always associated with a UTI. The wishes that accompany him are that she does not want advanced interventions or head CT, it sounds like they just want urine checked. 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 : Benign prostate hypertrophy, Incontinence, Nocturia, Frequency HEENT: Chronic vision loss, Chronic sinusitis, Chronic hearing loss Psych: Depression Musculoskeletal: Osteoarthritis, Fatigue Derm: None - Past Surgical History Past Surgical History: Yes General: Bowel surgery, Colonoscopy, EGD Ortho: Hip replacement HEENT: Other Derm: Other - Present Medications Home Medications: Ambulatory Orders Medication Instructions Recorded Confirmed Metformin HCl [Glucophage] 500 mg PO BIDWM 06/04/13 05/15/19 Rivaroxaban [Xarelto] 20 mg ORAL DAILYWM #30 12/10/17 05/15/19 levETIRAcetam [Levetiracetam] 500 mg PO BID #60 12/10/17 05/15/19 Cholecalciferol (Vitamin D3) 1,000 units PO DAILY 07/08/18 05/15/19 [Vitamin D3] Loratadine 20 mg PO DAILY 07/08/18 05/15/19 Sucralfate [Carafate] 1 gm PO BIDAC 07/08/18 05/15/19 Saccharomyces Boulardii [Florastor] 250 mg PO DAILY #5 capsule 07/10/18 05/15/19 Hydrocortisone 1% Oint 1 ea TOP BID PRN 08/08/18 05/15/19 [Hydrocortisone] Sulfamethox/Trimeth 800/160 1 each PO BID #14 tablet 05/26/19 [Bactrim Ds 800/160] Nitrofurantoin Monohyd/M-Cryst 100 mg PO BID #14 capsule 07/30/19 [Macrobid 100 mg Capsule] - Allergies Allergies/Adverse Reactions: Allergies Allergy/AdvReac Type Severity Reaction Status Date / Time codeine AdvReac Intermediate Nausea Verified 05/26/19 04:02 memantine HCl * AdvReac Anxiety Verified 05/26/19 04:02 [From Namebeccaa] - Social History Does the pt smoke?: No Smoking Status: Never smoker Does the pt drink ETOH?: No Does the pt have substance abuse?: No - Immunizations Immunizations are current?: No - POLST Patient has POLST: Yes POLST Status: DNR PD ED PE NORMAL - Vitals Vital signs reviewed: Yes - General General: No acute distress, Other (He is alert and oriented to person but not place or time, he does follow simple commands.) - HEENT HEENT: PERRL, EOMI - Neck Neck: Supple, no meningeal sign, No bony TTP - Respiratory Respiratory: No respiratory distress, Clear bilaterally - Abdomen Abdomen: Non tender - Extremities Extremities: No deformity, No tenderness to palpate, Normal ROM s pain, No edema, No calf tenderness / cord - Neuro Neuro: No motor deficit, No sensory deficit Results - Vitals Vitals: Vital Signs - 24 hr 07/30/19 07/30/19 17:28 17:58 Temperature 98.5 C H Heart Rate 96 93 Respiratory 14 16 Rate Blood Pressure 165/102 H 165/102 H O2 Saturation 96 97 Oxygen O2 Source Room air - Labs Labs: Laboratory Tests 07/30/19 18:22 Urine Color YELLOW Urine Clarity CLEAR Urine pH 7.0 Ur Specific [place] 1.015 Urine Protein 30 H Urine Glucose (UA) NEGATIVE Urine Ketones NEGATIVE Urine Occult Blood TRACE-INTA Urine Nitrite NEGATIVE Urine Bilirubin NEGATIVE Urine Urobilinogen 0.2 (NORMAL) Ur Leukocyte Esterase SMALL H Urine RBC 6 Urine WBC >25 H Ur Squamous Epith Cells NONE SEEN Urine Bacteria Few Ur Microscopic Review INDICATED Urine Culture Comments INDICATED PD MEDICAL DECISION MAKING - ED course ED course: 89-year-old gentleman with seizure disorder, urine is positive per the 's suspicion, reviewed the cultures shows inconsistent growth, could be colonization. That said low risk in giving nitrofurantoin. Also had an itchy rash on the back of the popliteal fossa bilaterally, left worse than right. Nonspecific. Their doctor had already recommended try hydrocortisone which they have not started yet. Departure - Departure Disposition: 01 Home, Self Care Clinical Impression: Hx of seizure disorder Urinary tract infection Qualifiers: Urinary tract infection type: acute cystitis Hematuria presence: without hematuria Qualified Code(s): N30.00 - Acute cystitis without hematuria Condition: Good Record reviewed to determine appropriate education?: Yes Instructions: ED UTI Cystitis Male Prescriptions: Nitrofurantoin Monohyd/M-Cryst [Macrobid 100 mg Capsule] 100 mg PO BID #14 capsule Comments: Call your doctor to arrange a follow-up appointment, make the next available appointment. In the interim, return anytime if worse or if new symptoms develop. We will culture your urine, the results should be done in 48-72 hours. If an antibiotic change is necessary we will call you. Return if worse in the meantime, especially if you develop increasing flank pain, fevers, or cannot keep down the medication.
[2019-07-30 18:29] LABS: BILIRUBIN,URINE NEGATIVE (NEGATIVE); GLUCOSE, URINE (UA) NEGATIVE (NEGATIVE); KETONES,URINE (UA) NEGATIVE (NEGATIVE); LEUKOCYTE ESTERASE, URINE SMALL (NEGATIVE); NITRITE,URINE NEGATIVE (NEGATIVE); OCCULT BLOOD,URINE TRACE-INTA (NEGATIVE); PROTEIN,URINE 30 mg/dL (NEGATIVE); UROBILINOGEN,URINE 0.2 (NORMAL) E.U./dL (NORMAL)
[2019-07-30 18:32] LABS: CLARITY,URINE CLEAR (CLEAR)
[2019-07-30 18:46] LABS: BACTERIA,URINE Few /HPF (None Seen); RBC,URINE 6 /HPF (0-5); SQUAMOUS EPITHELIAL CELL,UR NONE SEEN (<= Few)
[2019-07-30] MEDS ORDERED: HYDROCORTISONE 1% CREAM 28 GM TUBE TOP STA (19:08)
[2019-07-30] MEDS ORDERED: NITROFURANTOIN MACRO 100 MG CAPSULE PO STA (19:08)
[2019-07-30 20:02] VITALS: BP 167/100
== END 2019-07-30 20:02 | disposition home or self-care (01) ==
LOC: EDUNIT# → ED 17:25
DX: G40.909 Epilepsy, unspecified, not intractable, without status epilepticus (principal); N30.00 Acute cystitis without hematuria; R21 Rash and other nonspecific skin eruption; F03.90 Unspecified dementia, unspecified severity, without behavioral disturbance, psychotic disturbance, mood disturbance, and anxiety; Z86.73 Personal history of transient ischemic attack (TIA), and cerebral infarction without residual deficits; Z79.01 Long term (current) use of anticoagulants; I10 Essential (primary) hypertension; E11.9 Type 2 diabetes mellitus without complications; Z79.84 Long term (current) use of oral hypoglycemic drugs; Z66 Do not resuscitate
CPT/HCPCS: 51701; 81001; 87086; 99281; 99283; A9270; 81003

== ENCOUNTER 2019-08-06 12:10 | Outpatient (CLI) | payer MEDICARE ==
--- NOTE | 2019-08-06 12:20 | CONSULTATION NOTE ---
Palliative Care Follow Up - Referral Referring Provider: Dr. Damaso Iverson Time of Visit: [id number] Referral setting: Assisted living ([facility]) Referral Reason: Dementia/UTI - Information Sources Records reviewed: Previous records reviewed History/Review of Systems obtained from: Patient, Family (, Joselin), Caregiver (facility staff) Exam limitations: Clinical condition (short term memor deficits due to dementia) - History of Present Illness Update Brief HPI Update: This is an 89-year-old gentleman who is seen in evaluation [facility] at [facility] where he is presently on a 2-week respite stay. He typically resides at home with his , Joselin, who is his primary caregiver. Joselin has become overwhelmed with the patient's overall functional decline and has found it difficult to care for him within the home. The , reports that he has declined in the last 4 years more significantly in the last few months. They do have some caregiving support but this continues to be a burden on the . She is constantly having to cue the patient and this is not always successful due to his vascular dementia. He has a history of frequent UTIs. In the setting of a urinary tract infection he will have a seizure. He is presently managed on Keppra. Prior to the berryen bessy's admission to [facility] for respite stay he was seen and evaluated in the emergency department after further deterioration and was found to have a urinary tract infection. He is presently completing a course of Macrobid. The has noticed some improvement in his cognitive awareness since the treatment of the urinary tract infection. The patient himself is aware that he is presently in assisted living due to the fact that his is having difficulty caring for him. He does desire to go home. Today, the patient is seen out of bed in a wheelchair completing his breakfast. His appetite has been fairly good at home place. He has not been ambulatory and overall at the facility as his walker is not present. The staff reports that he is "wobbly when he first stands up" and therefore they have been using the wheelchair. Past medical history includes vascular dementia, CVA, seizure disorder, hypertension, type 2 diabetes without insulin dependence, microcytic anemia, BPH, incontinence, chronic hearing loss, depression, osteoarthritis, saddle pulmonary emboli, frequent UTIs. Social History - Living Situation Living arrangement: Assisted living (2 [facility] respite at [facility]) Support System: Patient typically resides at home in a trailer with him in [place] with his 81-year-old overseeing his primary caregiving support. They do have res care for 20 hours/month. The herself has also hired additional caregiving support intermittently but this is a burden on their finances and she typically needs assistance for care in the evenings when most caregivers have not been able to provide assistance. He has a hospital bed that she received from the [facility] The patient and his Joselin have been since 1990, second marriage for both of them. The patient has 3 adult children 2 daughters and 1 son. He and his are estranged from 1 of the daughters. The patient also has a stepson through his Joselin. He served in the [employer] during the [employer]. 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 He reports that he grew up in [facility]. Medications/Allergies - Medications Home Medications: Ambulatory Orders Medication Instructions Recorded Confirmed Metformin HCl [Glucophage] 500 mg PO BIDWM 06/04/13 08/06/19 Rivaroxaban [Xarelto] 20 mg ORAL DAILYWM #30 12/10/17 08/06/19 levETIRAcetam [Levetiracetam] 500 mg PO BID #60 12/10/17 08/06/19 Cholecalciferol (Vitamin D3) 1,000 units PO DAILY 07/08/18 08/06/19 [Vitamin D3] Saccharomyces Boulardii [Florastor] 250 mg PO DAILY #5 capsule 07/10/18 08/06/19 Hydrocortisone 1% Oint 1 ea TOP BID PRN 08/08/18 08/06/19 [Hydrocortisone] Nitrofurantoin Monohyd/M-Cryst 100 mg PO BID #14 capsule 07/30/19 08/06/19 [Macrobid 100 mg Capsule] Cholecalciferol (Vitamin D3) 1,000 unit PO DAILY 08/06/19 08/06/19 [Vitamin D3] Ferrous Gluconate [Iron] 325 mg PO DAILY 08/06/19 08/06/19 Loperamide HCl [Loperamide] 1 tab PO DAILY PRN 08/06/19 08/06/19 Omeprazole 20 mg PO BID 02/19/20 02/19/20 Psyllium Husk (with Sugar) [Fiber PO DAILY MDD 1 scoop 08/06/19 Therapy Powder] - Allergies Allergies/Adverse Reactions: Allergies Allergy/AdvReac Type Severity Reaction Status Date / Time codeine AdvReac Intermediate Nausea Verified 05/26/19 04:02 memantine HCl * AdvReac Anxiety Verified 05/26/19 04:02 [From Namenda] Review of Systems - Constitutional Constitutional: reports: Weakness. denies: Fatigue - Eyes Eyes: reports: Corrective lenses - Ears, Nose & Throat Ears, Nose & Throat: reports: Hearing loss, Hearing aids - Cardiovascular Cardiovascular: denies: Palpitations, Chest pain, Edema - Respiratory Respiratory: reports: Other (denies coughing with meals and foods but reports intermittent coughing after eating due to esophageal stricture and he has had dilated x 2 in the past.). denies: Cough - Gastrointestinal Gastrointestinal: denies: Abdominal pain, Abdominal distention, Constipation, Diarrhea - Genitourinary Genitourinary: reports: Incontinence. denies: Dysuria, Frequency - Musculoskeletal Musculoskeletal: reports: Muscle weakness, Assistive devices. denies: Joint pain - Integumentary Integumentary: denies: Pruritis - Neurological Neurological: reports: General weakness, Memory problems. denies: Headache, Dizziness - Endocrine Endocrine: reports: Diabetes type 2 - Hematologic/Lymphatic Hematologic/Lymphatic: reports: Recurrent infections (UTI) - All Other Systems All Other Systems: reports: Other (ROS obtained from patient, and caregiving staff) Physical Exam - Vital Signs Temperature: 36.9 C Pulse Rate: 63 O2 Saturation: 97 (resting on RA) Blood Pressure: 126/73 (right wrist cuff) - Physical Exam General Appearance: positive: No acute distress, Alert, Other (well groomed, OOB in wheelchair consuming breakfast) Eyes Bilateral: positive: Normal inspection ENT: positive: Other (+dentures; +hearing aids) Neck: positive: No JVD, Trachea midline Cardiovascular: positive: Regular rate & rhythm, No murmur, No gallop Respiratory: positive: No respiratory distress, Breath sounds nml Extremities: positive: No pedal edema, Other (+mild kyphosis noted) Neurologic/Psychiatric: positive: Mood/affect nml, Disoriented to time (Oriented to self and aware he is in a facility in [place]; Belived it was fall and unable to state year), Other (BLE strengthe equal and symmetric with strength 4/5) Palliative Care - POLST Patient has POLST: Yes POLST Status: DNR, Selective Treatment Pain: No pain Nausea: None Anorexia: None Dyspnea: None Depression: None Feelings of wellbeing/Perceived Quality of Life: Fair Sleep: Sleeps well Constipation: No Performance Status: Patient has had a functional decline that has been steady over the last 4 years more significant in the last few months. It is becoming more difficult for. He is requiring assistance with hygiene as well as cueing for his ADLs. He is frequently falling and has fallen several times in the bathtub as well as in the bathroom itself. He will get up and go and forget to take his walker. His reports that he "needs cueing on everything." The herself has had to call EMS for lift assist multiple occasions. The last time lift assist was called was 3 times in 1 week last week. He is also incontinent of urine. PPS score 50% - Palliative Care Discussion: The patient is aware of the fact that he is having a respite stay at home place as it has been coming increasingly more difficult for his to care for him within their home. She is experiencing caregiver burnout both physically as well as emotionally. With the patient's frequent falls the is unable to assist him and often has to require contacting EMS for lift assist and in the past has utilized her neighbors. The patient was requiring more in-home caregiving support specifically in the evenings. The is presently experiencing a crisis and how to manage the patient's caregiving needs and health needs. Impression and Recommendations - Palliative Care Impression: This is a pleasant 89-year-old male with vascular dementia and a history of frequent falls and urinary tract infections. Presently had an acute crisis secondary to a urinary tract infection that has improved with antibiotic administration. is his primary caregiver and is experiencing caregiver burden and burnout both physically and emotionally. Palliative care to continue to provide symptom management, goals of care and anticipatory guidance. Recommendations/Counseling Done: 1. UTI with history of recurrent UTIs. s/p ER evaluation on 07/30/2019. Complete macrobid as prescribed as patient has clinically improved. Encourage oral hydration. Resume cranberry supplementation for UTI prevention if returns home. 3. Vascular dementia. Chronic. Progressive. Supportive Care. Fall precautions. Patient has had a more acute functional decline secondary to his urinary tract infection as well as due to his overall progression of his dementia. He is presently requiring increased caregiving that is difficult for his elderly to physically manage. His is looking into options for caregiving support as well as facility placement. Given the patient's advanced age, dementia and chronic co-morbidities, a gradual decline is expected. 3. Seizure disorder. Symptoms are exacerbated with UTIs. Continue Keppra 500mg BID as ordered. 4. Advanced Care Planning. POLST DNAR with selective treatment, comfort antibiotics and 1 week trial of tube feeding and goa is to return to normal. is needing additional caregiver support as she overwhelmed physically and emtionally for caring for the patient. Palliative care social work to meet with today. Patient to f/u via phone call in 4-6 weeks with status update or advised may contact palliative sooner if changes in conditions reviewed with understanding vebralized. Time Spent: Total time spent 20 minutes with greater than 50% of this spent in counseling and coordination of care with patient and facility staff, examination of patient, review of symptom management and anticipatory guidance. Disclaimer: The chart note was formulated using voice recognition technology and unfortunately sound alike errors may occur. Addendum: Met with and palliative care social worker delinquency prevention, Hunter at couple's mobile home in [place] regarding assistance with caregiving from 1100 to [id number] for courtesy visit. had previously desired to keep her within the home, however, due to the physical strain of caregiving upon her and the emotional toll she is now coming to the conclusion she is not sure this is going to be feasible. She has financial concerns Regarding coverage for his care and ensuring that she has enough for herself in the future. They previously were living in a home that they built in [place] that they sold and moved to [place] but the utilities were too expensive and the sold the home on her own in the last year and they moved into the mobile home. She has been working with Brigitte Neville at the [facility], but has not followed up regarding long-term care support regarding placement for the patient. She is presently debating if she should continue with additional respite stay at home place while she is but is working on placement and/or additional caregiving support. Provided a list of in-home caregiver resources of agencies that serve [facility]. Social work also provided additional resources to the for caregiving support. is considering asking a neighbor for paid caregiving support in the evenings. Strongly encouraged for to follow-up with Brigitte Neville in regards to next steps for management.Financial support for herself in the future.
== END 2019-08-06 12:11 | disposition home or self-care (01) ==
LOC: PC 12:10
PROVIDERS: ATTEND Nurse Practitioner Family
DX: Z51.5 Encounter for palliative care (principal); N39.0 Urinary tract infection, site not specified; F03.90 Unspecified dementia, unspecified severity, without behavioral disturbance, psychotic disturbance, mood disturbance, and anxiety; G40.909 Epilepsy, unspecified, not intractable, without status epilepticus; Z79.899 Other long term (current) drug therapy; Z91.81 History of falling; Z66 Do not resuscitate

== ENCOUNTER 2019-11-17 11:18 | Outpatient (CLI) | payer MEDICARE ==
--- NOTE | 2019-11-17 11:25 | CONSULTATION NOTE ---
Palliative Care Follow Up - Referral Referring Provider: Dr. Damaso Iverson Time of Visit: 3904-0805 Referral setting: Home Referral Reason: Dementia/Advanced Care Planning - Information Sources Records reviewed: Previous records reviewed History/Review of Systems obtained from: Patient, Family (, Joselin) Exam limitations: Clinical condition (Advanced Dementia and MOAPA) - History of Present Illness Update Brief HPI Update: This is an 89-year-old gentleman who was seen and evaluated today at home with his and primary caregiver, Joselin present. Patient has a history of advanced dementia and when last evaluated by this PATIENT REGISTRATION MANAGER he was under a respite stay at home place in July 2019. The patient had experienced general decline over the last 4 years. It was becoming increasingly difficult for the patient's spouse to provide caregiving services within the home and she had respite for [address] Upon the patient returning home she reports that he has overall done well.She does report that he seems to be losing his memory More recently. He is requiring more direction specifically in relation to evening care.His reports that he did not enjoy it nor was he happy at home places he did not have interactions as other residents at the community have deficits that well and he did not have the stimulation that he has at home per their 's report. Presently 1 of the 's concerns in regards to the patient's restlessness and agitation at night. She initiated melatonin 3 mg in the evening several months ago but was not giving it every night until recently. Prior to starting the melatonin routinely the patient was getting up approximately every hour.Since initiating the melatonin he is getting up approximately 3-4 times in the night.His has signs around his hospital bed with reminders to call her for assistance before trying to get up out of bed.He has not had any falls since his return [facility] home [facility]. His also reports some concerns regarding his skin to his sacrum and buttocks. She noted when she was using barrier cream that the patient had localized breakouts. She has been using A&D ointment with effect. There are no open areas to his sacrum or bilateral buttocks.She does have concerns regarding the patient's hemorrhoid. She has been using [id number] Preparation H. The patient has regular bowel movements and is incontinent of stool. He denies any discomfort to the rectal area on examination today as well as and reports to his .No reported bleeding in depends. The patient was recently seen by podiatry approximately 1 month ago for toenail trimming and he also now has diabetic shoes. Since obtainment of diabetic shoes he is no longer having ulceration to his toes. He has a history of diabetes mellitus and is on metformin. Blood glucose levels lately have ranged around 139 or less per report. If the patient is higher than 140 on his fingerstick then she will not provide ice cream that day. Today the patient is seen in his living room in his recliner chair set up in front of the TV. His Rollator is to the side. He has a gait belt around his midsection.He is hard of hearing and requires repetition in regards to questioning during examination. Watched administer medications this morning without coughing noted on thin liquids but will pocket the medications at times and she has to check to ensure that the medications have been swallowed. Past medical history includes vascular dementia, CVA, seizure disorder, hypertension, type 2 diabetes without insulin dependence, microcytic anemia, BPH, incontinence, chronic hearing loss, depression, osteoarthritis, saddle pulmonary emboli, frequent UTIs, dysphagia with dilation Social History - Living Situation Living arrangement: At home Living Situation: With spouse/s.o. Support System: The patient resides in a mobile home in [place] with his 81-year-old overseeing his primary caregiving. His is recurrently receiving private caregiving help with a caregiver 4 days a week for 5 hours/day.She has put on hold rest care that she was previously receiving due to concerns to these caregivers going into other homes during the coronavirus pandemic. She wished to limit her and her 's risk of exposure.The patient has a hospital bed as well as a shower chair and elevation over the toilet.He uses a Rollator for ambulation. He presently receives his prescription medication from the [facility]. He served in the [employer] during the [place] [employer]. 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 The patient and his , Joselin, have been since 1990 which is a second marriage for both of them. The patient has 3 adult children, 2 daughters and 1 son. He and his are estranged from 1 of the daughters. The patient also has a stepson through his , Joselin. Medications/Allergies - Medications Home Medications: Ambulatory Orders Medication Instructions Recorded Confirmed Metformin HCl [Glucophage] 500 mg PO BIDWM 06/04/13 08/06/19 Rivaroxaban [Xarelto] 20 mg ORAL DAILYWM #30 12/10/17 08/06/19 levETIRAcetam [Levetiracetam] 500 mg PO BID #60 12/10/17 08/06/19 Cholecalciferol (Vitamin D3) 1,000 units PO DAILY 07/08/18 08/06/19 [Vitamin D3] Saccharomyces Boulardii [Florastor] 250 mg PO DAILY #5 capsule 07/10/18 08/06/19 Hydrocortisone 1% Oint 1 ea TOP BID PRN 08/08/18 08/06/19 [Hydrocortisone] Ferrous Gluconate [Iron] 325 mg PO DAILY 08/06/19 08/06/19 Loperamide HCl [Loperamide] 1 tab PO DAILY PRN 08/06/19 08/06/19 Omeprazole 20 mg PO BID 08/06/19 08/06/19 Psyllium Husk (with Sugar) [Fiber PO BID MDD 2 scoop 08/06/19 Therapy Powder] Cranberry 500 mg PO BID 11/17/19 11/17/19 Loratadine [Claritin] 10 mg PO DAILY 11/17/19 11/17/19 Melatonin 3 mg PO QPM 11/17/19 11/17/19 Phenyleph/Pramoxin/Glycr/W.pet 1 applic DE DAILY PRN 11/17/19 11/17/19 [Preparation H Cream] - Allergies Allergies/Adverse Reactions: Allergies Allergy/AdvReac Type Severity Reaction Status Date / Time codeine AdvReac Intermediate Nausea Verified 11/17/19 11:44 memantine HCl * AdvReac Anxiety Verified 11/17/19 11:44 [From [facility]enda] Review of Systems - Constitutional Constitutional: reports: Weight stable. denies: Fatigue - Eyes Eyes: reports: Corrective lenses - Ears, Nose & Throat Ears, Nose & Throat: reports: Hearing loss, Hearing aids - Cardiovascular Cardiovascular: denies: Chest pain, Edema - Respiratory Respiratory: denies: Wheezing - Gastrointestinal Gastrointestinal: reports: Other (+hemorroids). denies: Abdominal pain, Constipation, Diarrhea, Rectal bleeding - Genitourinary Genitourinary: reports: Incontinence. denies: Hematuria - Musculoskeletal Musculoskeletal: reports: Assistive devices, Transfer issues. denies: Joint pain - Integumentary Integumentary: denies: Rash - Neurological Neurological: reports: General weakness, Memory problems - Psychiatric Psychiatric: reports: Aggitation (noted at night) - Endocrine Endocrine: reports: Diabetes type 2 - Hematologic/Lymphatic Hematologic/Lymphatic: reports: Recurrent infections (history of UTIs) - All Other Systems All Other Systems: reports: Reviewed and negative Physical Exam - Vital Signs Temperature: 36.6 C Pulse Rate: 65 O2 Saturation: 98 (on RA at rest) Blood Pressure: 133/68 (right wrist cuff) - Physical Exam General Appearance: positive: No acute distress, Alert, Other (when not engaged will be dozing in his recliner chair, well groomed elderly man) Eyes Bilateral: positive: Normal inspection, Other (+corrective lenses) ENT: positive: No signs of dehydration, Other (+dentures; +hearing aids) Neck: positive: Trachea midline Cardiovascular: positive: Regular rate & rhythm, Systolic murmur (1/6 CLAUDY) Respiratory: positive: No respiratory distress, Breath sounds nml (good air movement) Abdomen: positive: Non-tender, Soft, Nml bowel sounds, Other (+ round; +external hemorroid visible at 10 clock that is not thrombosed) Skin: positive: Other (+scattered hammertoes noted to bilateral feet without evidence of skin breakdown; Bilateral buttocks and sacrum with blanchable erythema with skin intact; thickened toenails) Extremities: positive: No pedal edema, Other (+kyphotic posture) Neurologic/Psychiatric: positive: Mood/affect nml, Disoriented to person, Disoriented to place, Disoriented to time, Other (difficulty rising from sitting to standing position and requires assistance.) Palliative Care - POLST Patient has POLST: Yes POLST Status: DNR, Selective Treatment Pain: No pain Feelings of wellbeing/Perceived Quality of Life: Fair Sleep: Other (improved with use of melatonin; see HPI for further details) Constipation: No, Managed (use of benefiber) Performance Status: Patient has stabilized since returning home from home place for a respite stay in July 2019. He has had an overall functional decline that has been steady over the last 4 years. He requires assistance with hygiene as well as cueing for his ADLs. His is his primary caregiver and he also has a private car egiver who comes into the home 4 days a week.He has a history of frequent falls but none recently.He requires consistent reminding and cueing on tasks. The has signs within the bedroom to trigger the patient to call for assistance. He ambulates with a Rollator and has a lift chair. He is incontinent of bowel and bladder. FAST 6E - Palliative Care Discussion: The patient has had a general functional decline over the last 4 years. His is noticing that he continues to be losing his memory slowly. She finds the greatest challenge for care in the evenings.She is receiving caregiving assistance 4 days a week with a private caregiver.Previously they were receiving caregiving support from rest care but the has this on hold at the present time as she was to limit the patient's exposure to the coronavirus. The present caregiver that comes into the home is only overseeing the patient's care.Has concerns regarding the patient having difficulty sleeping at night and being agitated. He will get up multiple times during the night and forget to call for assistance despite her signage in the bedroom.Since initiation of melatonin she has noticed improvement and provided reassurance that this may be continue to be administered but additional tool may be required for the patient to have adequate rest and decreased agitation in the evenings which is indicative of silent downing behavior due to dementia.The patient's , Joselin is thinking ahead in regards to caregiving assistance. She is elderly herself and does not wish to use all of their finances and caring for the patient. She has contemplated facility placement but that is afraid that this would not allow her to have any financial savings to fall back upon. She has been working with [facility] for support as well as palliative care social services assistant.To go discussed with the patient's that ultimately she would wish for transition to hospice services when medically appropriate and ideally she wishes for the patient to remain within the home with hospice services when the time comes.When the coronavirus lifts further she plans to look into reinitiating contact with [facility] to reinstate caregiving services through rest care. Impression and Recommendations - Palliative Care Impression: This is an 89-year-old gentleman with vascular dementia, fast 6E with a history of frequent falls. He displays evidence of sundowning and requires increased cueing in the evenings. He is often restless and agitated in the evenings which has responded to melatonin supplementation. He has some evidence of deep tissue injury due to immobility with intact skin to his buttocks and sacrum. Presently, his and primary caregiver is limited in her caregiving burden. Palliative care to continue to provide symptom management goals of care, anticipatory guidance and a transition to hospice when medically appropriate. Recommendations/Counseling Done: 1. Blanchable erythema to buttocks and sacrum, start of DTI. reports possible irritation to barrier cream. Continue A & D ointment for barrier protection with incontinence BID. Recommended obtainment of mosiac cushion to obtain via [place] [facility] [place] for pressure re-distrubution to reduce risk of skin breakdown. 2. External hemorrhoid. Nontender. Nonthrombosed. May continue use of Preparation H [id number] ointment as needed as there has been a reduction in size per 's report. Discussed with at length the need for stools to be soft and to avoid straining. Continue bowel regimen with Benefiber and adequate oral hydration to prevent constipation. 3. Insomnia with agitation due to dementia. Continue melatonin 3 mg nightly as this has provided benefit. Initiate trazodone 25 mg nightly as needed for insomnia or agitation. Reviewed purpose, dose, and side effects with patient's and 30-day prescription provided to [facility] pharmacy. If adequate response then will follow up with prescription to [place] for long-term medication benefits. 4. Vascular dementia. Chronic. Progressive. Supportive care. Fall precautions. Patient continues with a slowly, progressive functional and cognitive decline. Given the patient's advanced age, dementia and and chronic comorbidities a gradual decline is expected. 5. Caregiver burden. Presently controlled. has respite with private caregiver who comes 4 days/week. Reviewed benefits of hospice services for future reference. Requests that palliative care social services assistant follow-up with patient's in regards to VA benefits that may be available to the patient as a . Recommended use of putting for pill administration for ease for the patient with swallowing. 6. Advanced care planning. POLST DNA are with selective treatment,. wishes to focus on weighing benefits versus burdens and ideally wishes for the patient to remain at home with a provisional transition to hospice services when medically appropriate. reported some concerns regarding medication administration in the future as the patient's dementia progresses. Discussed with that if it became increasingly difficult for the patient to safely take medications then would weigh benefits versus burdens of continuation as well as evaluate if certain medications could be administered and in a different form with understanding verbalized. cc: Palliative Care Social Work F/u in 3-4 weeks or sooner if new/worsening symptoms. Time Spent: Total time spent 60 minutes with greater than 50% of this spent in counseling and coordination of care with patient and spouse, Joselin; examination of patient and home setting; review of medication; hospice benefits; review of symptom management and anticipatory guidance. Disclaimer: The chart note was formulated using voice recognition technology and unfortunately sound alike errors may occur.
== END 2019-11-17 11:19 | disposition home or self-care (01) ==
LOC: PC 11:18
PROVIDERS: ATTEND Nurse Practitioner Family
DX: Z51.5 Encounter for palliative care (principal); F51.05 Insomnia due to other mental disorder; R45.1 Restlessness and agitation; F03.90 Unspecified dementia, unspecified severity, without behavioral disturbance, psychotic disturbance, mood disturbance, and anxiety; L53.8 Other specified erythematous conditions; K64.4 Residual hemorrhoidal skin tags; E11.9 Type 2 diabetes mellitus without complications; R15.9 Full incontinence of feces; R32 Unspecified urinary incontinence; Z79.84 Long term (current) use of oral hypoglycemic drugs; Z79.899 Other long term (current) drug therapy; Z79.01 Long term (current) use of anticoagulants; Z91.81 History of falling; Z74.3 Need for continuous supervision; Z66 Do not resuscitate
CPT/HCPCS: 99350

== ENCOUNTER 2019-12-08 10:25 | Outpatient (CLI) | payer MEDICARE ==
--- NOTE | 2019-12-08 12:14 | CONSULTATION NOTE ---
Palliative Care Follow Up - Referral Referring Provider: Dr. Damaso Iverson Time of Visit: 4822-6174 Referral setting: Home Referral Reason: Insomnia with agitation/Dementia - Information Sources Records reviewed: Previous records reviewed History/Review of Systems obtained from: Patient, Family (spouse, Joselin present) Exam limitations: Clinical condition (Advanced Dementia and SOLOMON) - History of Present Illness Update Brief HPI Update: This is an 89-year-old gentleman who was seen and evaluated today at his home with his and primary caregiver, Joselin present. The patient has a history of aunts dementia. He has had a general decline over the last 4 years. It has become increasingly difficult for the patient spouse provide caregiving services within the home. The patient's continues to have concerns in regards to their finances in order for the patient to remain at home first his admission to [place] memory care unit [place] the [place]. The patient presently has a private duty caregiver within the home. The patient's , Joselin has been working with [facility] [employer] and she starts the 32 hours a month of free caregiving next month in December but is unclear how this will work out. When last evaluated the 's primary concern was in regards to the patient's restlessness and agitation at night. He has a history of frequent falls but not has had any lately. He was initiated on trazodone 25 mg as needed nightly. When discussed with the patient's spouse on 12/07 with this FISH CUTTING MACHINE OPERATOR was noting improvement and wish it to take nightly as well as increase to a whole tablet. The patient's has stopped doing the melatonin unless he continues to have some restlessness overnight and feels that the addition of the trazodone has been effective. The patient is less restless at night and more calm. Since last evaluation the has obtained a mosaic cushion while the patient is out of bed. This has been effective for reduction in his irritation to his skin. Patient is also concerned in regards to him getting up. The patient's is reporting increased headaches as well as tingling to her lower extremities however, she has not made an appointment to visit her primary care provider. Presently, the patient's is using a gait belt. Lastly, the reports that there were approximately 2 mornings at breakfast that the patient had "coughing spells." At the time the patient was sitting upright and the patient's already cuts up his foods and bite size sizes. This was several days ago, but has not had an increase in episodes or frequency. Today the patient is seen in his living room in his recliner chair set up in front of the TV. He is sitting on his mosaic seat cushion. He has not had breakfast as of yet. He only offered concerns in regards to a growth on his right ring finger that is nontender and without warmth. Reports that it has been there for several weeks and has "gotten smaller." Past medical history includes vascular dementia, CVA, seizure disorder, hypertension, type 2 diabetes without insulin dependence, microcytic anemia, BPH, incontinence, chronic hearing loss, depression, osteoarthritis, saddle pulmonary emboli, frequent UTIs, dysphasia with dilation. Social History - Living Situation Living arrangement: At home Support System: The patient resides in a mobile home in [place] with his 81-year-old receiving his primary caregiving. They have a private caregiver who is assisting for 5 hours/day 4 days a week. Next month, the patient is to receive additional 32 hours of caregiving support with the patient's working with [facility]. Medications/Allergies - Medications Home Medications: Ambulatory Orders Medication Instructions Recorded Confirmed Metformin HCl [Glucophage] 500 mg PO BIDWM 06/04/13 08/06/19 Rivaroxaban [Xarelto] 20 mg ORAL DAILYWM #30 12/10/17 12/08/19 levETIRAcetam [Levetiracetam] 500 mg PO BID #60 12/10/17 12/08/19 Cholecalciferol (Vitamin D3) 1,000 units PO DAILY 07/08/18 12/08/19 [Vitamin D3] Saccharomyces Boulardii [Florastor] 250 mg PO DAILY #5 capsule 07/10/18 12/08/19 Hydrocortisone 1% Oint 1 ea TOP BID PRN 08/08/18 12/08/19 [Hydrocortisone] Ferrous Gluconate [Iron] 325 mg PO DAILY 08/06/19 12/08/19 Loperamide HCl [Loperamide] 1 tab PO DAILY PRN 08/06/19 12/08/19 Omeprazole 20 mg PO BID 08/06/19 08/06/19 Psyllium Husk (with Sugar) [Fiber PO BID MDD 2 scoop 08/06/19 Therapy Powder] Cranberry 500 mg PO BID 11/17/19 12/08/19 Loratadine [Claritin] 10 mg PO DAILY 11/17/19 12/08/19 Melatonin 3 mg PO QPM PRN 11/17/19 12/08/19 Phenyleph/Pramoxin/Glycr/W.pet 1 applic AK DAILY PRN 11/17/19 12/08/19 [Preparation H Cream] traZODone [Desyrel] 50 mg PO QPM 12/08/19 12/08/19 - Allergies Allergies/Adverse Reactions: Allergies Allergy/AdvReac Type Severity Reaction Status Date / Time codeine AdvReac Intermediate Nausea Verified 11/17/19 11:44 memantine HCl * AdvReac Anxiety Verified 11/17/19 11:44 [From Namenda] Review of Systems - Constitutional Constitutional: reports: Fatigue, Weight stable. denies: Fever - Eyes Eyes: reports: Corrective lenses - Ears, Nose & Throat Ears, Nose & Throat: reports: Hearing loss, Hearing aids - Cardiovascular Cardiovascular: denies: Chest pain - Respiratory Respiratory: reports: Cough (two episodes noted with breakfast but not at other meals that same day or since in the last several days per report.). denies: Wheezing - Gastrointestinal Gastrointestinal: denies: Constipation, Diarrhea - Genitourinary Genitourinary: reports: Incontinence. denies: Dysuria - Musculoskeletal Musculoskeletal: reports: Assistive devices, Transfer issues - Integumentary Integumentary: reports: Other (bump to right ring finger see HPI for additional details) - Neurological Neurological: reports: General weakness, Memory problems - Psychiatric Psychiatric: reports: Aggitation (noted at night improved with trazodone) - Endocrine Endocrine: reports: Diabetes type 2 - Hematologic/Lymphatic Hematologic/Lymphatic: reports: Recurrent infections (history of UTIs) - All Other Systems All Other Systems: reports: Reviewed and negative - Other Findings Other Findings: ROS limited as patient is a poor historian due to dementia. Physical Exam - Vital Signs Temperature: 37.1 C Pulse Rate: 55 O2 Saturation: 97 (on RA at rest) Blood Pressure: 155/85 (left wrist cuff sitting) - Physical Exam General Appearance: positive: No acute distress, Alert, Other (well groomed e lderly man) Eyes Bilateral: positive: Other (+corrective lenses) ENT: positive: No signs of dehydration, Other (+dentures) Neck: positive: No JVD, Trachea midline Cardiovascular: positive: Regular rate & rhythm, Systolic murmur (soft 1/6 CLAUDY) Respiratory: positive: No respiratory distress, Breath sounds nml. 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 Skin intact to bilateral heels) Extremities: positive: No pedal edema Neurologic/Psychiatric: positive: Mood/affect nml, Disoriented to place, Disoriented to time, Weakness, Other (Difficulty rising from sitting position with required use of gait belt and rollator) Palliative Care - POLST Patient has POLST: Yes POLST Status: DNR, Selective Treatment Pain: No pain Performance Status: Patient continues to have an overall functional decline that has been steady over the last 4 years. He requires assistance with hygiene as well as cueing for his ADLs. He has had a history of frequent falls, but none recently. He requires constant reminding and cueing on tasks. He ambulates with a Rollator and has a lift reclining chair. He is incontinent of bowel and bladder. F AST 6E - Palliative Care Discussion: The patient's /primary caregiver, Joselin reports that the use of the trazodone 50 mg in the evening has provided assistance with reduction in restlessness as well as agitation for the patient. He appears to be more c omfortable. She is using melatonin as needed. Her greatest concern at the present time is in regards to assistance with getting the patient up out of bed in the mornings and assisting in the evenings. She does not have a Vanessa lift or lift assist within the home. The patient continues to have generalized weakness specifically in the lower legs that causes increased difficulty with rising and ambulation. The patient's constantly feels like she is on guard as well as her private caregiver to ensure that the patient does not and possibly get up and has a risk of a fall. The patient's /Joselin HAN has been working with [facility] [employer] [facility] in regards to additional assistance within the home as well as with the palliative care social media strategistCarly. The patient's spouse continues to have fear regarding with the future may hold as the patient's caregiver needs increase. The patient's has been having increased headaches as well as tingling in her lower extremities and FLYNN gently reminded today that the patient's spouse also need to take care of herself and encouraged her to make a appointment with her primary care provider. Impression and Recommendations - Palliative Care Impression: This is an 89-year-old gentleman with vascular dementia, FAS T6C with history of frequent falls however, none lately. The patient has had improvement with restlessness and agitation in the evening that has responded well to addition of trazodone 50 mg. The patient's continues to display signs of caregiver burden physically, as well as emotionally. Palliative care to continue provide support, management of goals of care, anticipatory guidance and a transition to hospice when medically appropriate. Recommendations/Counseling Done: 1. Insomnia with agitation due to dementia. Continue trazodone 50 mg nightly as this has provided benefit. May continue use of melatonin 3 mg nightly as needed if continued symptoms of insomnia. Rx for trazodone sent to [facility] pharmacy. 2. Cyst to right PIP on fourth finger. No signs or symptoms of inflammation. 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 Given the patient is asymptomatic and has noticed that the size has decreased would monitor at this time. If it persists or shows signs of new or worsening symptoms and recommend that the patient follow-up with his PCP for further evaluation and management and aware. 3.History of frequent falls and lower extremity weakness. Due to underlying dementia and impulsivity. Patient would benefit from physical therapy for lower extremity strengthening and more so with caregiving assistance to advised on proper body mechanics for the patient's and tools and equipment to manage care within the home safely and effectively. Request PT and OT for safety evaluation, lower extremity strengthening, and evaluation for caregiving education on equipment and tools to use within the home. Discussed with patient's looking into obtainment of a Vanessa lift or lift to stand and could see if the [employer] has any availability with that. 4. Caregiver burden. Continues to have display of caregiving burden for the . She is having physical complaints that may be tied to the stress and physical burdens of caregiving. Strongly encouraged the to make an appointment with her own PCP for evaluation and management. Requests that the patient's follow-up with palliative care social media strategistCarly and assistance in regards to VA benefits as well as psychosocial support. 5. Vascular dementia. Chronic. Progressive. Supportive care and fall precautions. Patient continues with a slow and progressive functional decline. Given the patient's advanced age, dementia and chronic morbidities a gradual decline as expected. 6. Dysphasia. Patient has a history of dysphasia with dilation in the past. Recently 2 episodes of coughing after breakfast. Reiterated with the patient's and in regards to small bites and cutting up foods and making sure foods are moistened. Encouraged to sit up upright and q. with swallowing. Given the patient's history of GERD continue PPI use as ordered. If symptoms worsen or persist then consider follow-up with CO FOUNDER AND CHAIRMAN and/or GI if that is desired in regards to goals of care. FACE TO FACE: It would be a taxing considerable effort for the patient to leave his home secondary to lower extremity weakness and history of frequent falls. PT for strengthening program with a goal of improvement. Training with /primary caregiver and equipment recommendations. OT for fall safety within the home. Time Spent: Total time spent 45 minutes with greater than 50% of this spent in counseling and coordination of care with patient's and patient; supportive listening provided; review of symptom management and anticipatory guidance. Disclaimer: The chart note was formulated using voice recognition technology and unfortunately sound alike errors may occur.
== END 2019-12-08 10:26 | disposition home or self-care (01) ==
LOC: PC 10:25
PROVIDERS: ATTEND Nurse Practitioner Family
DX: Z51.5 Encounter for palliative care (principal); G47.01 Insomnia due to medical condition; R45.1 Restlessness and agitation; F03.90 Unspecified dementia, unspecified severity, without behavioral disturbance, psychotic disturbance, mood disturbance, and anxiety; R53.1 Weakness; M25.841 Other specified joint disorders, right hand; Z79.899 Other long term (current) drug therapy; R13.10 Dysphagia, unspecified; Z91.81 History of falling; Z66 Do not resuscitate
CPT/HCPCS: 99349

== ENCOUNTER 2020-01-26 11:30 | Outpatient (CLI) | payer MEDICARE ==
--- NOTE | 2020-01-26 12:19 | CONSULTATION NOTE ---
Palliative Care Follow Up - Referral Referring Provider: Dr. Damaso Iverson Time of Visit: [id number] Referral setting: Home Referral Reason: Change in condition/Dementia - Information Sources Records reviewed: Previous records reviewed History/Review of Systems obtained from: Patient, Family (, Joselin present), Caregiver (private caregiver, Radha present) Exam limitations: Clinical condition (Poor historian due to dementia) - History of Present Illness Update Brief HPI Update: This is an 89-year-old man who was seen and evaluated today for an acute assessment at the request of his , Joselin for concerns and change in condition that began yesterday. The patient has a history of vascular dementia and resides in his home. The patient's , Joselin contacted the palliative care office this morning withConcerns with a change in the patient's overall behavior and clinical status over the weekend from his baseline.The patient's requested that the patient be seen and evaluated today for an assessment. Yesterday, the patient was not responding well to his spouse and private caregiver, Radha. His medications had to be crushed and placed in applesauce and ordered for him to take his pills. It also took 2 people for him to transfer to the bedside commode. He appeared to have increased confusion and was not responding well to engagement and interaction. The patient's and caregiver, Radha reports that there was no noted one-sided deficit.From the afternoon until this morning he slept "all the way through the night." Yesterday he also required assistance with meals where it was necessary for him to be Fed by his and caregiver. Today, the patient is "back to his normal self." He has been able to ambulate. He is back to his baseline confusion. He ate everything thus far today without noted coughing during his meals and no evidence of dysphasia when taking his medications. Today he was able to swallow his pills whole without any adverse events. The patient has a history of TIA in the past. 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 The patient has a past medical history that includes vascular dementia, CVA, seizure disorder, hypertension, type 2 diabetes, microcytic anemia, BPH status post TURP 1993, incontinence, chronic hearing loss, depression, osteoarthritis, frequent UTIs, dysphasia with esophageal dilation, colorectal cancer 1999. Social History - Living Situation Living arrangement: At home Living Situation: With spouse/s.o. Support System: Patient resides in a mobile home in [place] with his 81-year-old who provides the primary caregiving. The patient is a private caregiver, Radha who since the patient's was seen in the emergency department over the weekend for pain is now residing with the couple to assist in caregiving for the patient. The patient's , Joselin has been working with [employer] and has sent in all the paperwork for CO PES. The patient is being followed by palliative care social work for assistance. Medications/Allergies - Medications Home Medications: Ambulatory Orders Medication Instructions Recorded Confirmed Metformin HCl [Glucophage] 500 mg PO BIDWM 06/04/13 08/06/19 Rivaroxaban [Xarelto] 20 mg ORAL DAILYWM #30 12/10/17 12/08/19 levETIRAcetam [Levetiracetam] 500 mg PO BID #60 12/10/17 12/08/19 Cholecalciferol (Vitamin D3) 1,000 units PO DAILY 07/08/18 12/08/19 [Vitamin D3] Saccharomyces Boulardii [Florastor] 250 mg PO DAILY #5 capsule 07/10/18 12/08/19 Hydrocortisone 1% Oint 1 ea TOP BID PRN 08/08/18 12/08/19 [Hydrocortisone] Ferrous Gluconate [Iron] 325 mg PO DAILY 08/06/19 12/08/19 Loperamide HCl [Loperamide] 1 tab PO DAILY PRN 08/06/19 12/08/19 Omeprazole 20 mg PO BID 08/06/19 08/06/19 Psyllium Husk (with Sugar) [Fiber PO BID MDD 2 scoop 08/06/19 Therapy Powder] Cranberry 500 mg PO BID 11/17/19 12/08/19 Loratadine [Claritin] 10 mg PO DAILY 11/17/19 12/08/19 Melatonin 3 mg PO QPM PRN 11/17/19 12/08/19 Phenyleph/Pramoxin/Glycr/W.pet 1 applic TN DAILY PRN 11/17/19 12/08/19 [Preparation H Cream] traZODone [Desyrel] 50 mg PO QPM 12/08/19 12/08/19 Carboxymethylcellulose Sodium 1 drops EACHEYE QPM 01/12/20 01/12/20 [Artificial Tears] - Allergies Allergies/Adverse Reactions: Allergies Allergy/AdvReac Type Severity Reaction Status Date / Time codeine AdvReac Intermediate Nausea Verified 11/17/19 11:44 memantine HCl * AdvReac Anxiety Verified 11/17/19 11:44 [From Namenda] Review of Systems - Constitutional Constitutional: reports: Fatigue, Weight stable - Ears, Nose & Throat Ears, Nose & Throat: reports: Hearing loss, Hearing aids - Cardiovascular Cardiovascular: denies: Chest pain, Lightheadedness - Respiratory Respiratory: denies: Cough - Gastrointestinal Gastrointestinal: denies: Abdominal pain - Musculoskeletal Musculoskeletal: reports: Assistive devices, Transfer issues - Neurological Neurological: reports: General weakness, Memory problems, Other (see HPI for full details). denies: Slurred speech - Endocrine Endocrine: reports: Diabetes type 2 - All Other Systems All Other Systems: reports: Reviewed and negative (Review of systems obtained from and caregiver, Radha has the patient is a poor historian due to dementia) Physical Exam - Vital Signs Temperature: 36.2 C Pulse Rate: 69 Respiratory Rate: 13 O2 Saturation: 96 (on RA at rest) Blood Pressure: 132/61 - Physical Exam General Appearance: positive: No acute distress, Alert, Other (well groomed sitting up in recliner chair) Eyes Bilateral: positive: Other ( +corrective lenses) ENT: positive: No signs of dehydration Neck: positive: No JVD, Trachea midline Cardiovascular: positive: Regular rate & rhythm, Systolic murmur (+1/6 CLAUDY) Respiratory: positive: No respiratory distress, Rhonchi (LLL that improves with cough). negative: Wheezes Abdomen: positive: Non-tender, Soft, Nml bowel sounds, Other (+round) Extremities: positive: No pedal edema Neurologic/Psychiatric: positive: Disoriented to place, Disoriented to time, Weakness (generalized BLE weakness that is at baseline), Other (Negative prontator drift; CN 2-12 grossly intact with no focal deficit). negative: Facial droop Palliative Care - POLST Patient has POLST: Yes POLST Status: DNR, Selective Treatment Pain: No pain Performance Status: F AST 6D - Palliative Care Discussion: The patient has had resolution of his noted deficits that have been reported by his and caregiver, Radha that were present yesterday likely indicating that the patient had a TIA given he has no residual symptoms. The patient has a history of TIAs and CVA in the past and remains on anticoagulation therapy due to his history of saddle pulmonary emboli. Given it required a two-person assistance when the patient had a change in condition yesterday this causes the patient's , Joselin with increased concerns regarding his care at home. A discussion ensued in regards to having an alternative plan in place for the time the patient has further decline in function and/or the patient's is unable to attend him due to her own health constraints. Joselin is aware of her own health and thus is bringing to the forefront some of these concerns. Luckily, their private caregiver Radha has been able to move into their home to provide assistance in the interim. Strongly encouraged that the patient's follow-up with [facility] resources contact, Diana in regards to the patient's CO PES application. Joselin continues to have underlying fear that if but were to be admitted to the CO PES program that she would be "left with nothing" once the patient is . She would provide comfort if she were able to verify and writing that being enrolled in the CO PES program would not take away everything from her. She does recognize that with Radha as a live-in caregiver they are going to need additional support to relieve Radha. The patient's ultimately wishes for the patient to remain in their home settingWith a transition to hospice services when medically appropriate. Impression and Recommendations - Palliative Care Impression: This is an 89-year-old gentleman who is seen in acute evaluation today at the request of the patient's spouse due to change in cognition and functional status that has subsequently resolved likely due to recent TIA. Patient has a history of TIAs and history of CVA. He has underlying vascular dementia, FAS T6D. The patient's continues to demonstrate caregiver burden and at the present time is having relief with her private caregiver living within their home but this is not a longtime fix. Palliative care to continue to provide symptom management, exploration of goals of care, and anticipatory guidance with a transition to hospice when medically appropriate. Recommendations/Counseling Done: 1. Transischemic attack, resolved in setting of history of CVA. Reviewed with patient's , Joselin that given the patient has returned to his baseline functional status he likely sustained a TIA. As the patient's wishes to focus on comfort measures with a transition to hospice services when medically a ppropriate there are no further interventions to do at the present time outside of supportive care. Patient is presently on anticoagulation with Xarelto due to his underlying history of saddle pulmonary emboli and would continue with anticoagulation therapy. Reviewed the pathophysiology and risks of underlying TIA with the patient's and caregiver, Radha with understanding verbalized and questions answered and addressed. Recommend that they contact palliative care if further change in symptoms with understanding verbalized. 2. Caregiver burden. The patient's , Joselin recently has had some underlying health concerns and at the present time her private caregiver has moved into their home to assist with the caregiver burden. Further imploring the patient's to look at foreseeable caregiver options to have plans in place if something were to happen to her health and/or if the patient's health were to further decline as hospice services do not provide private caregiving services. Strongly implored the patient's to follow-up with her own provider in regards to her present health concerns. Also strongly implored the patient's to contact [facility] to discuss her concerns regarding the CO PES benefits as well as affairs for any caregiving services or DME that the patient may qualify as a . Supportive listening provided. 3. Vascular dementia. Chronic. Progressive. Supportive care. Fall precautions. Patient continues to have a slow, progressive functional and cognitive decline. Given the patient's advanced age, dementia and chronic comorbidities a gradual decline as expected. 4. Advanced care planning. POLST as DN AR with selective treatment. Patient's wishes to weigh benefits versus burdens regarding treatment and ideally wishes for the patient to remain at home with a transition to hospice services when medically appropriate. [facility] palliative care social work Time Spent: Disclaimer: The chart note was formulated using voice recognition technology and unfortunately sound alike errors may occur. Total time spent 30 minutes with greater than 50% of this spent in counseling and coordination of care with patient, and caregiver Radha; examination of patient; review of TIA; and anticipatory guidance.
== END 2020-01-26 11:31 | disposition home or self-care (01) ==
LOC: PC 11:30
PROVIDERS: ATTEND Nurse Practitioner Family
DX: Z51.5 Encounter for palliative care (principal); R41.0 Disorientation, unspecified; R53.83 Other fatigue; R53.1 Weakness; F03.90 Unspecified dementia, unspecified severity, without behavioral disturbance, psychotic disturbance, mood disturbance, and anxiety; Z79.01 Long term (current) use of anticoagulants; Z79.899 Other long term (current) drug therapy; Z86.711 Personal history of pulmonary embolism; Z86.73 Personal history of transient ischemic attack (TIA), and cerebral infarction without residual deficits; Z66 Do not resuscitate
CPT/HCPCS: 99348

== ENCOUNTER 2020-02-18 12:50 | Outpatient (CLI) | payer MEDICARE ==
--- NOTE | 2020-02-18 13:56 | CONSULTATION NOTE ---
Palliative Care Follow Up - Referral Referring Provider: Dr. Damaso Iverson Time of Visit: [id number] Referral setting: Home Referral Reason: Dementia/Insomnia - Information Sources Records reviewed: Previous records reviewed History/Review of Systems obtained from: Patient, Family (, Joselin present) Exam limitations: Clinical condition (Poor historian due to dementia) - History of Present Illness Update Brief HPI Update: This is an 89-year-old man who was seen and evaluated today at his home with his and primary caregiver, Joselin present for follow-up regarding dementia and insomnia. The patient has a history of vascular dementia. He has had a general decline over the last 4 years. The patient has just completed services with home health With physical therapy. The patient's reports that the patient has strengthened after services with physical therapy as well as continuing to perform in home exercises that were provided by physical therapy. The has a caregiver, Radha who is within the home working 6 days a week with a additional caregiver that comes on Sunday to help supplement the care for the patient's as previously it was quite physically demanding resulting in the 's own physical complaints due to exertion. Patient was last seen 01/26/2020 Due to reported change in condition and the patient likely sustained a TIA for which he has a previous history of. The patient has a history of restlessness and agitation in the evenings. The patient's reports that this is presently well controlled. He continues on nightly trazodone 50 mg. He typically wakes up around 4 to 4:30 in the morning and Joselin, the will implore him to go back to sleep for which he readily does. The patient is seen out of bed sitting at the kitchen table drinking water, well groomed without acute distress. The patient has a past medical history that includes vascular dementia, CVA, seizure disorder, hypertension, type 2 diabetes, microcytic anemia, BPH status post TURP 1993, incontinence, chronic hearing loss, depression, osteoarthritis, frequent UTIs, dysphasia with esophageal dilation, colorectal cancer 1999. Social History - Living Situation Living arrangement: At home Living Situation: With spouse/s.o. Support System: Patient resides in a mobile home in [place] with his 81-year-old who provides the primary caregiving. The patient has a private caregiver, Radha who is now residing in the home providing caregiving assistance 6 days a week. They have a another caregiver that comes into the home on Sundays. The patient's , Joselin has been working with [employer] and has applied for CO PES. The patient is being followed by palliative care social work. Medications/Allergies - Medications Home Medications: Ambulatory Orders Medication Instructions Recorded Confirmed Metformin HCl [Glucophage] 500 mg PO BIDWM 06/04/13 08/06/19 Rivaroxaban [Xarelto] 20 mg ORAL DAILYWM #30 12/10/17 12/08/19 levETIRAcetam [Levetiracetam] 500 mg PO BID #60 12/10/17 12/08/19 Cholecalciferol (Vitamin D3) 1,000 units PO DAILY 07/08/18 12/08/19 [Vitamin D3] Saccharomyces Boulardii [Florastor] 250 mg PO DAILY #5 capsule 07/10/18 12/08/19 Hydrocortisone 1% Oint 1 ea TOP BID PRN 08/08/18 12/08/19 [Hydrocortisone] Ferrous Gluconate [Iron] 325 mg PO DAILY 08/06/19 12/08/19 Loperamide HCl [Loperamide] 1 tab PO DAILY PRN 08/06/19 12/08/19 Omeprazole 20 mg PO BID 08/06/19 08/06/19 Psyllium Husk (with Sugar) [Fiber PO BID MDD 2 scoop 08/06/19 Therapy Powder] Cranberry 500 mg PO BID 11/17/19 12/08/19 Loratadine [Claritin] 10 mg PO DAILY 11/17/19 12/08/19 Melatonin 3 mg PO QPM PRN 11/17/19 12/08/19 Phenyleph/Pramoxin/Glycr/W.pet 1 applic [place] DAILY PRN 11/17/19 12/08/19 [Preparation H Cream] traZODone [Desyrel] 50 mg PO QPM 12/08/19 12/08/19 Carboxymethylcellulose Sodium 1 drops EACHEYE QPM 01/12/20 01/12/20 [Artificial Tears] - Allergies Allergies/Adverse Reactions: Allergies Allergy/AdvReac Type Severity Reaction Status Date / Time codeine AdvReac Intermediate Nausea Verified 11/17/19 11:44 memantine HCl * AdvReac Anxiety Verified 11/17/19 11:44 [From Namenda] Review of Systems - Constitutional Constitutional: reports: Fatigue, Weight stable - Eyes Eyes: reports: Corrective lenses - Ears, Nose & Throat Ears, Nose & Throat: reports: Hearing loss, Hearing aids - Cardiovascular Cardiovascular: denies: Chest pain - Respiratory Respiratory: denies: Cough - Gastrointestinal Gastrointestinal: reports: Good appetite. denies: Abdominal pain - Genitourinary Genitourinary: reports: Incontinence - Musculoskeletal Musculoskeletal: reports: Assistive devices - Integumentary Integumentary: denies: Pruritis - Neurological Neurological: reports: General weakness, Memory problems - Psychiatric Psychiatric: reports: Aggitation (resolved) - Endocrine Endocrine: reports: Diabetes type 2 - Hematologic/Lymphatic Hematologic/Lymphatic: reports: Recurrent infections (history of UTIs) - All Other Systems All Other Systems: reports: Reviewed and negative (Patient is a poor historian due to dementia and review of systems obtained by patient's spouse/D CASE.) Physical Exam - Vital Signs Temperature: 36.5 C Pulse Rate: 74 O2 Saturation: 97 (on RA at rest) Blood Pressure: 134/82 (right wrist cuff sitting) - Physical Exam General Appearance: positive: No acute distress, Alert, Other (well groomed sitting at dinning table) Eyes Bilateral: positive: Other (+corrective lenses) ENT: positive: No signs of dehydration Neck: positive: No JVD, Trachea midline Cardiovascular: positive: Regular rate & rhythm, Systolic murmur (+1/6 CLAUDY) Respiratory: positive: No respiratory distress, Rhonchi (trace LLL). negative: Wheezes Abdomen: positive: Non-tender, Soft, Nml bowel sounds, Other (+round) Extremities: positive: Pedal edema (trace) Neurologic/Psychiatric: positive: Disoriented to place, Disoriented to time, Other (moves all extremities; improved ability rising from a chair and ambulating with rollator across the room) Palliative Care - POLST Patient has POLST: Yes POLST Status: DNR, Selective Treatment Pain: No pain Performance Status: FAST 6D - Palliative Care Discussion: The patient's /D Joselin WILLOUGHBY reports that the patient has had improvement in the evening hours with his sleep and agitation. The patient typically awakens once during the night but is easily redirected to go back to sleep without any agitation or restlessness. This has been a great relief to the patient's as the patient's restlessness was impacting her own health and ability to provide care.She is presently supported by caregivers within the home. She continues to wish to have the patient remain at home and her CO PES application has been submitted. Impression and Recommendations - Palliative Care Impression: This is an 89-year-old gentleman with vascular dementia, F AST 6D, with a history of frequent falls. He has had improvement of his overnight night behaviors and the no longer reports restlessness and agitation. The patient has had improved strength after working with home health physical therapy. Palliative care to continue to provide support, symptom management and anticipatory guidance. Recommendations/Counseling Done: 1. Insomnia with agitation due to dementia. Resolved. Continue trazodone 50 mg nightly with melatonin 3 mg nightly as needed for symptoms of insomnia. The patient is doing well over the night and is easily redirectable. Continue scheduled bedtime routine including encouraging voiding prior to bed. Continue to monitor response of interventions and adjust medications as needed. 2. Vascular dementia. Chronic. Progressive. Supportive care and fall precautions. Patient continues with a slow and progressive functional decline. On no disease modifying agents. Given the patient's advanced age, dementia and global morbidities a gradual decline as expected. 3. History of CVA with residual weakness and weakness due to vascular dementia. Status post home health physical therapy for improved function and safety awareness. Patient continues to do home exercises with overall improved strength. Fall precautions. 4. Advanced care planning. POLST is DN AR with selective treatment. The patient is wishes to focus on weighing benefits versus burdens. The patient's has had increased caregiving support within the home and is aw aiting status of her CO PES application for further additional support for caregiving services within the home. Time Spent: F/u in April 2020 or prn Total time spent 25 minutes with greater than 50% of this spent in counseling and coordination of care with patient and /DPOA; examination of patient; review of symptom management and anticipatory guidance. Disclaimer: The chart note was formulated using voice recognition technology and unfortunately sound alike errors may occur.
== END 2020-02-18 12:51 | disposition home or self-care (01) ==
LOC: PC 12:50
PROVIDERS: ATTEND Nurse Practitioner Family
DX: Z51.5 Encounter for palliative care (principal); F03.91 Unspecified dementia, unspecified severity, with behavioral disturbance; F51.05 Insomnia due to other mental disorder; R45.1 Restlessness and agitation; R53.1 Weakness; I69.398 Other sequelae of cerebral infarction; Z79.899 Other long term (current) drug therapy; Z91.81 History of falling; Z66 Do not resuscitate
CPT/HCPCS: 99348

== ENCOUNTER 2020-03-23 10:15 | Outpatient (CLI) | payer MEDICARE ==
--- NOTE | 2020-03-23 11:47 | CONSULTATION NOTE ---
Palliative Care Follow Up - Referral Referring Provider: Dr. Damaso Iverson Time of Visit: [id number] Referral setting: Home Referral Reason: Coughing/Dementia - Information Sources Records reviewed: Previous records reviewed History/Review of Systems obtained from: Patient, Family (/DPCARIN Olivera), Caregiver (private caregiver, Amor) Exam limitations: Clinical condition ([place] and cognitive impairment due to dementia) - History of Present Illness Update Brief HPI Update: This is an 89-year-old man who was seen and evaluated today at his home with his and primary caregiver, Joselin present and private duty caregiver, Amor at the 's request due to acute change in condition with underlying coughing. The patient's , Joselin contacted palliative care this morning requesting a visit as the patient began with coughing during meals yesterday. Joselin reports that he had half of a popsicle and some sips of liquid yesterday but she stopped with his meals as the coughing was a sign for her to stop. He also had some "rattling" that Joselin noticed yesterday after coughing spells with increased phlegm. The patient this morning had some coughing during breakfast and subsequently Joselin and the private caregiver stopped. The only medication he has had thus far this morning was as omeprazole on an empty stomach. The patient has a history of dysphasia and has required esophageal dilation in the past. He has been some time per Joselin's report since the patient last had this performed. Joselin states that they are unable to perform this esophageal dilation at [facility] and he would have to go to [place]. Joselin wanted the patient assessed this morning as she had underlying concern with his coughing. The patient has a history of vascular dementia and has had a general decline over the last 4 years. He continues to be able to ambulate and has recently [facility] with physical therapy for strengthening. The patient's his having a decline in her overall physical health due to the demanding physical care that is required of her in order to care for the patient himself. The patient's reports increased nasal congestion and she has increased his Claritin to 10 mg twice daily. The patient is seen in his recliner in the common area working on an art project. No visible distress and even breathing. The patient has a past medical history that includes vascular dementia, CVA, seizure disorder, hypertension, type 2 diabetes, microcytic anemia, BPH status post KAILEE P 1993, urinary incontinence, chronic hearing loss, depression, osteoarthritis, frequent UTIs, dysphasia with esophageal dilation, colorectal cancer 1999. Social History - Living Situation Living arrangement: At home Living Situation: With spouse/s.o. Support System: Resides in a mobile home in [place] with his 81-year-old who provides the primary caregiving. The patient through services has a caregiver 1 hour in the a.m. and 1 hour in the evening Sunday through Sunday. They have a caregiver on Sundays who comes 2 hours in the morning 2 hours in the evening to assist with care as well as housework. To the increased physical demands for caring for the patient within the home has become taxing for the patient's , Joselin and her son who resides in [place] is attempting to assist for the patient to have a respite stay in [place] where the cost is cheaper versus on [facility]. The patient's , Joselin is also working with [facility] and has applied for [place] program. The patient is being followed by palliative care social work. Medications/Allergies - Medications Home Medications: Ambulatory Orders Medication Instructions Recorded Confirmed Metformin HCl [Glucophage] 500 mg PO BIDWM 06/04/13 08/06/19 Rivaroxaban [Xarelto] 20 mg ORAL DAILYWM #30 12/10/17 12/08/19 levETIRAcetam [Levetiracetam] 500 mg PO BID #60 12/10/17 12/08/19 Cholecalciferol (Vitamin D3) 1,000 units PO DAILY 07/08/18 12/08/19 [Vitamin D3] Hydrocortisone 1% Oint 1 ea TOP BID PRN 08/08/18 12/08/19 [Hydrocortisone] Ferrous Gluconate [Iron] 325 mg PO DAILY 08/06/19 12/08/19 Loperamide HCl [Loperamide] 1 tab PO DAILY PRN 08/06/19 12/08/19 Omeprazole 20 mg PO BID 08/06/19 08/06/19 Psyllium Husk (with Sugar) [Fiber PO BID MDD 2 scoop 08/06/19 Therapy Powder] Cranberry 500 mg PO BID 11/17/19 12/08/19 Loratadine [Claritin] 10 mg PO DAILY 11/17/19 12/08/19 Melatonin 3 mg PO QPM PRN 11/17/19 12/08/19 Phenyleph/Pramoxin/Glycr/W.pet 1 applic [place] DAILY PRN 11/17/19 12/08/19 [Preparation H Cream] traZODone [Desyrel] 50 mg PO QPM 12/08/19 12/08/19 Carboxymethylcellulose Sodium 1 drops EACHEYE QPM 01/12/20 01/12/20 [Artificial Tears] Fluticasone [Flonase] 1 spray IH .EACH NOSTRIL DAILY 03/23/20 03/23/20 - Allergies Allergies/Adverse Reactions: Allergies Allergy/AdvReac Type Severity Reaction Status Date / Time codeine AdvReac Intermediate Nausea Verified 11/17/19 11:44 memantine HCl * AdvReac Anxiety Verified 11/17/19 11:44 [From Namenda] Review of Systems - Constitutional Constitutional: reports: Weight stable. denies: Fever, Diaphoresis - Eyes Eyes: reports: Corrective lenses - Ears, Nose & Throat Ears, Nose & Throat: reports: Hearing loss, Hearing aids - Cardiovascular Cardiovascular: reports: Edema. denies: Chest pain - Respiratory Respiratory: reports: Cough (see HPI for full details). denies: Wheezing, SOB at rest - Gastrointestinal Gastrointestinal: reports: Good appetite. denies: Abdominal pain, Constipation (reports controlled), Diarrhea, Vomiting - Genitourinary Genitourinary: reports: Incontinence - Musculoskeletal Musculoskeletal: reports: Assistive devices. denies: Joint pain - Integumentary Integumentary: denies: Pruritis - Neurological Neurological: reports: General weakness, Memory problems - Psychiatric Psychiatric: denies: Aggitation - Endocrine Endocrine: reports: Diabetes type 2 - Hematologic/Lymphatic Hematologic/Lymphatic: reports: Recurrent infections (history of frequent UTIs) - All Other Systems All Other Systems: reports: Reviewed and negative (ROS limited as patient is a poor historian due to dementia and is supplemented by spouse/DPOA) Physical Exam - Vital Signs Temperature: 36.6 C Pulse Rate: 62 Respiratory Rate: 17 O2 Saturation: 96 (on RA at rest) Blood Pressure: 158/73 (left wrist cuff; no AM meds) - Physical Exam General Appearance: positive: No acute distress, Alert, Other (well groomed 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 negative: Lymphadenopathy (R), Lymphadenopathy (L) Cardiovascular: positive: Regular rate & rhythm, Systolic murmur (+1/6 CLAUDY) Respiratory: positive: No respiratory distress, Breath sounds nml. negative: Wheezes, Rales Abdomen: positive: Non-tender, Soft, Nml bowel sounds, Other (+round) Skin: positive: Dryness Extremities: positive: Pedal edema (trace BLE) Neurologic/Psychiatric: positive: Disoriented to place, Disoriented to time Comments/Other: Drank glucerna with small sips without noted coughing. Had private caregiver cut up breakfast more finely and add moisture to dry foods and patient took small bites with assistance with no evidence of coughing and if felt sensation as if food was stuck instructed on chin-tuck technique and symptom resolved. Palliative Care - POLST Patient has POLST: Yes POLST Status: DNR, Selective Treatment Performance Status: FAST 6D - Palliative Care Discussion: The patient and the last 1 to 2 days has had acute coughing during mealtime that has resulted in the patient stopping with meals. The patient has not been assisted with any meal or cueing in the past. He has a history of esophageal dilation due to dysphasia and the patient's is considering moving forward with a possible dilation however, she is feeling overwhelmed with her own physical health limitations that have resulted from caring for the patient within their home and potential assistance needed for transport if the patient had to go for a GI consultation in [place]. On upon review of goals of care with the patient's /D POA, she wishes to focus on comfort and quality of life with a transition to hospice services when medically appropriate. 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 The patient's recognizes that due to the patient's cognitive impairments due to his vascular dementia he would not be able to comprehend why the feeding tube was in place and would pull it out resulting in further discomfort and potential trauma. The patient's does not want to proceed with intervention with artificial tube for nutrition. Given this the POLST was updated to reflect this goals of care as DN AR, selective interventions weighing benefits versus burdens of treatment, antibiotic therapy except for symptom management, and new artificially assisted nutrition by tube. Suggestions were made for mealtime and the patient's wishes to proceed with a trial of mealtime suggestions before moving forward with any potential intervention such as a GI consultation. She is aware that with coughing the patient has increased risk of potential aspiration resulting in pneumonia and this may lead to a sequelae for further acute complications and potential transfer to hospice services based on the patient's overall wellbeing given his underlying dementia and chronic comorbidities. The patient's recognizing the stress, wishes to focus on comfort and quality of life. The patient's is also looking into completing the [place] application to have more assistance within the home environment. In the interim, she is looking at potential respite stay at a facility in [place] so that she may focus on her overall health, wellbeing and needs that she can adequately care for the patient himself ideally within the home environment. Impression and Recommendations - Palliative Care Impression: This is a pleasant 89-year-old gentleman with vascular dementia, F AST 6D, with a history of dysphasia status post esophageal dilation. He has had acute coughing and on evaluation today during mealtime with modification no evidence of acute coughing or dysphasia. The patient's wishes to focus on quality of life and comfort ideally within the home environment. The patient's is looking at additional caregiving options such as respite stay and further assistance within the home with [place] PES. POLST updated. Palliative care to continue provide support, symptom management, anticipatory guidance with a transition to hospice services when medically appropriate. Recommendations/Counseling Done: 1. Coughing during mealtime in the setting of history of dysphasia with esophageal dilation. Unclear when last esophageal dilation was performed. On evaluation today with this CLINICAL PROJECT LEADER noted, no noted coughing during mealtime. Recommended following mealtimes suggestions: 1. Supervision during meals 2. Position upright at all meals 3. Take small bites 4. Use chin-tuck technique when swallowing 5. Eat and chew slowly and thoroughly 6. Swallow each bite before taking another bite 7. Add moisture to dry foods, ie dip cookies in coffee, use gravy 8. Finely chop up meats 9.Consider blending food or increase use of glucerna based on ques from patient 10. Do not eat 3 hours before going to bed Discuss requesting from patient's PCP, Dr. Iverson for a GI consultation for po ssible evaluation for need of esophageal dilation however, the patient's wishes to hold off at the present time and see if mealtime suggestions are effective. Patient's is aware of risk of aspiration pneumonia and potential sequale but wishes to focus on quality of life within the home, if possible. Reviewed s/s to contact EMS. The patient's is experiencing anxiety in regards to how they would transport the patient to an appointment given her own physical underlying health issues she would not be able to be in a car for long length of time and ultimately, she wishes to focus on comfort and quality of life for the patient. She does not wish to have the patient have a feeding tube for artificial nutrition by tube. We will continue to monitor and support the patient and his . 2.Allergic rhinitis. Advised the patient's may only have Claritin 10 mg daily. Recommend may use Flonase 1 spray each nostril daily for allergies which may be obtained [id number]. 3.Vascular dementia. Chronic. Progressive. Supportive care and fall precautions. Patient continues with a slow and progressive functional decline. On no disease modifying agents. Given the patient's advanced age, dementia and chronic comorbidities a gradual decline is expected. 4. Caregiver burden. The patient's /D POA is experiencing physical wear due to her role as a primary care caregiver and as well as emotional burden. The patient's is looking into respite stay for the patient and is having support from her son as well as [facility]. Her ultimate go al is for the patient to have a respite stay at a facility and then return home with Say caregiving in place to provide assistance. The patient's hopes that a respite stay will allow for her to focus on her own health and well-being so that she may improve. 5. Advanced care planning. POLST updated to DNAR with selective treatment. Further exploration of goals of care with a goal to transition to hospice when appropriate. Supportive listening provided. . Time Spent: F/u April 2020 or prn if needed. Total time spent 60 minutes with greater than 50% of this spent in counseling and coordination of care with patient, and caregiver; review of swallowing techniques; assessment of patient; exploration of goals of care; review of hospice criteria related to dementia; review of symptom management and anticipatory guidance. Disclaimer: The chart note was formulated using voice recognition technology and unfortunately sound alike errors may occur.
== END 2020-03-23 10:16 | disposition home or self-care (01) ==
LOC: PC 10:15
PROVIDERS: ATTEND Nurse Practitioner Family
DX: Z51.5 Encounter for palliative care (principal); R05 Cough; J30.9 Allergic rhinitis, unspecified; F03.90 Unspecified dementia, unspecified severity, without behavioral disturbance, psychotic disturbance, mood disturbance, and anxiety; Z79.899 Other long term (current) drug therapy; Z66 Do not resuscitate
CPT/HCPCS: 99350

== ENCOUNTER 2020-04-15 09:50 | Outpatient (CLI) | payer MEDICARE ==
--- NOTE | 2020-04-15 13:57 | CONSULTATION NOTE ---
Palliative Care Follow Up - Referral Referring Provider: Dr. Damaso Iverson Time of Visit: Initated 0950 Referral setting: Assisted living Referral Reason: Dementia/Dysphagia/DM type II - Information Sources Records reviewed: Previous records reviewed History/Review of Systems obtained from: Patient, Family (/Joselin MASON via phone), Nursing Exam limitations: Clinical condition - History of Present Illness Update Brief HPI Update: This is a bre 89-year-old gentleman who was seen and evaluated today at [facility] for follow-up regarding his transition to his new in her home environment, dementia, and diabetes mellitus type 2. The patient's /Joselin MASON has had her own health problems recently and had been becoming increasingly difficult for her to care for the patient within their home environment due to the physical demands of his care despite additional caregiving resources. The patient is presently at [facility] with the hope that he will transition permanently with son additional state assistance. The patient's reports that the application has been pending. The patient has been adjusting well to his new home environment. He is quite jovial and pleasant to this REGIONAL ENGINEER as well as to the staff. No recent falls. Presently in a loaner tilt in space wheelchair. The patient has a longstanding history of dysphagia that has required esophageal dilation in the past. When last seen by this REGIONAL ENGINEER he required some diet modifications for texture but otherwise had been doing well. Presently at the facility he is on a modified pured diet and has LAMP WIRER pending on site for evaluation. Patient was seen today sitting up completing breakfast and no evidence of coughing noted during the meal. Patient reportedly had erythema to his great and first toes of both feet. He is receiving gauze in between his toes to reduce friction. He denies any discomfort to his bilateral feet. Patient is seen out of bed in a tilt in space wheelchair finishing up his breakfast. He is well groomed and in no acute distress. Past Medical History: There is a patient that has a past medical history that includes vascular dementia, CVA, seizure disorder, hypertension, type 2 diabetes mellitus, microcytic anemia, Saddle pulmonary embolism,BPH status post KAILEE P 9094, urinary incontinence, chronic hearing loss, depression, osteoarthritis, frequent UTIs, TIAs, CVA,dysphagia with esophageal dilation, colorectal cancer 1999 Social History - Living Situation Living arrangement: Assisted living Support System: Patient had been previously residing in a mobile home in [place] with his 81-year-old /DPOA, Joselin who had been providing the bulk of his primary caregiving. It is the patient's hope, that the patient will be able to permanently stay with assistance at [facility]. He moved into the facility in March 2020. Medications/Allergies - Medications Home Medications: Ambulatory Orders Medication Instructions Recorded Confirmed Metformin HCl [Glucophage] 500 mg PO BIDWM 06/04/13 04/15/20 Rivaroxaban [Xarelto] 20 mg ORAL DAILYWM #30 12/10/17 04/15/20 levETIRAcetam [Levetiracetam] 500 mg PO BID #60 12/10/17 04/15/20 Cholecalciferol (Vitamin D3) 1,000 units PO DAILY 07/08/18 04/15/20 [Vitamin D3] Hydrocortisone 1% Oint 1 ea TOP BID PRN 08/08/18 04/15/20 [Hydrocortisone] Ferrous Gluconate [Iron] 325 mg PO DAILY 08/06/19 04/15/20 Loperamide HCl [Loperamide] 1 tab PO DAILY PRN 08/06/19 04/15/20 Omeprazole 20 mg PO BID 08/06/19 04/15/20 Psyllium Husk (with Sugar) [Fiber PO BID MDD 2 scoop 08/06/19 Therapy Powder] Cranberry 500 mg PO BID 11/17/19 04/15/20 Loratadine [Claritin] 10 mg PO DAILY 11/17/19 04/15/20 Phenyleph/Pramoxin/Glycr/W.pet 1 applic [place] DAILY PRN 11/17/19 12/08/19 [Preparation H Cream] traZODone [Desyrel] 50 mg PO QPM 12/08/19 04/15/20 Carboxymethylcellulose Sodium 1 drops EACHEYE QPM 01/12/20 04/15/20 [Artificial Tears] Fluticasone [Flonase] 1 spray IH .EACH NOSTRIL DAILY 03/23/20 04/15/20 Magnesium Hydroxide [Milk of 30 ml PO DAILY PRN MDD NO BM in 3 04/15/20 04/15/20 Magnesia] days - Allergies Allergies/Adverse Reactions: Allergies Allergy/AdvReac Type Severity Reaction Status Date / Time codeine AdvReac Intermediate Nausea Verified 11/17/19 11:44 memantine HCl * AdvReac Anxiety Verified 11/17/19 11:44 [From Namenda] Review of Systems - Constitutional Constitutional: reports: Weight stable (163.4lb). denies: Fever - Eyes Eyes: reports: Corrective lenses - Ears, Nose & Throat Ears, Nose & Throat: reports: Hearing loss, Hearing aids - Cardiovascular Cardiovascular: denies: Edema - Respiratory Respiratory: denies: Cough, Wheezing - Gastrointestinal Gastrointestinal: reports: Good appetite (slow eater). denies: Constipation (controlled with fiber) - Genitourinary Genitourinary: reports: Incontinence. denies: Dysuria - Musculoskeletal Musculoskeletal: denies: Joint pain - Integumentary Integumentary: reports: Other (erythema between toes--improved keeping clean and dry. Has diabetic shoes in place.) - Neurological Neurological: reports: General weakness, Memory problems - Psychiatric Psychiatric: denies: Behavior disturbances - Endocrine Endocrine: reports: Diabetes type 2 - Hematologic/Lymphatic Hematologic/Lymph: Anemia, Recurrent infections (UTIs) - All Other Systems All Other Systems: reports: Reviewed and negative (ROS limited as patient is a poor historian due to dementia. ROS supplemented by facility staff.) Physical Exam - Vital Signs Temperature: 36.7 C Pulse Rate: 62 O2 Saturation: 93 (on RA at rest) Blood Pressure: 130/75 (left wrist) - Physical Exam General Appearance: positive: No acute distress, Alert, Other (well groomed sitting , sitting up in tilt in space wheelchair at dining table finishing breakfast) Eyes Bilateral: positive: Other (+corrective lenses) ENT: positive: No signs of dehydration, Other (+hearing aids in place) Neck: positive: Trachea midline Cardiovascular: positive: Regular rate & rhythm, Systolic murmur (+1/6 CLAUDY) Respiratory: positive: No respiratory distress, Breath sounds nml. negative: Wheezes Abdomen: positive: Non-tender, Soft, Nml bowel sounds, Other (+round) Skin: positive: Dryness, Other (Between toes gauze is in place; scab to right 2nd toe without discharge or erythema; +hammertoes; +onychomycosis to toenails) Extremities: positive: No pedal edema Neurologic/Psychiatric: positive: Mood/affect nml, Disoriented to place, Disoriented to time Palliative Care - POLST Patient has POLST: Yes POLST Status: DNR, Comfort Measures Performance Status: Able to ambulate short distances with his walker. Requires cueing during mealtime. Requires assistance with ADLs. Incontinent of bladder. F AST 6D - Palliative Care Discussion: The patient has called a study, slow cognitive and functional decline due to vascular dementia. He has recently transitioned to the memory care unit at [facility] and appears to be adjusting well. He is quite a happy and jovial individual. Will make the staff aware at the facility that the patient enjoys arts and craft activities such as cutting paper as well as coloring. The patient's is optimistic that the patient will be able to stay with additional support from state applications that have been submitted. From the patient's standpoint not having to do the physical care that is needed for the patient she has been able to begin working on recovery for her own health and wellbeing. Impression and Recommendations - Palliative Care Impression: This is a pleasant 89-year-old gentleman with vascular dementia, F AST 60, with a history of dysphagia status post esophageal dilation who was recently transition to [facility] memory care unit. He is pending an LAMP WIRER evaluation on site and there was no evidence of coughing noted today during mealtime. The patient appears to have adjusted well to his new environment. Palliative care to continue provide support, symptom management, anticipatory guidance with a transition to hospice services when medically appropriate. Recommendations/Counseling Done: 1. Hammertoes noted bilaterally with scab formation to second toe. No signs or symptoms of underlying infection. Continue to wear diabetic shoes for protec tion. Continue to keep the toes clean and dry. May continue to use gauze to reduce friction in between toes. 2. Allergic rhinitis. Stable. Continue Claritin 10 mg daily. Continue Flonase 1 sprays each nostril daily. Continue to monitor and titrate down if needed. 3. Diabetes mellitus type 2. Not on insulin. is concerned regarding the patient's having elevated blood glucose levels requiring insulin administration. Continue Metformin 500 mg twice daily. Request diet addition of diabetic diet. Request that patient's fasting blood glucose levels are obtained on Mondays and and notify PCP if level is greater than 350 mg/dL or less than 70 mg/dL. 4. History of dysphagia with esophageal dilation. No evidence of coughing during mealtime noted today. Is now in a setting for cueing and assistance during mealtime. Continue modified diet of pured texture. LAMP WIRER evaluation pending on site. Patient has required esophageal dilation in the past. Continue to provide supportive care. 5. Vascular dementia. Chronic. Progressive. Supportive care and fall precautions. Patient continues to have a slow and progressive functional decline. On no disease modifying agents. Patient would benefit from continued service in memory care environment. Given the patient's advanced age, dementia chronic comorbidities a gradual decline is expected. 6. Constipation. Presently controlled with psyllium husk powder. Initiated MOM 30mL daily PRN if no bowel movement after 3 days. Time Spent: CPT 78097 Contacted patient's /DPOA and updated regarding findings in setting and POC recommendations with understanding and verbalized and agreement to proceed. Supportive listening provided to the . Disclaimer: The chart note was formulated using voice recognition technology and unfortunately sound alike errors may occur.
== END 2020-04-15 09:51 | disposition home or self-care (01) ==
LOC: PC 09:50
PROVIDERS: ATTEND Nurse Practitioner Family
DX: Z51.5 Encounter for palliative care (principal); F03.90 Unspecified dementia, unspecified severity, without behavioral disturbance, psychotic disturbance, mood disturbance, and anxiety; E11.9 Type 2 diabetes mellitus without complications; R13.10 Dysphagia, unspecified; R32 Unspecified urinary incontinence; M20.42 Other hammer toe(s) (acquired), left foot; M20.41 Other hammer toe(s) (acquired), right foot; J30.9 Allergic rhinitis, unspecified; K59.00 Constipation, unspecified; Z79.84 Long term (current) use of oral hypoglycemic drugs; Z79.899 Other long term (current) drug therapy; Z87.440 Personal history of urinary (tract) infections; Z66 Do not resuscitate

== ENCOUNTER 2020-05-15 15:49 | Outpatient (CLI) | payer MEDICARE | END 2020-05-15 15:50 | disposition critical access hospital (66) | LOC: EMS 15:49 | PROVIDERS: ATTEND Surgery | DX: R07.89 Other chest pain (principal); M54.5 Low back pain; M25.552 Pain in left hip | CPT/HCPCS: A0425; A0429 ==

== ENCOUNTER 2020-05-15 16:20 | Inpatient (IN) | payer MEDICARE ==
--- NOTE | 2020-05-15 16:38 | ED Physician Documentation ---
PD HPI Fall - Stated complaint Stated Complaint: GLF/HIP PX - History obtained from History obtained from: Patient, EMS - Additional information Additional information: 89yo male with dementia presents by ambulance from [facility]. Hx from by phone because of his dementia. He was diagnosed with Covid, sounds like it was relatively asymptomatic a couple of weeks ago because of an outbreak at the residential he is coming from. Today he fell in the bathroom and injured his hips and the left side ribs. No clear history of head injury or neck injury. Reportedly his mental status is at his baseline which is significantly demented. Review of Systems Unable to obtain: Dementia PD PAST MEDICAL HISTORY - Past Medical History Cardiovascular: Hypertension Respiratory: None Neuro: Dementia, CVA, Seizure disorder Endocrine/Autoimmune: Type 2 diabetes GI: GERD COLLEGE TUTOR: None : Benign prostate hypertrophy, Incontinence, Nocturia, Frequency HEENT: Chronic vision loss, Chronic sinusitis, Chronic hearing loss Psych: Depression Musculoskeletal: Osteoarthritis, Fatigue Derm: None - Past Surgical History Past Surgical History: Yes General: Bowel surgery, Colonoscopy, EGD Ortho: Hip replacement HEENT: Other Derm: Other - Present Medications Home Medications: Ambulatory Orders Medication Instructions Recorded Confirmed Metformin HCl [Glucophage] 500 mg PO BIDWM 06/04/13 04/15/20 Rivaroxaban [Xarelto] 20 mg ORAL DAILYWM #30 12/10/17 04/15/20 levETIRAcetam [Levetiracetam] 500 mg PO BID #60 12/10/17 04/15/20 Cholecalciferol (Vitamin D3) 1,000 units PO DAILY 07/08/18 04/15/20 [Vitamin D3] Hydrocortisone 1% Oint 1 ea TOP BID PRN 08/08/18 04/15/20 [Hydrocortisone] Ferrous Gluconate [Iron] 325 mg PO DAILY 08/06/19 04/15/20 Loperamide HCl [Loperamide] 1 tab PO DAILY PRN 08/06/19 04/15/20 Omeprazole 20 mg PO BID 08/06/19 04/15/20 Psyllium Husk (with Sugar) [Fiber PO BID MDD 2 scoop 08/06/19 Therapy Powder] Cranberry 500 mg PO BID 11/17/19 04/15/20 Loratadine [Claritin] 10 mg PO DAILY 11/17/19 04/15/20 Phenyleph/Pramoxin/Glycr/W.pet 1 applic [place] DAILY PRN 11/17/19 12/08/19 [Preparation H Cream] traZODone [Desyrel] 50 mg PO QPM 12/08/19 04/15/20 Carboxymethylcellulose Sodium 1 drops EACHEYE QPM 01/12/20 04/15/20 [Artificial Tears] Fluticasone [Flonase] 1 spray IH .EACH NOSTRIL DAILY 03/23/20 04/15/20 Magnesium Hydroxide [Milk of 30 ml PO DAILY PRN MDD NO BM in 3 04/15/20 04/15/20 Magnesia] days - Allergies Allergies/Adverse Reactions: Allergies Allergy/AdvReac Type Severity Reaction Status Date / Time codeine AdvReac Intermediate Nausea Verified 05/15/20 16:55 memantine HCl * AdvReac Anxiety Verified 05/15/20 16:55 [From Namenda] - Social History Does the pt smoke?: No Smoking Status: Never smoker Does the pt drink ETOH?: No Does the pt have substance abuse?: No - Immunizations Immunizations are current?: No - POLST Patient has POLST: Yes POLST Status: DNR PD ED PE NORMAL - Vitals Vital signs reviewed: Yes - General General: No acute distress, Other (oriented to person only) - HEENT HEENT: PERRL, EOMI - Neck Neck: No bony TTP - Cardiac Cardiac: RRR, No murmur - Respiratory Respiratory: No respiratory distress, Other (Some tenderness of the left ribs and also the left upper quadrant.) - Back Back: No CVA TTP, No spinal TTP - Derm Derm: Normal color, Warm and dry - Extremities Extremities: Other (Hips seem relatively nontender and he is able to raise both legs off the bed.) - Neuro Neuro: No motor deficit, No sensory deficit, Normal speech Results - Vitals Vitals: Vital Signs - 24 hr 05/15/20 05/15/20 16:20 16:55 Temperature 36.6 C Heart Rate 78 76 Respiratory 18 16 Rate Blood Pressure 138/66 H 132/68 H O2 Saturation 99 98 Oxygen O2 Source Room air - Labs Labs: Laboratory Tests 05/15/20 05/15/20 05/15/20 16:48 16:48 16:48 WBC 7.7 RBC 4.62 L Hgb 15.0 Hct 44.8 MCV 97.0 H MCH 32.5 H MCHC 33.5 RDW 13.4 Plt Count 278 MPV 9.6 Neut # (Auto) 7.1 H Lymph # (Auto) 0.2 L Hampton # (Auto) 0.3 Eos # (Auto) 0.0 Baso # (Auto) 0.0 Absolute Nucleated RBC 0.00 Nucleated RBC % 0.0 PT 22.1 H INR 2.1 H Sodium 135 Potassium 4.3 Chloride 96 L Carbon Dioxide 25 Anion Gap 14.0 H BUN 26 H Creatinine 1.1 Estimated GFR (MDRD) 63 L Glucose 295 H Calcium 10.0 Total Bilirubin 0.4 AST 18 ALT 22 Alkaline Phosphatase 95 Total Protein 7.4 Albumin 3.7 Globulin 3.7 Albumin/Globulin Ratio 1.0 Lipase 44 - Rads (name of study) CT Head/Cspine/Chest?abd/Pelvis Radiology: EMP read contemporaneously (1. Posterior fractures of the left 10th, 11th, and 12th ribs, as described above. 2. No associated pneumothorax. 3. Small bilateral pleural effusions and bibasilar atelectasis. 4. Advanced coronary artery atherosclerotic calcifications.) PD MEDICAL DECISION MAKING - ED course ED course: This is an elderly gentleman who is on warfarin who presents after ground-level fall. Recent positive Covid test. He was grace scanned given his dementia and potential for multisystem trauma, only pertinent positive finding from a traumatic perspective was 3 left-sided rib fractures. Case discussed by phone with his who was agreeable with the plan of care and confirmed DNR/DNI status. Spoke with Dr. Carreon for admission at 7:20 PM. Departure - Departure Disposition: 66 CAH DC/Xfer Clinical Impression: Frequent falls, Limited code status, Anticoagulant long-term use Multiple fractures of ribs Qualifiers: Encounter type: initial encounter Fracture type: closed Laterality: left Qu alified Code(s): S22.42XA - Multiple fractures of ribs, left side, initial encounter for closed fracture Condition: Serious Comments: No Metformin through Sunday, he may restarted on Sunday.
[2020-05-15 16:54] LABS: BASOPHILS % (AUTO) 0.3 %; LYMPHOCYTES # (AUTO) 0.2 10^3/uL (1.5-3.5); LYMPHOCYTES % (AUTO) 2.6 %; MEAN CORPUSCULAR HEMOGLOBIN 32.5 pg (27.0-31.0); MEAN CORPUSCULAR HGB CONC 33.5 g/dL (32.0-36.0); MEAN PLATELET VOLUME 9.6 fL (7.4-11.4); MONOCYTES # (AUTO) 0.3 10^3/uL (0.0-1.0); MONOCYTES % (AUTO) 3.2 %; NEUTROPHILS # (AUTO) 7.1 10^3/uL (1.5-6.6); NEUTROPHILS % (AUTO) 91.3 %; PLT - PLATELET COUNT 278 10^3/uL (130-450); RED BLOOD COUNT 4.62 10^6/uL (4.70-6.10); RED CELL DISTRIBUTION WIDTH 13.4 % (12.0-15.0); WHITE BLOOD COUNT 7.7 x10^3/uL (4.8-10.8)
[2020-05-15 17:05] LABS: INR 2.1 (0.8-1.2); PT - PROTHROMBIN TIME 22.1 secs (9.9-12.6)
[2020-05-15 17:08] LABS: ALBUMIN 3.7 g/dL (3.2-5.5); BILIRUBIN,TOTAL 0.4 mg/dL (0.2-1.0); CREATININE 1.1 mg/dL (0.6-1.2); TOTAL PROTEIN 7.4 g/dL (6.7-8.2)
--- NOTE | 2020-05-15 17:23 | XRAY Report ---
PROCEDURE: Hips 2V BILAT INDICATIONS: poss hip inj TECHNIQUE: Frontal view of the pelvis along with 3 dedicated views of the hips were performed. COMPARISON: None FINDINGS: Bones: Patient is status post bilateral total hip arthroplasty. There is no evidence of hardware comp lication within normal limits for this evaluation. No acute fracture.. Degenerative changes of the im aged spine. Soft tissues: Soft tissues are unremarkable for patient's age. Enthesophytes are noted at the greate r trochanters bilaterally. IMPRESSION: Bilateral total hip arthroplasties without evidence of hardware complication or acute osseous abnorma lity. Reviewed by: Sean Sumner DO on 05/15/2020 4:21 PM [place] Approved by: Sean Sumner DO on 05/15/2020 4:21 PM [facility] Station ID: [id number]
[2020-05-15] MEDS ORDERED: IOVERSOL 320 100 ML VIAL IVP ONE ×2 (17:41→19:09)
--- NOTE | 2020-05-15 18:42 | CT Report ---
PROCEDURE: HEAD WO INDICATIONS: Head trauma, mod-severe TECHNIQUE: Noncontrast 4.5 mm thick angled axial sections acquired from the foramen magnum to the vertex. For r adiation dose reduction, the following was used: automated exposure control, adjustment of mA and/or kV according to patient size. COMPARISON: None. FINDINGS: Image quality: Excellent. CSF spaces: Basal cisterns are patent. No extra-axial fluid collections. Ventricles are normal in size and shape. Brain: No midline shift. No intracranial masses or hemorrhage. Centeno-white matter interface is norm al. Age-related volume loss and mild small vessel ischemic change. Skull and face: Calvarium and visualized facial bones are intact, without suspicious lesions. Sinuses: Visualized sinuses and mastoids are clear. IMPRESSION: 1. Age-related volume loss and moderate small vessel ischemic change. 2. No evidence of acute stroke, hemorrhage, or mass. 3. No evidence of significant intracranial sequelae of acute trauma. Reviewed by: Adebayo Menard MD on 05/15/2020 6:41 PM PST Approved by: Adebayo Menard MD on 05/15/2020 6:41 PM PST Station ID: [id number]
--- NOTE | 2020-05-15 18:47 | CT Report ---
PROCEDURE: CERVICAL SPINE WO INDICATIONS: Neck trauma, midline tenderness TECHNIQUE: Noncontrast 3 mm thick sections acquired from the skull base to the T4 level. Sagittal and coronal r eformats were then constructed. For radiation dose reduction, the following was used: automated exp osure control, adjustment of mA and/or kV according to patient size. COMPARISON: None. FINDINGS: Image quality: Excellent. Bones: No fractures or dislocations. Visualized superior ribs are intact. Severe cervical spondylit ic change. Trace degenerative anterolisthesis of C5 on C6 and of C4 on C5. Multilevel facet arthropat hy. Multilevel bony foraminal narrowing, from C3/C4-C6/C7 Soft tissues: Prevertebral soft tissues are normal in thickness. No paravertebral hematomas. No ap ical pneumothoraces. IMPRESSION: 1. No evidence of acute cervical fracture or dislocation. 2. Severe cervical spondylosis. Reviewed by: Adebayo Menard MD on 05/15/2020 6:46 PM PST Approved by: Adebayo Menard MD on 05/15/2020 6:46 PM PST Station ID: [id number]
--- NOTE | 2020-05-15 18:54 | CT Report ---
PROCEDURE: CHEST W INDICATIONS: Chest trauma, blunt, low energy CONTRAST: IV CONTRAST: Optiray 320 ml: 100 PO CONTRAST: *NO PO CONTRAST TECHNIQUE: After the administration of intravenous contrast, 5 mm thick sections acquired from the pulmonary api gracy to the posterior costophrenic angles. 7 mm thick coronal MIP reformats were acquired. For radia tion dose reduction, the following was used: automated exposure control, adjustment of mA and/or kV according to patient size. COMPARISON: CT angiogram of the chest dated 07/25/2016. FINDINGS: Image quality: Excellent. Lungs and pleura: Calcified granuloma, posterior periphery, left upper lobe. Small bilateral pleural effusions. Bibasilar atelectasis. No pneumothorax. Central and peripheral airways are patent and norm al in caliber. Mediastinum: Heart size is normal. No pericardial effusion. Advanced coronary artery calcifications . No mediastinal or hilar adenopathy by size criteria. Thoracic aorta and central pulmonary arteries are normal in size. Esophagus is normal in caliber. No hiatal hernia. Bones and chest wall: No suspicious bony lesions. Comminuted displaced fracture of the posterior lef t 10th rib. Mildly displaced posterior left 11th rib fracture. Nondisplaced posterior left 12th rib f racture. No vertebral body compression fractures. No axillary or supraclavicular adenopathy by size criteria. Thyroid gland contains a subcentimeter left thyroid nodule. Abdomen: Visualized upper abdominal solid organs appear normal. Upper abdominal bowel loops are nor mal in caliber. IMPRESSION: 1. Posterior fractures of the left 10th, 11th, and 12th ribs, as described above. 2. No associated pneumothorax. 3. Small bilateral pleural effusions and bibasilar atelectasis. 4. Advanced coronary artery atherosclerotic calcifications. Comment: Please refer to a separate report for CT abdomen and pelvis findings. Reviewed by: Adebayo eMnard MD on 05/15/2020 6:53 PM PST Approved by: Adebayo Menard MD on 05/15/2020 6:53 PM PST Station ID: [id number]
--- NOTE | 2020-05-15 18:59 | CT Report ---
PROCEDURE: Abdomen/Pelvis W INDICATIONS: Abdominal trauma, blunt CONTRAST: IV CONTRAST: Optiray 320 ml: 100 PO CONTRAST: *NO PO CONTRAST TECHNIQUE: After the administration of intravenous contrast, 5 mm thick sections acquired from the diaphragms to the symphysis. 5 mm thick coronal and sagittal reformats were acquired. For radiation dose reducti on, the following was used: automated exposure control, adjustment of mA and/or kV according to berry ent size. COMPARISON: CT chest with contrast from same date. FINDINGS: Image quality: Excellent. ABDOMEN: Lung bases: Small bilateral pleural effusions. Minimal bibasilar atelectasis. No pneumothorax. Heart size is normal. Solid organs: Liver and spleen are normal in size and enhancement. Gallbladder likely contains tiny stones. No gallbladder wall thickening. Biliary system is non dilated. Pancreas enhances normally. No adrenal nodules. Kidneys demonstrate normal size and enhancement, without hydronephrosis. Mult iple areas of renal cortical thinning involving the left kidney consistent with remote insults. Peritoneum and bowel: Bowel loops demonstrate normal wall thickness and caliber. No free fluid or a ir. Nodes and vessels: No retroperitoneal or mesenteric adenopathy by size criteria. Aorta and inferior vena cava are normal in size. Miscellaneous: No ventral hernias. PELVIS: Genitourinary: Bladder wall thickness is normal. Miscellaneous: No inguinal hernias or adenopathy. Bones: No suspicious bony lesions. Left ninth rib fracture. Comminuted posterior left 10th rib frac ture. Mildly displaced posterior left 11th rib fracture. Posterior left 12th rib fracture. No vertebr al body compression fractures. Extensive metal artifact from bilateral total hip arthroplasties. IMPRESSION: 1. Fractures of the left ninth, 10th, 11th, 12th ribs. 2. No evidence of pneumothorax. 3. Small bilateral pleural effusions and minimal bibasilar atelectasis. 4. No evidence of acute abdominal visceral organ injury. 5. Multiple areas of left renal cortical loss consistent with remote insults. 6. Probable gallstones. Reviewed by: Adebayo Menard MD on 05/15/2020 6:58 PM PST Approved by: Adebayo Menard MD on 05/15/2020 6:58 PM PST Station ID: [id number]
[2020-05-15] MEDS ORDERED: MORPHINE 2 MG/ML CARPUJECT IVP STA (20:21)
[2020-05-15 20:48] LABS: C. PNEUMONIAE- RESP PCR PANEL NOT DETECTED
[2020-05-16] MEDS ORDERED: ALBUTEROL NEB 2.5 MG/3 ML INH PRN (00:47)
[2020-05-16] MEDS ORDERED: SODIUM CHLORIDE FLUSH 0.9% 10 ML SYRINGE IVP PRN (00:47)
[2020-05-16] MEDS ORDERED: IPRATROPIUM 0.2 MG/ML NEB INH PRN (00:47)
--- NOTE | 2020-05-16 00:56 | SURGERY HX AND PHYSICAL(T) ---
Surgical History & Physical - Chief Complaint/HPI Chief Complaint: Fall with rib fractures History of Present Illness: 89-year-old male with past medical history significant for Alzheimer's dementia who presents from alf/assisted living. Fell in the bathroom, amnestic and unwitnessed. No significant change in mental status by report. Had been tested for COVID-19 several weeks past for which he was positive. He sustained multiple rib fractures and no injuries to his bilateral hips for which she is undergone operative intervention in his bilateral replacements. He does have history of seizure disorder and its unclear to what degree this is post ictal. - PMH/PSH/Social Hx Does the pt have a hx of MRSA?: No Neurological History: Dementia, CVA, Seizure disorder Eyes, Ears, Nose, Throat: Chronic vision loss, Chronic sinusitis, Chronic hearing loss Cardiovascular: Hypertension Respiratory: None Skin: None Endocrine/Autoimmune: Type 2 diabetes Gastrointestinal: GERD SHIP'S PILOT: None Urinary: Benign prostate hypertrophy, Incontinence, Nocturia, Frequency Musculoskeletal: Osteoarthritis, Fatigue Blood Disorders: None Psychiatric: Depression General: Bowel surgery, Colonoscopy, EGD Orthopedic: Hip replacement Urologic: Ureterolithotomy (stones) Eyes Ears Nose Throat (EENT): Other Dermatologic: Other Smoking Status: Never smoker Does the pt drink ETOH?: No Does the pt have substance abuse?: No - Home Meds and Allergies Home Medications: Metformin HCl [Glucophage] 500 mg PO BIDWM 06/04/13 Cholecalciferol (Vitamin D3) [Vitamin D3] 50 mcg PO DAILY 07/08/18 Omeprazole 20 mg PO BID 08/06/19 Phenyleph/Pramoxin/Glycr/W.pet [Preparation H Cream] 1 applic [place] DAILY PRN 11/17/19 traZODone [Desyrel] 50 mg PO QPM 12/08/19 Carboxymethylcellulose Sodium [Artificial Tears] 1 drops EACHEYE QPM 01/12/20 Fluticasone [Flonase] 1 spray IH DAILY 03/23/20 Budesonide/Formoterol Fumarate [Symbicort 160-4.5 Mcg Inhaler] 2 puffs INH BID 05/16/20 Dexamethasone [Decadron] 6 mg PO DAILY 05/16/20 Ferrous Sulfate 325 mg PO DAILY 05/16/20 Levetiracetam [Keppra] 500 mg PO BID 05/16/20 Morphine Sulfate [Morphine Sulf Oral (Roxanol)] 5 - 10 mg PO Q2H PRN 05/16/20 Allergies/Adverse Reactions: Allergies Allergy/AdvReac Type Severity Reaction Status Date / Time codeine AdvReac Intermediate Nausea Verified 05/15/20 16:55 memantine HCl * AdvReac Anxiety Verified 05/15/20 16:55 [From Namenda] - Review of Systems Constitutional: Other (Difficult to assess secondary to the patient's dementia.) - Vital Signs Heart Rate: 70 Blood Pressure: 144/71 Temperature: 36.5 C Respiratory Rate: 12 O2 Saturation: 98 Weight (kg): 99.79 kg Height: 1.78 m - Physical Exam General Appearance: positive: Alert, Mild distress Eyes Bilatera: positive: Normal inspection, PERRL, EOMI ENT: positive: ENT inspection nml Neck: positive: Nml inspection Respiratory: positive: No respiratory distress, Breath sounds nml, Other (Positive tenderness to chest wall). negative: Wheezes, Rales, Rhonchi Abdomen: positive: Non-tender, No distention. negative: Tenderness, Guarding, Rebound Rectal: positive: Other (Deferred) Extremities: positive: Non-tender, Nml appearance Neurologic/Psychiatric: positive: CN's nml (2-12) - Patient Review Patient Review: Problems were reviewed with the patient during this visit. Medications were reviewed with the patient during this visit. Allergies were reviewed this patient during this visit. Pertinent Tests Reviewed: All pertitent test for this patient were reviewed. - Assessment & Plan Assessment and Plan: Chief complaint: Fall with rib fractures History of present illness: See above Past medical history and past surgical history reviewed and, in the patients, electronic medical record. Allergies reviewed and within the patient's electronic medical record. Medications reviewed and within the patient's electronic medical record. Review of systems performed and all negative except as noted below/above Please see electronic medical record for the patient's social history Trauma physical exam: Airway: Patient speaking without any respiratory distress, bilateral breath sounds auscultated across all lung lanza Breathing: Bilateral breath sounds auscultated across all lung lanza, imaging with no evidence of pneumothorax or hemothorax Circulation: Patient with bilateral peripheral IV access, IV crystalloids running as per protocol, hemodynamically acceptable Patient was evaluated across all extremities please see below and was appropriately exposed to afford such. 1. Head: PERRLA, EOMI, no lisandro orbital ecchymoses, ears with tympanic membranes intact no otorrhea, no rhinorrhea, c-collar in place, cranial nerves II through XII intact grossly. 2. C-spine clearance: No tenderness to palpation on full range of motion: Full range of motion with no tenderness midline C-spine on flexion and extension Full range of motion with known tenderness midline C-spine on lateral rotation left and right 3. Chest as per above with equal breath sounds bilaterally left chest wall tenderness no crepitus or other concerning features please see imaging below no splinting no respiratory distress. 4. S1-S2 regular rate rhythm 5. Abdomen soft nontender nondistended no rebound no guarding, FAST performed with no fluid noted in the splenorenal space, hepatorenal space, suprapubic space, or pericardial sac. 6. Patient moving all extremities 7. GCS 15, alert awake 8. No focal sensorimotor deficits bilaterally, no spinal step-offs or tenderness along the thoracic, lumbar spines. 9. No genitourinary complaints or perianal complaints. Imaging: CT of the head impression: 1. Age-related volume loss and moderate small vessel ischemic change 2. No evidence of acute stroke, hemorrhage, or mass. 3. No evidence of significant intracranial sequelae of acute trauma Cervical spine CT impression: 1. No evidence of acute cervical spine fracture or dislocation 2. Severe cervical spondylosis CT chest impression: 1. Posterior fractures of the left 10th, 11th, and 12th ribs, as described above 2. No associated pneumothorax. 3. Small bilateral pleural effusions with bibasilar atelectasis. 4. Coronary artery atherosclerotic calcifications, advanced CT abdomen pelvis impression: 1. Fractures of the left ninth, 10th, 11th, 12th ribs 2. No evidence of pneumothorax 3. Small bilateral pleural effusions and minimal bibasilar atelectasis. 4. No evidence of acute abdominal visceral organ injury. 5. Multiple areas of left renal cortical loss consistent with remote insults 6. Probable gallstones Hip x-rays impression: 1. Bilateral total hip arthroplasties without evidence of hardware complication or acute osseous abnormality. Assessment and plan: 89-year-old male admitted status post fall unwitnessed with history of seizure disorder and multiple comorbid states. Status post fall with left ninth, 10th, 11th, and 12th rib fractures. Systemically anticoagulated. Admit for pain control and monitoring. (1) GI - IVF. GI ppx. Anticipate ileus. Opiate sparring analgesia. (2) SURGERY/Trauma - no acute intervention at this time. (3) Renal/Lytes - continue IVF. Renal indices within normal limits. (4) Respiratory - O2 as necessary. Continue nebulizers. Continue IS. Chest XR. (5) Heme - Will continue with DVT ppx with SCDs alone. Hold systemic anticoagulation. H/H stable. (6) Cardiovascular - HD acceptable. (7) Neuro - Opiate sparring analgesia. Antispasmodics with Robaxin. Toradol. Neuropathic agents. (8) PT/OT. (9) Hospitalist consultation. (10) INFECTIOUS disease - COVID-19 positive however asymptomatic will defer to hospitalist for any intervention at this time.
[2020-05-16] MEDS ORDERED: ACETAMINOPHEN 1,000 MG/100 ML 100 ML IV SCH (01:00)
[2020-05-16] MEDS ORDERED: KETOROLAC 30 MG/ML VIAL IVP SCH (01:00)
[2020-05-16] MEDS ORDERED: methocarbamoL 500 MG TABLET PO SCH (01:00)
[2020-05-16] MEDS: D5NS W/20 MEQ KCL 1,000 ML IV SCH ×3 (03:45→23:59)
[2020-05-16] MEDS: PREGABALIN 100 MG CAPSULE PO SCH ×3 (03:46→22:09)
[2020-05-16] MEDS: SODIUM CHLORIDE FLUSH 0.9% 10 ML SYRINGE IVP SCH ×3 (03:47→16:47)
--- NOTE | 2020-05-16 08:59 | XRAY Report ---
PROCEDURE: Chest 1 View X-Ray INDICATIONS: rib fractures TECHNIQUE: One view of the chest was acquired. COMPARISON: CT chest and chest radiograph dated 05/15/2020 FINDINGS: Surgical changes and devices: Post CABG changes Lungs and pleura: Small pleural effusions are noted. Similar basilar opacities slightly worsened barbara g the right lung base. Fluid within the minor fissure. There is no pneumothorax. Mediastinum: Post-CABG changes. Gastric opacifications throughout the aorta. Heart size is along the upper limits of normal, unchanged. Bones and chest wall: Multiple left-sided rib fractures are better taken in comparison CT. IMPRESSION: Small bilateral pleural effusions with slightly worsening basilar opacities from most recent exam. Left-sided rib fractures better depicted on comparison CT. No pneumothorax. Reviewed by: Sean Sumner DO on 05/16/2020 7:58 AM DC Approved by: Sean Sumner DO on 05/16/2020 7:58 AM DC Station ID: [id number]
[2020-05-16] MEDS: CHOLECALCIFEROL 25 MCG TABLET PO SCH (10:01)
[2020-05-16] MEDS: PANTOPRAZOLE 40 MG TABLET PO SCH ×2 (10:01→22:08)
[2020-05-16] MEDS: levETIRAcetam 250 MG TABLET PO SCH ×2 (10:01→22:08)
[2020-05-16] MEDS: LORATADINE 10 MG TABLET PO SCH (10:01)
[2020-05-16] MEDS: FERROUS GLUCONATE 324 MG TABLET PO SCH (10:01)
[2020-05-16] MEDS: FLUTICASONE NASAL SPRAY NAS SCH (10:01)
--- NOTE | 2020-05-16 11:04 | PHARMACY PROGRESS NOTE ---
- Best Possible Medication History Admit Date and Time: 05/16/20 0047 Processed by: Pharmacy Medication History completed: Yes Patient Interview: Pt unable to participate Secondary Source(s): Facility MAR as ONLY source As the person ultimately responsible for medication therapy, providers are able to order a medication from an existing home medication list in [facility] via the "Reconcile Routine" prior to Confirmation of that medication by java support engineer. Such practice is discouraged except when the physician, in their clinical judgment, deems that a medical need exists for a medication without regard to previous use.
[2020-05-16] MEDS: ACETAMINOPHEN 1,000 MG/100 ML 100 ML IV SCH ×3 (11:25→22:17)
[2020-05-16] MEDS: KETOROLAC 15 MG/ML VIAL IVP SCH ×3 (11:25→22:11)
[2020-05-16] MEDS: methocarbamoL 500 MG TABLET PO SCH ×3 (11:25→22:10)
--- NOTE | 2020-05-16 14:08 | CT Report ---
PROCEDURE: Head W/O Stroke Protocol INDICATIONS: change in baseline mental status TECHNIQUE: Noncontrast 4.5 mm thick angled axial sections acquired from the foramen magnum to the vertex, with c oronal reformats. For radiation dose reduction, the following was used: automated exposure control, adjustment of mA and/or kV according to patient size. COMPARISON: FINDINGS: Image quality: Excellent. CSF spaces: Basal cisterns are patent. No extra-axial fluid collections. Ventricles are normal in size and shape. Brain: No midline shift. No intracranial masses or hemorrhage. No large area of hypodensity in a va scular distribution to suggest acute infarction. Periventricular hypodensity consistent with chronic microvascular ischemic disease. Age related, loss. Distal intracranial atherosclerotic calcifications in the ICA. Skull and face: Calvarium and visualized facial bones are intact, without suspicious lesions. Sinuses: Visualized sinuses and mastoids are clear. IMPRESSION: No acute intracranial abnormality. Chronic microvascular ischemic disease. This study fulfills neurological imaging criteria for inclusion or exclusion of acute stroke therapie s based on available published neurological imaging guidelines. Reviewed by: Reji Lehman MD on 05/16/2020 2:07 PM PST Approved by: Reji Lehman MD on 05/16/2020 2:07 PM PST Station ID: [id number]
--- NOTE | 2020-05-16 18:11 | CONSULTATION NOTE ---
Referring Provider Name of Referring Provider:: Dr. Ben Carreon Consult Date: 05/16/20 Chief Complaint - Chief Complaint Chief Complaint: Fall History of Present Illness - Admitted From Admitted From:: [facility] - History Obtained From Records Reviewed: Yes History obtained from: General Surgeon, [facility], EMR Exam Limitations: Patient has advanced dementia and is poor historian. - History of Present Illness HPI Comment/Other: This is a 89-year-old male with a past medical history significant for pulmonary embolism on Xarelto, history of CVA, history of seizure disorder, advanced dementia, type 2 diabetes mellitus who presented from [facility] yesterday after having a fall at home. Most of the history is obtained from the staff at [facility] as well as the EMR and general surgeon given the patient has advanced dementia and is a poor historian. Today he does tell me that he fell but he cannot recall what he was doing. He denies having any pain at the moment. He does know he is at the hospital but does not know which one. The patient reportedly attempted to ambulate on his own in the bathroom when he fell and hit the left side of his chest. He was found to have 3 posterior left-sided rib fractures and was admitted by the general surgery service. We are consulted to assist with medical management. The staff at [facility] tell me that he was diagnosed with Covid about 10 days ago on 06 May. He has been treated with Decadron and vitamin D. The patient has not been hypoxic while at [facility]. They state that he normally will ambulate with a walker at times although lately they have been using a wheelchair more frequently. The patient does have a POLST form which states that he is a DNR. This was confirmed with the . History - Past Medical History Cardiovascular: reports: Hypertension Respiratory: reports: None Neuro: reports: Dementia, CVA, Seizure disorder Endocrine/Autoimmune: reports: Type 2 diabetes GI: reports: GERD SOFTWARE ENGINEERING MANAGER: reports: None : reports: Benign prostate hypertrophy, Incontinence, Nocturia, Frequency HEENT: reports: Chronic vision loss, Chronic sinusitis, Chronic hearing loss Psych: reports: Depression Musculoskeletal: reports: Osteoarthritis, Fatigue Derm: reports: None MRSA Hx?: No - Past Surgical History General: reports: Bowel surgery, Colonoscopy, EGD Ortho: reports: Hip replacement HEENT: reports: Other Derm: reports: Other - Family & Social History Family History: Mother: , CAD, Father: Family History Comment/Other: Unable to obtain an updated family history but prior documentation reports that his mother at age 55 of a ruptured spleen and had CAD. His father in his 80's of old age. Living arrangement: Assisted living ([facility] Social History Notes: Unable to update the social history as the patient is unable to provide information. 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 He once before and his when he was 55. He has 3 children from that marriage who are in good health. He a second time and remains to [place]. He reports never being a cigarette smoker, no alcohol or drug abuse. - Substance History Use: Uses substance without health or social issues: NONE - POLST Patient has POLST: Yes POLST Status: DNR Meds/Allgy - Home Medications Home Medications: Ambulatory Orders Medication Instructions Recorded Confirmed Metformin HCl [Glucophage] 500 mg PO BIDWM 06/04/13 05/16/20 Rivaroxaban [Xarelto] 20 mg ORAL DAILYWM #30 12/10/17 05/16/20 Cholecalciferol (Vitamin D3) 50 mcg PO DAILY 07/08/18 05/16/20 [Vitamin D3] Omeprazole 20 mg PO BID 08/06/19 05/16/20 Phenyleph/Pramoxin/Glycr/W.pet 1 applic [place] DAILY PRN 11/17/19 05/16/20 [Preparation H Cream] traZODone [Desyrel] 50 mg PO QPM 12/08/19 05/16/20 Carboxymethylcellulose Sodium 1 drops EACHEYE QPM 01/12/20 05/16/20 [Artificial Tears] Fluticasone [Flonase] 1 spray IH DAILY 03/23/20 05/16/20 Budesonide/Formoterol Fumarate 2 puffs INH BID 05/16/20 05/16/20 [Symbicort 160-4.5 Mcg Inhaler] Dexamethasone [Decadron] 6 mg PO DAILY 05/16/20 05/16/20 Ferrous Sulfate 325 mg PO DAILY 05/16/20 05/16/20 Levetiracetam [Keppra] 500 mg PO BID 05/16/20 05/16/20 Morphine Sulfate [Morphine Sulf 5 - 10 mg PO Q2H PRN 05/16/20 05/16/20 Oral (Roxanol)] - Allergies Allergies/Adverse Reactions: Allergies Allergy/AdvReac Type Severity Reaction Status Date / Time codeine AdvReac Intermediate Nausea Verified 05/15/20 16:55 memantine HCl * AdvReac Anxiety Verified 05/15/20 16:55 [From Namenda] Review of Systems - Cardiovascular Cariovascular: denies: Chest pain - Respiratory Respiratory: denies: Cough, SOB at rest, SOB with exertion, Pleuritic pain - Gastrointestinal Gastrointestinal: denies: Abdominal pain - All Other Systems All Other Systems: reports: Other (Review of systems is limited given his dementia.) Exam - Vital Signs Reviewed Vital Signs: Yes Vital Signs: Vital Signs x48h Temp Pulse Pulse Resp BP Pulse Ox 05/16/20 16:43 36.2 C L 50 L 12 150/68 H 98 05/16/20 11:26 36.0 C L 50 L 12 139/57 H 97 05/16/20 10:13 36.2 C L 60 14 99 - Physical Exam General Appearance: positive: No acute distress, Mild distress Eyes Bilateral: positive: Conjunctivae nml ENT: positive: ENT inspection nml Neck: positive: Nml inspection Respiratory: positive: Chest non-tender, No respiratory distress. negative: Wheezes, Rales Cardiovascular: positive: Regular rate & rhythm. negative: Tachycardia, Bradycardia, Systolic murmur Abdomen: positive: Non-tender, No distention. negative: Tenderness Extremities: positive: No pedal edema Neurologic/Psychiatric: positive: Disoriented to time, Other (He is able to move all 4 extremities.). negative: Disoriented to person, Disoriented to place Conclusion/Plan - Diagnosis Diagnosis: 1) COVID19. 2) History of seizure disorder. 3) History of pulmonary embolism. 4) Advanced dementia. 5) Multiple left rib fractures. 6) Type 2 diabetes mellitus - Plan Plan: With regards to his COVID-19 infection, he was diagnosed 10 days ago and therefore he should remain on contact precautions. He had been on steroids please would not be continued given the lack of hypoxia. CT of the chest not reveal any obvious infiltrates and he is saturating well on room air. He is on metformin at home and will place him on sliding scale and carb co ntrolled. We will add Lantus if needed if his blood glucose remains elevated. Agree with continuing his home medications like Keppra for his history of seizure disorder. With regards anticoagulation, will defer to general surgery regarding the use of Xarelto given his multiple rib fractures. At this point, there is no acute need for anticoagulation but this should ideally be resumed when okay with general surgery. - Lab Results Lab results reviewed: Yes Fish Bones: 05/17/20 05:55 05/17/20 05:55 - Diagnostic Imaging Results Diagnostic Imaging Results: positive: Final report reviewed
[2020-05-16] MEDS: INSULIN ASPART 300 UNIT/3 ML PEN SUBQ SCH ×2 (18:38→22:03)
[2020-05-16] MEDS: CARBOXYMETHYLCELLULOSE OPHTH DROPS EACHEYE SCH (22:05)
[2020-05-17] MEDS: SODIUM CHLORIDE FLUSH 0.9% 10 ML SYRINGE IVP SCH ×4 (00:08→23:46)
[2020-05-17] MEDS: KETOROLAC 15 MG/ML VIAL IVP SCH ×4 (04:26→22:36)
[2020-05-17] MEDS: ACETAMINOPHEN 1,000 MG/100 ML 100 ML IV SCH (04:27)
[2020-05-17] MEDS: methocarbamoL 500 MG TABLET PO SCH ×4 (04:33→22:37)
[2020-05-17 06:01] LABS: BASOPHILS % (AUTO) 0.2 %; EOSINOPHILS # (AUTO) 0.1 10^3/uL (0.0-0.7); EOSINOPHILS % (AUTO) 2.6 %; HGB - HEMOGLOBIN 11.2 g/dL (14.0-18.0); LYMPHOCYTES # (AUTO) 0.4 10^3/uL (1.5-3.5); MEAN CORPUSCULAR HEMOGLOBIN 32.2 pg (27.0-31.0); MEAN CORPUSCULAR HGB CONC 32.5 g/dL (32.0-36.0); MEAN CORPUSCULAR VOLUME 99.1 fL (80.0-94.0); MEAN PLATELET VOLUME 9.2 fL (7.4-11.4); MONOCYTES # (AUTO) 0.4 10^3/uL (0.0-1.0); NEUTROPHILS % (AUTO) 79.6 %; PLT - PLATELET COUNT 159 10^3/uL (130-450); RED BLOOD COUNT 3.48 10^6/uL (4.70-6.10); RED CELL DISTRIBUTION WIDTH 13.8 % (12.0-15.0)
[2020-05-17 06:12] LABS: CALCIUM 8.4 mg/dL (8.5-10.3); CREATININE 0.9 mg/dL (0.6-1.2)
[2020-05-17] MEDS ORDERED: miSOPROStoL 200 MCG TABLET ONE (06:59)
[2020-05-17] MEDS ORDERED: CARBOPROST TROMETHAMINE 250 MCG/ML AMP IM ONE (07:00)
[2020-05-17] MEDS ORDERED: METHYLERGONOVINE 0.2 MG/ML VIAL ONE (07:00)
[2020-05-17] MEDS: INSULIN ASPART 300 UNIT/3 ML PEN SUBQ SCH ×4 (10:05→22:35)
[2020-05-17] MEDS: D5NS W/20 MEQ KCL 1,000 ML IV SCH ×2 (10:07→19:59)
[2020-05-17] MEDS: levETIRAcetam 250 MG TABLET PO SCH ×2 (10:10→22:37)
[2020-05-17] MEDS: CHOLECALCIFEROL 25 MCG TABLET PO SCH (10:10)
[2020-05-17] MEDS: PREGABALIN 100 MG CAPSULE PO SCH ×2 (10:10→22:38)
[2020-05-17] MEDS: FERROUS GLUCONATE 324 MG TABLET PO SCH (10:12)
[2020-05-17] MEDS: LORATADINE 10 MG TABLET PO SCH (10:13)
[2020-05-17] MEDS: PANTOPRAZOLE 40 MG TABLET PO SCH ×2 (10:14→22:36)
[2020-05-17] MEDS: polyethylene glycoL 3350 17 GM PACKET PO SCH (10:33)
[2020-05-17] MEDS: ACETAMINOPHEN 500 MG TABLET PO SCH ×3 (10:33→22:38)
[2020-05-17] MEDS: FLUTICASONE NASAL SPRAY NAS SCH (10:34)
--- NOTE | 2020-05-17 15:25 | PROVIDER PROGRESS NOTE ---
Progress Note Subjective Hospital day #2 status post fall with multiple rib fractures. Managed from a respiratory standpoint with nebulizers and oxygen. No acute complaints. Objective Hemodynamically acceptable and afebrile General Appearance: positive: No acute distress Eyes Bilateral: positive: Normal inspection ENT: positive: ENT inspection nml Neck: positive: Nml inspection Respiratory: positive: Chest non-tender, No respiratory distress, Breath sounds nml. negative: Wheezes, Rales, Rhonchi Cardiovascular: positive: Regular rate & rhythm Abdomen: positive: No distention, Other. negative: Guarding, Rebound Extremities: positive: Non-tender, Full ROM, Nml appearance Neurologic/Psychiatric: positive: Oriented x3, CN's nml (2-12) Imaging (Admission): CT of the head impression: 1. Age-related volume loss and moderate small vessel ischemic change 2. No evidence of acute stroke, hemorrhage, or mass. 3. No evidence of significant intracranial sequelae of acute trauma Cervical spine CT impression: 1. No evidence of acute cervical spine fracture or dislocation 2. Severe cervical spondylosis CT chest impression: 1. Posterior fractures of the left 10th, 11th, and 12th ribs, as described above 2. No associated pneumothorax. 3. Small bilateral pleural effusions with bibasilar atelectasis. 4. Coronary artery atherosclerotic calcifications, advanced CT abdomen pelvis impression: 1. Fractures of the left ninth, 10th, 11th, 12th ribs 2. No evidence of pneumothorax 3. Small bilateral pleural effusions and minimal bibasilar atelectasis. 4. No evidence of acute abdominal visceral organ injury. 5. Multiple areas of left renal cortical loss consistent with remote insults 6. Probable gallstones Hip x-rays impression: 1. Bilateral total hip arthroplasties without evidence of hardware complication or acute osseous abnormality. Assessment and plan: 89-year-old male admitted status post fall unwitnessed with history of seizure disorder and multiple comorbid states. Status post fall with left ninth, 10th, 11th, and 12th rib fractures. Systemically anticoagulated. Admit for pain control and monitoring. (1) GI - IVF. GI ppx. Anticipate ileus. Opiate sparring analgesia. (2) SURGERY/Trauma - no acute intervention at this time. (3) Renal/Lytes - continue IVF. Renal indices within normal limits. Continue [place] catheter. (4) Respiratory - O2 as necessary. Continue nebulizers. Continue IS. Chest XR. (5) Heme - Will continue with DVT ppx with SCDs alone. Hold systemic anticoagulation. H/H stable. (6) Cardiovascular - HD acceptable. (7) Neuro - Opiate sparring analgesia. Antispasmodics with Robaxin. Toradol. Neuropathic agents. Dementia and mental status at baseline. (8) PT/OT. (9) Hospitalist consultation. (10) INFECTIOUS disease - COVID-19 positive however asymptomatic will defer to hospitalist for any intervention at this time. (11) DISPOSITION - patient would likely be able to return to [facility] within the next 48 hours as long he continues to improve.
[2020-05-17] MEDS: CARBOXYMETHYLCELLULOSE OPHTH DROPS EACHEYE SCH (22:38)
[2020-05-18] MEDS: ACETAMINOPHEN 500 MG TABLET PO SCH ×4 (05:24→22:11)
[2020-05-18] MEDS: methocarbamoL 500 MG TABLET PO SCH ×4 (05:24→22:15)
[2020-05-18] MEDS: KETOROLAC 15 MG/ML VIAL IVP SCH ×4 (05:25→22:03)
--- NOTE | 2020-05-18 06:54 | PROVIDER PROGRESS NOTE ---
Hospitalist Cross-cover Note - Cross-Cover Note Cross-Cover Note: His nurse this morning states that the hospital no longer has D5 normal saline with 20 mEq of potassium. She is asking what other IV fluids should be run on this patient. Patient is getting ready to be discharged back to his facility. He is eating and drinking normally. As such I will IV lock at this time.
[2020-05-18 09:04] LABS: BASOPHILS % (AUTO) 0.4 %; EOSINOPHILS # (AUTO) 0.2 10^3/uL (0.0-0.7); EOSINOPHILS % (AUTO) 4.2 %; HGB - HEMOGLOBIN 11.3 g/dL (14.0-18.0); LYMPHOCYTES # (AUTO) 0.5 10^3/uL (1.5-3.5); LYMPHOCYTES % (AUTO) 10.2 %; MEAN CORPUSCULAR HEMOGLOBIN 32.7 pg (27.0-31.0); MEAN CORPUSCULAR HGB CONC 32.6 g/dL (32.0-36.0); MEAN CORPUSCULAR VOLUME 100.3 fL (80.0-94.0); MEAN PLATELET VOLUME 9.7 fL (7.4-11.4); MONOCYTES # (AUTO) 0.4 10^3/uL (0.0-1.0); MONOCYTES % (AUTO) 8.8 %; NEUTROPHILS # (AUTO) 3.7 10^3/uL (1.5-6.6); NEUTROPHILS % (AUTO) 74.4 %; PLT - PLATELET COUNT 153 10^3/uL (130-450); RED BLOOD COUNT 3.46 10^6/uL (4.70-6.10)
[2020-05-18 09:14] LABS: CALCIUM 8.6 mg/dL (8.5-10.3); CREATININE 0.9 mg/dL (0.6-1.2)
[2020-05-18] MEDS: INSULIN ASPART 300 UNIT/3 ML PEN SUBQ SCH ×4 (09:42→22:08)
[2020-05-18] MEDS: CHOLECALCIFEROL 25 MCG TABLET PO SCH (09:43)
[2020-05-18] MEDS: levETIRAcetam 250 MG TABLET PO SCH ×2 (09:43→22:18)
[2020-05-18] MEDS: PREGABALIN 100 MG CAPSULE PO SCH ×2 (09:43→22:22)
[2020-05-18] MEDS: PANTOPRAZOLE 40 MG TABLET PO SCH ×2 (09:44→22:12)
[2020-05-18] MEDS: FERROUS GLUCONATE 324 MG TABLET PO SCH (09:44)
[2020-05-18] MEDS: LORATADINE 10 MG TABLET PO SCH (09:44)
[2020-05-18] MEDS: FLUTICASONE NASAL SPRAY NAS SCH (09:44)
[2020-05-18] MEDS: polyethylene glycoL 3350 17 GM PACKET PO SCH (09:44)
[2020-05-18] MEDS: SODIUM CHLORIDE FLUSH 0.9% 10 ML SYRINGE IVP SCH ×2 (09:45→17:58)
--- NOTE | 2020-05-18 17:50 | PROVIDER PROGRESS NOTE ---
Assessment/Plan - Problem List (1) Multiple fractures of ribs Qualifiers: Encounter type: initial encounter Fracture type: closed Laterality: left Qualified Code(s): S22.42XA - Multiple fractures of ribs, left side, initial encounter for closed fracture Assessment/Plan: 1) Multiple left rib fractures, Patient is comfortable in the bed, no respiratory distress, continue pain control, continue incentive spirometry 2) COVID19. Stable, patient has no fever, patient's oxygen saturation is sta ble, pt has no respiratory distress at this time. Continue vital signs monitor, supplies of oxygen as needed 3) History of seizure disorder. Stable, patient has no seizure in hospital, continue Keppra 4) History of pulmonary embolism. pt has no indication bleeding, HGB is stable. pt took Xarelto at home, will resume. 5) Advanced dementia. stable, followup with PCP 6) Type 2 diabetes mellitus, We will continue sliding scale, hypoglycemia protocol, patient A1c is 8. we will sign off, thank surgeon let us care about this pt. - Current Meds Current Meds: Current Medications Generic Name Dose Route Start Last Admin Trade Name Shaka PRN Reason Stop Dose Admin Acetaminophen 500 mg 05/17/20 10:00 05/18/20 09:43 Acetaminophen 500 Mg Tablet PO 500 mg Q6H LOIS Administration Carboxymethylcellulose 1 drops 05/16/20 21:00 05/17/20 22:38 Refresh 1% Ophth Drops EACHEYE 1 drops QPM LOIS Administration Cholecalciferol 25 mcg 05/16/20 09:00 05/18/20 09:43 Vitamin D3 PO 25 mcg DAILY LOIS Administration Ferrous Gluconate 324 mg 05/16/20 09:00 05/18/20 09:44 Fergon PO 324 mg DAILY LOIS Administration Fluticasone Propionate 1 sprays 05/16/20 09:00 05/18/20 09:44 Flonase BERNY Not Given DAILY LOIS Insulin Aspart 1 - 9 unit 05/18/20 08:00 05/18/20 13:53 Insulin Aspart 300 Unit/3 Ml Pen SUBQ 1 unit 0800,1200,1700,2100 LOIS Administration Protocol Ketorolac Tromethamine 15 mg 05/16/20 10:00 05/18/20 09:45 Toradol Inj (15mg) IVP 05/21/20 09:59 15 mg Q6H LOIS Administration Levetiracetam 500 mg 05/16/20 09:00 05/18/20 09:43 Keppra PO 500 mg BID LOIS Administration Loratadine 10 mg 05/16/20 09:00 05/18/20 09:44 Claritin PO 10 mg DAILY LOIS Administration Methocarbamol 500 mg 05/16/20 10:00 05/18/20 09:43 Robaxin PO 500 mg Q6H LOIS Administration Pantoprazole Sodium 40 mg 05/16/20 09:00 05/18/20 09:44 Protonix PO 40 mg BID LOIS Administration Cranberry 500 Mg 1 each 05/16/20 09:00 05/18/20 09:44 PO Not Given BID LOIS Polyethylene Glycol 17 gm 05/17/20 09:00 05/18/20 09:44 Polyethylene Glycol 3350 17 Gm Packet PO 17 gm DAILY LOIS Administration Pregabalin 100 mg 05/16/20 01:00 05/18/20 09:43 Lyrica PO 100 mg BID LOIS Administration Sodium Chloride 10 ml 05/16/20 01:00 05/18/20 09:45 Normal Saline Flush 0.9% IVP 10 ml 0100,0900,1700 LOIS Administration Sodium Chloride 10 ml 05/16/20 00:47 05/17/20 04:27 Normal Saline Flush 0.9% IVP 10 ml PRN PRN Administration NEEDED PER PROVIDER ORDERS - Lab Result Fish Bone Diagrams: 05/18/20 08:55 05/18/20 08:55 - Additional Planning My Orders: My Active Orders 05/19/20 05:00 BMP - BASIC METABOLIC PANEL [CHEM] DAILYLAB CBC - COMP BLD CT W/AUTO DIFF [HEME] DAILYLAB 05/20/20 05:00 BMP - BASIC METABOLIC PANEL [CHEM] DAILYLAB CBC - COMP BLD CT W/AUTO DIFF [HEME] DAILYLAB 05/21/20 05:00 BMP - BASIC METABOLIC PANEL [CHEM] DAILYLAB CBC - COMP BLD CT W/AUTO DIFF [HEME] DAILYLAB 05/22/20 05:00 BMP - BASIC METABOLIC PANEL [CHEM] DAILYLAB CBC - COMP BLD CT W/AUTO DIFF [HEME] DAILYLAB 05/23/20 05:00 BMP - BASIC METABOLIC PANEL [CHEM] DAILYLAB CBC - COMP BLD CT W/AUTO DIFF [HEME] DAILYLAB Subjective - Subjective Nursing Reports: No Complaints Objective Vital Signs: Vital Signs - 24 hr 05/17/20 05/18/20 05/18/20 20:36 01:00 05:30 Temperature 37.1 C 36.6 C 36.5 C Heart Rate [ 66 60 64 Brachial] Respiratory 18 15 16 Rate Blood Pressure 126/63 144/56 H 155/66 H [Left Brachial artery] Blood Pressure [Right Brachial artery] O2 Saturation 96 96 96 05/18/20 05/18/20 09:00 13:00 Temperature 36.5 C 36.7 C Heart Rate [ 69 64 Brachial] Respiratory 18 16 Rate Blood Pressure [Left Brachial artery] Blood Pressure 156/65 H 121/60 [Right Brachial artery] O2 Saturation 97 96 Oxygen O2 Source Room air I&O (Last 24 Hrs): Intake and Output Totals x24h 05/16/20 05/17/20 05/18/20 23:59 23:59 23:59 Intake Total 2908.333 2706.667 1120 Output Total 425 300 400 Balance 2483.333 2406.667 720 General: Alert, No acute distress HEENT: Atraumatic Neck: Supple Lymphatic: no adenopathy Neuro: Alert, Non Focal Cardiovascular: Regular rate, Normal S1, Normal S2 Respiratory: Chest non-tender, No respiratory distress Abdomen: Normal bowel sounds, Soft Extremities: Normal pulses - Results Results: Laboratory Results WBC 5.0 x10^3/uL (4.8-10.8) 05/18/20 08:55 RBC 3.46 10^6/uL (4.70-6.10) L 05/18/20 08:55 Hgb 11.3 g/dL (14.0-18.0) L 05/18/20 08:55 Hct 34.7 % (42.0-52.0) L 05/18/20 08:55 MCV 100.3 fL (80.0-94.0) H 05/18/20 08:55 MCH 32.7 pg (27.0-31.0) H 05/18/20 08:55 MCHC 32.6 g/dL (32.0-36.0) 05/18/20 08:55 RDW 14.0 % (12.0-15.0) 05/18/20 08:55 Plt Count 153 10^3/uL (130-450) 05/18/20 08:55 MPV 9.7 fL (7.4-11.4) 05/18/20 08:55 Neut # (Auto) 3.7 10^3/uL (1.5-6.6) 05/18/20 08:55 Lymph # (Auto) 0.5 10^3/uL (1.5-3.5) L 05/18/20 08:55 Fannin # (Auto) 0.4 10^3/uL (0.0-1.0) 05/18/20 08:55 Eos # (Auto) 0.2 10^3/uL (0.0-0.7) 05/18/20 08:55 Baso # (Auto) 0.0 10^3/uL (0.0-0.1) 05/18/20 08:55 Absolute Nucleated RBC 0.00 x10^3/uL 05/18/20 08:55 Nucleated RBC % 0.0 /100WBC 05/18/20 08:55 PT 22.1 secs (9.9-12.6) H 05/15/20 16:48 INR 2.1 (0.8-1.2) H 05/15/20 16:48 Sodium 140 mmol/L (135-145) 05/18/20 08:55 Potassium 4.1 mmol/L (3.5-5.0) 05/18/20 08:55 Chloride 111 mmol/L (101-111) 05/18/20 08:55 Carbon Dioxide 22 mmol/L (21-32) 05/18/20 08:55 Anion Gap 7.0 (6-13) 05/18/20 08:55 BUN 19 mg/dL (6-20) 05/18/20 08:55 Creatinine 0.9 mg/dL (0.6-1.2) 05/18/20 08:55 Estimated GFR (MDRD) 79 (>89) L 05/18/20 08:55 Glucose 186 mg/dL (70-100) H 05/18/20 08:55 Estimat Average Glucose 183 mg/dL (70-100) H 05/18/20 08:55 Hemoglobin A1c % 8.0 % (4.27-6.07) H 05/18/20 08:55 Calcium 8.6 mg/dL (8.5-10.3) 05/18/20 08:55 Total Bilirubin 0.4 mg/dL (0.2-1.0) 05/15/20 16:48 AST 18 IU/L (10-42) 05/15/20 16:48 ALT 22 IU/L (10-60) 05/15/20 16:48 Alkaline Phosphatase 95 IU/L (42-121) 05/15/20 16:48 Total Protein 7.4 g/dL (6.7-8.2) 05/15/20 16:48 Albumin 3.7 g/dL (3.2-5.5) 05/15/20 16:48 Globulin 3.7 g/dL (2.1-4.2) 05/15/20 16:48 Albumin/Globulin Ratio 1.0 (1.0-2.2) 05/15/20 16:48 Lipase 44 U/L (22-51) 05/15/20 16:48 Nasal Adenovirus (PCR) NOT DETECTED 05/15/20 19:47 Nasal B. parapertussis DNA (PCR) NOT DETECTED 05/15/20 19:47 Nasal Coronavir 229E PCR NOT DETECTED 05/15/20 19:47 Nasal Coronavir HKU1 PCR NOT DETECTED 05/15/20 19:47 Nasal Coronavir NL63 PCR NOT DETECTED 05/15/20 19:47 Nasal Coronavir OC43 PCR NOT DETECTED 05/15/20 19:47 Nasal Enterovir/Rhinovir PCR NOT DETECTED 05/15/20 19:47 Nasal Influenza B PCR NOT DETECTED 05/15/20 19:47 Nasal Influenza A PCR NOT DETECTED 05/15/20 19:47 Nasal Parainfluen 1 PCR NOT DETECTED 05/15/20 19:47 Nasal Parainfluen 2 PCR NOT DETECTED 05/15/20 19:47 Nasal Parainfluen 3 PCR NOT DETECTED 05/15/20 19:47 Nasal Parainfluen 4 PCR NOT DETECTED 05/15/20 19:47 Nasal RSV (PCR) NOT DETECTED 05/15/20 19:47 Nasal B.pertussis DNA PCR NOT DETECTED 05/15/20 19:47 Nasal C.pneumoniae (PCR) NOT DETECTED 05/15/20 19:47 Berny Human Metapneumo PCR NOT DETECTED 05/15/20 19:47 Nasal M.pneumoniae (PCR) NOT DETECTED 05/15/20 19:47 Nasal SARS-CoV-2 (PCR) DETECTED A 05/15/20 19:47 - Procedures Procedures: Procedures ENDOSCP EXCISN OR DESTR OF LESION OR TIS URETHRA (06/01/14) REPLACEMENT OF LEFT LENS WITH SYNTH SUB, PERC APPROACH (11/25/15) URETERAL CATHETERIZATION (06/01/14) URETHRAL DILATION (06/01/14) [ESWL] OF THE KIDNEY, URETER AND/OR BLADDER (08/24/14) ABX Reporting Has patient been on IV antibiotics over the past 48 hours?: No Current Medications - Current Medications Current Medications: Active Medications Acetaminophen (Acetaminophen 500 Mg Tablet) 500 mg PO Q6H [facility] Last Admin: 05/18/20 09:43 Dose: 500 mg Documented by: Carboxymethylcellulose (Refresh 1% Ophth Drops) 1 drops EACHEYE QPM [facility] Last Admin: 05/17/20 22:38 Dose: 1 drops Documented by: Cholecalciferol (Vitamin D3) 25 mcg PO DAILY [facility] Last Admin: 05/18/20 09:43 Dose: 25 mcg Documented by: Ferrous Gluconate (Fergon) 324 mg PO DAILY [facility] Last Admin: 05/18/20 09:44 Dose: 324 mg Documented by: Fluticasone Propionate (Flonase) 1 sprays BERNY DAILY [facility] Last Admin: 05/18/20 09:44 Dose: Not Given Documented by: Insulin Aspart (Insulin Aspart 300 Unit/3 Ml Pen) 1 - 9 unit SUBQ 0800,1200,1700,2100 [facility]; Protocol Last Admin: 05/18/20 13:53 Dose: 1 unit Documented by: Ketorolac Tromethamine (Toradol Inj (15mg)) 15 mg IVP Q6H [facility] Stop: 05/21/20 09:59 Last Admin: 05/18/20 09:45 Dose: 15 mg Documented by: Lactobacillus Rhamnosus (Lactobacillus Rhamnosus Gg Capsule) 1 cap PO DAILY [facility] Levetiracetam (Keppra) 500 mg PO BID [facility] Last Admin: 05/18/20 09:43 Dose: 500 mg Documented by: Loratadine (Claritin) 10 mg PO DAILY [facility] Last Admin: 05/18/20 09:44 Dose: 10 mg Documented by: Methocarbamol (Robaxin) 500 mg PO Q6H [facility] Last Admin: 05/18/20 09:43 Dose: 500 mg Documented by: Multivitamins/Minerals (Multivitamin W/Minerals Tablet) [facility] Pantoprazole Sodium (Protonix) 40 mg PO BID [facility] Last Admin: 05/18/20 09:44 Dose: 40 mg Documented by: Cranberry 500 Mg 1 each PO BID [facility] Last Admin: 05/18/20 09:44 Dose: Not Given Documented by: Polyethylene Glycol (Polyethylene Glycol 3350 17 Gm Packet) 17 gm PO DAILY [facility] Last Admin: 05/18/20 09:44 Dose: 17 gm Documented by: Pregabalin (Lyrica) 100 mg PO BID [facility] Last Admin: 05/18/20 09:43 Dose: 100 mg Documented by: Rivaroxaban (Rivaroxaban 10 Mg Tablet) [facility] Sodium Chloride (Normal Saline Flush 0.9%) 10 ml IVP 0100,0900,1700 [facility] Last Admin: 05/18/20 09:45 Dose: 10 ml Documented by: Sodium Chloride (Normal Saline Flush 0.9%) 10 ml IVP PRN PRN PRN Reason: NEEDED PER PROVIDER ORDERS Last Admin: 05/17/20 04:27 Dose: 10 ml Documented by: Metformin HCl [Glucophage] 500 mg PO BIDWM 06/04/13 Cholecalciferol (Vitamin D3) [Vitamin D3] 50 mcg PO DAILY 07/08/18 Omeprazole 20 mg PO BID 08/06/19 Phenyleph/Pramoxin/Glycr/W.pet [Preparation H Cream] 1 applic [place] DAILY PRN 11/17/19 traZODone [Desyrel] 50 mg PO QPM 12/08/19 Carboxymethylcellulose Sodium [Artificial Tears] 1 drops EACHEYE QPM 01/12/20 Fluticasone [Flonase] 1 spray IH DAILY 03/23/20 Budesonide/Formoterol Fumarate [Symbicort 160-4.5 Mcg Inhaler] 2 puffs INH BID 05/16/20 Dexamethasone [Decadron] 6 mg PO DAILY 05/16/20 Ferrous Sulfate 325 mg PO DAILY 05/16/20 Levetiracetam [Keppra] 500 mg PO BID 05/16/20 Morphine Sulfate [Morphine Sulf Oral (Roxanol)] 5 - 10 mg PO Q2H PRN 05/16/20
--- NOTE | 2020-05-18 17:53 | PROVIDER PROGRESS NOTE ---
Subjective - Prog Note Date Prog Note Date: 05/18/20 Prog Note Time: 17:51 - Subjective Subjective: Appears comfortable and reports he is hungry. Disoriented x 3 Current Medications - Current Medications Current Medications: Active Medications Generic Name Dose Route Start Last Admin Trade Name Shaka PRN Reason Stop Dose Admin Acetaminophen 500 mg 05/17/20 10:00 05/18/20 09:43 Acetaminophen 500 Mg Tablet PO 500 mg Q6H LOIS Administration Carboxymethylcellulose 1 drops 05/16/20 21:00 05/17/20 22:38 Refresh 1% Ophth Drops EACHEYE 1 drops QPM LOIS Administration Cholecalciferol 25 mcg 05/16/20 09:00 05/18/20 09:43 Vitamin D3 PO 25 mcg DAILY LOIS Administration Ferrous Gluconate 324 mg 05/16/20 09:00 05/18/20 09:44 Fergon PO 324 mg DAILY LOIS Administration Fluticasone Propionate 1 sprays 05/16/20 09:00 05/18/20 09:44 Flonase BERNY Not Given DAILY [facility] Insulin Aspart 1 - 9 unit 05/18/20 08:00 05/18/20 13:53 Insulin Aspart 300 Unit/3 Ml Pen SUBQ 1 unit 0800,1200,1700,2100 LOIS Administration Protocol Ketorolac Tromethamine 15 mg 05/16/20 10:00 05/18/20 09:45 Toradol Inj (15mg) IVP 05/21/20 09:59 15 mg Q6H LOIS Administration Lactobacillus Rhamnosus 1 cap 05/19/20 09:00 Lactobacillus Rhamnosus Gg Capsule PO DAILY LOIS Levetiracetam 500 mg 05/16/20 09:00 05/18/20 09:43 Keppra PO 500 mg BID LOIS Administration Loratadine 10 mg 05/16/20 09:00 05/18/20 09:44 Claritin PO 10 mg DAILY LOIS Administration Methocarbamol 500 mg 05/16/20 10:00 05/18/20 09:43 Robaxin PO 500 mg Q6H LOIS Administration Multivitamins/Minerals 1 tab 05/19/20 08:00 Multivitamin W/Minerals Tablet PO DAILYWM LOIS Pantoprazole Sodium 40 mg 05/16/20 09:00 05/18/20 09:44 Protonix PO 40 mg BID LOIS Administration Cranberry 500 Mg 1 each 05/16/20 09:00 05/18/20 09:44 PO Not Given BID LOIS Polyethylene Glycol 17 gm 05/17/20 09:00 05/18/20 09:44 Polyethylene Glycol 3350 17 Gm Packet PO 17 gm DAILY LOIS Administration Pregabalin 100 mg 05/16/20 01:00 05/18/20 09:43 Lyrica PO 100 mg BID LOIS Administration Sodium Chloride 10 ml 05/16/20 01:00 05/18/20 09:45 Normal Saline Flush 0.9% IVP 10 ml 0100,0900,1700 LOIS Administration Sodium Chloride 10 ml 05/16/20 00:47 05/17/20 04:27 Normal Saline Flush 0.9% IVP 10 ml PRN PRN Administration NEEDED PER PROVIDER ORDERS Metformin HCl [Glucophage] 500 mg PO BIDWM 06/04/13 Cholecalciferol (Vitamin D3) [Vitamin D3] 50 mcg PO DAILY 07/08/18 Omeprazole 20 mg PO BID 08/06/19 Phenyleph/Pramoxin/Glycr/W.pet [Preparation H Cream] 1 applic [place] DAILY PRN 11/17/19 traZODone [Desyrel] 50 mg PO QPM 12/08/19 Carboxymethylcellulose Sodium [Artificial Tears] 1 drops EACHEYE QPM 01/12/20 Fluticasone [Flonase] 1 spray IH DAILY 03/23/20 Budesonide/Formoterol Fumarate [Symbicort 160-4.5 Mcg Inhaler] 2 puffs INH BID 05/16/20 Dexamethasone [Decadron] 6 mg PO DAILY 05/16/20 Ferrous Sulfate 325 mg PO DAILY 05/16/20 Levetiracetam [Keppra] 500 mg PO BID 05/16/20 Morphine Sulfate [Morphine Sulf Oral (Roxanol)] 5 - 10 mg PO Q2H PRN 05/16/20 Objective - Vital Signs/Intake & Output Reviewed Vital Signs: Yes Vital Signs: Vital Signs x48h Temp Pulse Resp BP Pulse Ox 05/18/20 13:00 36.7 C 64 16 121/60 96 Intake & Output: Intake & Output 05/15/20 05/16/20 05/17/20 05/18/20 23:59 23:59 23:59 23:59 Intake Total 2908.333 2706.667 1120 Output Total 425 300 400 Balance 2483.333 2406.667 720 - Objective General Appearance: positive: No acute distress Eyes Bilateral: positive: Normal inspection Respiratory: positive: Other (Patient moans with palpation of any portion of his chest. No visible bruising. No crepitance. Equal breath sounds bilaterally with some crackles at the base bilaterally.) Cardiovascular: positive: Regular rate & rhythm - Lab Results Fish Bones: 05/18/20 08:55 05/18/20 08:55 Other Labs: Lab Results x24hrs 05/18/20 05/18/20 05/18/20 Range/Units 08:55 08:55 08:55 WBC 5.0 (4.8-10.8) x10^3/uL RBC 3.46 L (4.70-6.10) 10^6/uL Hgb 11.3 L (14.0-18.0) g/dL Hct 34.7 L (42.0-52.0) % MCV 100.3 H (80.0-94.0) fL MCH 32.7 H (27.0-31.0) pg MCHC 32.6 (32.0-36.0) g/dL RDW 14.0 (12.0-15.0) % Plt Count 153 (130-450) 10^3/uL MPV 9.7 (7.4-11.4) fL Neut # (Auto) 3.7 (1.5-6.6) 10^3/uL Lymph # (Auto) 0.5 L (1.5-3.5) 10^3/uL Webster # (Auto) 0.4 (0.0-1.0) 10^3/uL Eos # (Auto) 0.2 (0.0-0.7) 10^3/uL Baso # (Auto) 0.0 (0.0-0.1) 10^3/uL Absolute Nucleated RBC 0.00 x10^3/uL Nucleated RBC % 0.0 /100WBC Sodium 140 (135-145) mmol/L Potassium 4.1 (3.5-5.0) mmol/L Chloride 111 (101-111) mmol/L Carbon Dioxide 22 (21-32) mmol/L Anion Gap 7.0 (6-13) BUN 19 (6-20) mg/dL Creatinine 0.9 (0.6-1.2) mg/dL Estimated GFR (MDRD) 79 L (>89) Glucose 186 H (70-100) mg/dL Estimat Average Glucose 183 H (70-100) mg/dL Hemoglobin A1c % 8.0 H (4.27-6.07) % Calcium 8.6 (8.5-10.3) mg/dL Assessment/Plan - Problem List (1) Multiple fractures of ribs Impression: Stable from a respiratory perspective. Will remove noel catheter and recheck chest xray this evening. Plan for discharge back to [facility] if stable over night. Qualifiers: Encounter type: initial encounter Fracture type: closed Laterality: left Qualified Code(s): S22.42XA - Multiple fractures of ribs, left side, initial encounter for closed fracture
--- NOTE | 2020-05-18 20:03 | XRAY Report ---
PROCEDURE: Chest 1 View X-Ray INDICATIONS: Multiple rib fractures TECHNIQUE: One view of the chest was acquired. COMPARISON: 05/16/2020 FINDINGS: Surgical changes and devices: None. Lungs and pleura: No pleural effusions or pneumothorax. Blunting of left costophrenic angle is seen suggestive of trace left pleural effusion. No definite focal infiltrate. Mediastinum: Aortic arch calcifications are seen. Heart size is enlarged. Bones and chest wall: No suspicious bony lesions. Overlying soft tissues appear unremarkable. IMPRESSION: Trace left pleural effusion. No definite focal infiltrate or gross pneumothorax. CT finding of multip le left posterior rib fractures are not well seen on this study. Reviewed by: Wilber Kyle MD on 05/18/2020 8:01 PM PST Approved by: Wilber Kyle MD on 05/18/2020 8:01 PM PST Station ID: [id number]
[2020-05-18] MEDS: CARBOXYMETHYLCELLULOSE OPHTH DROPS EACHEYE SCH (22:06)
[2020-05-19] MEDS: SODIUM CHLORIDE FLUSH 0.9% 10 ML SYRINGE IVP SCH ×2 (01:07→09:01)
[2020-05-19] MEDS: KETOROLAC 15 MG/ML VIAL IVP SCH ×2 (04:38→10:41)
[2020-05-19] MEDS: ACETAMINOPHEN 500 MG TABLET PO SCH ×2 (04:42→10:41)
[2020-05-19] MEDS: methocarbamoL 500 MG TABLET PO SCH ×2 (04:44→10:42)
[2020-05-19 06:17] LABS: BASOPHILS % (AUTO) 0.1 %; EOSINOPHILS # (AUTO) 0.3 10^3/uL (0.0-0.7); EOSINOPHILS % (AUTO) 3.7 %; LYMPHOCYTES # (AUTO) 0.4 10^3/uL (1.5-3.5); LYMPHOCYTES % (AUTO) 5.4 %; MEAN CORPUSCULAR HEMOGLOBIN 32.5 pg (27.0-31.0); MEAN CORPUSCULAR HGB CONC 32.9 g/dL (32.0-36.0); MEAN CORPUSCULAR VOLUME 98.8 fL (80.0-94.0); MEAN PLATELET VOLUME 9.2 fL (7.4-11.4); MONOCYTES # (AUTO) 0.4 10^3/uL (0.0-1.0); MONOCYTES % (AUTO) 5.3 %; NEUTROPHILS # (AUTO) 5.9 10^3/uL (1.5-6.6); NEUTROPHILS % (AUTO) 84.4 %; PLT - PLATELET COUNT 155 10^3/uL (130-450); RED BLOOD COUNT 3.38 10^6/uL (4.70-6.10)
[2020-05-19 06:27] LABS: CALCIUM 8.6 mg/dL (8.5-10.3); CREATININE 0.8 mg/dL (0.6-1.2)
[2020-05-19] MEDS ORDERED: MULTIVITAMIN W/MINERALS TABLET PO SCH (08:00)
[2020-05-19] MEDS: FERROUS GLUCONATE 324 MG TABLET PO SCH (08:56)
[2020-05-19] MEDS: INSULIN ASPART 300 UNIT/3 ML PEN SUBQ SCH (08:56)
[2020-05-19] MEDS: levETIRAcetam 250 MG TABLET PO SCH (08:56)
[2020-05-19] MEDS: LORATADINE 10 MG TABLET PO SCH (08:57)
[2020-05-19] MEDS: CHOLECALCIFEROL 25 MCG TABLET PO SCH (08:57)
[2020-05-19] MEDS: PANTOPRAZOLE 40 MG TABLET PO SCH (08:57)
[2020-05-19] MEDS: PREGABALIN 100 MG CAPSULE PO SCH (08:57)
[2020-05-19] MEDS ORDERED: LACTOBACILLUS RHAMNOSUS GG CAPSULE PO SCH (09:00)
[2020-05-19] MEDS: FLUTICASONE NASAL SPRAY NAS SCH (09:02)
[2020-05-19] MEDS: polyethylene glycoL 3350 17 GM PACKET PO SCH (09:13)
--- NOTE | 2020-05-19 10:10 | Discharge Plan ---
Discharge Plan Problem Reviewed?: Yes Disposition: 03 SNF DC/Xfer Condition: Stable Prescriptions: Baclofen 5 mg PO Q6H PRN #30 tablet PRN Reason: Spasms Rivaroxaban [Xarelto] 20 mg ORAL DAILYWM #30 tab Diet: Soft Activity Restrictions: No Restrictions Shower Restrictions: No Driving Restrictions: Yes Assistance Devices: Walker Additional Instructions or Follow Up instructions: No Metformin through Sunday, he may restarted on Sunday. No Smoking: If you smoke, Please STOP! Call for help. Follow-up with: SOLANGE AVILEZ ARNP [Primary Care Provider] - Wallace Jung MD [Provider Admit Priv/Credential] -
--- NOTE | 2020-05-19 10:14 | DISCHARGE SUMMARY ---
"Discharge Summary Admit Date: 05/15/20 Discharge Date: 05/19/20 Discharging Provider: Erich Primary Care Provider: Jossie Code Status: Attempt Resuscitation Condition at Discharge: Stable Discharge Disposition: 03 SNF DC/Xfer Discharge Facility Name: [facility] - DIAGNOSES Admission Diagnoses: Ground level fall with multiple rib fractures Discharge Diagnoses with Status of Each Condition: Improved and with adequate pain control - HPI History of Present Illness: 89-year-old male with past medical history significant for Alzheimer's dementia who presents from senior care/assisted living. Fell in the bathroom, amnestic and unwitnessed. No significant change in mental status by report. Had been tested for COVID-19 several weeks past for which he was positive. He sustained multiple rib fractures and no injuries to his bilateral hips for which she is undergone operative intervention in his bilateral replacements. He does have history of seizure disorder and its unclear to what degree this is post ictal. - CONSULTS | PROCEDURES Consultations: Hospitalist service - HOSPITAL COURSE Hospital Course: Mr. Dangelo was admitted for pain control and supportive care as well as mo nitoring for + COVID 19 diagnosis. He has returned to his baseline mental status and rarely complains of pain. He has not symptoms of respiratory distress and his chest xray is reassuring . He is eating a soft diet without any difficulty. [place] catheter has been removed. His anticoagulant has been resumed and he has no evidence of bleeding. He will be discharged back to [facility] to resume all of his preadmission medications. His only new prescription will be for Baclofen to aid with pain control. He will follow up with me in my office in 2 week.s - ALLERGIES Allergies/Adverse Reactions: Allergies Allergy/AdvReac Type Severity Reaction Status Date / Time codeine AdvReac Intermediate Nausea Verified 05/15/20 16:55 memantine HCl * AdvReac Anxiety Verified 05/15/20 16:55 [From Namenda] - MEDICATIONS Home Medications: Ambulatory Orders Medication Instructions Recorded Confirmed Metformin HCl [Glucophage] 500 mg PO BIDWM 06/04/13 05/16/20 Phenyleph/Pramoxin/Glycr/W.pet 1 applic [place] DAILY PRN 11/17/19 05/16/20 [Preparation H Cream] traZODone [Desyrel] 50 mg PO QPM 12/08/19 05/16/20 Carboxymethylcellulose Sodium 1 drops EACHEYE QPM 01/12/20 05/16/20 [Artificial Tears] Fluticasone [Flonase] 1 spray IH DAILY 03/23/20 05/16/20 Budesonide/Formoterol Fumarate 2 puffs INH BID 05/16/20 05/16/20 [Symbicort 160-4.5 Mcg Inhaler] Dexamethasone [Decadron] 6 mg PO DAILY 05/16/20 05/16/20 Ferrous Sulfate 325 mg PO DAILY 05/16/20 05/16/20 Levetiracetam [Keppra] 500 mg PO BID 05/16/20 05/16/20 Morphine Sulfate [Morphine Sulf 5 - 10 mg PO Q2H PRN 05/16/20 05/16/20 Oral (Roxanol)] Acetaminophen [Tylenol] 500 mg PO Q6H tablet 05/19/20 Baclofen 5 mg PO Q6H PRN #30 tablet 05/19/20 Rivaroxaban [Xarelto] 20 mg ORAL DAILYWM #30 tab 05/19/20 - PHYSICAL EXAM AT DISCHARGE General Appearance: positive: No acute distress, Alert Eyes Bilateral: positive: Normal inspection, PERRL, EOMI ENT: positive: ENT inspection nml Neck: positive: Nml inspection Respiratory: positive: Other (Chest is tender to palpation but without obvious bruising. Good air movement bilaterally,) Cardiovascular: positive: Regular rate & rhythm Peripheral Pulses: positive: 0 Abdomen: positive: Non-tender, Nml bowel sounds Neurologic/Psychiatric: positive: Disoriented to person, Disoriented to place, Disoriented to time - LABS Result Diagrams: 05/19/20 06:10 05/19/20 06:10 - QUALITY (Female Hip Fx Only) Was patient sent home on osteoporosis medication?: No - FOLLOW UP Follow Up: With Shaun Sethi in the next [address] Jung in 2 weeks - TIME SPENT Time Spent in Discharge (Minutes): 30"
--- NOTE | 2020-05-19 10:14 | Discharge Plan ---
"Discharge Plan for SNF / [facility] - Discharge Plan And Transition Orders Problem Reviewed?: Yes Disposition: 03 SNF DC/Xfer Condition: Stable Allergies and Adverse Reactions: Allergies Allergy/AdvReac Type Severity Reaction Status Date / Time codeine AdvReac Intermediate Nausea Verified 05/15/20 16:55 memantine HCl * AdvReac Anxiety Verified 05/15/20 16:55 [From Namenda] - SNF / [facility] Transition Orders Admit to (Facility): [facility] Discharge Diagnosis: Fall with multiple rib fractures Medicare Certification Statement: I certify that [facility] care is medically necessary on a continuing basis for any of the conditions for which she/he is receiving care during hospitalization. Notify PCP of admission and forward orders to primary provider for signature. Other Notification Orders: Call PCP immediately if patient develops dyspnea, chest pain/tightness or edema. House Bowel Program: Yes Additional Bowel Program Orders: If no BM after 2 days, nurse may give M.O.M. 30ml PO PRN and/or ducolax Supp 1 NE and/or ALLIE 250mg P.O., and/or senna 1-2 tabs PO. On day 3 nurse may give repeat above order until residents constipation is resolved. Annual Influenza Vaccine (between Feb 16 and September 15): Yes Two-step PPD per [facility] [phone] or approved exception documents: Yes Medication Orders: PLEASE REFER TO THE DISCHARGE MEDICATION LIST. Insulin Orders?: No - Medications New Prescriptions: Baclofen 5 mg PO Q6H PRN #30 tablet PRN Reason: Spasms Rivaroxaban [Xarelto] 20 mg ORAL DAILYWM #30 tab - Diet Type: Geriatric Texture: Mech soft Liquids: Thin May have monthly special meal: Yes - Therapies | Activity Rehabilitation Potential: Maximize functional status Activity: must not lift >10 pound Assistance Devices: Walker Additional Instructions: No Metformin through Sunday, he may restarted on Sunday. Follow Up: Dr. Jung in 2 weeks"
[2020-05-19 14:48] VITALS: BP 120/58
[2020-05-19] MEDS ORDERED: RIVAROXABAN 10 MG TABLET PO SCH (18:00)
== END 2020-05-19 15:50 | DRG 947 ==
LOC: EDUNIT# → ED 16:20 → MS3 05-16 00:47
PROVIDERS: ADMIT Surgery; ATTEND Surgery
DX: G89.11 Acute pain due to trauma (principal); U07.1 COVID-19; S22.42XA Multiple fractures of ribs, left side, initial encounter for closed fracture; W18.30XA Fall on same level, unspecified, initial encounter; F03.90 Unspecified dementia, unspecified severity, without behavioral disturbance, psychotic disturbance, mood disturbance, and anxiety; Z91.81 History of falling; J90 Pleural effusion, not elsewhere classified; J98.11 Atelectasis; Y92.121 Bathroom in nursing home as the place of occurrence of the external cause; G30.9 Alzheimer's disease, unspecified; F02.80 Dementia in other diseases classified elsewhere, unspecified severity, without behavioral disturbance, psychotic disturbance, mood disturbance, and anxiety; G40.909 Epilepsy, unspecified, not intractable, without status epilepticus; Z86.711 Personal history of pulmonary embolism; Z79.01 Long term (current) use of anticoagulants; Z96.643 Presence of artificial hip joint, bilateral; E11.9 Type 2 diabetes mellitus without complications; Z79.84 Long term (current) use of oral hypoglycemic drugs; Z66 Do not resuscitate; Z86.73 Personal history of transient ischemic attack (TIA), and cerebral infarction without residual deficits; Z99.3 Dependence on wheelchair; I10 Essential (primary) hypertension; N40.1 Benign prostatic hyperplasia with lower urinary tract symptoms; N39.44 Nocturnal enuresis; R35.0 Frequency of micturition
CPT/HCPCS: 36415; 70450; 71045; 71260; 72125; 73521; 74177; 80048; 80053; 83036; 83690; 85025; 85610; 87631; 96374; 99285; A9270; J0131; Q9967; 0202U

== ENCOUNTER 2020-05-19 15:48 | Outpatient (CLI) | payer MEDICARE | END 2020-05-19 15:49 | disposition home or self-care (01) | LOC: EMS 15:48 | PROVIDERS: ATTEND Surgery | DX: S22.39XD Fracture of one rib, unspecified side, subsequent encounter for fracture with routine healing (principal); W19.XXXD Unspecified fall, subsequent encounter; G30.9 Alzheimer's disease, unspecified; U07.1 COVID-19; Z74.01 Bed confinement status | CPT/HCPCS: A0425; A0428 ==